=== PATIENT | male | born 1980 | race Caucasian/White ===

== ENCOUNTER 2017-09-05 19:35 | Inpatient (IN) | payer MEDICAID, OTHER ==
[2017-09-05] MEDS ORDERED: NS 1,000 ML IV ONE ×2 (20:14)
[2017-09-05] MEDS ORDERED: LORazepam 2 MG/ML INJ IVP ONE (20:19)
--- NOTE | 2017-09-05 20:28 | EDPHY ---
H & P Stated Complaint: W/D OPIOIDS "SLEEP DEPRIVED, DEHYDRATED" Time Seen by Provider: 09/05/17 19:46 HPI/ROS: CHIEF COMPLAINT: Weakness, confusion, opioid withdrawal, methamphetamine abuse HISTORY OF PRESENT ILLNESS: The patient presents to the ED with weakness, confusion, reported dehydration in the setting of insomnia, excess work, opioid withdrawal x1 week and methamphetamine use over the past 3 days. The patient denies history of fall or trauma. The patient reports feeling globally weak. He reports dark urine. He reports generalized myalgias. The patient denies taking regular prescription medications. He has been on Suboxone as well. The patient reports he used IV methamphetamine 3 days ago. The patient does endorse some symptoms of dysuria. He complains of some mild redness over his 1st MTP joints bilaterally. REVIEW OF SYSTEMS: A comprehensive 10 point review of systems is otherwise negative aside from elements mentioned in the history of present illness. Source: Patient Exam Limitations: No limitations - Personal History Current Tetanus Diphtheria and Acellular Pertussis (TDAP): Yes - Medical/Surgical History Hx Asthma: No Hx Chronic Respiratory Disease: No Hx Diabetes: No Hx Cardiac Disease: No Hx Renal Disease: No Hx Cirrhosis: No Hx Alcoholism: No Hx HIV/AIDS: No Hx Splenectomy or Spleen Trauma: No Other PMH: DENIES - Social History Smoking Status: Heavy smoker - Physical Exam Exam: General Appearance: Alert, slightly tremulous, diaphoretic Eyes: Pupils equal and round no pallor or injection ENT, Mouth: Mucous membranes moist Respiratory: There are no retractions, lungs are clear to auscultation Cardiovascular: Tachycardic Gastrointestinal: Abdomen is soft and nontender, no masses, bowel sounds normal Neurological: A&O, normal motor function, normal sensory exam, normal cranial nerves Skin: Warm and dry, no rashes Musculoskeletal: Neck is supple nontender Extremities: symmetrical, full range of motion Constitutional: Initial Vital Signs Temperature (C) 36.4 C 09/05/17 19:40 Heart Rate 122 H 09/05/17 19:40 Respiratory Rate 20 09/05/17 19:40 Blood Pressure 97/57 L 09/05/17 19:40 O2 Sat (%) 94 09/05/17 19:40 O2 Delivery Mode Room Air Allergies/Adverse Reactions: No Known Allergies Allergy (Unverified 09/05/17 19:40) Home Medications: Medication Instructions Recorded NK [No Known Home Meds] 09/05/17 Medical Decision Making - Diagnostics Imaging Results: Chest x-ray AP: Negative for focal infiltrate by my interpretation. Procedures: Procedure: Limited transthoracic echocardiogram. A limited transthoracic echocardiogram was performed and interpreted by myself for hypotension, tachycardia. Limited transthoracic echocardiogram: The pericardium was visualized and found to be negative for pericardial fluid. Cardiac activity was present. The study was negative for pericardial effusion. ED Course/Re-evaluation: The patient presents to the ED with weakness, subjective dehydration, fatigue and myalgias in the setting of opioid withdrawal and methamphetamine abuse. While in the emergency department, the patient did developed hypotension. He was noted to have a sodium 122. He received 1 L of normal saline. The patient developed a blood pressure 80/60. Blood cultures x2 are obtained. An ABG an arterial lactic acid or ordered at 10:00 p.m.. The patient was noted to have an abnormal urinalysis with pyuria and hematuria. I have declared severe sepsis in the patient at 10:00 p.m.. The patient will be given a 30 milligram/kilogram bolus. 1 g of IV ceftriaxone was ordered. The patient's venous pH is normal. The patient's lactate is reassuring at 1.5. I did perform a bedside echocardiogram which demonstrated no evidence of a pericardial effusion. Is unclear whether the patient's urine is abnormal from kidney injury versus infection. The patient is afebrile in the emergency department. I feel the patient's hypotension is secondary to volume depletion. I feel further fluid resuscitation is indicated before beginning any pressor support. The patient will be transferred to the step-down unit at this point time. Differential Diagnosis: Differential diagnosis considered includes severe sepsis, dehydration, rhabdomyolysis, metabolic abnormality - Data Points Laboratory Results: Laboratory Results 09/05/17 19:41 09/05/17 19:41 09/05/17 09/05/17 09/05/17 20:00 19:41 19:41 WBC RBC Hgb Hct MCV MCH MCHC RDW Plt Count MPV Neut % (Auto) Lymph % (Auto) [place] % (Auto) Eos % (Auto) Baso % (Auto) Nucleat RBC Rel Count Absolute Neuts (auto) Absolute Lymphs (auto) Absolute Monos (auto) Absolute Eos (auto) Absolute Basos (auto) Absolute Nucleated RBC Immature Gran % Seg Neutrophils % Band Neutrophils % Lymphocytes % Monocytes % Eosinophils % Basophils % Metamyelocytes % Myelocytes % Promyelocytes % Blast Cells % Immature Gran # Absolute Band Neuts RBC/WBC/PLT Morphology Plasma Cells % Platelet Estimate Smear Review By PT Pending INR Pending APTT Pending Sodium Potassium Chloride Carbon Dioxide Anion Gap BUN Creatinine Estimated GFR Glucose Calcium Phosphorus Pending Magnesium Pending Total Bilirubin 1.5 mg/dL H mg/dL (0.1-1.4) Conjugated Bilirubin 1.4 mg/dL H mg/dL (0.0-0.5) Unconjugated Bilirubin 0.1 mg/dL mg/dL (0.0-1.1) AST 43 IU/L IU/L (17-59) ALT 31 IU/L IU/L (21-72) Alkaline Phosphatase 141 IU/L H IU/L (38-126) Creatine Kinase Total Protein 5.6 g/dL L g/dL (6.3-8.2) Albumin 2.5 g/dL L g/dL (3.5-5.0) Procalcitonin Pending Urine Color ONEYDA Urine Appearance TURBID Urine pH 5.0 (5.0-7.5) Ur Specific [place] 1.019 (1.002-1.030) Urine Protein 2+ H (NEGATIVE) Urine Ketones NEGATIVE (NEGATIVE) Urine Blood 3+ H (NEGATIVE) Urine Nitrate NEGATIVE (NEGATIVE) Urine Bilirubin NEGATIVE (NEGATIVE) Urine Urobilinogen 4.0 EU H EU (0.2-1.0) Ur Leukocyte Esterase 2+ H (NEGATIVE) Urine RBC 50-182 /hpf H /hpf (0-3) Urine WBC 50-182 /hpf H /hpf (0-3) Ur Epithelial Cells NONE SEEN /lpf /lpf (NONE-1+) Urine Bacteria 2+ /hpf H /hpf (NONE SEEN) Hyaline Casts >182 /lpf H /lpf (0-1) Urine Mucus 2+ /lpf H /lpf (NONE-1+) Urine Sperm PRESENT /hpf /hpf (NONE SEEN) Urine Glucose NEGATIVE (NEGATIVE) Urine Opiates Screen NEGATIVE (NEGATIVE) Urine Barbiturates NEGATIVE (NEGATIVE) Ur Phencyclidine Scrn NEGATIVE (NEGATIVE) Ur Amphetamine Screen NON-NEGATIVE H (NEGATIVE) U Benzodiazepines Scrn NEGATIVE (NEGATIVE) Urine Cocaine Screen NEGATIVE (NEGATIVE) U Marijuana (THC) Screen NEGATIVE (NEGATIVE) Ethyl Alcohol 09/05/17 09/05/17 09/05/17 19:41 19:41 19:41 WBC 24.55 10^3/uL H 10^3/uL (3.80-9.50) RBC 4.06 10^6/uL L 10^6/uL (4.40-6.38) Hgb 13.0 g/dL L g/dL (13.7-17.5) Hct 35.8 % L % (40.0-51.0) MCV 88.2 fL fL (81.5-99.8) MCH 32.0 pg pg (27.9-34.1) MCHC 36.3 g/dL g/dL (32.4-36.7) RDW 11.8 % % (11.5-15.2) Plt Count 38 10^3/uL L 10^3/uL (150-400) MPV TNP Neut % (Auto) Not Reported Lymph % (Auto) Not Reported Crawford % (Auto) Not Reported Eos % (Auto) Not Reported Baso % (Auto) Not Reported Nucleat RBC Rel Count Not Reported Absolute Neuts (auto) Not Reported Absolute Lymphs (auto) Not Reported Absolute Monos (auto) Not Reported Absolute Eos (auto) Not Reported Absolute Basos (auto) Not Reported Absolute Nucleated RBC Not Reported Immature Gran % Not Reported Seg Neutrophils % 75.8 % % Band Neutrophils % 19.2 % % Lymphocytes % 2.0 % % Monocytes % 1.0 % % Eosinophils % 0 % % Basophils % 0 % % Metamyelocytes % 1.0 % % Myelocytes % 0 % % Promyelocytes % 0 % % Blast Cells % 0 % % Immature Gran # Not Reported Absolute Band Neuts 4.71 10^3/uL H 10^3/uL (0.00-0.70) RBC/WBC/PLT Morphology NORMAL (NORMAL) Plasma Cells % 1.0 % % Platelet Estimate DECREASED L (ADEQ) Smear Review By Pending PT INR APTT Sodium 122 mEq/L L mEq/L (135-145) Potassium 3.4 mEq/L L mEq/L (3.5-5.2) Chloride 84 mEq/L L mEq/L (97-110) Carbon Dioxide 24 mEq/l mEq/l (22-31) Anion Gap 14 mEq/L mEq/L (8-16) BUN 51 mg/dL H mg/dL (7-23) Creatinine 1.7 mg/dL H mg/dL (0.7-1.3) Estimated GFR 46 Glucose 156 mg/dL H mg/dL (70-100) Calcium 7.4 mg/dL L mg/dL (8.5-10.4) Phosphorus Magnesium Total Bilirubin Conjugated Bilirubin Unconjugated Bilirubin AST ALT Alkaline Phosphatase Creatine Kinase 59 IU/L IU/L (0-224) Total Protein Albumin Procalcitonin Urine Color Urine Appearance Urine pH Ur Specific [place] Urine Protein Urine Ketones Urine Blood Urine Nitrate Urine Bilirubin Urine Urobilinogen Ur Leukocyte Esterase Urine RBC Urine WBC Ur Epithelial Cells Urine Bacteria Hyaline Casts Urine Mucus Urine Sperm Urine Glucose Urine Opiates Screen Urine Barbiturates Ur Phencyclidine Scrn Ur Amphetamine Screen U Benzodiazepines Scrn Urine Cocaine Screen U Marijuana (THC) Screen Ethyl Alcohol < 10 mg/dL mg/dL (0-10) Medications Given: Sodium Chloride (Ns) 2,400 mls @ 400 mls/hr 30 ml/kg infuse over 6 hr (2400 ml ) IV EDNOW ONE PRN Reason: Protocol Stop: 09/06/17 03:55 Last Admin: 09/05/17 22:02 Dose: 2,400 mls Discontinued Medications Sodium Chloride (Ns) 1,000 mls @ 0 mls/hr IV EDNOW ONE; Wide Open PRN Reason: Protocol Stop: 09/05/17 20:15 Last Admin: 09/05/17 20:20 Dose: 1,000 mls Sodium Chloride (Ns) 1,000 mls @ 0 mls/hr IV EDNOW ONE; Wide Open PRN Reason: Protocol Stop: 09/05/17 20:15 Last Admin: 09/05/17 20:20 Dose: 1,000 mls Ceftriaxone Sodium/Dextrose (Rocephin 1 Gm (Premix)) 50 mls @ 100 mls/hr IV EDNOW ONE PRN Reason: Protocol Stop: 09/05/17 22:25 Last Admin: 09/05/17 22:04 Dose: 50 mls Lorazepam (Ativan Injection) 1 mg IVP EDNOW ONE Stop: 09/05/17 20:20 Last Admin: 09/05/17 20:36 Dose: Not Given Departure - Departure Disposition: [facility] Inpatient Acute Clinical Impression: Renal failure, Hyponatremia, Dehydration Condition: Good
[2017-09-05 20:45] LABS: PLATELET COUNT 38 10^3/uL (150-400)
[2017-09-05 20:47] LABS: CREATINE KINASE 59 IU/L (0-224)
[2017-09-05] MEDS ORDERED: NS 2,400 ML IV ONE (21:56)
[2017-09-05] MEDS ORDERED: ONDANSETRON 4 MG/2 ML VIAL IVP PRN (22:25)
[2017-09-05] MEDS ORDERED: ACETAMINOPHEN 325 MG TAB PO PRN (22:25)
[2017-09-05] MEDS ORDERED: LORazepam 0.5 MG TAB PO PRN (22:25)
[2017-09-05] MEDS ORDERED: 1/2 NS 1,000 ML IV SCH (22:30)
[2017-09-05 22:46] LABS: INR 1.18 (0.83-1.16); PROTIME(PATIENT) 15.2 SEC (12.0-15.0)
--- NOTE | 2017-09-05 23:44 | PDGENHP ---
History and Physical - Chief Complaint weakness, dehydration - History of Present Illness Source-patient provides history appears reliable. EMR was reviewed and case discussed with accepting hospitalist. HPI - this is a 37-year-old gentleman with past medical history significant for chronic opiate tapering on Suboxone and history of IVDU with meth, possible HCV who presents emergency department today complaining of 5 day history of feeling weak, lightheadedness and being severely dehydrated. The patient has had noted decreased appetite over the last 3 days in particular. No nausea vomiting abdominal pain. Patient denies any fevers or chills. He has been complaining of some significant myalgias and restlessness. Patient reports that time he has been withdrawing to last dose of Suboxone and met methamphetamines 5 days ago. Patient is also noted some lightheadedness without any syncope. Positive cough, nonproductive and occasional shortness of breath.. Patient also reports that today he is urine was quite dark and he has been feeling a little bit of dysuria but no hematuria noted. He denies any flank pain. No diarrhea reported. Patient has also been reporting in the last several days he has noticed some increased swelling and redness around multiple joints including his left 5th MCP and bilateral great toes MTP. He is also complaining some soreness in his knees bilaterally but no swelling or erythema. Patient has been complaining of some blurry vision with lightheadedness. Occasional palpitations but no chest pain. History Information - Allergies/Home Medication List Allergies/Adverse Reactions: No Known Allergies Allergy (Unverified 09/05/17 19:40) Home Medications: NK [No Known Home Meds] 09/05/17 [Last Taken Unknown] I have personally reviewed and updated: family history, medical history, social history, surgical history - Past Medical History Additional medical history: Possible HCV, history MRSA abscesses, positive tobacco use, IVDU-methamphetamine - Surgical History Additional surgical history: Right inguinal hernia repair, I&D of the left arm - Family History Additional family history: Negative for hypertension, diabetes, CAD. Positive for cousins with substance abuse disorder - Social History Smoking Status: Heavy smoker Tobacco Use: Cigarettes (One pack per day for many years) Alcohol Use: Occasionally (Patient with previous history of daily alcohol use last 1 month ago.) Drug Use: Other (Methamphetamine-IVDU) Additional social history: Patient lives in [place] he is here on temporarily for work. Cor-full Review of Systems Review of Systems: ROS: 10pt was reviewed & negative except for what was stated in HPI & below Constitutional: Reports: malaise, weakness (Generalized). Denies: chills, fever EENMT: Reports: blurred vision, sore throat (Hoarseness, dry mouth). Denies: nose congestion Cardiac: Reports: lightheadedness, palpitations. Denies: chest pain, edema, syncope Respiratory: Reports: cough (Nonproductive), shortness of breath (Occasional). Denies: wheezing Gastrointestinal: Reports: other (Decreased appetite). Denies: vomitting, abdominal pain, diarrhea, nausea Genitourinary: Reports: dysuria. Denies: discharge, flank pain, frequency, hematuria, urgency Muscolosketal: Reports: joint pain (See HPI), joint swelling, muscle pain Skin: Reports: no symptoms. Denies: rash Neurological: Reports: numbness (Wrist), weakness (Generalized). Denies: anxiety, depressed, headache Hematologic/Lymphatic: Denies: anemia, easy bleeding Physical Exam Physical Exam: Selected Entries 09/05/17 09/05/17 19:40 22:46 Blood Pressure Automatic Method Heart Rate 122 H 103 H Respiratory 20 23 H Rate O2 Sat (%) 94 94 Temperature (C) 36.4 C Blood Pressure 97/57 L 84/48 L Mean Arterial 70 60 Pressure (MAP) O2 Delivery Room Air Room Air Mode Temperature Oral Source Cardiac Rhythm Sinus Tachycardia Constitutional: chronically ill appearing, other (No acute distress. Appears acutely ill but nontoxic. Patient is awake and cooperative otherwise pleasant. He is a restless and tremulous. Appears quite dehydrated.) Eyes: PERRL (Slightly decreased reactivity to light bilaterally but symmetric.) , anicteric sclera, EOMI, No scleral injection Ears, Nose, Mouth, Throat: no oral mucosal ulcers, poor dentition (Fair condition), dry mucous membranes (Dry cracked lips) Cardiovascular: no murmur, rub, or gallop, pulses symmetric bilaterally, tachycardia (90s), edema (Some symmetrical swelling bilateral hands and feet. Patient with joint erythema and swelling left 5th PIP and bilateral 1st toe MTP. ) Peripheral Pulses: 2+: dorsalis-pedis (R), dorsalis-pedis (L) Respiratory: no respiratory distress, no rales or rhonchi, clear to auscultation , reduced air movement (Slightly diminished at the bases.), other (Patient with intermittent coughing during the interview.) Gastrointestinal: soft, non-tender abdomen, no palpable masses, No hepatosplenomegally, No distension Genitourinary: no bladder tenderness, other (No flank pain), No arellano in urethra Skin: warm, no rashes or abrasions, erythema (First left M CP) Musculoskeletal: full muscle strength, joint tenderness, muscular tenderness ( Patient complains of diffuse myalgias.), No generalized weakness Neurologic: AAOx3, sensation intact bilaterally, CN II-XII Intact, other ( Resting tremor), No facial droop Psychiatric: not encephalopathic, thought process linear, anxious, No suicidal ideation, No agitated, No poor insight, No poor judgement, No poor memory Lab Data & Imaging Review 09/05/17 19:41 09/05/17 19:41 WBC 24.55 10^3/uL (3.80-9.50) H 09/05/17 19:41 RBC 4.06 10^6/uL (4.40-6.38) L 09/05/17 19:41 Hgb 13.0 g/dL (13.7-17.5) L 09/05/17 19:41 Hct 35.8 % (40.0-51.0) L 09/05/17 19:41 MCV 88.2 fL (81.5-99.8) 09/05/17 19:41 MCH 32.0 pg (27.9-34.1) 09/05/17 19:41 MCHC 36.3 g/dL (32.4-36.7) 09/05/17 19:41 RDW 11.8 % (11.5-15.2) 09/05/17 19:41 Plt Count 38 10^3/uL (150-400) L 09/05/17 19:41 MPV TNP 09/05/17 19:41 Neut % (Auto) Not Reported 09/05/17 19:41 Lymph % (Auto) Not Reported 09/05/17 19:41 [place] % (Auto) Not Reported 09/05/17 19:41 Eos % (Auto) Not Reported 09/05/17 19:41 Baso % (Auto) Not Reported 09/05/17 19:41 Nucleat RBC Rel Count Not Reported 09/05/17 19:41 Absolute Neuts (auto) Not Reported 09/05/17 19:41 Absolute Lymphs (auto) Not Reported 09/05/17 19:41 Absolute Monos (auto) Not Reported 09/05/17 19:41 Absolute Eos (auto) Not Reported 09/05/17 19:41 Absolute Basos (auto) Not Reported 09/05/17 19:41 Absolute Nucleated RBC Not Reported 09/05/17 19:41 Immature Gran % Not Reported 09/05/17 19:41 Seg Neutrophils % 75.8 % 09/05/17 19:41 Band Neutrophils % 19.2 % 09/05/17 19:41 Lymphocytes % 2.0 % 09/05/17 19:41 Monocytes % 1.0 % 09/05/17 19:41 Eosinophils % 0 % 09/05/17 19:41 Basophils % 0 % 09/05/17 19:41 Metamyelocytes % 1.0 % 09/05/17 19:41 Myelocytes % 0 % 09/05/17 19:41 Promyelocytes % 0 % 09/05/17 19:41 Blast Cells % 0 % 09/05/17 19:41 Immature Gran # Not Reported 09/05/17 19:41 Absolute Band Neuts 4.71 10^3/uL (0.00-0.70) H 09/05/17 19:41 RBC/WBC/PLT Morphology NORMAL (NORMAL) 09/05/17 19:41 Plasma Cells % 1.0 % 09/05/17 19:41 Platelet Estimate DECREASED (ADEQ) L 09/05/17 19:41 PT 15.2 SEC (12.0-15.0) H 09/05/17 19:41 INR 1.18 (0.83-1.16) H 09/05/17 19:41 APTT 34.3 SEC (23.0-38.0) 09/05/17 19:41 Puncture Site RIGHT RADIAL 09/05/17 22:05 Patient Temperature 37.0 DEGREES 09/05/17 22:05 pCO2 30 mmHg (34-38) L 09/05/17 22:05 pO2 59 mmHg (65-75) L 09/05/17 22:05 Total CO2 22 mEq/L (23-27) L 09/05/17 22:05 ABG pH 7.45 (7.35-7.45) 09/05/17 22:05 ABG PO2/FiO2 Ratio Cancelled 09/05/17 22:17 ABG HCO3 21 mEq/L (22-26) L 09/05/17 22:05 ABG O2 Sat (Calculated) Cancelled 09/05/17 22:17 ABG O2 Saturation 90 % (92-95) L 09/05/17 22:05 ABG Base Excess -2.2 mEq/L (-2.5-2.5) 09/05/17 22:05 ABG Lactic Acid 1.4 mmol/L (0.5-1.6) 09/05/17 22:05 VBG Lactic Acid 1.5 mmol/L (0.7-2.1) 09/05/17 22:06 Total O2 Concentration Cancelled 09/05/17 22:17 O2 Concentration % Cancelled 09/05/17 22:17 Respiration Rate Cancelled 09/05/17 22:17 Actual Respiration Rate Cancelled 09/05/17 22:17 Set Respiration Rate Cancelled 09/05/17 22:17 SIMV Cancelled 09/05/17 22:17 Assist Control Cancelled 09/05/17 22:17 Vent Rate Cancelled 09/05/17 22:17 Inspiratory Time Cancelled 09/05/17 22:17 Expiratory Pressure Cancelled 09/05/17 22:17 Tidal Volume Cancelled 09/05/17 22:17 End Tidal CO2 Cancelled 09/05/17 22:17 PEEP Cancelled 09/05/17 22:17 Inspiratory Pressure Cancelled 09/05/17 22:17 Peak Inspir Pressure Cancelled 09/05/17 22:17 Pressure Support Cancelled 09/05/17 22:17 Pressure Control Cancelled 09/05/17 22:17 CPAP Cancelled 09/05/17 22:17 BiPAP Cancelled 09/05/17 22:17 Mode BiPAP Cancelled 09/05/17 22:17 Inspir/Expir Ratio Cancelled 09/05/17 22:17 Sodium 122 mEq/L (135-145) L 09/05/17 19:41 Potassium 3.4 mEq/L (3.5-5.2) L 09/05/17 19:41 Chloride 84 mEq/L (97-110) L 09/05/17 19:41 Carbon Dioxide 24 mEq/l (22-31) 09/05/17 19:41 Anion Gap 14 mEq/L (8-16) 09/05/17 19:41 BUN 51 mg/dL (7-23) H 09/05/17 19:41 Creatinine 1.7 mg/dL (0.7-1.3) H 09/05/17 19:41 Estimated GFR 46 09/05/17 19:41 Glucose 156 mg/dL (70-100) H 09/05/17 19:41 Calcium 7.4 mg/dL (8.5-10.4) L 09/05/17 19:41 Phosphorus 2.9 mg/dL (2.5-4.5) 09/05/17 19:41 Magnesium 1.8 mg/dL (1.6-2.3) 09/05/17 19:41 Total Bilirubin 1.5 mg/dL (0.1-1.4) H 09/05/17 19:41 Conjugated Bilirubin 1.4 mg/dL (0.0-0.5) H 09/05/17 19:41 Unconjugated Bilirubin 0.1 mg/dL (0.0-1.1) 09/05/17 19:41 AST 43 IU/L (17-59) 09/05/17 19:41 ALT 31 IU/L (21-72) 09/05/17 19:41 Alkaline Phosphatase 141 IU/L (38-126) H 09/05/17 19:41 Creatine Kinase 59 IU/L (0-224) 09/05/17 19:41 Total Protein 5.6 g/dL (6.3-8.2) L 09/05/17 19:41 Albumin 2.5 g/dL (3.5-5.0) L 09/05/17 19:41 Procalcitonin 4.35 ng/mL (0.02-0.10) H 09/05/17 19:41 Urine Color ONEYDA 09/05/17 20:00 Urine Appearance TURBID 09/05/17 20:00 Urine pH 5.0 (5.0-7.5) 09/05/17 20:00 Ur Specific Closplint 1.019 (1.002-1.030) 09/05/17 20:00 Urine Protein 2+ (NEGATIVE) H 09/05/17 20:00 Urine Ketones NEGATIVE (NEGATIVE) 09/05/17 20:00 Urine Blood 3+ (NEGATIVE) H 09/05/17 20:00 Urine Nitrate NEGATIVE (NEGATIVE) 09/05/17 20:00 Urine Bilirubin NEGATIVE (NEGATIVE) 09/05/17 20:00 Urine Urobilinogen 4.0 EU (0.2-1.0) H 09/05/17 20:00 Ur Leukocyte Esterase 2+ (NEGATIVE) H 09/05/17 20:00 Urine RBC 50-182 /hpf (0-3) H 09/05/17 20:00 Urine WBC 50-182 /hpf (0-3) H 09/05/17 20:00 Ur Epithelial Cells NONE SEEN /lpf (NONE-1+) 09/05/17 20:00 Urine Bacteria 2+ /hpf (NONE SEEN) H 09/05/17 20:00 Hyaline Casts >182 /lpf (0-1) H 09/05/17 20:00 Urine Mucus 2+ /lpf (NONE-1+) H 09/05/17 20:00 Urine Sperm PRESENT /hpf (NONE SEEN) 09/05/17 20:00 Urine Glucose NEGATIVE (NEGATIVE) 09/05/17 20:00 Urine Opiates Screen NEGATIVE (NEGATIVE) 09/05/17 20:00 Urine Barbiturates NEGATIVE (NEGATIVE) 09/05/17 20:00 Ur Phencyclidine Scrn NEGATIVE (NEGATIVE) 09/05/17 20:00 Ur Amphetamine Screen NON-NEGATIVE (NEGATIVE) H 09/05/17 20:00 U Benzodiazepines Scrn NEGATIVE (NEGATIVE) 09/05/17 20:00 Urine Cocaine Screen NEGATIVE (NEGATIVE) 09/05/17 20:00 U Marijuana (THC) Screen NEGATIVE (NEGATIVE) 09/05/17 20:00 Ethyl Alcohol < 10 mg/dL (0-10) 09/05/17 19:41 Imaging Review: Portable Chest, 22:41 History: Hypotension, drug withdrawal Comparison: None Findings: Patchy density in the lower lateral left lung is consistent with possible pneumonia. There is no pleural fluid. Heart size and pulmonary vascularity are normal for portable technique. EKG leads overlie the chest. Impression: Possible left lower lung zone pneumonia. Visualized and Interpreted Chest x-ray results: Yes Chest X-Ray results: infiltrate (Left lower lobe. Some patchiness on the right. ) Visualized and Interpreted imaging results: Yes Assessment & Plan Assessment: 37-year-old male recently traveled from [place] who presents emergency department with complaints of dehydration, malaise, myalgias, concerns for withdrawal. #Sepsis - patient meeting criteria with tachycardia, leukocytosis also has some mild hypotension responsive to fluids. Patient without any mentation changes although he is restless and tremulous he is answering questions appropriately. Lactate is within normal limits and procalcitonin is elevated. Chest x-ray shows possible early left lower lobe infiltrate. He also has a history of IVDU with some complaints of joint swelling but I suspect this is likely gout as patient reports he has had previous episodes. He does not have any audible cardiac murmurs at this time. Patient does report history of MRSA abscesses in the past but no hospitalizations for sepsis. Patient without no additional abnormal labs including thrombocytopenia and elevated bilirubin but he does note he thinks he has a history of hepatitis-C chronicity unknown. Patient received 30 mL/kg bolus IV fluids in the emergency department, blood cultures x2 were ordered as well as urine culture. Patient was started on Rocephin for concerns of UTI. Given chest x-ray abnormalities in his history of MRSA will add on vancomycin for additional coverage. Patient also with a cough and some respiratory symptoms will check respiratory panel in addition. #Left lower lobe pneumonia - early infiltrates in the left lower base. Patient was started on Rocephin. Vancomycin added with patient's history of MRSA. #UTI - patient started on Rocephin. He is complaining of symptoms. Leukocyte esterase is elevated at patient 2+ bacteria on a concentrated sample. Urine culture is pending. #Hypotension - continue with IV fluid supplementation. #Hyponatremia - likely hypovolemic in nature patient does appear significantly dehydrated. Status post 2 L normal saline in the ED. Serial BMP in adjustment in fluids as appropriate. Continue with supplementation given patient's hypotension. #Acute kidney injury - likely pre renal in setting of severe dehydration as well as hypoperfusion with low blood pressures. Check urine studies in osmoles. Continue with IV fluids. Patient received 2 L normal saline in the emergency department will plan to monitor sodium levels q.4. #Dehydration - patient reports very poor oral intake and hydration last several days and has been traveling. Continue with IV fluids all monitoring sodium. #Thrombocytopenia - likely related to underlying liver disease versus patient's acute illness versus less likely DIC. #Anemia - baseline H&H are unknown. No reported history of active bleeding. Likely related to possible cirrhosis versus acute illness. Will monitor H&H and obtain up type and screen given patient's thrombocytopenia. #Poly arthralgias - suspect this could be gout. Will check a uric acid. Lower suspicion for septic arthritis S patient does report a previous history. He is on antibiotic therapy as noted above and will monitor closely. #Hypoalbuminemia - secondary to acute illness and underlying liver disease. Monitor LFTs. #Coagulopathy - is likely secondary to underlying liver disease versus less likely DIC. #Hypokalemia - replacement will be ordered. #Hypocalcemia - appears to correct for albumin. #Hyperbilirubinemia - possibly related to history of HCV versus sepsis. Continue with IV fluids and repeat LFTs in the morning. Patient denies any abdominal pain no significant elevation in LFTs. Consider imaging if no improvement. #Amphetamine abuse - patient does appear to be withdrawing and is restless but not agitated. He is pleasant cooperative. Ativan available p.r.n.. Cessation recommended. #Tobacco abuse - nicotine patch p.r.n.. #Hyperglycemia - nonfasting laboratory study. No history of diabetes. Will plan to monitor a.m. BMP. No additional treatment at this time. FEN - IV fluids as noted above. Electrolyte replacement as noted above. Diet as tolerated. PPX-SCDs holding anticoagulation secondary to thrombocytopenia. Cor status-full Disposition-patient admitted to inpatient status on the SCU. Anticipate greater than 2 midnight stay given severity of patient's illness.
[2017-09-06] MEDS ORDERED: VANCOMYCIN HCL/NORMAL SALINE 250 ML IV SCH
[2017-09-06] MEDS: NS 1,000 ML IV SCH ×3 (01:30→21:04)
[2017-09-06] MEDS ORDERED: NS 1,000 ML IV ONE ×2 (01:36→03:23)
[2017-09-06 03:02] LABS: HEPATITIS B SURFACE ANTIGEN NEGATIVE (NEGATIVE)
[2017-09-06 03:08] LABS: HEPATITIS A ANTIBODY IGM (BCH) NEGATIVE (NEGATIVE); HEPATITIS B CORE AB IGM NEGATIVE (NEGATIVE)
[2017-09-06 03:19] LABS: HEPATITIS C ANTIBODY TOTAL REACTIVE (NEGATIVE); HIV TYPE 1 AND 2 NEGATIVE (NEGATIVE)
[2017-09-06] MEDS ORDERED: PROTOCOL CALCIUM 1 DOSE IV PRN (03:24)
[2017-09-06] MEDS ORDERED: PROTOCOL K PHOSPHATE 1 DOSE IV PRN (03:24)
[2017-09-06] MEDS ORDERED: PROTOCOL MAGNESIUM 1 DOSE IV PRN (03:24)
[2017-09-06] MEDS ORDERED: PROTOCOL POTASSIUM 1 DOSE MISC PRN (03:24)
[2017-09-06] MEDS ORDERED: ALBUMIN 5% 500 ML IV ONE (04:07)
--- NOTE | 2017-09-06 05:14 | HOSPPROG ---
Hospitalist Progress Note Assessment/Plan: Hospitalist night float note Arrive to bedside after overhead stroke alert called. Patient had sudden change in neurologic status with left facial drooping, slurred speech and pupillary changes per primary RN. Patient admitted earlier yesterday for suspected sepsis with hypotension responsive to fluid initially. At time of my interview patient was tremulous, diaphoretic and anxious. He had a slight lower left lower facial droop. Cerebellar testing abnormal on the left. Patient is still oriented x3. He was taken down for stat CT head with the stroke team and [facility] Jodie had been placed with patient on route to CT scan. Patient's blood pressures had declined down to a systolic in the 80s despite bolus dosing and albumin. He does not have central venous access due to some concern for possible bacteremia and history of IV drug use. low- dose Levophed will be ordered. Blood sugar at bedside 98. Differential diagnosis including acute CVA versus septic emboli versus intracranial bleed with a history of platelet counts of 38K upon admission. Objective: Vital Signs Temp Pulse Resp BP Pulse Ox 36.7 C 119 H 35 H 84/53 L 94 09/06/17 03:00 09/06/17 03:00 09/06/17 03:00 09/06/17 03:00 09/06/17 03:00 09/04/17 09/05/17 09/06/17 05:59 05:59 05:59 Intake Total 3500 Output Total 350 Balance 3150 PT 15.2 SEC (12.0-15.0) H 09/05/17 19:41 INR 1.18 (0.83-1.16) H 09/05/17 19:41 ICD10 Worksheet Patient Problems: Problems Problem Status Onset Dehydration Acute Hyponatremia Acute Renal failure Acute
[2017-09-06] MEDS: NOREPINEPHRINE BITARTRATE 4 MG in NS 500 ML IV SCH ×2 (05:21→15:21)
--- NOTE | 2017-09-06 05:22 | CPEKG ---
Heart Rate: 117 RR Interval: 513 P-R Interval: 152 QRSD Interval: 82 QT Interval: 344 QTC Interval: 480 P [place]: 67 QRS [place]: 73 T Wave [place]: 33 EKG Severity - BORDERLINE ECG - EKG Impression: SINUS TACHYCARDIA EKG Impression: LOW VOLTAGE IN FRONTAL LEADS EKG Impression: BORDERLINE PROLONGED QT INTERVAL Electronically Signed By: Skyler Gutierrez 06-Sep-2017 08:52:36
[2017-09-06] MEDS ORDERED: NOREPINEPHRINE/NS 500 ML IV SCH (05:30)
[2017-09-06] MEDS ORDERED: LORazepam 2 MG/ML INJ IVP PRN (06:02)
[2017-09-06 06:03] LABS: PLATELET COUNT 25 10^3/uL (150-400)
[2017-09-06] MEDS ORDERED: NS ID ONE (06:07)
[2017-09-06] MEDS ORDERED: PHENTOLAMINE MESYLATE ID ONE (06:07)
[2017-09-06] MEDS ORDERED: FLUMAZENIL 0.5 MG/5 ML MDV IVP PRN (07:38)
[2017-09-06] MEDS ORDERED: LIDOCAINE 1% 300 MG/30 ML SDV ONE (07:59)
--- NOTE | 2017-09-06 08:14 | POSTOPPROG ---
Post Op Note Date of Operation: 09/06/17 Surgeon: Danny Boucher (, FACS) Anesthesia: GET(General Endotracheal) Pre-op Diagnosis: sepsis/need for venous access Post-op Diagnosis: same Procedure: placement left subclavian triple lumen cath Inf/Abcess present in the surg proc area at time of surgery?: Yes Depth: Organ Space (+ BC) EBL: Minimal
--- NOTE | 2017-09-06 08:28 | PDMN ---
Medical Necessity Medical necessity: MCG: M160 sepsis and other febrile illness A-2 days- tachycardia, leukocytosis, hypotension, M282 cPNA LLL Pna, UTI, hypotension, Hyponatremia, acute kidney injury, dehydration, thrombocytopenia, anemia, poly arthralgias, hypoalbuminemia, hypokalemia, hypokalemia, amphetamine abuse, hyperglycemia. , ... further monitoring and tx needed for above
[2017-09-06] MEDS ORDERED: CALCIUM CHLORIDE 1 GM/10 ML INJ IV ONE ×2 (08:30→08:45)
--- NOTE | 2017-09-06 08:58 | HOSPPROG ---
Hospitalist Progress Note Assessment/Plan: 37 yo M w likely staph aureua bacteremia here w septic shock septic shock: BRITNEY, hypotension requiring pressors, gpc bacteremia gpc bacteremia: on vanc presumably 2/2 IVDU follow exam of LUE no evidence of metastatic infection echo today AHRF: likely pulm edema from resuscitation will inevitably need intubation BIPAP now hypocalcemia: cacl2 now given hypotension BRITNEY: 2/2 septic shock volume resuscitation proph: scd's now LMWH given thrombocytopenia liver: h/o hep c this is likely cause of thrombocytopenia abd u/s hyponatremia: follow use NS not primary problem thrombocytopenia w coagulopathy: path review of smear looking for schistocytes TTP unnlikely but dont want to miss NO PETECHIAE dispo: critically ill, ICU 45 min crit care Subjective: hypotensive on pressors. cxr w b/l airspace disease (Interp by me) . case d/w dr preston Objective: Vital Signs Temp Pulse Resp BP Pulse Ox 36.9 C 113 H 27 H 81/63 L 100 09/06/17 08:17 09/06/17 08:17 09/06/17 08:17 09/06/17 08:17 09/06/17 08:17 Microbiology 09/06/17 06:20 Respiratory Panel (PCR) - Final Nasal, Sinus - Swab No Organism Detected Laboratory Results 09/06/17 04:40 09/06/17 04:40 09/05/17 09/06/17 09/07/17 05:59 05:59 05:59 Intake Total 3500 Output Total 350 Balance 3150 PT 15.2 SEC (12.0-15.0) H 09/05/17 19:41 INR 1.18 (0.83-1.16) H 09/05/17 19:41 - Physical Exam Constitutional: no apparent distress, other (confused but arousable) Eyes: PERRL, anicteric sclera Ears, Nose, Mouth, Throat: moist mucous membranes, hearing normal Cardiovascular: tachycardia, No systolic murmur Respiratory: other (crackles and coarse breath sounds anterolat) Gastrointestinal: normoactive bowel sounds, soft, non-tender abdomen, No guarding, No rebound Genitourinary: no bladder fullness, arellano in urethra Skin: warm, normal color Musculoskeletal: other (no joint effusion/erythema. L forearm w needle nolan that are supposedly from flumazenil admin) Neurologic: No AAOx3 Psychiatric: interacting appropriately Lymph, Heme, Immunologic: no cervical LAD ICD10 Worksheet Patient Problems: Problems Problem Status Onset Dehydration Acute Hyponatremia Acute Renal failure Acute
[2017-09-06] MEDS ORDERED: ALBUMIN 25% 200 ML IV ONE (08:59)
[2017-09-06] MEDS: THIAMINE HCL 500 MG in NS 100 ML IV SCH (09:31)
[2017-09-06] MEDS: VANCOMYCIN HCL/NORMAL SALINE 250 ML IV SCH ×3 (09:31→22:21)
[2017-09-06] MEDS: NICOTINE 21 MG/24 HR PATCH TD SCH (09:54)
[2017-09-06] MEDS ORDERED: MAGNESIUM SULF 1 GM/DEXTROSE 100 ML IV ONE (10:10)
[2017-09-06] MEDS: POTASSIUM Cl (KCl) 50 ML IV SCH (11:37)
[2017-09-06] MEDS: LORazepam 2 MG/ML INJ IVP PRN ×5 (11:40→22:21)
[2017-09-06] MEDS ORDERED: ALBUTEROL 3 ML DEYVIAL IH PRN (12:21)
--- NOTE | 2017-09-06 12:25 | ECHO ---
[email or web address] [address] [address] Main: [phone] Fax: Transthoracic Echocardiogram Name: MAYELA HILTON MR#: [id number] Study Date: 09/06/2017 Study Time: 10:38 AM Date of : 1980 Age: 37 year(s) Height: 177.8 cm (70 in.) Weight: 88.45 kg (195 lb.) BSA: 2.06 m2 Gender: Male Examination: Indication: IVDU, Sepsis, Cardiogenic shock, Bacteremia Image Quality: Contrast: Requested by: Heather Auguste BP: / Heart Rate: Rhythm: Indication: IVDU, Sepsis, Cardiogenic shock, Bacteremia Procedure Staff It Integration Architect: Thuan Ward RDCS Reading Physician: Pedro Luis Santacruz MD Requesting Provider: It Integration Architect: Reading Physician: Requesting Provider: Conclusions: Normal global systolic LV function. EF is 78 %. There is no mitral valve regurgitation. No pericardial effusion. Measurements: Chambers Valvular Assessment AV/MV Valvular Assessment TV/PV Normal Normal Normal Name Value Range Name Value Range Name Value Range Ao Sylvia (MM): 2.7 cm (2.2 cm-3.7 AV Vmax: 1.66 m/s (1 m/s-1.7 PV Vmax: 0.57 m/s (0.6 m/s-0.9 cm) m/s) m/s) IVSd (2D): 0.7 cm (0.6 cm-1.1 AV maxP mmHg ( - ) PV PGmax: 1 mmHg ( - ) cm) LVOT Vmax: 1.32 m/s (0.7 m/s-1.1 LVDd (2D): 4.8 cm (4.2 cm-5.9 m/s) cm) MV E Vmax: 1.15 m/s ( - ) LVDs (2D): 2.6 cm (2.1 cm-4 MV A Vmax: 0.49 m/s ( - ) cm) MV E/A: 2.35 ( - ) LVPWd (2D): 0.8 cm (0.6 cm-1 cm) LVEF (2D): 78 (>=54 %) Continued Measurements: Chambers Name Value LADs Lon.5 cm Patient: MAYELA HILTON Study Date: 09/06/2017 Page 1 of 2 10:38 AM LA Area: 15.7 cm2 Findings: Left Ventricle: Normal size left ventricle. No LV hypertrophy. Normal global systolic LV function. EF is 78 %. No regional wall motion abnormality. Right Ventricle: Normal size right ventricle. Left Atrium: The left atrium is normal in size. Right Atrium: The right atrium is normal in size. Mitral Valve: The mitral valve is normal in appearance and function. There is no mitral valve regurgitation. Aortic Valve: The aortic valve is tri-leaflet and functions normally. Pulmonic Valve: The pulmonic valve is normal in appearance and function. Aorta: The aorta is normal. Pericardium: No pericardial effusion. Exam Comments: (No Signature Object) Patient: MAYELA HILTON Study Date: 09/06/2017 Page 2 of 2 10:38 AM [id number]
--- NOTE | 2017-09-06 13:23 | ASMTCASEMG ---
Living Arrangements What is your living Answers: With One Parent arrangement? Who do you live with? Type Of Residence What kind of residence do Answers: House you live in? Type of Residence Facility Name Notes: Patient lists an [place] address and his mother as next of kin. Discharge Plan Comments Coordination Status Comments Notes: Patient is a 37yo male who is from [place], [place] and came to [place] to work a job. Patient has been admitted for hyponatremia, renal failure, and withdrawal. No therapies have been ordered at this time. Patient has a significant hx for chronic opiate tapering on Suboxone and hx of IVDU with meth. Patient is critically ill. D/C plan TBD. CM will follow Date Signed: 09/06/2017 01:22 PM Electronically Signed By:Rachel Castaneda LCSW
[2017-09-06] MEDS ORDERED: FUROSEMIDE 20 MG/2 ML VIAL IVP ONE ×2 (14:45→20:00)
[2017-09-06] MEDS: LEVALBUTEROL 1.25 MG/3 ML DEYVIAL IH SCH ×2 (15:03→21:30)
--- NOTE | 2017-09-06 16:48 | GCON ---
[f rep st] CONSULTATION PULMONARY CRITICAL CARE CONSULTATION DATE OF CONSULTATION: 09/06/2017 REASON FOR CONSULTATION: Sepsis, abnormal mental status, opioid withdrawal, methamphetamine abuse. HISTORY OF PRESENT ILLNESS: The patient is a 37-year-old who is from [place]. He is out here apparently working with his family. He drove for 24 hours to get here. He has a history of heroin abuse, but recently has been trying to wean off this using Suboxone that he gets from the streets. He used methamphetamine several days ago last. He apparently has not slept for days. He presented to the emergency department with weakness and confusion late yesterday. He was dehydrated. Oral intake of fluids as well as foods was diminished over the last several days. He had complaints of weakness, cough without sputum, some shortness of breath, and pain and swelling of various joints. He was found to be tachycardic and tachypneic. Oxygen saturations on admission were 94%. He was not febrile. White blood cell count was elevated. He was thrombocytopenic and mildly anemic, with evidence of acute renal failure, hyponatremia, and hypokalemia. Chest x-ray showed some increased markings at the left base greater than the right with some perihilar fluffiness. Lactate was normal. Procalcitonin was elevated. He was given intravenous fluids and placed on the sepsis protocol. Antibiotics were given after blood cultures obtained. Rocephin and vancomycin were ordered. He was admitted to the intensive care unit. He was placed on Levophed for hypotension and volume resuscitated per the sepsis protocol. Hepatitis C antigen was positive. He has remained tachypneic and tachycardic. He required BiPAP briefly, is currently off this on 4 L. He remains confused and toxic appearing. PAST MEDICAL HISTORY: Remarkable for narcotic and methamphetamine abuse, hepatitis C, history of MRSA by report, and ongoing tobacco abuse. He was on no prescribed medications on admission. SOCIAL HISTORY: The patient is from [place]. He apparently traveled here to work on [employer], a family business. He smokes at least a pack of cigarettes per day. He is an IV drug abuser, heroin, methamphetamine, etc. Daily alcohol consumption is denied. FAMILY HISTORY: Noncontributory. REVIEW OF SYSTEMS: Unobtainable except as mentioned above. PHYSICAL EXAMINATION: GENERAL: Reveals a gentleman who is restless, confused. He is tachycardic and tachypneic. VITAL SIGNS: Blood pressure is 105/44 on decreasing Levophed. Heart rate is 118 with sinus tachycardia on the monitor. Respiratory rate is 28. On 4 L, saturations are 100%. HEENT: Unremarkable for lymphadenopathy or thyromegaly. Pupils appear equal. Mucous membranes are dry. Nasal cannula oxygen is in place. A left IJ triple lumen is present. CVP is currently approximately 13. CHEST: Clear anteriorly with decreased breath sounds and excursions. Breath sounds are coarse. There are some expiratory wheezes. HEART: Tachycardic. There are no obvious murmurs, no gallops. P2 is difficult to assess. ABDOMEN: Soft and nontender. I do not appreciate ascites or hepatomegaly. There is no obvious splenomegaly. Bowel sounds are diminished but present. A Gonsalez catheter has been placed. He has good urine output. EXTREMITIES: Remarkable for erythema and swelling over both 1st metatarsal joints, right greater than left. There is tenderness. He is restless, somewhat confused, but will orient. He moves all extremities equally. DATABASE: Chest x-ray shows some increased markings at the bases without margarita consolidation. There is some perihilar fluffiness as well, possibly secondary to fluid resuscitation. CT head on admission was unremarkable for any acute changes. Some chronic sinus thickening was noted. Laboratory: White blood cell count is 16,000, down from 24,000 on admission last night. Hematocrit is 30, down from 35.8. Platelets are 25,000. There is a shift to the left. PT was 15, PTT 34 on admission. The latest blood gas shows a pH of 7.35, pCO2 of 35, and pO2 of 84 on supplemental oxygen at 4 L. Arterial lactate is 1.4. Mixed venous oxygen saturation is 78. Sodium is 129, potassium 3.1, BUN 40, with a creatinine 1.8. Liver function studies are normal. Albumin is 1.4. Urinalysis was positive for bacteria, white blood cells and red blood cells consistent with a UTI. Sodium was less than 5. Tox screen on admission was positive only for amphetamines. Hepatitis C antibody is reactive. A cardiac echo was obtained. This was normal. There was no evidence of cardiac vegetations. Left ventricular function was normal. Lower extremity venous Doppler ultrasound: Negative for DVT. ASSESSMENT: 1. Septic shock. Initial blood cultures are growing gram-positive cocci. He has been started on vancomycin. This may represent an endovascular infection secondary to intravenous drug abuse. This is associated with hypotension requiring Levophed. He is also volume depleted with acute renal failure. He does have evidence of erythema and tenderness over multiple joints. Septic arthritis is possible. Infectious Disease has been consulted as well. 2. Hypoxemia. The patient is currently on 4 L. He has required bilevel positive airway pressure briefly but is stable without this. Chest x-ray shows some increased markings, possibly secondary to fluid resuscitation and/or secondary to pulmonary capillary leak. He is at risk for developing ARDS, but there is no evidence at this time. Respiratory status will be followed closely. If he progresses to respiratory failure, he would be intubated and placed on the ventilator. He is full COR. 3. Metabolic: Multiple issues including hyponatremia, hypokalemia, hypocalcemia, etc. 4. Acute renal failure: Secondary to volume depletion preoperatively associated with poor oral intake and methamphetamine use. Sepsis is playing a role as well. 5. Thrombocytopenia secondary to sepsis. CBC will be followed. 6. History of intravenous drug abuse including opiates and methamphetamines. He is at risk for opiate withdrawal. 7. History of hepatitis C. PLAN/RECOMMENDATIONS: The patient will be aggressively supported in the intensive care unit. Intravenous fluids will be continued, but cut down significantly secondary to high CVPs approximately 15 at this point. If blood pressure tolerates, some Lasix can be given. Levophed will be weaned to keep mean arterial pressures 65 or above. Broad-spectrum antibiotics will be continued. ID and sensitivity of his gram-positive cocci in his blood will be awaited. Respiratory status will be followed closely. If needed, he can go back on BiPAP, or if worsened significantly, will be intubated. Laboratory and chest x-ray will be followed. Further plans and recommendations will be made based on his progress over the next 12 to 24 hours. Over 1 hour of CC time spent with patient. /[id number]/MODL MTDD
[2017-09-06 17:50] LABS: PLATELET COUNT 54 10^3/uL (150-400)
--- NOTE | 2017-09-06 17:54 | GCON ---
[f rep st] CONSULTATION INFECTIOUS DISEASE CONSULTATION DATE OF CONSULTATION: 09/06/2017 REASON FOR CONSULTATION: Septic shock and MRSA bacteremia. HISTORY OF PRESENT ILLNESS: This is a 37-year-old male with a past medical history significant for history of IV drug use with methamphetamine and opiate tapering on Suboxone, who is known to have hepatitis C, who presents to the emergency room on 09/05/2017, at 2200 with complaints of progressive weakness x5 days with myalgias and restlessness, a productive cough and swelling at multiple joint sites, as well as blurry vision. Of note, patient drove for 24 hours from [place] with his family to work in the [place] area. He reports he last used drugs about 5 days ago, injecting into his left antecubital. He denies injection in between his toes. In the emergency room, patient was found to be significantly hypotensive, tachycardic. The patient was identified as having septic shock, transferred to the ICU. IV fluids were given and patient was started on IV vancomycin as well as getting a dose of ceftriaxone 1 g. Very rapidly, both sets of blood cultures were positive for GPCs in clusters, which was identified as positive for MRSA. Further, urine culture also growing MRSA. Today, the patient remains critically ill with ongoing hypoxia and tachycardia, although blood pressures are better now on pressors. PAST MEDICAL HISTORY: Polysubstance abuse, hepatitis C, tobacco abuse, IV drug use. SURGICAL HISTORY: Right hernia repair, I and D of the left arm. Past cultures positive for MRSA. FAMILY HISTORY: Negative for high BP, diabetes, coronary artery disease. He has other family members who have polysubstance abuse. SOCIAL HISTORY: Smokes a pack a day for many years. Regularly uses alcohol, but none from 1 month ago. He uses IV methamphetamine. He lives in [place] normally, and is here for work, as per HPI. REVIEW OF SYSTEMS: A complete 10-point review of systems was performed and is negative except as mentioned in the HPI. PHYSICAL EXAM: VITAL SIGNS: BP 101/62, HR 116, respiratory rate 25-38, saturation 100% on 4 L, temperature 38.6. GENERAL: This is a young male lying in bed, in moderate respiratory distress. HEENT: No conjunctival hemorrhages. He did have pallor. Oropharynx: Very dry mucous membranes. Fair dentition. No oral ulcerations or exudates. NECK: Supple. CARDIOVASCULAR: Tachycardic. No murmurs are appreciated. The patient has diffuse coarse breath sounds. ABDOMEN: Slightly distended. Bowel sounds are present. It is soft, nontender. : Gonsalez in place. No scrotal edema or swelling. NEUROLOGIC: Patient is somewhat agitated, but is answering questions appropriately, but somewhat sleepily. He is moving all 4 extremities equally and following commands. SKIN: No rashes are noted. No Janeway lesions or Osler nodes are noted. EXTREMITIES: The patient had joint swelling of the left MCP greater than the right, with associated erythema and significant tenderness to palpation, the left 5th digit on his hand and his right elbow. Range of motion of all these joints is intact, but there is overlying erythema in those areas, and significant tenderness. LABORATORY: White count on admission 24,000, 75% neutrophils, 19% bands, hematocrit 35, platelets of 38. Echocardiogram was performed today, which showed no valvular abnormalities. Ejection fraction was 75%, within normal range. No pericardial effusion. CT of his head was performed on admission that showed chronic sinusitis, but no acute hemorrhage, hydrocephalus, or mass effect. Chest x-ray was personally reviewed by me, which showed diffuse alveolar infiltrates. No nodular densities were identified. Blood cultures, 2 sets, with MRSA, as well as a urine culture that is positive. Respiratory panel PCR was negative. Urinalysis on admission showed both pyuria and hematuria. AST 35, ALT 32, alk phos 102, total bilirubin 1.3. Creatinine 1.7 on admission , then 1.4, and now is 1.0. ASSESSMENT: This is a critically ill 37-year-old male with a history of intravenous drug use, now with septic shock due to Staphylococcus aureus bacteremia, likely due to intravenous drug use, high concern for right sided endocarditis. Associated findings with septic shock include significant leukocytosis/bandemia, thrombocytopenia, hypoxia, initial renal failure with resolution. Further, patient noted to have erythema over multiple joints. Concern for underlying septic emboli or septic arthritis of the left and right 1st metacarpophalangeal joint - but septic emboli would only make sense if right to left cardiac shunt, or left sided endocarditis which would be unexpected with IVDU. PLAN: 1. Continue IV vancomycin adjusted dose to 1 g IV q 8. 2. Daily Cr and check a trough tomorrow morning. 3. Repeat blood cultures. Would probably hold off on checking until Monday, as doubt there is clearance after current duration of antibiotics. 4. Due to hypoxia and suspected endocarditis, would consider JAE and chest CT when patient is more stabilized. 5. Central line was placed during bacteremia. Will likely need to be discontinued and a PICC line placed after clearance of blood cultures. Care was coordinated with critical care and hospitalist team. Will continue to follow patient on a daily basis. Time 85 min>50% time spent with education and counseling, care coordination and review of records. /[id number]/MODL MTDD
[2017-09-06] MEDS ORDERED: POTASSIUM Cl (KCl) 50 ML IV ONE (20:14)
[2017-09-06] MEDS: FAMOTIDINE 20 MG/NACL 50 ML IV SCH (20:22)
[2017-09-07] MEDS: LORazepam 2 MG/ML INJ IVP PRN ×3 (00:46→09:18)
[2017-09-07] MEDS: POTASSIUM Cl (KCl) 50 ML IV SCH ×3 (04:07→05:00)
[2017-09-07] MEDS: NOREPINEPHRINE BITARTRATE 4 MG in NS 500 ML IV SCH (05:01)
[2017-09-07] MEDS: LEVALBUTEROL 1.25 MG/3 ML DEYVIAL IH SCH ×4 (06:10→20:57)
[2017-09-07 06:36] LABS: INR 1.24 (0.83-1.16); PROTIME(PATIENT) 15.8 SEC (12.0-15.0)
[2017-09-07 06:58] LABS: PLATELET COUNT 47 10^3/uL (150-400)
[2017-09-07] MEDS ORDERED: POTASSIUM Cl (KCl) 50 ML IV ONE (09:04)
[2017-09-07] MEDS: VANCOMYCIN HCL/NORMAL SALINE 250 ML IV SCH ×3 (09:18→22:24)
[2017-09-07] MEDS: FAMOTIDINE 20 MG/NACL 50 ML IV SCH ×2 (09:54→22:23)
[2017-09-07] MEDS: ERTAPENEM 1 GM VIAL IV SCH (09:54)
[2017-09-07] MEDS: THIAMINE HCL 500 MG in NS 100 ML IV SCH (09:54)
[2017-09-07] MEDS: ACETAMINOPHEN 650 MG SUPP PR PRN (09:54)
[2017-09-07] MEDS: NICOTINE 21 MG/24 HR PATCH TD SCH (09:54)
--- NOTE | 2017-09-07 09:55 | PDINTPN ---
[employer] Member Progress Note Assessment/Plan: Assessment: MRSA bacteremia and sepsis. Secondary to IV drug abuse. Blood cultures and urine cultures positive. Probably has septic joints at least in his feet. Pneumonia present also. May be MR versus aspiration. On vancomycin alone. Hypotension. Secondary to septic shock. On Levophed. Acute respiratory failure. Relatively stable. Remains on 4 L with adequate oxygen saturations. ABG okay. Chest x-ray somewhat worse and possibly consistent with volume overload and/or pulmonary capillary leak and/or aspiration. Possible aspiration pneumonia. Please see the comments above Abnormal mental status/delirium: Consistent with severe infection but in addition this could repeat opiate withdrawal. P.r.n. Morphine ordered. Ativan available as well. Volume overload: CVP remains high. Excellent diuresis yesterday with Lasix 20 mg given x2. Still requiring pressors. Metabolic: On replacement protocols. Substance abuse: Opiates, methamphetamine. Prophylaxis: Famotidine, SCDs. History of hepatitis-C Thrombocytopenia, anemia. No evidence of active bleeding, follow. Secondary primarily to acute illness with bacteremia and sepsis. Liver disease possibly playing a role regarding thrombocytopenia. Plan: Remains critically ill. Continue aggressive supportive care in the intensive care unit. Continue vancomycin. Will add ertapenem for possible aspiration pneumonia. Continue Levophed as needed to maintain MAP greater than 65. Follow laboratory, x-ray, ABG is needed. Intermittent morphine ordered for opiate withdrawal, Ativan for agitation. For needle aspiration of left great toe. 1 hr of critical care time spent directly with the patient. Discussed with hospitalist, ID, RT, nursing, ICU multi disciplinary team. Subjective: Restless, confused, oriented x1 Objective: Vital Signs Temp Pulse Resp BP Pulse Ox 38.7 C H 123 H 26 H 118/76 91 L 09/07/17 09:00 09/07/17 09:00 09/07/17 09:00 09/07/17 09:00 09/07/17 09:00 Microbiology 09/05/17 22:00 Blood Panel (PCR) - Final Blood MRSA 09/06/17 06:20 Respiratory Panel (PCR) - Final Nasal, Sinus - Swab No Organism Detected Laboratory Results 09/07/17 06:00 09/07/17 06:00 09/06/17 09/07/17 09/08/17 05:59 05:59 05:59 Intake Total 3500 4955 Output Total 350 7050 Balance 3150 -2095 PT 15.8 SEC (12.0-15.0) H 09/07/17 06:00 INR 1.24 (0.83-1.16) H 09/07/17 06:00 Laboratory Tests 09/06/17 09/07/17 09/07/17 02:40 06:00 06:00 PT 15.8 H INR 1.24 H pCO2 pO2 Total CO2 ABG pH Total O2 Concentration Calcium 7.1 L Phosphorus 2.2 L Magnesium 2.5 H Total Bilirubin 1.3 AST 22 ALT 27 Albumin 2.1 L Urine Osmolality 406 Ur Random Creatinine 126.1 Ur Random Sodium < 5.0 L 09/07/17 06:10 PT INR pCO2 36 pO2 77 H Total CO2 24 ABG pH 7.41 Total O2 Concentration 4.0 Calcium Phosphorus Magnesium Total Bilirubin AST ALT Albumin Urine Osmolality Ur Random Creatinine Ur Random Sodium CXR: Increasing bilateral infiltrates, left slightly greater than right Physical Exam - Physical Exam General Appearance: mild distress, other (Restless, agitated, tachypneic) EENT: PERRL/EOMI, other (Nasal cannula in place at 4 L) Neck: normal inspection (No obvious jugular venous distention) Respiratory: decreased breath sounds (And excursions), rales (Bibasilar rales), rhonchi (Centrally with cough) Cardiac/Chest: tachycardia (Sinus) Abdomen: non-tender, soft, No normal bowel sounds (Decreased, present) Male Genitalia: other (Gonsalez catheter in place, excellent urine output with Lasix yesterday) Skin: normal color, warm/dry Extremities: other (Areas of erythema over his to great toes with associated swelling appear to be about the same. Improved on his hand. Elbow about the same.) Neuro/Psych: no motor/sensory deficits (Moves all extremities equally), cognition abnormalities (Confused, oriented to person only) ICD10 Worksheet Patient Problems: Problems Problem Status Onset Renal failure Acute Hyponatremia Acute Dehydration Acute
--- NOTE | 2017-09-07 10:17 | HOSPPROG ---
Hospitalist Progress Note Assessment/Plan: 37 yo M w likely staph aureua bacteremia here w septic shock septic shock: BRITNEY, hypotension requiring pressors, gpc bacteremia cvp 12-3, which is ideal wean pressors no lasix unless cvp > 15 skin lesions over joints: concerning for septic arthritis vs gout will aspirate L 1st MTP today gpc bacteremia: on vanc presumably 2/2 IVDU follow exam of LUE no evidence of metastatic infection echo today AHRF: likely pulm edema from resuscitation will likely need intubation BIPAP now hypocalcemia: cacl2 now given hypotension BRITNEY: 2/2 septic shock volume resuscitation proph: scd's now LMWH given thrombocytopenia liver: h/o hep c this is likely cause of thrombocytopenia abd u/s hyponatremia: follow use NS not primary problem thrombocytopenia w coagulopathy: path review of smear looking for schistocytes TTP unnlikely but dont want to miss NO PETECHIAE dispo: critically ill, ICU 45 min crit care Subjective: case d/w dr preston, dr lennon. remains on pressors. new rash over joints. cvp 12-13 Objective: Vital Signs Temp Pulse Resp BP Pulse Ox 37.7 C 121 H 40 H 128/69 H 91 L 09/07/17 10:00 09/07/17 10:00 09/07/17 10:00 09/07/17 10:00 09/07/17 10:00 Microbiology 09/05/17 22:00 Blood Panel (PCR) - Final Blood MRSA 09/06/17 06:20 Respiratory Panel (PCR) - Final Nasal, Sinus - Swab No Organism Detected Laboratory Results 09/07/17 06:00 09/07/17 06:00 09/06/17 09/07/17 09/08/17 05:59 05:59 05:59 Intake Total 3500 4955 Output Total 350 7050 Balance 3150 -2095 PT 15.8 SEC (12.0-15.0) H 09/07/17 06:00 INR 1.24 (0.83-1.16) H 09/07/17 06:00 - Physical Exam Constitutional: other Eyes: PERRL, anicteric sclera, No icteric sclera Ears, Nose, Mouth, Throat: moist mucous membranes, hearing normal Cardiovascular: tachycardia, other (tachypneic) Respiratory: no rales or rhonchi, respiratory distress Gastrointestinal: normoactive bowel sounds, soft, non-tender abdomen Genitourinary: No arellano in urethra Skin: other (multiple erythematous areas over joints) Musculoskeletal: other (areasof fluctuance over joints, most pronounced over L 1st MTP) Neurologic: No AAOx3 ICD10 Worksheet Patient Problems: Problems Problem Status Onset Dehydration Acute Hyponatremia Acute Renal failure Acute
[2017-09-07] MEDS ORDERED: LIDOCAINE 1% 300 MG/30 ML SDV ONE (10:33)
[2017-09-07] MEDS ORDERED: IOPAMIDOL (ISOVUE 370) 100 ML BTL IV ONE (10:33)
--- NOTE | 2017-09-07 11:15 | PCMIDPN ---
Assessment/Plan: Assessment: MRSA bacteremia and multifocal disease. Patient is stable on vancomycin currently. He still has significant clinical signs and symptoms of septic shock. Will recheck blood cultures today. Patient also has various areas of redness, swelling and fluctuance in his extremities. We will aspirate the worst of these in his left lower extremity today and evaluate if this is metastatic MRSA disease. Plan: 1. Continue IV vancomycin at present dose. 2. Recheck blood cultures. 3. Follow up on left lower extremity fluid aspiration. 09/07/17 14:18 09/07/17 14:19 Subjective: Patient is fairly agitated in his bed. He seems to attend to voice and does answer questions appropriately. He continues to have ongoing fevers. Objective: Vancomycin # 2 Vital Signs Temp Pulse Resp BP Pulse Ox 37.7 C 115 H 37 H 128/69 H 96 09/07/17 10:00 09/07/17 10:49 09/07/17 10:49 09/07/17 10:00 09/07/17 10:49 Microbiology 09/05/17 22:00 Blood Panel (PCR) - Final Blood MRSA 09/06/17 06:20 Respiratory Panel (PCR) - Final Nasal, Sinus - Swab No Organism Detected Laboratory Results 09/07/17 06:00 09/07/17 06:00 09/06/17 09/07/17 09/08/17 05:59 05:59 05:59 Intake Total 3500 4955 Output Total 350 7050 Balance 8110 -1114 - Physical Exam General Appearance: WD/WN, alert, apparent distress, toxic Respiratory: lungs clear, normal breath sounds, No respiratory distress Cardiac/Chest: regular rate, rhythm, tachycardia Extremities: inflammation, erythema, No non-tender, No normal inspection Skin: normal color, warm/dry, No rash Neuro/Psych: alert, No normal mood/affect, No oriented x 3 ICD10 Worksheet Patient Problems: Problems Problem Status Onset Dehydration Acute Hyponatremia Acute Renal failure Acute
[2017-09-07] MEDS: LORazepam 2 MG/ML INJ IV PRN ×2 (13:31→20:43)
[2017-09-07] MEDS ORDERED: LEVALBUTEROL 1.25 MG/3 ML DEYVIAL ONE (14:52)
[2017-09-07] MEDS: DEXMEDETOMIDINE HCL 400 MCG in NS 100 ML IV SCH ×2 (15:40→22:24)
[2017-09-08] MEDS: NOREPINEPHRINE BITARTRATE 4 MG in NS 500 ML IV SCH (00:26)
[2017-09-08] MEDS: LORazepam 2 MG/ML INJ IV PRN ×5 (01:36→22:49)
[2017-09-08] MEDS: DEXMEDETOMIDINE HCL 400 MCG in NS 100 ML IV SCH ×6 (02:06→21:44)
[2017-09-08] MEDS: LEVALBUTEROL 1.25 MG/3 ML DEYVIAL IH SCH ×4 (05:20→20:15)
[2017-09-08] MEDS: VANCOMYCIN HCL/NORMAL SALINE 250 ML IV SCH ×3 (05:46→21:44)
[2017-09-08] MEDS: FAMOTIDINE 20 MG/NACL 50 ML IV SCH ×2 (08:28→21:44)
[2017-09-08] MEDS: NICOTINE 21 MG/24 HR PATCH TD SCH (08:28)
[2017-09-08] MEDS: ERTAPENEM 1 GM VIAL IV SCH (08:28)
[2017-09-08] MEDS: THIAMINE HCL 500 MG in NS 100 ML IV SCH (09:20)
[2017-09-08] MEDS: D5W 1/4 NS 1,000 ML IV SCH ×2 (10:47→21:44)
[2017-09-08 10:50] LABS: PLATELET COUNT 41 10^3/uL (150-400)
--- NOTE | 2017-09-08 14:06 | PDINTPN ---
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 Secondary to IV drug abuse. Blood cultures and urine cultures positive. Left great toe aspirate positive as well infiltrates present consistent with pneumonia. May be MRSA versus aspiration. On vancomycin and ertapenem. Hypotension. Secondary to septic shock and 2 sedated medications. On Levophed again at low dose. Acute respiratory failure. Now on BiPAP. This appears to be more secondary to the sedation needed to control his agitation as opposed to progressive pulmonary infiltrates or hypoxemia. ABG showed increased CO2 retention. Chest x-ray unchanged over 24-48 hours - consistent with multifocal MRSA pneumonia from bacteremia, possibly volume overload and/or pulmonary capillary leak and/ or aspiration. Possible aspiration pneumonia. Please see the comments above Abnormal mental status/delirium: Consistent with severe infection but in addition this could repeat opiate and amphetamine withdrawal. Routine as well as as needed Morphine ordered. Ativan available as well. On Precedex Volume overload: Improved. CVP 5-7 today. Back on pressors at low dose. Metabolic: On replacement protocols. Substance abuse: Opiates, methamphetamine. Prophylaxis: Famotidine, SCDs. History of hepatitis-C Thrombocytopenia, anemia. No evidence of active bleeding, follow. Secondary primarily to acute illness with bacteremia and sepsis. Liver disease possibly playing a role regarding thrombocytopenia. Plan: Remains critically ill. Continue aggressive supportive care in the intensive care unit. Continue vancomycin and ertapenem. Continue Levophed as needed to maintain MAP greater than 65. Follow laboratory, x-ray, ABG is needed. Increase scheduled morphine for opiate withdrawal, Precedex and as needed Ativan for agitation. Repeat ABG later today. If needed, the patient could require intubation. 55 min of critical care time spent directly with the patient. Discussed with hospitalist, ID, RT, nursing, ICU multi disciplinary team. Subjective: Required increasing doses of Precedex and Ativan overnight for aspiration. Obtundedthis morning. Started on BiPAP this morning. Objective: Vital Signs Temp Pulse Resp BP Pulse Ox 38.9 C H 100 43 H 116/63 98 09/08/17 13:00 09/08/17 13:38 09/08/17 13:38 09/08/17 13:00 09/08/17 12:00 Microbiology 09/07/17 12:29 Gram Stain - Final Toe - Aspirate 09/05/17 22:00 Blood Culture - Final Blood MRSA Blood Panel (PCR) - Final MRSA 09/05/17 22:00 Blood Culture - Final Blood MRSA Laboratory Results 09/08/17 09:20 09/08/17 06:15 09/07/17 09/08/17 09/09/17 05:59 05:59 05:59 Intake Total 4955 2808.4 Output Total 7050 1600 Balance -2095 1208.4 PT 15.8 SEC (12.0-15.0) H 09/07/17 06:00 INR 1.24 (0.83-1.16) H 09/07/17 06:00 Laboratory Tests 09/08/17 09/08/17 05:15 06:15 pCO2 50 H pO2 84 H ABG pH 7.29 L O2 Concentration % 5 Calcium 7.6 L Phosphorus 3.5 D Magnesium 2.8 H Total Bilirubin 1.2 AST 17 ALT 27 Albumin 2.1 L CXR: Bilateral infiltrates about the same. Physical Exam - Physical Exam General Appearance: mild distress, obtunded (Sedated), other (Agitated confused when awakened.), No alert EENT: PERRL/EOMI, other (BiPAP in place) Neck: normal inspection Respiratory: lungs clear (Anteriorly), decreased breath sounds (At bases), rales (Scattered rales), rhonchi (Few rhonchi), wheezing (Few wheezes) Cardiac/Chest: regular rate, rhythm (High 90s), other (CVP 5-7) Abdomen: non-tender, soft, No normal bowel sounds (Decreased, present) Male Genitalia: other (Gonsalez catheter in place, good urine output) Skin: normal color, warm/dry Extremities: swelling (And erythema of both great toes and right elbow, about the same.), No pedal edema Neuro/Psych: no motor/sensory deficits (Moves all extremities equally), cognition abnormalities (Confused, agitated, sedated with Precedex and Ativan.) ICD10 Worksheet Patient Problems: Problems Problem Status Onset Dehydration Acute Hyponatremia Acute Renal failure Acute
[2017-09-08] MEDS ORDERED: MIDAZOLAM 2 MG/2 ML VIAL IVP ONE (15:11)
--- NOTE | 2017-09-08 15:45 | HOSPPROG ---
Hospitalist Progress Note Assessment/Plan: Assessment: 37 yo M p/w septic shock 2/2 MRSA PNA and MRSA bacteremia c/b acute encephalopathy Plan: # septic shock: POA, evidenced by hypotension, encephalopathy, tachypnea (qSOFA 3/3) w/ end-organ failure (BRITNEY, resp failure) meeting all ICDS-3 criteria -CVP 7 -s/p levophed, weaned off # MRSA bacteremia w/ septic embolization and septic arthritis: POA, present in BCx and joint aspirate 09/07, 09/08 BCx pending -likely 2/2 IVDU -no endocarditis on Echo -appreciate ongoing ID consultation -cont on IV Vanco # MRSA pneumonia: POA, 2/2 embolization of bacteremia, multifocal on CXR -cont Vanco -cont to monitor WBC # Acute hypoxic respiratory failure: Evidenced by PaO2 59 + visible tachypnea and respiratory distress (RR 40s), likely 2/2 pneumonia, sepsis, opiate withdraw -requiring BiPAP, remains very tachypneic, getting ABG now to determine whether needs intubation # Acute encephalopathy: Evidenced by global brain dysfunction characterized as non-directible behavior, non-conversant, somnolent, all of which is an acute change from his baseline, 2/2 toxic effects of infxn + metabolic effects of opiate withdraw -cont precedex for safety -cont tx conditions above # Acute opiate withdraw: Encephalopathic and agitated, requiring precedex + PRN ativan, adding scheduled morphine today given that his agitation is interfering w/ safety and other medical care # BRITNEY: 2/2 septic shock, resolved # Hyponatremia: Acute, 2/2 hypovolemia and septic shock, s/p NS and resulting in hypernatremia w/ free water deficit, adjusted to D5 1/4NS today # Acute metabolic and respiratory acidosis: 2/2 hypoperfusion and lactic acidosis 2/2 septic shock + CO2 retention 2/2 encephalopathy, resolved # HCV. 2/2 IVDU, cont to monitor LFTs # IVDU: Will require [facility] health resource RN once he is cognitively able to engage Diet. NPO PPx. High risk, lovenox 40 Code. Full Dispo. ADD uncertain, remains critically ill 45 minutes of critical care time spent at bedside w/ patient, coordinating care w/ Dr. Buchanan, specifically patient's resp failure rendering him critically ill w / high risk of worsening morbidity/mortality. Subjective: visible resp distress, not directible Objective: Vital Signs Temp Pulse Resp BP Pulse Ox 38.2 C 77 36 H 115/64 98 09/08/17 15:05 09/08/17 15:05 09/08/17 15:05 09/08/17 15:05 09/08/17 15:05 Microbiology 09/07/17 12:29 Gram Stain - Final Toe - Aspirate 09/05/17 22:00 Blood Culture - Final Blood MRSA Blood Panel (PCR) - Final MRSA 09/05/17 22:00 Blood Culture - Final Blood MRSA Laboratory Results 09/08/17 09:20 09/08/17 14:20 09/07/17 09/08/17 09/09/17 05:59 05:59 05:59 Intake Total 4955 2808.4 Output Total 7050 1600 Balance -2095 1208.4 PT 15.8 SEC (12.0-15.0) H 09/07/17 06:00 INR 1.24 (0.83-1.16) H 09/07/17 06:00 - Physical Exam Constitutional: uncomfortable, No no apparent distress (moderate) Eyes: other (constricted pupils, fixed centrally) Cardiovascular: tachycardia, No systolic murmur, No irregularly irregular, No edema Respiratory: respiratory distress (visible tachypnea and RR 40s), rhonchi (on insp bilat), No expiratory wheeze, No bronchial breath sounds Gastrointestinal: No normoactive bowel sounds (hypoactive bowel sounds), No guarding, No distension Skin: other (blanching erythema over bilat dorsum of feet) Psychiatric: encephalopathic, other (unresponsible to tactile stimuli) ICD10 Worksheet Patient Problems: Problems Problem Status Onset Renal failure Acute Hyponatremia Acute Dehydration Acute
--- NOTE | 2017-09-08 16:05 | ASMTCMCOM ---
CM Note CM Note Notes: Ramona from [facility] states patient has [place] Medicaid but we do not have a contract with [place] so we cannot bill his Medicaid. Ramona has dropped off a [employer] consultant application for patient's mother in his room. She is aware it is being left there for her. Patient has had increased agitation, CIWA 15 this morning during rounds. Patient being administered medications for withdrawal. Patient may not be eligible for rehab of any kind here in [place]. He can pursue further care in [place] where he has Medicaid. CM is available for consultation. Date Signed: 09/08/2017 04:04 PM Electronically Signed By:Rachel Castaneda LCSW
--- NOTE | 2017-09-08 16:22 | PCMIDPN ---
Assessment/Plan: Assessment: MRSA bacteremia and multifocal disease. Patient is stable on vancomycin currently. He still has significant clinical signs and symptoms of septic shock although these are improved from yesterday. Blood cultures were redrawn this morning. Patient also has various areas of redness, swelling and fluctuance in his extremities that have not changed. The aspirate is not growing anything currently although I can imagine why these lesions would be present in this situation for any other cause. Plan: 1. Continue IV vancomycin at present dose. 2. Recheck blood cultures. 3. Follow up on left lower extremity fluid aspiration. Subjective: Patient is resting comfortably. He is on BiPAP. Vital signs are more stable than yesterday. Still having fevers. Objective: Vancomycin # 3 Vital Signs Temp Pulse Resp BP Pulse Ox 37.7 C 70 33 H 114/66 97 09/08/17 16:04 09/08/17 16:04 09/08/17 16:04 09/08/17 16:00 09/08/17 16:04 Microbiology 09/07/17 12:29 Gram Stain - Final Toe - Aspirate 09/05/17 22:00 Blood Culture - Final Blood MRSA Blood Panel (PCR) - Final MRSA 09/05/17 22:00 Blood Culture - Final Blood MRSA Laboratory Results 09/08/17 09:20 09/08/17 14:20 09/07/17 09/08/17 09/09/17 05:59 05:59 05:59 Intake Total 4955 2808.4 Output Total 7050 1600 Balance -2095 1208.4 - Physical Exam General Appearance: WD/WN, no apparent distress, toxic Respiratory: lungs clear, normal breath sounds, No respiratory distress Cardiac/Chest: regular rate, rhythm, No tachycardia Extremities: non-tender, No normal inspection Skin: normal color, warm/dry, rash ICD10 Worksheet Patient Problems: Problems Problem Status Onset Dehydration Acute Hyponatremia Acute Renal failure Acute
[2017-09-08] MEDS: ACETAMINOPHEN 650 MG SUPP PR PRN (23:31)
[2017-09-09] MEDS: DEXMEDETOMIDINE HCL 400 MCG in NS 100 ML IV SCH ×6 (01:00→23:00)
[2017-09-09] MEDS: LEVALBUTEROL 1.25 MG/3 ML DEYVIAL IH SCH ×4 (04:55→21:45)
[2017-09-09 06:13] LABS: PLATELET COUNT 39 10^3/uL (150-400)
[2017-09-09] MEDS ORDERED: THIAMINE HCL 100 MG TAB PO SCH (07:38)
[2017-09-09] MEDS: VANCOMYCIN HCL/NORMAL SALINE 250 ML IV SCH ×3 (07:45→21:43)
[2017-09-09] MEDS: NICOTINE 21 MG/24 HR PATCH TD SCH (07:46)
[2017-09-09] MEDS: FAMOTIDINE 20 MG/NACL 50 ML IV SCH ×2 (07:46→21:43)
[2017-09-09] MEDS ORDERED: D5W 1,000 ML IV SCH (08:45)
[2017-09-09] MEDS: ERTAPENEM 1 GM VIAL IV SCH (09:17)
--- NOTE | 2017-09-09 09:50 | PDINTPN ---
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 Secondary to IV drug abuse. Blood cultures and urine cultures positive, and blood cultures remain positive from yesterday after 3 days of appropriate antibiotic coverage. Left great toe aspirate positive as well. Infiltrates present consistent with pneumonia and possibly septic emboli. Probable MRSA, versus aspiration. On vancomycin and ertapenem. Hypotension. Secondary to septic shock and 2 sedated medications. On Levophed again at low dose. Acute respiratory failure. On BiPAP since AM 09/08. Secondary to the sedation needed to control his agitation but progressive pulmonary infiltrates and possibly effusion may be playing a role. ABG okay on BiPAP. Chest x-ray worsening - consistent with multifocal MRSA pneumonia from bacteremia/septic emboli, possibly volume overload and/or pulmonary capillary leak and/or aspiration. Possible aspiration pneumonia. Please see the comments above Abnormal mental status/delirium: Consistent with severe infection but in addition this could repeat opiate and amphetamine withdrawal. Routine as well as as needed Morphine ordered. Ativan available as well. On Precedex Volume overload: CVP 12 today. Back on pressors at low dose. Metabolic: On replacement protocols. Substance abuse: Opiates, methamphetamine. Prophylaxis: Famotidine, SCDs. History of hepatitis-C Thrombocytopenia, anemia. Stable. No evidence of active bleeding, follow. Secondary primarily to acute illness with bacteremia and sepsis. Liver disease possibly playing a role regarding thrombocytopenia. Plan: Remains critically ill. Continue BiPAP support. Continue aggressive supportive care in the intensive care unit. Continue vancomycin and ertapenem. Continue Levophed as needed to maintain MAP greater than 65. Follow laboratory , x-ray, ABG is needed. Will give Lasix again and follow CVP. Would like to see it in the 6-8 range. Continue scheduled morphine for opiate withdrawal, Precedex and as needed Ativan for agitation. CT chest today, thoracentesis if needed. Follow pulmonary status, intubated if needed. 50 min of critical care time spent directly with the patient. Discussed with hospitalist, ID, RT, nursing, ICU multi disciplinary team. Subjective: Sedated, on BiPAP Objective: Vital Signs Temp Pulse Resp BP Pulse Ox 36.6 C 72 33 H 106/62 95 09/09/17 06:00 09/09/17 09:00 09/09/17 09:00 09/09/17 09:00 09/09/17 09:00 Microbiology 09/07/17 12:29 Gram Stain - Final Toe - Aspirate 09/05/17 22:00 Blood Culture - Final Blood MRSA Blood Panel (PCR) - Final MRSA 09/05/17 22:00 Blood Culture - Final Blood MRSA Laboratory Results 09/09/17 05:00 09/09/17 05:00 09/08/17 09/09/17 09/10/17 05:59 05:59 05:59 Intake Total 2808.4 2967 Output Total 1600 1075 Balance 1208.4 1892 PT 15.8 SEC (12.0-15.0) H 09/07/17 06:00 INR 1.24 (0.83-1.16) H 09/07/17 06:00 Blood cultures from yesterday positive for gram-positive cocci in clusters consistent with ongoing bacteremia Chest x-ray: Increasing opacification at the left base, pleural effusion possible Physical Exam - Physical Exam General Appearance: other (Sedated), No alert, No obtunded (Arouses weakly) EENT: PERRL/EOMI, other (BiPAP in place) Neck: normal inspection (No obvious jugular venous distension) Respiratory: decreased breath sounds (Bilaterally), rales (Present bases), No respiratory distress, No accessory muscle use, No rhonchi, No wheezing Cardiac/Chest: regular rate, rhythm, systolic murmur Abdomen: non-tender, soft, No normal bowel sounds (Present, decreased) Male Genitalia: other (Gonsalez catheter in place, good urine output but input greater than output by about 3 L over the last 48 hr.) Skin: normal color, warm/dry, other (Areas of erythema over toes, hands, elbows all better) Extremities: pedal edema (Trace), swelling (Improved) Neuro/Psych: no motor/sensory deficits (Moves all extremities), cognition abnormalities (Difficult to assess secondary to sedation) ICD10 Worksheet Patient Problems: Problems Problem Status Onset Renal failure Acute Hyponatremia Acute Dehydration Acute
[2017-09-09] MEDS ORDERED: oxyCODONE IR 5 MG TAB PO PRN (10:06)
--- NOTE | 2017-09-09 10:41 | PCMIDPN ---
Assessment/Plan: Assessment: MRSA bacteremia and multifocal disease. Patient is stable and improving slowly on vancomycin currently. His septic shock has resolved and he is off pressors. Blood cultures from yesterday are still positive for Staphylococcus aureus however. Patient also has various areas of redness, swelling and fluctuance in his extremities -the upper extremity areas of inflammation are nearly resolved and the lower extremity areas are partially improved. The aspirate from his foot is growing MRSA as well. I think at this point the patient can continue on the present dose of IV vancomycin as his trough level is at 14 expected to slowly climb. The issue at this point with a continued bacteremia as at the patient likely has a focus of disease somewhere. This could be a joint space. This could be a variety of abscess cavities in a number of places. His negative 2D echo would argue that he probably does not have endocarditis that is easily defined. However a JAE would not be out of the question I think it is less important thing getting CT scans from head to pelvis. We will do that today with contrast. We will continue to keep an eye on his creatinine as the contrast may induce some additional acute renal failure. However at present time his blood pressures are stable and this may be the optimum point for a contrast challenge. Plan: 1. Continue IV vancomycin at present dose. 2. CT scan from head pelvis. IV contrast. 3. Follow up repeat blood cultures tomorrow. 4. Consider JAE in the next couple of days. 5. Obtain EKG 12 lead looking for MT interval changes. 09/09/17 10:37 09/09/17 10:38 Subjective: Patient is resting in his hospital bed. He was awake earlier and talked with the nurse. Not arousable currently. He is on some dose of presidex. Blood pressure and oxygenation status are stable. Objective: Vancomycin # 4 Vital Signs Temp Pulse Resp BP Pulse Ox 36.6 C 72 33 H 106/62 95 09/09/17 06:00 09/09/17 09:00 09/09/17 09:00 09/09/17 09:00 09/09/17 09:00 Microbiology 09/07/17 12:29 Gram Stain - Final Toe - Aspirate 09/05/17 22:00 Blood Culture - Final Blood MRSA Blood Panel (PCR) - Final MRSA 09/05/17 22:00 Blood Culture - Final Blood MRSA Laboratory Results 09/09/17 05:00 09/09/17 05:00 09/08/17 09/09/17 09/10/17 05:59 05:59 05:59 Intake Total 2808.4 2967 Output Total 1600 1075 Balance 1208.4 1892 - Physical Exam General Appearance: WD/WN, no apparent distress, toxic Respiratory: crackles, No lungs clear, No stridor, No wheezing Cardiac/Chest: regular rate, rhythm, other (Machine sounds of BiPAP are obscuring.), No bradycardia, No tachycardia, No systolic murmur Extremities: non-tender, inflammation (Improved bilateral lower extremities.), erythema (Improved bilateral lower extremities.), No normal inspection Skin: normal color, warm/dry, No rash ICD10 Worksheet Patient Problems: Problems Problem Status Onset Dehydration Acute Hyponatremia Acute Renal failure Acute
[2017-09-09] MEDS ORDERED: IPRATROPIUM/ALBUTEROL 3 ML DEYVIAL IH PRN (11:38)
[2017-09-09] MEDS ORDERED: IOPAMIDOL (ISOVUE-300) 100 ML BTL ONE (11:47)
--- NOTE | 2017-09-09 11:53 | CPEKG ---
Heart Rate: 80 RR Interval: 750 P-R Interval: 168 QRSD Interval: 80 QT Interval: 404 QTC Interval: 466 P [place]: 55 QRS [place]: 51 T Wave [place]: 53 EKG Severity - OTHERWISE NORMAL ECG - EKG Impression: SINUS RHYTHM Electronically Signed By: Skyler Gutierrez 09-Sep-2017 21:03:24
[2017-09-09] MEDS: LORazepam 2 MG/ML INJ IV PRN ×3 (12:31→20:30)
--- NOTE | 2017-09-09 13:29 | HOSPPROG ---
Hospitalist Progress Note Assessment/Plan: Assessment: 37 yo M p/w septic shock 2/2 MRSA PNA and MRSA bacteremia c/b acute encephalopathy Plan: # septic shock: POA, evidenced by hypotension, encephalopathy, tachypnea (qSOFA 3/3) w/ end-organ failure (BRITNEY, resp failure) meeting all ICDS-3 criteria -CVP 7 -s/p levophed, weaned off -if becomes hypotensive today, give IV albumin # MRSA bacteremia w/ septic embolization and MRSA septic arthritis: POA, present in BCx and joint aspirate 09/07, 09/08 BCx demonstrate persistent infxn despite appropriate Vanco dosing and STEPHANIE -likely 2/2 IVDU -no endocarditis on Echo, d/w Dr. Buchanan on rounds, recommends Cards consult for consideration of JAE -d/w Dr. Bhatt, recommends cont on IV Vanco and get ortho consult to consider joint wash-outs (bilat MTPs, L 5th MCP) -get CT brain/chest/abd/pelv to r/o harbored site of infxn # MRSA pneumonia: POA, 2/2 embolization of bacteremia, multifocal on CXR and worsening -cont Vanco -cont to monitor WBC # Acute hypoxic respiratory failure: Evidenced by PaO2 59 + visible tachypnea and respiratory distress (RR 40s), likely 2/2 pneumonia, sepsis, opiate withdraw -weaned to face mask today, but patient became increasingly tachypneic prior to CT (RR 50s) and required placement back on BiPAP # Acute encephalopathy: Evidenced by global brain dysfunction characterized as non-directible behavior, non-conversant, somnolent, all of which is an acute change from his baseline, 2/2 toxic effects of infxn + metabolic effects of opiate withdraw -cont precedex for safety -cont tx conditions above -minimally interactive on exam, non-sensical speech but follows some commands # Acute opiate withdraw: Encephalopathic and agitated, requiring precedex + PRN ativan, added scheduled morphine today given that his agitation is interfering w / safety and other medical care # BRITNEY: 2/2 septic shock, resolved # Hyponatremia and Hypernatremia: Acute, 2/2 hypovolemia and septic shock, s/p NS and resulting in hypernatremia w/ free water deficit, adjusted to D5W # Acute metabolic and respiratory acidosis: 2/2 hypoperfusion and lactic acidosis 2/2 septic shock + CO2 retention 2/2 encephalopathy, resolved # HCV. 2/2 IVDU, cont to monitor LFTs # IVDU: Will require [facility] health resource RN once he is cognitively able to engage # Pressure injury: on bridge of nares, was unable to visualize the effected area on 09/07 exam 2/2 BiPAP so unable to verify whether POA -wound care consult appreciated Diet. NPO PPx. High risk, lovenox 40 Code. Full Dispo. ADD uncertain, remains critically ill 40 minutes of critical care time spent at bedside w/ patient, coordinating care w/ Dr. Buchanan/Miller, specifically patient's resp failure rendering him critically ill w/ high risk of worsening morbidity/mortality. Subjective: patient able to follow some commands this AM Objective: Vital Signs Temp Pulse Resp BP Pulse Ox 36.6 C 77 40 H 117/63 97 09/09/17 06:00 09/09/17 13:00 09/09/17 13:00 09/09/17 13:00 09/09/17 13:00 Microbiology 09/07/17 12:29 Gram Stain - Final Toe - Aspirate 09/05/17 22:00 Blood Culture - Final Blood MRSA Blood Panel (PCR) - Final MRSA 09/05/17 22:00 Blood Culture - Final Blood MRSA Laboratory Results 09/09/17 05:00 09/09/17 05:00 09/08/17 09/09/17 09/10/17 05:59 05:59 05:59 Intake Total 2808.4 2967 Output Total 1600 1075 Balance 1208.4 1892 PT 15.8 SEC (12.0-15.0) H 09/07/17 06:00 INR 1.24 (0.83-1.16) H 09/07/17 06:00 - Physical Exam Constitutional: no apparent distress, not in pain, uncomfortable, unkempt Eyes: other (L pupil asymmetrically greater in diameter than R) Cardiovascular: No systolic murmur, No irregularly irregular, No tachycardia, No edema Respiratory: expiratory wheeze, respiratory distress (visible tachypnea), rhonchi (on insp bilat) Gastrointestinal: No normoactive bowel sounds (hypoactive bowel sounds), No tenderness, No guarding, No distension Skin: other (blanchable erythema bilat MTPs, pressure injury bridge of nose) Psychiatric: encephalopathic, poor insight, poor judgement, poor memory, other ( unable to maintain attention or participation in exam) ICD10 Worksheet Patient Problems: Problems Problem Status Onset Renal failure Acute Hyponatremia Acute Dehydration Acute
[2017-09-09] MEDS ORDERED: FUROSEMIDE 40 MG/4 ML VIAL IVP ONE (14:58)
[2017-09-09] MEDS: ACETAMINOPHEN 650 MG SUPP PR PRN (16:46)
--- NOTE | 2017-09-09 19:07 | SOAPPROG ---
SOAP Progress Note Assessment/Plan: Assessment:Multiple Possible septic joints. Recommend: Need 3d imaging to eval for effusion to get a road map of what to I+ D. 09/09/17 19:06 Objective: Vital Signs Temp Pulse Resp BP Pulse Ox 37.9 C 90 35 H 116/54 L 93 09/09/17 18:00 09/09/17 18:00 09/09/17 18:00 09/09/17 16:00 09/09/17 18:00 Microbiology 09/07/17 12:29 Gram Stain - Final Toe - Aspirate Laboratory Results 09/09/17 05:00 09/09/17 05:00 09/08/17 09/09/17 09/10/17 05:59 05:59 05:59 Intake Total 2808.4 2967 2111 Output Total 1600 1075 250 Balance 1208.4 1892 1861 PT 15.8 SEC (12.0-15.0) H 09/07/17 06:00 INR 1.24 (0.83-1.16) H 09/07/17 06:00 Swelling plus warmth noted at Left Ankle, Left 4th MCP (hand) and Bilat forefoot (MTP Joints) ICD10 Worksheet Patient Problems: Problems Problem Status Onset Dehydration Acute Hyponatremia Acute Renal failure Acute
[2017-09-09] MEDS ORDERED: ALBUMIN 25% 100 ML IV ONE (19:12)
[2017-09-09] MEDS ORDERED: NOREPINEPHRINE/NS 500 ML IV SCH (20:00)
--- NOTE | 2017-09-09 20:36 | HOSPPROG ---
Hospitalist Progress Note Assessment/Plan: Called by RN for decreased UOP and MAP <60 A 37 yo male admitted with septic shock from MRSA PNA and bacteremia, now with volume overload. Was previously on pressors. Diuresed with Lasix today. Personally reviewed CT that showed emboli and BL pleural effusions. Plan: 1. Hypovolemia: now intravascularly dry with CVP 6, decreased UOP and pressure. Dose albumin, if not effective, restart pressors 2. Concern for septic arthritis -I spoke with Dr. Vee who is concerned for multiple septic joints. Will obtain CT of wrists/hands, ankles/feet (contrasted-images wld be preferred, but BRITNEY). -he will review imaging and likely take to OR in the morning for I&D Critical care time spent: 35 min reviewing imaging, labs, progress notes and d/ w Dr. Vee Objective: Vital Signs Temp Pulse Resp BP Pulse Ox 37.9 C 90 35 H 116/54 L 93 09/09/17 18:00 09/09/17 18:00 09/09/17 18:00 09/09/17 16:00 09/09/17 18:00 Microbiology 09/07/17 12:29 Gram Stain - Final Toe - Aspirate Laboratory Results 09/09/17 05:00 09/09/17 05:00 09/08/17 09/09/17 09/10/17 05:59 05:59 05:59 Intake Total 2808.4 2967 2111 Output Total 1600 1075 250 Balance 1208.4 1892 1861 PT 15.8 SEC (12.0-15.0) H 09/07/17 06:00 INR 1.24 (0.83-1.16) H 09/07/17 06:00 ICD10 Worksheet Patient Problems: Problems Problem Status Onset Dehydration Acute Hyponatremia Acute Renal failure Acute
[2017-09-09] MEDS: NOREPINEPHRINE BITARTRATE 4 MG in NS 500 ML IV SCH (21:43)
[2017-09-10 04:12] LABS: PLATELET COUNT 49 10^3/uL (150-400)
[2017-09-10 04:15] LABS: INR 1.29 (0.83-1.16); PROTIME(PATIENT) 16.3 SEC (12.0-15.0)
[2017-09-10] MEDS: LEVALBUTEROL 1.25 MG/3 ML DEYVIAL IH SCH ×4 (05:01→20:06)
--- NOTE | 2017-09-10 05:57 | GCON ---
[f rep st] CONSULTATION INPATIENT CONSULTATION NOTE. REASON FOR CONSULTATION: Presumptive multiple septic joints. HISTORY OF PRESENT ILLNESS: The patient is a 37-year-old gentleman admitted to the hospital for infe ction that subsequently progressed to septic shock. He was admitted on 09/05/2017. I have gone thro ugh the detail of his hospitalization, including his admission notes and hospital progress notes. At presentation, he was complaining of pain at the 1st metatarsophalangeal joints bilaterally. Since t hat time, he has been obtunded or sedated. An accurate examination based on patient feedback is impo ssible. I was asked to see him, and Radiology performed aspiration of his left MTP joint revealing M RSA in what they felt was an intra-articular fluid collection. PHYSICAL EXAMINATION: Examination today finds him to be sedated in his ICU bed. He has areas of dex thema around the bilateral 1st MTP joints, worse on the left than the right. It appears to be swolle n. However, the pain response is not present in this patient due to his sedated state. Overlying hi s skin is slightly warm. There is no crepitus and no identifiable fluctuant area. Left ankle is mar kedly swollen and edematous versus the right. Knees are without any obvious effusion. The remaining portion of the examination of his lower extremities finds no obvious lesions or masses or skin break s. His upper extremities have no demonstrable effusion at the elbows or wrists. Right hand is witho ut any identifiable pathology. On the left, there is erythema on the ulnar side of his hand with swe lling. I am able to palpate easily the 1st, 2nd, 3rd, and 5th metacarpophalangeal joints; however, t he 4th metacarpophalangeal joint is edematous, and I am unable to accurately palpate the 4th metacarp al head because of this. IMPRESSIONS: Based on the patient's symptoms, I suspect he may have septic joints of the bilateral M TP joints, left ankle, and left 4th metacarpophalangeal joint. It would be imprudent to attempt to w christiana these out without fully understanding the anatomical boundaries of what was affected. As such, I feel accurate 3-dimensional imaging to examine the joint specifically for effusion is necessary prio r to engaging in surgical treatment to wash these out. I will discuss with the hospitalist team the possibility of obtaining 3-dimensional imaging of bilateral feet, left ankle, and left hand. If othe r joints become apparent, which is certainly possible if he has hematogenously seeded these joints, s ome type of herndon scanning may be in order at this point as well. It us unlikely to do this with MRI, and IV contrast CT scanning may provide a more appropriate imaging modality to assess for joint effus ions. I will follow this patient with you. /[id number]/MODL
[2017-09-10] MEDS: VANCOMYCIN HCL/NORMAL SALINE 250 ML IV SCH ×3 (06:13→21:54)
[2017-09-10] MEDS: DEXMEDETOMIDINE HCL 400 MCG in NS 100 ML IV SCH ×4 (06:13→21:59)
--- NOTE | 2017-09-10 08:23 | SOAPPROG ---
MAILE Progress Note Assessment/Plan: Assessment: Does not appear to have septic joints based on CT scans Recommend: Will hold on any I+D procedure until evidence supports septic joints. CT without IV contrast is best imaging we can get right now based on present limitations. If concern for septic joints becomes more urgent, then MRI of affected joints is best imaging modality to identify this. 09/09/17 19:06 09/10/17 08:18 Objective: Vital Signs Temp Pulse Resp BP Pulse Ox 38.3 C H 80 24 H 124/71 H 100 09/10/17 04:00 09/10/17 07:00 09/10/17 07:00 09/10/17 07:00 09/10/17 07:00 Microbiology 09/07/17 12:29 Gram Stain - Final Toe - Aspirate Laboratory Results 09/10/17 04:00 09/10/17 04:00 09/09/17 09/10/17 09/11/17 05:59 05:59 05:59 Intake Total 2967 3511 Output Total 1075 550 Balance 1892 2961 PT 16.3 SEC (12.0-15.0) H 09/10/17 04:00 INR 1.29 (0.83-1.16) H 09/10/17 04:[address] scans of wristss and hands and ankles and feet. Within limitations of a non contrast enhanced study, there does not appear to be any obvious fluid collection in any of the suspected joints. There is soft tissue swelling c/w cellulitis but no joint distension which would be expected if joint was infected. ICD10 Worksheet Patient Problems: Problems Problem Status Onset Dehydration Acute Hyponatremia Acute Renal failure Acute
[2017-09-10] MEDS ORDERED: D5W 1/2 NS 1,000 ML IV SCH (09:00)
[2017-09-10] MEDS: NICOTINE 21 MG/24 HR PATCH TD SCH (09:23)
[2017-09-10] MEDS: FAMOTIDINE 20 MG/NACL 50 ML IV SCH ×2 (09:23→20:54)
[2017-09-10] MEDS ORDERED: ALBUMIN 5% 500 ML IV ONE (09:59)
[2017-09-10] MEDS: ERTAPENEM 1 GM VIAL IV SCH (10:56)
--- NOTE | 2017-09-10 11:16 | ASMTCMCOM ---
CM Note CM Note Notes: Left message for Ethics to come on Monday to assist. On admission patient did not want family involved but due to his inability to make decisions, Manager Rental to contact his mother for permission to implement medical procedures. At this time she will be his Medical Proxy. Date Signed: 09/10/2017 11:15 AM Electronically Signed By:Lauren Franklin LCSW
--- NOTE | 2017-09-10 13:38 | SOAPPROG ---
SOAP Progress Note Assessment/Plan: Assessment: Swelling and erythema is less at affected areas. Recommend: Continue IV abx. I will follow. 09/09/17 19:06 09/10/17 08:18 09/10/17 13:37 Subjective: Non Communicative Objective: Vital Signs Temp Pulse Resp BP Pulse Ox 37.7 C 79 32 H 117/63 99 09/10/17 12:00 09/10/17 12:00 09/10/17 12:00 09/10/17 12:00 09/10/17 12:00 Microbiology 09/07/17 12:29 Gram Stain - Final Toe - Aspirate Laboratory Results 09/10/17 04:00 09/10/17 04:00 09/09/17 09/10/17 09/11/17 05:59 05:59 05:59 Intake Total 2967 3511 Output Total 1075 550 Balance 1892 2961 PT 16.3 SEC (12.0-15.0) H 09/10/17 04:00 INR 1.29 (0.83-1.16) H 09/10/17 04:00 Swelling of Left ankle and bilateral first MTP joints is less today with decreased erythema. Left hand swelling and erythema is less also. No detectable effusion at any joint from Shoulder to finter tips and from knees to toes bilaterally. ICD10 Worksheet Patient Problems: Problems Problem Status Onset Dehydration Acute Hyponatremia Acute Renal failure Acute
--- NOTE | 2017-09-10 13:39 | PCMIDPN ---
Assessment/Plan: Assessment: MRSA bacteremia and multifocal disease. Patient is stable and improving slowly on vancomycin currently. His septic shock has resolved but he went back on a small amount of Levophed yesterday. Blood cultures from are still positive for MRSA however. Patient also has various areas of redness, swelling and fluctuance in his extremities -the upper extremity areas of inflammation are nearly resolved and the lower extremity areas are partially improved. The aspirate from his foot is growing MRSA as well. I think at this point the patient can continue on the present dose of IV vancomycin as his trough level is at 14 expected to slowly climb. The issue at this point with a continued bacteremia as at the patient likely has a focus of disease somewhere. This could be a joint space. This could be a variety of abscess cavities in a number of places. His negative 2D echo would argue that he probably does not have endocarditis that is easily defined. CT scans from yesterday did not reveal any source. Probably will need to set up for a JAE. Plan: 1. Continue IV vancomycin at present dose. Check trough 2. Follow up repeat blood cultures tomorrow. 3. Consider JAE tomorrow. 4. Obtain EKG 12 lead looking for PA interval changes. 09/09/17 10:37 09/09/17 10:38 09/10/17 13:35 Subjective: Patient remains on BiPAP. He is also on sedation and a small amount of Levophed. Temp curve is are not as high as they were before. Resting heart rate is decreased. Objective: Vancomycin # 5 Vital Signs Temp Pulse Resp BP Pulse Ox 37.7 C 79 32 H 117/63 99 09/10/17 12:00 09/10/17 12:00 09/10/17 12:00 09/10/17 12:00 09/10/17 12:00 Microbiology 09/07/17 12:29 Gram Stain - Final Toe - Aspirate Laboratory Results 09/10/17 04:00 09/10/17 04:00 09/09/17 09/10/17 09/11/17 05:59 05:59 05:59 Intake Total 2967 3511 Output Total 1075 550 Balance 1892 2961 - Physical Exam General Appearance: WD/WN, alert, no apparent distress, toxic Respiratory: No lungs clear, No normal breath sounds, No respiratory distress Cardiac/Chest: regular rate, rhythm, No bradycardia, No tachycardia Extremities: non-tender, erythema (Lower extremities near the feet.), No normal inspection Skin: normal color, warm/dry, No rash ICD10 Worksheet Patient Problems: Problems Problem Status Onset Dehydration Acute Hyponatremia Acute Renal failure Acute
--- NOTE | 2017-09-10 14:21 | ASMTCMCOM ---
CM Note CM Note Notes: Medical Proxy Patient on bipap, not following commands a Medical Proxy is needed to make medical decisions. Spkoke to patient's mother and step father in the room and they gave me patient's father's name and phone#. Made contact with these people and they agreed that patient's mother, Ethel Wing cp# [phone] should make medical decisions at this time. Date Signed: 09/10/2017 02:21 PM Electronically Signed By:Lauren Franklin LCSW
--- NOTE | 2017-09-10 14:38 | WOCRNPDOC ---
WOCRN Advanced Assessment Note - Skin Integrity Problem, Advanced Assess Nose Pressure Injury Dressing Type: Mepitel Dressing Description: Clean/Dry, Intact Exudate Amount: None Integumentary Issue Intervention: Dressing Changed Ketty Wound Tissue: Intact Wound Bed Color: Purple Wound Edges: Well Defined Site Measurement - Head-to-Toe Length X Width X Depth (cm): left: 0.3x0.3xDTI. medial: 1x1.4xDTI Pressure Injury Stage: Deep Tissue Injury (DTI) Pressure Injury Present on Admit: No Skin Integrity Problem Comment: Patient with hospital acquired, medical assembly related deep tissue injury to his nose, likely from continued use of bi-pap. Wound beds are each deep purple and, at this point, skin is intact. Small allevyn sacral dressing cut to fit over patients nose to protect area. Good seal was achieved with bi-pap per TONI Lewis. Wound care will continue to follow as these wounds evolve. Large Allevyn Life Sacral dressing tubed to 2N for use, should the dressing need to be replaced.
--- NOTE | 2017-09-10 15:16 | HOSPPROG ---
Hospitalist Progress Note Assessment/Plan: Assessment: 37 yo M p/w septic shock 2/2 MRSA PNA and MRSA bacteremia c/b acute encephalopathy Plan: # septic shock: POA, evidenced by hypotension, encephalopathy, tachypnea (qSOFA 3/3) w/ end-organ failure (BRITNEY, resp failure) meeting all ICDS-3 criteria -CVP 9 -acute worsening o/n w/ hypotension, s/p albumin and levophed, remains intravascularly hypovolemic but total body hypervolemic, so we stopped additional IVF, gave additional 500mg albumin today, and he responded, so weaning off levophed and giving albumin scheduled q6 # Acute hypoxic respiratory failure: Evidenced by PaO2 59 + visible tachypnea and respiratory distress (RR 40s), likely 2/2 pneumonia, sepsis, opiate withdraw -weaned to face mask today, but patient became increasingly tachypneic prior to CT (RR 50s) and required placement back on BiPAP -acutely worsening pleural effusions today on CXR -d/w Dr. Buchanan, agreed that he needs bilat thoracenteses now to hopefully avoid intubation and potentially get source control (if he has empyema), and Dr. Paniagua will be on stand-by for possible chest tubes if patient's pleural fluid demonstrates overt empyemas -high risk of requiring intubation, will definitely require it if he is get chest tubes # MRSA bacteremia w/ septic embolization and MRSA septic arthritis: POA, present in BCx and joint aspirate 09/07, 09/08 BCx demonstrate persistent infxn despite appropriate Vanco dosing and STEPHANIE -likely 2/2 IVDU -no endocarditis on Echo, d/w Dr. Gates and agreed on JAE -d/w Dr. Bhatt, recommends cont on IV Vanco -appreciate ortho consult by Dr. Vee, at present time does not recommend joint wash-outs as CTs w/o convincing e/o joint effusions, can get MRIs if fevers persis # MRSA pneumonia: POA, 2/2 embolization of bacteremia, multifocal on CXR and worsening pleural effusions -cont Vanco -cont to monitor WBC -getting diagnostic thoras today # Acute encephalopathy: Evidenced by global brain dysfunction characterized as non-directible behavior, non-conversant, somnolent, all of which is an acute change from his baseline, 2/2 toxic effects of infxn + metabolic effects of opiate withdraw -cont precedex for safety -cont tx conditions above -non-responsive on exam # Acute opiate withdraw: Encephalopathic and agitated, requiring precedex + PRN ativan, added scheduled morphine today given that his agitation is interfering w / safety and other medical care # BRITNEY: 2/2 septic shock, worsening today s/p contrast and shock, check UA/FeNa to gauge whether this is ATN # Hyponatremia and Hypernatremia: Acute, 2/2 hypovolemia and septic shock, s/p NS and resulting in hypernatremia w/ free water deficit, adjusted to D5W # Acute metabolic and respiratory acidosis: 2/2 hypoperfusion and lactic acidosis 2/2 septic shock + CO2 retention 2/2 encephalopathy, resolved # HCV. 2/2 IVDU, cont to monitor LFTs # IVDU: Will require beh health resource RN once he is cognitively able to engage # Pressure injury: on bridge of nares, was unable to visualize the effected area on 09/07 exam 2/2 BiPAP so unable to verify whether POA -wound care consult appreciated Diet. NPO PPx. High risk, hep SC Code. Full Dispo. ADD uncertain, remains critically ill 50 minutes of critical care time spent at bedside w/ patient, coordinating care w/ Dr. Buchanan/Miller, specifically patient's resp failure/septic shock rendering him critically ill w/ high risk of worsening morbidity/mortality. Subjective: worsening hypotension o/n, persistently febrile Objective: Vital Signs Temp Pulse Resp BP Pulse Ox 37.7 C 82 37 H 116/61 99 09/10/17 12:00 09/10/17 13:00 09/10/17 13:00 09/10/17 13:00 09/10/17 13:00 Microbiology 09/07/17 12:29 Gram Stain - Final Toe - Aspirate Laboratory Results 09/10/17 04:00 09/10/17 04:00 09/09/17 09/10/17 09/11/17 05:59 05:59 05:59 Intake Total 2967 3511 Output Total 1075 550 Balance 1892 2961 PT 16.3 SEC (12.0-15.0) H 09/10/17 04:00 INR 1.29 (0.83-1.16) H 09/10/17 04:00 - Physical Exam Constitutional: chronically ill appearing, unkempt Cardiovascular: edema (1+ bilat LE), No systolic murmur, No irregularly irregular, No tachycardia Respiratory: reduced air movement (bilat bases), respiratory distress (visible tachypnea and labored breathing), rhonchi (on inspiration) Gastrointestinal: No normoactive bowel sounds (hypoactive bowel sounds) Skin: other (blanchable erythema bilat dorsum of feet, lesions in bilat antecub fossae) Neurologic: other (unresponsive to tactile stimuli) Psychiatric: encephalopathic ICD10 Worksheet Patient Problems: Problems Problem Status Onset Renal failure Acute Hyponatremia Acute Dehydration Acute
--- NOTE | 2017-09-10 15:29 | PDINTPN ---
Group Counselor Progress Note Assessment/Plan: Assessment: 37-year-old methamphetamine and opiate addict traveling to [place] with his mother and stepfather for work. Presented to the emergency department on 09/05 with weakness, confusion and hypotension in the setting of opiate withdrawal and recent methamphetamine abuse. Found to have high-grade MRSA bacteremia. MRSA bacteremia and sepsis. Secondary to IV drug abuse. Blood cultures and urine cultures positive, and blood cultures remain positive from 09/08 after 3 days of appropriate antibiotic coverage. Left great toe aspirate positive as well. Infiltrates present consistent with pneumonia and septic emboli. Probable MRSA, versus aspiration. On vancomycin and ertapenem. Hypotension. Secondary to septic shock and 2 sedated medications. Off and on Levophed to maintain mean arterial pressure of 65. Acute respiratory failure. On BiPAP since AM 09/08. Secondary to the sedation needed to control his agitation but progressive pulmonary infiltrates and effusions playing a role. ABG okay on BiPAP. Chest x-ray worsening - consistent with multifocal MRSA pneumonia from bacteremia/septic emboli, possibly volume overload and/or pulmonary capillary leak and/or aspiration. Effusions increasing. Thoracentesis for diagnostic and therapeutic reasons will be done. If infected he will need a chest tube. Possible aspiration pneumonia. Please see the comments above Abnormal mental status/delirium: Consistent with severe infection but in addition this could repeat opiate and amphetamine withdrawal. Routine as well as as needed Morphine ordered. Ativan available as well. On Precedex. The patient is not decisional at this point in time. Volume overload: CVP 9 today. Metabolic: On replacement protocols. Substance abuse: Opiates, methamphetamine. Prophylaxis: Famotidine, SCDs. History of hepatitis-C Thrombocytopenia, anemia. Stable. No evidence of active bleeding. Secondary primarily to acute illness with bacteremia and sepsis. Liver disease possibly playing a role regarding thrombocytopenia. Acute renal failure. BUN and creatinine rising today. Urine output decreased Plan: Remains critically ill. Continue BiPAP support. For bilateral thoracentesis today. Continue aggressive supportive care in the intensive care unit. Continue vancomycin and ertapenem. Continue Levophed as needed to maintain MAP greater than 65. Follow laboratory, x-ray, ABG. Will give albumin and follow CVP. Would like to see it in the 6-8 range. Continue scheduled morphine for opiate withdrawal, Precedex and as needed Ativan for agitation. Follow pulmonary status post thoracentesis, intubated if needed. If pleural fluid is infected then chest tubes will be needed. Discussed with surgery. Based on the fact that he is incapacitated and not decisional at this time secondary to the severity of his medical illness, need for sedating medications , and confusion his mother who is here with him will be made power of civil rights attorney. This was discussed with her and she is amenable to this until he again becomes decisional. The patient's father is also coming here from out of town tomorrow by report. 55 min of critical care time spent directly with the patient, not including thoracenteses. Discussed with patient's mother and stepfather, hospitalist, ID , RT, nursing, ICU multi disciplinary team. 09/10/17 17:23 Subjective: Sedated, on BiPAP Objective: Vital Signs Temp Pulse Resp BP Pulse Ox 37.7 C 80 33 H 122/70 H 98 09/10/17 12:00 09/10/17 14:00 09/10/17 14:00 09/10/17 14:00 09/10/17 14:00 Microbiology 09/07/17 12:29 Gram Stain - Final Toe - Aspirate Laboratory Results 09/10/17 04:00 09/10/17 04:00 09/09/17 09/10/17 09/11/17 05:59 05:59 05:59 Intake Total 2967 3511 Output Total 1075 550 Balance 1892 2961 PT 16.3 SEC (12.0-15.0) H 09/10/17 04:00 INR 1.29 (0.83-1.16) H 09/10/17 04:00 Laboratory Tests 09/09/17 09/09/17 09/10/17 05:00 05:00 04:00 PT INR pCO2 37 pO2 80 H ABG pH 7.36 ABG O2 Saturation 95 Total O2 Concentration O2 Concentration % 40 Expiratory Pressure 7 Inspiratory Pressure 16 Mode BiPAP YES Calcium 7.3 L 7.4 L Albumin 1.8 L 2.0 L 09/10/17 09/10/17 04:00 04:50 PT 16.3 H INR 1.29 H pCO2 45 H pO2 70 ABG pH 7.24 L ABG O2 Saturation Total O2 Concentration 10.0 O2 Concentration % Expiratory Pressure Inspiratory Pressure Mode BiPAP Calcium Albumin CXR: Increasing bilateral pleural effusions and intraparenchymal infiltrates Physical Exam - Physical Exam General Appearance: mild distress, obtunded (Arouses weakly), other (On BiPAP) EENT: PERRL/EOMI, other (BiPAP mask in place) Neck: normal inspection (No obvious JVD) Respiratory: decreased breath sounds, rales (Present bilaterally), rhonchi (Few comma with cough), other (Tachypneic), No normal breath sounds (Dullness at bases), No wheezing Cardiac/Chest: regular rate, rhythm (Distant heart tones), systolic murmur ( Present, soft) Abdomen: non-tender, soft, No normal bowel sounds (Present, decreased) Male Genitalia: other (Gonsalez catheter in place, decreased urine output) Skin: warm/dry, pallor Extremities: swelling (Over great toes, erythema about the same) Neuro/Psych: no motor/sensory deficits (Moves all extremities), cognition abnormalities (Difficult to assess) ICD10 Worksheet Patient Problems: Problems Problem Status Onset Renal failure Acute Hyponatremia Acute Dehydration Acute
[2017-09-10] MEDS ORDERED: ALBUMIN 5% 500 ML BOTTLE IV ONE (16:57)
--- NOTE | 2017-09-10 17:30 | GPN ---
[f rep st] PROCEDURE NOTE DATE OF PROCEDURE: 09/10/2017 PROCEDURE: Left-sided thoracentesis. INDICATION: Increasing pleural effusions in a patient with MRSA bacteremia. PROCEDURE NOTE: The procedure was done in the patient's room in the intensive care unit. Informed c onsent was obtained from the patient's mother. Appropriate time-out was performed. Local anesthesia consisted of approximately 6 mL of 1% lidocaine between ribs 8 and 9 on the left posteriorly. The thoracentesis catheter was placed into the patient's left-sided pleural effusion. The effusion w as bloody. The catheter was hooked to negative pressure suction and approximately 1700 mL of bloody fluid was removed. Appropriate studies were sent. The patient tolerated the procedure well. Chest x-ray following the procedure showed markedly improv ed aeration at the left base and no evidence of a pneumothorax. IMPRESSION: 1. Successful large volume thoracentesis. 2. Studies will be awaited. These include chemistries, cell count and differential, Gram stain and culture, pH and hematocrit. /[id number]/MODL
--- NOTE | 2017-09-10 18:05 | GPN ---
[f rep st] PROCEDURE NOTE DATE OF PROCEDURE: 09/10/2017 PROCEDURE PERFORMED: Right-sided thoracentesis. INDICATION: Large right-sided pleural effusion in a patient with MRSA bacteremia and sepsis, associa alberta with volume overload. A large volume left-sided thoracentesis yielding bloody fluid was done lorenza or to this procedure. PROCEDURE IN DETAIL: The procedure was performed in the patient's room in the ICU. Informed consent was obtained from the patient's mother. Appropriate time-out was performed. The pleural effusion h ad previously been marked by ultrasound. Approximately 6 cc of 1% lidocaine was used for local anest hesia between ribs 8 and 9 posterolaterally on the right. The thoracentesis catheter was advanced into the patient's pleural effusion on the right side without difficulty. Approximately 1100 mL of bloody fluid was removed. This fluid was essentially identica l to the fluid removed previously from the left side. A Gram stain and culture were sent. Other mariana dies were not sent because the previous values on the left will be product support representative of this right-sided fluid. Chest x-ray is pending at the time of this dictation. ASSESSMENT: Successful large-volume right-sided thoracentesis. /[id number]/MODL
[2017-09-10] MEDS: ALBUMIN 25% 100 ML IV SCH (18:07)
[2017-09-10] MEDS: LORazepam 2 MG/ML INJ IV PRN (20:54)
[2017-09-11] MEDS: LORazepam 2 MG/ML INJ IV PRN ×4 (00:12→19:09)
[2017-09-11] MEDS: ALBUMIN 25% 100 ML IV SCH ×4 (00:12→17:51)
[2017-09-11] MEDS: DEXMEDETOMIDINE HCL 400 MCG in NS 100 ML IV SCH ×3 (02:15→09:05)
[2017-09-11] MEDS: LEVALBUTEROL 1.25 MG/3 ML DEYVIAL IH SCH ×4 (04:24→20:12)
[2017-09-11] MEDS: VANCOMYCIN HCL/NORMAL SALINE 250 ML IV SCH (05:08)
[2017-09-11] MEDS: NOREPINEPHRINE BITARTRATE 4 MG in NS 500 ML IV SCH (05:51)
[2017-09-11 06:01] LABS: PLATELET COUNT 43 10^3/uL (150-400)
--- NOTE | 2017-09-11 08:31 | PDINTPN ---
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 Presented to the emergency department on 09/05 with weakness, confusion and hypotension in the setting of opiate withdrawal and recent methamphetamine abuse. Found to have high-grade MRSA bacteremia. * MRSA bacteremia and sepsis. Secondary to IV drug abuse. Blood cultures and urine cultures positive, and blood cultures remain positive from 09/08 after 3 days of appropriate antibiotic coverage. Left great toe aspirate positive as well. Infiltrates present consistent with pneumonia and septic emboli. Probable MRSA, versus aspiration. On vancomycin and ertapenem. * Hypotension. Secondary to septic shock and 2 sedated medications. Off and on Levophed to maintain mean arterial pressure of 65. * Acute respiratory failure. On BiPAP since AM 09/08. Secondary to the sedation needed to control his agitation but progressive pulmonary infiltrates and effusions playing a role. ABG okay on BiPAP. -mild desaturation and coughing spell once taken off BiPAP. -may need intubation if JAE required * Possible aspiration pneumonia. Chest x-ray worsening - consistent with multifocal MRSA pneumonia from bacteremia/septic emboli, possibly volume overload and/or pulmonary capillary leak and/or aspiration. Effusions increasing. Thoracentesis for diagnostic and therapeutic reasons will be done. If infected he will need a chest tube. * Abnormal mental status/delirium: Consistent with severe infection but in addition this could repeat opiate and amphetamine withdrawal. Routine as well as as needed Morphine ordered. Ativan available as well. On Precedex. The patient is not decisional at this point in time. * Metabolic acidosis * Volume overload * Metabolic: On replacement protocols. * Substance abuse: Opiates, methamphetamine. * Prophylaxis: Famotidine, SCDs. * History of hepatitis-C * Thrombocytopenia, anemia. Stable. No evidence of active bleeding. Secondary primarily to acute illness with bacteremia and sepsis. Liver disease possibly playing a role regarding thrombocytopenia. * Acute renal failure. BUN and creatinine continue to elevate. -will consult Nephrology Subjective: Sedated and on BiPAP Objective: Vital Signs Temp Pulse Resp BP Pulse Ox 35.8 C L 88 48 H 116/62 90 L 09/11/17 07:00 09/11/17 08:18 09/11/17 08:18 09/11/17 08:18 09/11/17 08:18 Microbiology 09/10/17 17:06 Gram Stain - Final Pleural Fluid - Aspirate 09/10/17 15:00 Gram Stain - Final Pleural Fluid - Aspirate 09/07/17 12:29 Gram Stain - Final Toe - Aspirate Laboratory Results 09/11/17 04:50 09/11/17 04:50 09/10/17 09/11/17 09/12/17 05:59 05:59 05:59 Intake Total 3511 3954 Output Total 550 925 Balance 2961 3029 PT 16.3 SEC (12.0-15.0) H 09/10/17 04:00 INR 1.29 (0.83-1.16) H 09/10/17 04:00 Laboratory Results 09/11/17 04:50 09/11/17 04:50 09/11/17 09/11/17 04:50 04:20 Patient Temperature 37.8 DEGREES DEGREES pCO2 43 mmHg H mmHg (34 - 38) pO2 108 mmHg H mmHg (65 - 75) Total CO2 18 mEq/L L mEq/L (23 - 27) ABG pH 7.24 L (7.35 - 7.45) ABG PO2/FiO2 Ratio 270 RATIO RATIO ABG HCO3 17 mEq/L L mEq/L (22 - 26) ABG O2 Saturation 96 % H % (92 - 95) ABG Base Excess -9.1 mEq/L L mEq/L (-2.5 - 2.5) O2 Concentration % 40 % % Expiratory Pressure 7 Inspiratory Pressure 16 Mode BiPAP YES Calcium 7.6 mg/dL L mg/dL (8.5 - 10.4) Phosphorus 8.0 mg/dL H D mg/dL (2.5 - 4.5) Total Bilirubin 0.8 mg/dL mg/dL (0.1 - 1.4) AST 16 IU/L L IU/L (17 - 59) ALT 18 IU/L L IU/L (21 - 72) Alkaline Phosphatase 62 IU/L IU/L (38 - 126) Total Protein 5.2 g/dL L g/dL (6.3 - 8.2) Albumin 2.3 g/dL L g/dL (3.5 - 5.0) - Time Spent With Patient Time Spent With Patient: 35 min of time spent with patient, over 1/2 involved with coordination of care or counseling. Case discussed with Respiratory therapy and Nursing Physical Exam - Physical Exam General Appearance: WD/WN, No alert EENT: PERRL/EOMI Neck: non-tender, full range of motion Respiratory: respiratory distress, rhonchi (Diffuse), other (On BiPAP) Cardiac/Chest: normal peripheral pulses, regular rate, rhythm, systolic murmur Peripheral Pulses: 2+: carotid (R), carotid (L), femoral (R), femoral (L), dorsalis-pedis (R), dorsalis-pedis (L) Abdomen: normal bowel sounds, non-tender, soft Male Genitalia: deferred Rectal: deferred Skin: normal color, warm/dry Neuro/Psych: No alert ICD10 Worksheet Patient Problems: Problems Problem Status Onset Dehydration Acute Hyponatremia Acute Renal failure Acute
[2017-09-11] MEDS: FAMOTIDINE 20 MG/NACL 50 ML IV SCH (09:04)
[2017-09-11] MEDS: NICOTINE 21 MG/24 HR PATCH TD SCH (09:04)
--- NOTE | 2017-09-11 09:22 | SOAPPROG ---
SOAP Progress Note Assessment/Plan: Assessment: Swelling and erythema mostly unchanged Recommend: Continue IV abx. I will follow. 09/09/17 19:06 09/10/17 08:18 09/10/17 13:37 09/11/17 09:22 Subjective: Sedated Objective: Vital Signs Temp Pulse Resp BP Pulse Ox 35.8 C L 88 48 H 116/62 90 L 09/11/17 07:00 09/11/17 08:18 09/11/17 08:18 09/11/17 08:18 09/11/17 08:18 Microbiology 09/10/17 17:06 Gram Stain - Final Pleural Fluid - Aspirate 09/10/17 15:00 Gram Stain - Final Pleural Fluid - Aspirate 09/07/17 12:29 Gram Stain - Final Toe - Aspirate Laboratory Results 09/11/17 04:50 09/11/17 04:50 09/10/17 09/11/17 09/12/17 05:59 05:59 05:59 Intake Total 3511 3954 Output Total 550 925 Balance 2961 3029 PT 16.3 SEC (12.0-15.0) H 09/10/17 04:00 INR 1.29 (0.83-1.16) H 09/10/17 04:00 Erythema remians unchanged exceept left great toe MTP which has coalesced to a smaller area but still is not fluctuant Right forearm is swollen but without focal area of swelling and no erythema.. ICD10 Worksheet Patient Problems: Problems Problem Status Onset Dehydration Acute Hyponatremia Acute Renal failure Acute
[2017-09-11] MEDS: ERTAPENEM 1 GM VIAL IV SCH (09:32)
[2017-09-11] MEDS ORDERED: LIDOCAINE 1% 300 MG/30 ML SDV ONE (10:37)
[2017-09-11] MEDS ORDERED: LIDOCAINE 1% 2 ML INJ IH ONE (10:45)
[2017-09-11] MEDS: HYDROmorphone HCL/NS 0.5 MG/ML SYR IV SCH ×2 (11:46→17:51)
[2017-09-11] MEDS: DEXMEDETOMIDINE HCL 1,000 MCG in NS 250 ML IV SCH ×2 (12:47→21:08)
--- NOTE | 2017-09-11 13:22 | PCMIDPN ---
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 Reviewed transthoracic echocardiogram with cardiology without overt vegetation or significant regurgitation on tricuspid valve. Once becomes more stable, ultimately will likely need JAE to further define although currently do not think will change immediate management. Soft tissue changes are improving with mostly resolved findings over hands with some residual findings over feet. Continue vancomycin taking into account acute renal insufficiency as outlined below; daptomycin less viable option in this circumstance given probable septic pulmonary emboli. * Acute renal failure: Creatinine 2.7 with multifactorial etiologies of consideration including ATN after hypotension, contrast nephropathy, vancomycin induced nephrotoxicity, or staphylococcal associated glomerulonephritis. Vancomycin held currently. Will obtain vancomycin level although suspect this will be significantly elevated. Agree with plans for Nephrology consultation. 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 09/11/17 13:19 Subjective: Patient awake but confused. Objective: Vital Signs Temp Pulse Resp BP Pulse Ox 36.6 C 80 28 H 114/56 L 98 09/11/17 13:00 09/11/17 13:00 09/11/17 13:00 09/11/17 13:13 09/11/17 13:00 Microbiology 09/07/17 12:29 Gram Stain - Final Toe - Aspirate 09/10/17 17:06 Gram Stain - Final Pleural Fluid - Aspirate 09/10/17 15:00 Gram Stain - Final Pleural Fluid - Aspirate Laboratory Results 09/11/17 04:50 09/11/17 04:50 09/10/17 09/11/17 09/12/17 05:59 05:59 05:59 Intake Total 3511 3954 Output Total 550 925 385 Balance 2961 3029 -385 Vancomycin # 6 CT of chest and echocardiogram both reviewed - Physical Exam General Appearance: no apparent distress, non-toxic, other (Confused) EENT: No conjunctival petechiae Respiratory: respiratory distress (Increased respiratory effort present) Cardiac/Chest: regular rate, rhythm, No systolic murmur Extremities: inflammation (Bilateral feet with erythema below base of great toe without pain with great toe range of motion; hand erythema largely resolved) Skin: No embolic lesions ICD10 Worksheet Patient Problems: Problems Problem Status Onset Dehydration Acute Hyponatremia Acute Renal failure Acute
[2017-09-11] MEDS ORDERED: HEPARIN 5,000 UNIT/0.5 ML INJ SC SCH (14:00)
--- NOTE | 2017-09-11 14:36 | ASMTCMCOM ---
CM Note CM Note Notes: Met with patient's father, Dominic Colon and patient's girlfriend, Rosa Maria Sanchez, Ethics, Electrical Design Engineer and senior health consultant. We discussed the dilema of patient's not wanting his information going to family vs needing a Medical Decision Maker. Father and girlfriend are in favor of patient's mother, Ethel, being the Medical Proxy. They would like patient to be confidential and they will attend "ICU Rounds" and have Ethel fill them in on his medical status and needs. Date Signed: 09/11/2017 02:36 PM Electronically Signed By:Lauren Franklin LCSW
--- NOTE | 2017-09-11 16:34 | HOSPPROG ---
Hospitalist Progress Note Assessment/Plan: Assessment: 37 yo M p/w septic shock 2/2 MRSA PNA and MRSA bacteremia c/b acute encephalopathy, BRITNYE Plan: # septic shock: POA, evidenced by hypotension, encephalopathy, tachypnea (qSOFA 07/08) w/ end-organ failure (BRITNEY, resp failure) meeting all ICDS-3 criteria -BP stabilizing today w/ levophed wean, cont albumin scheduled to prevent worsening BRITNEY, hold IVF runner to prevent CHF # Acute hypoxic respiratory failure: Evidenced by PaO2 59 + visible tachypnea and respiratory distress (RR 40s), likely 2/2 pneumonia, sepsis, effusions -d/w Dr. Rivers, we agree that patient's resp status is tenuous and may require intubation if does not show improvement today, will require intubation prior to JAE -trial patient on high-flow and off BiPAP # MRSA bacteremia w/ septic embolization and possible MRSA septic arthritis: POA , present in BCx and joint aspirate 09/07, 09/08 BCx demonstrate persistent infxn despite appropriate Vanco dosing and STEPHANIE -likely 2/2 IVDU -no endocarditis on TTE, d/w Dr. Patino, he is looking into TV read of TTE -will get JAE when resp status amenable -Vanco dosing to be adjusted re: BRITNEY # MRSA pneumonia: POA, 2/2 embolization of bacteremia, multifocal on CXR and bloody, exudative parapneumonic effusions on thoras -cont Vanco -cont monitor pleural Cx # Acute encephalopathy: Evidenced by global brain dysfunction characterized as non-directible behavior, non-conversant, somnolent, all of which is an acute change from his baseline, 2/2 toxic effects of infxn + metabolic effects of opiate withdraw -cont precedex for safety -cont tx conditions above -non-responsive on exam # Acute opiate withdraw: Encephalopathic and agitated, requiring precedex + scheduled dilaudid # BRITNEY: 2/2 septic shock, worsening today s/p contrast and shock, FeNa 0.3% indicating hypovolemic component -cont albumin, monitor UOP -daily Cr, monitor K -no indication for PCI SECURITY CONSULTANT at this juncture, but will need to monitor his metabolic acidosis -getting renal consult # Hyponatremia and Hypernatremia: Acute, 2/2 hypovolemia and septic shock, s/p NS and resulting in hypernatremia w/ free water deficit, holding on additional D5W at this juncture given his total body hypervolemia and 3rd spacing # Acute metabolic and respiratory acidosis: 2/2 hypoperfusion and lactic acidosis 2/2 septic shock + CO2 retention 2/2 encephalopathy -monitor daily pH on ABG # HCV. 2/2 IVDU, cont to monitor LFTs # IVDU: Will require beh health resource RN once he is cognitively able to engage # Pressure injury: on bridge of nares, was unable to visualize the effected area on 09/07 exam 2/2 BiPAP so unable to verify whether POA -wound care consult appreciated # Thrombocytopenia and Anemia: likely 2/2 hepatic impairment from HCV and infxn , monitor Diet. NPO, TF if intubated PPx. High risk, SCDs, holding pharm re: thrombocytopenia Code. Full, Ethics has confirmed his mother is MDPOA today Dispo. ADD uncertain, remains critically ill 45 minutes of critical care time spent at bedside w/ patient, coordinating care w/ Dr. Rivers/, specifically patient's resp failure/BRITNEY/septic shock rendering him critically ill w/ high risk of worsening morbidity/mortality. Subjective: afebrile o/n, unresponsive Objective: Vital Signs Temp Pulse Resp BP Pulse Ox 37 C 87 30 H 115/59 L 100 09/11/17 16:05 09/11/17 16:10 09/11/17 16:10 09/11/17 16:05 09/11/17 16:10 Microbiology 09/07/17 12:29 Gram Stain - Final Toe - Aspirate 09/10/17 17:06 Gram Stain - Final Pleural Fluid - Aspirate 09/10/17 15:00 Gram Stain - Final Pleural Fluid - Aspirate Laboratory Results 09/11/17 04:50 09/11/17 04:50 09/10/17 09/11/17 09/12/17 05:59 05:59 05:59 Intake Total 3511 3954 Output Total 550 925 385 Balance 2961 3029 -385 PT 16.3 SEC (12.0-15.0) H 09/10/17 04:00 INR 1.29 (0.83-1.16) H 09/10/17 04:00 - Physical Exam Constitutional: chronically ill appearing, other (sedated) Eyes: other (fixed centrally, reactive, not tracking) Cardiovascular: edema (trace bilat LE), No systolic murmur (distant heart sounds ), No irregularly irregular, No tachycardia Respiratory: reduced air movement (bilat bases), expiratory wheeze, rhonchi (on insp bilat), No bronchial breath sounds Gastrointestinal: No normoactive bowel sounds (hypoactive bowel sounds), No distension Skin: other (blanchable erythema bilat 1st MTP) Neurologic: other (AAOx0) Psychiatric: encephalopathic, other (unresponsive to tactile stimuli) ICD10 Worksheet Patient Problems: Problems Problem Status Onset Renal failure Acute Hyponatremia Acute Dehydration Acute
[2017-09-12] MEDS: HYDROmorphone HCL/NS 0.5 MG/ML SYR IV SCH ×5 (01:24→23:54)
[2017-09-12] MEDS: LORazepam 2 MG/ML INJ IV PRN ×5 (01:25→22:19)
[2017-09-12] MEDS: ALBUMIN 25% 100 ML IV SCH ×5 (01:25→23:52)
[2017-09-12] MEDS: LEVALBUTEROL 1.25 MG/3 ML DEYVIAL IH SCH ×4 (04:02→22:35)
[2017-09-12] MEDS: DEXMEDETOMIDINE HCL 1,000 MCG in NS 250 ML IV SCH (04:41)
[2017-09-12 05:58] LABS: PLATELET COUNT 66 10^3/uL (150-400)
[2017-09-12] MEDS ORDERED: DEXMEDETOMIDINE HCL 1,000 MCG in D5W 250 ML IV SCH (08:30)
[2017-09-12] MEDS: D5W 1,000 ML IV SCH (09:36)
[2017-09-12] MEDS: NICOTINE 21 MG/24 HR PATCH TD SCH (09:36)
[2017-09-12] MEDS: FAMOTIDINE 20 MG/NACL 50 ML IV SCH (09:36)
--- NOTE | 2017-09-12 09:36 | PCMIDPN ---
Assessment/Plan: Assessment/Plan: 1. MRSA bacteremia/sepsis with septic pulmonary emboli: - hx of IVdU -positive blood cx from 09/05, 09/08. blood cx from 09/11/17 pending -TTE without obvious vegetations. -Vanco trough elevated to 59 yesterday. VAnco d/c'd yesterday. Creatinine continues to rise, currently at 3.3. -To get HD today. will follow up on levels -care coordinated with pharmacy and nephrology. 2. Skin and soft tissue erythema: - some improvement noted - Ct's reviewed. no joint effusions or gas in tissue -continue to follow 3. HCV: -will need work up at some point. Meds off vanco----due to high levels. Subjective: febrile this AM. remains in icu, intubated, sedated. Gonsalez in place. Objective: Vital Signs Temp Pulse Resp BP Pulse Ox 38.3 C 86 24 H 115/59 L 95 09/12/17 08:00 09/12/17 08:00 09/12/17 08:00 09/12/17 08:00 09/12/17 08:00 Microbiology 09/10/17 17:06 Gram Stain - Final Pleural Fluid - Aspirate 09/10/17 15:00 Gram Stain - Final Pleural Fluid - Aspirate 09/07/17 12:29 Gram Stain - Final Toe - Aspirate Laboratory Results 09/12/17 05:15 09/12/17 05:15 09/11/17 09/12/17 09/13/17 05:59 05:59 05:59 Intake Total 3954 1533 Output Total 925 1185 Balance 3029 348 - Physical Exam General Appearance: other (sedated, intubated) EENT: ET Tube Respiratory: coarse breath sounds (anteriorly) Cardiac/Chest: regular rate, rhythm Extremities: swelling Abdomen: normal bowel sounds, non-tender, soft, No distended Skin: erythema (b/l first MTP regions. warmth appreciated. some improvment noted within areas of demarcation. ) ICD10 Worksheet Patient Problems: Problems Problem Status Onset Dehydration Acute Hyponatremia Acute Renal failure Acute
--- NOTE | 2017-09-12 09:37 | PDINTPN ---
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 Presented to the emergency department on 09/05 with weakness, confusion and hypotension in the setting of opiate withdrawal and recent methamphetamine abuse. Found to have high-grade MRSA bacteremia. * MRSA bacteremia and sepsis. Secondary to IV drug abuse. Blood cultures and urine cultures positive, and blood cultures remain positive from 09/08 after 3 days of appropriate antibiotic coverage. Left great toe aspirate positive as well. Infiltrates present consistent with pneumonia and septic emboli. Probable MRSA, versus aspiration. -antibiotics per Infectious Disease * Hypotension. Secondary to septic shock and 2 sedated medications. Off and on Levophed to maintain mean arterial pressure of 65. * Acute respiratory failure. Back on BiPAP. Somewhat tachypneic this morning. -will adjust BiPAP pressures. If this is not work will likely intubate * Possible aspiration pneumonia. Chest x-ray worsening - consistent with multifocal MRSA pneumonia from bacteremia/septic emboli, possibly volume overload and/or pulmonary capillary leak and/or aspiration. * Pleural effusions-thoracentesis performed 2 days ago. Cultures are not growing * Abnormal mental status/delirium: Consistent with severe infection but in addition this could repeat opiate and amphetamine withdrawal. Routine as well as as needed no change overall. -continue sedation * Metabolic acidosis-mostly unchanged. Will likely be improved with dialysis * Volume overload * Metabolic: On replacement protocols. * Substance abuse: Opiates, methamphetamine. * Prophylaxis: Famotidine, SCDs. * History of hepatitis-C * Thrombocytopenia, anemia. Stable. No evidence of active bleeding. Secondary primarily to acute illness with bacteremia and sepsis. Liver disease possibly playing a role regarding thrombocytopenia. * Acute renal failure. BUN and creatinine continue to elevate. Nephrology has been consulted -dialysis catheter be placed today and patient begun on dialysis Subjective: Obtunded on BiPAP Objective: Vital Signs Temp Pulse Resp BP Pulse Ox 38.3 C 86 24 H 115/59 L 95 09/12/17 08:00 09/12/17 08:00 09/12/17 08:00 09/12/17 08:00 09/12/17 08:00 Microbiology 09/10/17 17:06 Gram Stain - Final Pleural Fluid - Aspirate 09/10/17 15:00 Gram Stain - Final Pleural Fluid - Aspirate 09/07/17 12:29 Gram Stain - Final Toe - Aspirate Laboratory Results 09/12/17 05:15 09/12/17 05:15 09/11/17 09/12/17 09/13/17 05:59 05:59 05:59 Intake Total 395 1533 Output Total 929 1185 Balance 3029 348 PT 16.3 SEC (12.0-15.0) H 09/10/17 04:00 INR 1.29 (0.83-1.16) H 09/10/17 04:00 Laboratory Results 09/12/17 05:15 09/12/17 05:15 09/12/17 09/12/17 09/11/17 05:40 05:15 13:15 Patient Temperature 38.3 DEGREES DEGREES pCO2 35 mmHg mmHg (34 - 38) pO2 97 mmHg H mmHg (65 - 75) Total CO2 15 mEq/L L mEq/L (23 - 27) ABG pH 7.23 L (7.35 - 7.45) ABG PO2/FiO2 Ratio 243 RATIO RATIO ABG HCO3 14 mEq/L L mEq/L (22 - 26) ABG O2 Saturation 95 % % (92 - 95) ABG Base Excess -11.8 mEq/L L mEq/L (-2.5 - 2.5) ABG Lactic Acid 0.5 mmol/L mmol/L (0.5 - 1.6) O2 Concentration % 40 % % Expiratory Pressure 7 Inspiratory Pressure 16 BiPAP YES Sodium 157 mEq/L H mEq/L (135 - 145) Potassium 5.1 mEq/L mEq/L (3.5 - 5.2) Chloride 122 mEq/L H mEq/L (97 - 110) Carbon Dioxide 18 mEq/l L mEq/l (22 - 31) Anion Gap 17 mEq/L H mEq/L (8 - 16) BUN 70 mg/dL H mg/dL (7 - 23) Creatinine 3.3 mg/dL H mg/dL (0.7 - 1.3) Calcium 7.7 mg/dL L mg/dL (8.5 - 10.4) Total Bilirubin 0.8 mg/dL mg/dL (0.1 - 1.4) AST 15 IU/L L IU/L (17 - 59) ALT 20 IU/L L IU/L (21 - 72) Alkaline Phosphatase 57 IU/L IU/L (38 - 126) Total Protein 5.6 g/dL L g/dL (6.3 - 8.2) Vancomycin Trough 59.6 mcg/mL H* mcg/mL (5.0 - 20.0) 09/10/17 17:06 Gram Stain - Final Pleural Fluid - Aspirate Body Fluid Culture - Preliminary 09/10/17 15:00 Gram Stain - Final Pleural Fluid - Aspirate Body Fluid Culture - Preliminary 09/07/17 12:29 Gram Stain - Final Toe - Aspirate Anaerobic Culture - Preliminary MRSA - Time Spent With Patient Time Spent With Patient: 35 min of Critical Care time spent with patient. Case discussed with Respiratory therapy and Nursing, as well as Nephrology and Infectious Disease Physical Exam - Physical Exam General Appearance: No alert EENT: PERRL/EOMI Neck: non-tender, full range of motion Respiratory: respiratory distress (Mild), crackles (Scattered), other ( Tachypneic), No wheezing Cardiac/Chest: normal peripheral pulses, regular rate, rhythm Peripheral Pulses: 2+: carotid (R), carotid (L), femoral (R), femoral (L), dorsalis-pedis (R), dorsalis-pedis (L) Abdomen: normal bowel sounds, non-tender, soft Male Genitalia: deferred Rectal: deferred Skin: normal color, warm/dry Neuro/Psych: No alert ICD10 Worksheet Patient Problems: Problems Problem Status Onset Dehydration Acute Hyponatremia Acute Renal failure Acute
[2017-09-12 10:02] LABS: PLATELET COUNT 61 10^3/uL (150-400)
[2017-09-12 10:14] LABS: INR 1.56 (0.83-1.16); PROTIME(PATIENT) 18.8 SEC (12.0-15.0)
--- NOTE | 2017-09-12 10:14 | GCON ---
[f rep st] CONSULTATION NEPHROLOGY CONSULTATION DATE OF CONSULTATION: 09/12/2017 REASON FOR CONSULTATION: Acute kidney injury, MRSA bacteremia, elevated vancomycin levels. HISTORY OF PRESENT ILLNESS: This is a critically ill, 37-year-old male with a past medical history s ignificant for polysubstance abuse, who now presents with severe MRSA bacteremia, septic physiology, and evidence of multiple infectious emboli. The patient has acute kidney injury, and has elevated va ncomycin levels. At this point, he is sedated on Precedex. History is obtained from the medical sta ff and the medical records. The patient was originally admitted on 09/05/2017. Per history, he had been on a controlled taper of his methamphetamine and opiate drugs, using Suboxone. It is possible h william also was still using alcohol. He began to develop progressive weakness with myalgias, restlessness , cough, and arthralgias. The patient had previously been working in [place], and drove to [employer] to [employer] in this area. His last drug use was approximately 5 days previously. At the time of admission, the patient did fulfill septic criteria. He was started on the sepsis prot ocol. 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 The patient is being followed by the Infectious Disease service. He was initiated on vancomycin. On admission, his creatinine was 1.7. This improv ed to 1.0 with hydration, but increased to 2.5 on the , 2.7 on the , and is presently 3.3. The patient is total body volume overloaded. He is hemodynamically stable at the present time. He is d eveloping a progressively worsening acidosis, and his pH is currently 7.28 with a pCO2 of 15. The domenic harrell's vancomycin level as of yesterday was 59.6. He is nonoliguric, but he is volume overloaded an d hypernatremic. His serum sodium levels were 148 on the , and increasing to 157 today. Over the past 24 hours, his I and O balance was 1533 and 1185 respectively. His weight has increased from 88 -96 kg during this admission. As related to the above issues, we are asked by the Infectious Disease service to assist the patient's renal diagnosis and management. PAST MEDICAL HISTORY: 1. Polysubstance abuse. 2. Hepatitis C positivity. 3. Tobacco use. SURGICAL HISTORY: Includes. 1. Right herniorrhaphy. 2. I and D of left arm. FAMILY HISTORY: Negative for hypertension, diabetes, or coronary artery disease. SOCIAL HISTORY: The patient was living in [place]. He drove here to look for work. As noted, his last drug use had been 5 days prior to admission. He smokes 1 pack of cigarettes per day. Alcohol use i s unclear. REVIEW OF SYSTEMS: Unable to obtain at the present time in the patient's sedated state. CURRENT MEDICATIONS: DuoNeb p.r.n., Precedex drip, famotidine 20 mg daily, subcutaneous heparin, Di laudid p.r.n., Zenapax four times daily scheduled, lorazepam p.r.n., nicotine patch topically daily, norepinephrine 1 mcg/kg per minute, Zofran as needed, oxycodone as needed. PHYSICAL EXAM: GENERAL: At time of exam, the patient is sedated. He is tachypneic. VITAL SIGNS: Temperature 38.3, pulse 86, blood pressure 115/59. EYES: Sclerae clear and somewhat edematous. Pup ils are equal bilaterally. ENT: The patient has a BiPAP mask in place. FiO2 is 40%. NECK: Unrema rkable. LUNGS: Coarse breath sounds with some basilar rales are noted. He is significantly tachypn eic. CARDIOVASCULAR: Regular rate and rhythm without gallops or rubs. ABDOMEN: Moderately distend ed. I did not hear bowel sounds. : Gonsalez catheter in place. Rectal deferred. SKIN: The patien t has 1+ anasarca. Integument is generally clear. NEURO: The patient is presently sedated. LABORATORY STUDIES: Sodium 157, potassium 5.1, chloride 122, bicarb 18, anion gap 17, creatinine 3.3 , calcium 7.7, albumin 2.7. White count 17.09, hemoglobin 7.2, platelet count 66. IMPRESSION AND PLAN: 1. Acute kidney injury. The patient has nonoliguric acute kidney injury. However, the patient's cr eatinine is rising relatively rapidly, and his last vancomycin level yesterday was approximately 60. It is unlikely he is clearing this to a significant degree. Given his current respiratory status, h is acidosis, which I believe will continue to worsen, and his overall trajectory, I believe it is kimo ropriate to initiate renal replacement therapy today. He appears hemodynamically stable, so we will work initially with conventional hemodialysis, and plan this on a daily basis. This can be converted to CRRT if his clinical picture so indicates. Surgery has kindly agreed to put in a line. We will plan our 1st dialysis today, and monitor his clinical status. 2. Methicillin-resistant Staphylococcus aureus septicemia. This is well covered at present with his vancomycin. Levels will need to be monitored as we perform dialysis, and we may wish to consider al ternative therapies again depending on his clinical course. He is being monitored for septic joints by the orthopedic service. His cardiac status is being monitored relating to potential tricuspid va lve endocarditis. 3. Hypernatremia. The patient's water deficit is somewhat difficult to assess given his total body status, but using his present total body weight and assuming 60% total body water, it is approximatel y 7 L. This is not as critical since we are going to be using renal replacement therapy. We will pl an on correcting him slowly. I will initiate empirically D5W of 75 mL/h. 4. Pulmonary status. The patient does require positive airway pressures to appropriately ventilate at the present time. With this, he is oxygenating well. However, he is tachypneic, and his pCO2 is 15. Hopefully with improvement of his metabolic acidosis, his tachypnea will improve. 5. Polysubstance withdrawal. The patient is likely having ongoing withdrawal. This makes interpret ation of other aspects of his clinical picture somewhat more difficult. Presently, he is doing well on his Precedex. 6. Hematologic. The patient did have a drop in his hemoglobin and platelets. We will repeat these in followup. Thank you for allowing us to participate in this gentleman's care. We will continue following closel y with you. /[id number]/MODL
[2017-09-12] MEDS ORDERED: PROPOFOL/EMULSION 1,000 MG/100 ML BOTTLE IV ONE (13:07)
--- NOTE | 2017-09-12 13:26 | GPN ---
[f rep st] PROCEDURE NOTE PROCEDURE: Intubation. INDICATION: Acute respiratory failure. ANESTHESIA: Was given. He received rocuronium and he is currently on a Precedex drip. The procedure was performed in the intensive care unit. Continuous pulse ox, EKG, and blood pressure monitoring. PROCEDURE: Via GlideScope, the patient was intubated with a #7.5 endotracheal tube and taped in at 2 4 cm at the lip. Tracheal position was confirmed via capnograph. Patient tolerated the procedure well. There were no apparent complications. Portable chest x-ray has been called for. /[id number]/MODL
[2017-09-12] MEDS: PROPOFOL/EMULSION 100 ML IV SCH ×2 (13:28→21:30)
[2017-09-12] MEDS ORDERED: fentaNYL/NACL 100 ML IV SCH (13:30)
[2017-09-12] MEDS ORDERED: ROCURONIUM 100 MG/10 ML VIAL ONE (13:42)
[2017-09-12] MEDS ORDERED: ROCURONIUM 100 MG/10 ML VIAL IVP ONE (17:00)
--- NOTE | 2017-09-12 18:10 | HOSPPROG ---
Hospitalist Progress Note Assessment/Plan: Assessment: 37 yo M p/w septic shock 2/2 MRSA PNA and MRSA bacteremia 2/2 cellulitis (feet shooter sites) c/b acute encephalopathy, BRITNEY, acute hypoxic resp failure Plan: # septic shock: POA, evidenced by hypotension, encephalopathy, tachypnea (qSOFA 3/3) w/ end-organ failure (BRITNEY, resp failure) meeting all ICDS-3 criteria -ongoing levophed requirements, IV albumin scheduled given low serum albumin and significant 3rd spacing # Acute hypoxic respiratory failure: Evidenced by PaO2 59 + visible tachypnea and respiratory distress (RR 40s), likely 2/2 pneumonia, sepsis, effusions -d/w Dr. Rivers, we agree that patient's resp status is tenuous and requires intubation in order to proceed w/ necessary JAE diagnostic w/u -intubated this afternoon, CXR to confirm OGT placement did not visualize ET tube, repeat CXR now to ensure ET is in correct position -cont vent support # MRSA bacteremia w/ septic embolization and possible MRSA cellulitis: POA, present in BCx and joint aspirate 5/ likely positive b/c aspiration needle went through visibly cellulitic area on MTP, 09/08 BCx demonstrate persistent infxn w/ ongoing fevers -likely 2/2 IVDU and cellulitis at bilat foot shooter sites -no endocarditis on TTE, plan for JAE in AM now that patient is intubated -supratherapeutic Vanco level in setting of BRITNEY, ID monitoring Vanco levels s/p HD # MRSA pneumonia: POA, 2/2 embolization of bacteremia, multifocal on CXR and bloody, exudative parapneumonic effusions on thoras -cont monitor pleural Cx # Acute encephalopathy: Evidenced by global brain dysfunction characterized as non-directible behavior, non-conversant, somnolent, all of which is an acute change from his baseline, 2/2 toxic effects of infxn + metabolic effects of acidosis -cont precedex for safety -cont tx conditions above -responsive to verbal stimuli on exam today, non-sensical speech and not following commands # Acute opiate withdraw: Encephalopathic and agitated, required precedex + scheduled dilaudid # BRITNEY: Non-oliguric, 2/2 septic shock, worsening today s/p contrast and shock, FeNa initially 0.3% indicating hypovolemic component, but with Vanco level 59 and significant contrast load, cause is likely multifactorial -cont albumin, monitor UOP -given worsening uremia and toxic vanco levels, plan for HD today s/p dialysis cath placement by Dr. Fong -appreciate ongoing renal consult # Hyponatremia and Hypernatremia: Acute, 2/2 hypovolemia and septic shock, s/p NS and resulting in hypernatremia w/ free water deficit -per Dr. Dominguez, D5W at 75cc/hr, monitor sNa level # Acute metabolic and respiratory acidosis: 2/2 hypoperfusion and lactic acidosis 2/2 septic shock + CO2 retention 2/2 encephalopathy + worsening uremia 09/11 w/ pH 7.23 -monitor daily pH on ABG -getting HD today # HCV. 2/2 IVDU, cont to monitor LFTs # IVDU: Will require beh health resource RN once he is cognitively able to engage # Pressure injury: on bridge of nares, was unable to visualize the effected area on 09/07 exam / BiPAP so unable to verify whether POA -wound care consult appreciated # Thrombocytopenia and Anemia: likely 2/2 hepatic impairment from HCV and infxn , monitor Diet. TF via OGT PPx. High risk, SCDs, holding pharm re: thrombocytopenia Code. Full, Ethics has confirmed his mother is MDPOA Dispo. ADD uncertain, remains critically ill 40 minutes of critical care time spent at bedside w/ patient, coordinating care w/ Dr. Rivers/Ajit, specifically patient's resp failure/BRITNEY/septic shock rendering him critically ill w/ high risk of worsening morbidity/mortality. Subjective: reacting to verbal stimuli today Objective: Vital Signs Temp Pulse Resp BP Pulse Ox 38.2 C 81 20 111/51 L 99 09/12/17 16:00 09/12/17 16:00 09/12/17 16:00 09/12/17 16:00 09/12/17 16:00 Microbiology 09/10/17 15:00 Gram Stain - Final Pleural Fluid - Aspirate 09/10/17 17:06 Gram Stain - Final Pleural Fluid - Aspirate 09/07/17 12:29 Gram Stain - Final Toe - Aspirate Laboratory Results 09/12/17 09:50 09/12/17 10:50 05/07/18 05/08/18 05/09/18 05:59 05:59 05:59 Intake Total 3954 1533 Output Total 925 1185 Balance 3029 348 PT 18.8 SEC (12.0-15.0) H 09/12/17 09:50 INR 1.56 (0.83-1.16) H 09/12/17 09:50 - Physical Exam Constitutional: chronically ill appearing, uncomfortable, unkempt, No no apparent distress (moderate resp distress) Cardiovascular: tachycardia, edema (diffuse UE/LE), No systolic murmur (distant heart sounds), No irregularly irregular Respiratory: reduced air movement (bilat bases), respiratory distress (visible tachypnea), rhonchi (on insp bilat), No expiratory wheeze, No bronchial breath sounds Gastrointestinal: No normoactive bowel sounds (hypoactive ), No tenderness, No distension Skin: other (blanchable erythema lesions bilat MTPs) Psychiatric: encephalopathic, other (responsive to verbal stim but non- directible) ICD10 Worksheet Patient Problems: Problems Problem Status Onset Dehydration Acute Hyponatremia Acute Renal failure Acute
[2017-09-12] MEDS: CHLORHEXIDINE GLUCONATE 15 ML UDL PO SCH (20:00)
[2017-09-12] MEDS ORDERED: FAMOTIDINE 20 MG/NACL 50 ML IV SCH (21:00)
--- NOTE | 2017-09-12 21:38 | SOAPPROG ---
SOAP Progress Note Assessment/Plan: Assessment: Swelling and erythema decreasing Recommend: Continue IV abx. I will follow. 09/09/17 19:06 09/10/17 08:18 09/10/17 13:37 09/11/17 09:22 09/12/17 21:37 Objective: Vital Signs Temp Pulse Resp BP Pulse Ox 37.4 C 77 20 110/54 L 100 09/12/17 18:00 09/12/17 18:00 09/12/17 18:00 09/12/17 18:00 09/12/17 18:00 Microbiology 09/10/17 15:00 Gram Stain - Final Pleural Fluid - Aspirate 09/10/17 17:06 Gram Stain - Final Pleural Fluid - Aspirate 09/07/17 12:29 Gram Stain - Final Toe - Aspirate Laboratory Results 09/12/17 09:50 09/12/17 10:50 09/11/17 09/12/17 09/13/17 05:59 05:59 05:59 Intake Total 3954 1533 1179 Output Total 925 1185 575 Balance 3029 348 604 PT 18.8 SEC (12.0-15.0) H 09/12/17 09:50 INR 1.56 (0.83-1.16) H 09/12/17 09:50 Swelling and erythema decrease at all identified locations B feet 1st MTPJ, laft hand and right proximal forearm. No areas of fluctuance. ICD10 Worksheet Patient Problems: Problems Problem Status Onset Dehydration Acute Hyponatremia Acute Renal failure Acute
[2017-09-12] MEDS ORDERED: HEPARIN 50,000 UNIT/10 ML VIAL ONE (21:53)
[2017-09-12] MEDS: LEVALBUTEROL INHALER 200 PUFFS/15 GM MDI IH SCH (23:33)
[2017-09-12] MEDS: ACETAMINOPHEN 650 MG SUPP PR PRN (23:37)
[2017-09-13 00:25] LABS: PLATELET COUNT 78 10^3/uL (150-400)
[2017-09-13] MEDS: PROPOFOL/EMULSION 100 ML IV SCH ×5 (02:41→23:05)
[2017-09-13] MEDS: NOREPINEPHRINE BITARTRATE 4 MG in NS 500 ML IV SCH ×2 (02:41→14:48)
[2017-09-13] MEDS: LEVALBUTEROL INHALER 200 PUFFS/15 GM MDI IH SCH ×2 (04:35→09:28)
[2017-09-13] MEDS: ALBUMIN 25% 100 ML IV SCH ×3 (07:19→18:09)
[2017-09-13] MEDS: HYDROmorphone HCL/NS 0.5 MG/ML SYR IV SCH ×2 (07:19→11:30)
[2017-09-13 07:46] LABS: PLATELET COUNT 81 10^3/uL (150-400)
[2017-09-13] MEDS: LORazepam 2 MG/ML INJ IV PRN ×3 (08:01→18:09)
[2017-09-13] MEDS: NICOTINE 21 MG/24 HR PATCH TD SCH (08:01)
[2017-09-13] MEDS: CHLORHEXIDINE GLUCONATE 15 ML UDL PO SCH ×2 (08:01→21:31)
[2017-09-13] MEDS: FAMOTIDINE 20 MG/NACL 50 ML IV SCH (08:01)
--- NOTE | 2017-09-13 08:48 | PDINTPN ---
[employer] Assessment Progress Note Assessment/Plan: Assessment/plan: * 37-year-old methamphetamine and opiate addict traveling to [place] with his mother and stepfather for work. Presented to the emergency department on 09/05 with weakness, confusion and hypotension in the setting of opiate withdrawal and recent methamphetamine abuse. Found to have high-grade MRSA bacteremia. * MRSA bacteremia and sepsis. Secondary to IV drug abuse. Blood cultures and urine cultures positive, and blood cultures remain positive from 09/08 after 3 days of appropriate antibiotic coverage. Left great toe aspirate positive as well. Infiltrates present consistent with pneumonia and septic emboli. Probable MRSA, versus aspiration. -antibiotics per Infectious Disease * Hypotension. Secondary to septic shock and 2 sedated medications. Off and on Levophed to maintain mean arterial pressure of 65. * Acute respiratory failure. Stable on mechanical ventilation -not ready for weaning -will decrease peep as well as respiratory rate * Possible aspiration pneumonia. * Pleural effusions-thoracentesis performed 2 days ago. Cultures negative -chest x-ray reveals likely reaccumulating * Shock-on norepinephrine -will wean as tolerated * Abnormal mental status/delirium: Consistent with severe infection but in addition this could repeat opiate and amphetamine withdrawal. Routine as well as as needed no change overall. -continue sedation * Metabolic acidosis-improved with dialysis * Volume overload -would likely improve with dialysis * Metabolic: On replacement protocols. * Substance abuse: Opiates, methamphetamine. * Prophylaxis: Famotidine, SCDs. * History of hepatitis-C * Thrombocytopenia, anemia. Stable. No evidence of active bleeding. Secondary primarily to acute illness with bacteremia and sepsis. Liver disease possibly playing a role regarding thrombocytopenia. * Acute renal failure. BUN and creatinine continue to elevate. Nephrology has been consulted -dialysis catheter be placed today and patient begun on dialysis 09/13/17 08:49 Subjective: Sedated on mechanical ventilation Objective: Vital Signs Temp Pulse Resp BP Pulse Ox 38.8 C H 112 H 18 130/62 H 100 09/13/17 08:00 09/13/17 08:00 09/13/17 08:00 09/13/17 08:00 09/13/17 08:00 Microbiology 09/10/17 15:00 Gram Stain - Final Pleural Fluid - Aspirate 09/10/17 17:06 Gram Stain - Final Pleural Fluid - Aspirate 09/07/17 12:29 Gram Stain - Final Toe - Aspirate Laboratory Results 09/13/17 06:40 09/13/17 06:40 09/12/17 09/13/17 09/14/17 05:59 05:59 05:59 Intake Total 1533 2831 Output Total 1185 675 Balance 348 2156 PT 18.8 SEC (12.0-15.0) H 09/12/17 09:50 INR 1.56 (0.83-1.16) H 09/12/17 09:50 Laboratory Results 09/13/17 06:40 09/13/17 06:40 09/13/17 09/13/17 06:40 06:06 Patient Temperature 39.1 DEGREES DEGREES pCO2 41 mmHg H mmHg (34 - 38) pO2 131 mmHg H mmHg (65 - 75) Total CO2 20 mEq/L L mEq/L (23 - 27) ABG pH 7.31 L (7.35 - 7.45) ABG HCO3 19 mEq/L L mEq/L (22 - 26) ABG O2 Saturation 98 % H % (92 - 95) ABG Base Excess -5.5 mEq/L L mEq/L (-2.5 - 2.5) Total O2 Concentration 60.0 LITERS LITERS Actual Respiration Rate 20 Set Respiration Rate 20 SIMV YES Tidal Volume 570 End Tidal CO2 36 PEEP 10 Pressure Support 7 Calcium 8.5 mg/dL mg/dL (8.5 - 10.4) Total Bilirubin 1.3 mg/dL mg/dL (0.1 - 1.4) AST 24 IU/L IU/L (17 - 59) ALT 21 IU/L IU/L (21 - 72) Alkaline Phosphatase 68 IU/L IU/L (38 - 126) Total Protein 5.7 g/dL L g/dL (6.3 - 8.2) Albumin 2.8 g/dL L g/dL (3.5 - 5.0) Chest [id number] by myself. Endotracheal tube is good position. Dialysis catheter in good position. Bilateral pleural effusions are likely as well as diffuse edema - Time Spent With Patient Time Spent With Patient: 35 min of critical care time spent with patient. Case discussed with Nephrology, Nursing and Respiratory therapy Physical Exam - Physical Exam General Appearance: WD/WN, no apparent distress, No alert EENT: PERRL/EOMI, ET tube Neck: non-tender Respiratory: rhonchi (Scattered), No accessory muscle use, No wheezing Cardiac/Chest: normal peripheral pulses, regular rate, rhythm Abdomen: normal bowel sounds, non-tender, soft Male Genitalia: deferred Rectal: deferred Skin: normal color, warm/dry Extremities: normal range of motion, non-tender, normal inspection, normal capillary refill Neuro/Psych: No alert ICD10 Worksheet Patient Problems: Problems Problem Status Onset Dehydration Acute Hyponatremia Acute Renal failure Acute
--- NOTE | 2017-09-13 08:58 | SOAPPROG ---
SOAP Progress Note Assessment/Plan: Assessment: 1. BRITNEY Due to sepsis, possibly Vanco. Day 2 of dialysis today. Becoming oliguric. Remains volume increased. Judicious volume removal today. Daily dialysis for now. 2. Vanco Recheck level after HD today. Pharmacy and ID will discuss ongoing therapy. 3. MRSA endocarditis and emboli Repeat cultures pending. 4. Anemia Stable for now. Review transfusion parameters with CC 5. Hemodynamics On low dose pressors. Current SBP 130's. Will back off on UF if pressor needs increase. Plan: 09/13/17 08:54 Subjective: Intubated sedated Objective: Vital Signs Temp Pulse Resp BP Pulse Ox 38.8 C H 112 H 18 130/62 H 100 09/13/17 08:00 09/13/17 08:00 09/13/17 08:00 09/13/17 08:00 09/13/17 08:00 Microbiology 09/10/17 15:00 Gram Stain - Final Pleural Fluid - Aspirate 09/10/17 17:06 Gram Stain - Final Pleural Fluid - Aspirate 09/07/17 12:29 Gram Stain - Final Toe - Aspirate Laboratory Results 09/13/17 06:40 09/13/17 06:40 09/12/17 09/13/17 09/14/17 05:59 05:59 05:59 Intake Total 1533 2831 Output Total 1185 675 Balance 348 2156 PT 18.8 SEC (12.0-15.0) H 09/12/17 09:50 INR 1.56 (0.83-1.16) H 09/12/17 09:50 Physical Exam - Physical Exam General Appearance: other (shivering) Neck: other (ij line site ok) Respiratory: lungs clear Cardiac/Chest: tachycardia Abdomen: soft, distended Male Genitalia: other (arellano) Skin: other (areas of erythema noted) Extremities: pedal edema ICD10 Worksheet Patient Problems: Problems Problem Status Onset Dehydration Acute Hyponatremia Acute Renal failure Acute
--- NOTE | 2017-09-13 09:15 | SOAPPROG ---
SOAP Progress Note Assessment/Plan: Assessment: * 37-year-old methamphetamine and opiate addict traveling to [place] with his mother and stepfather for work. Presented to the emergency department on 09/05 with weakness, confusion and hypotension in the setting of opiate withdrawal and recent methamphetamine abuse. Found to have high-grade MRSA bacteremia. * MRSA bacteremia and sepsis. Secondary to IVDU. Blood cultures and urine cultures positive, and blood cultures remain positive from 09/08 after 3 days of appropriate antibiotic coverage. Left great toe aspirate positive as well. Infiltrates present consistent with pneumonia and septic emboli. -antibiotics per Infectious Disease * Bilateral Feet, Left Hand, Right forearm cellulitis/septic joints: swelling and erythema down compared to previous outline markings. Appears to be resolving with use of IV abx. Plan: From our standpoint, continue IV abx, we will continue to monitor swelling/ erythema during his stay here. Continue plans per hospitalists, ID. Questions/concerns call our office at [phone]. Patient discussed with Dr. Vee. Subjective: Unable to respond to questions/commands. Intubated, not alert. Objective: Vital Signs Temp Pulse Resp BP Pulse Ox 38.4 C H 107 H 27 H 122/57 H 100 09/13/17 09:00 09/13/17 09:00 09/13/17 09:00 09/13/17 09:00 09/13/17 09:00 Microbiology 09/08/17 06:32 Blood Culture - Final Blood MRSA 09/08/17 06:15 Blood Culture - Final Blood MRSA 09/10/17 15:00 Gram Stain - Final Pleural Fluid - Aspirate 09/10/17 17:06 Gram Stain - Final Pleural Fluid - Aspirate 09/07/17 12:29 Gram Stain - Final Toe - Aspirate Laboratory Results 09/13/17 06:40 09/13/17 06:40 09/12/17 09/13/17 09/14/17 05:59 05:59 05:59 Intake Total 1533 2831 Output Total 1185 675 75 Balance 348 2156 -75 PT 18.8 SEC (12.0-15.0) H 09/12/17 09:50 INR 1.56 (0.83-1.16) H 09/12/17 09:50 Intubated. Not able to respond to questions or commands. Mild diaphoresis noted. Tachycardic with increased respirations. M/S: Bilateral feet, right forearm, left hand: eyrthema and edema decreased since previous visits. No calor noted. Unable to assess ROM or strength. Unable to asses neurovascular status due to unconsciousness in the patient. Brisk cap refill b/l in upper and lower extremities. - Pending Discharge Pending Discharge Within 48 Hours: No ICD10 Worksheet Patient Problems: Problems Problem Status Onset Dehydration Acute Hyponatremia Acute Renal failure Acute
--- NOTE | 2017-09-13 10:41 | PCMIDPN ---
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 JAE to be performed this afternoon but is a moot point as patient has clinical evidence of right-sided endocarditis with septic pulmonary emboli on CT scan. In addition patient with other areas likely seeded by bacteremia including B feet 1st MTP joints and L hand. Blood cx 09/11 neg to date. Leukocytosis slightly improved and stable thrombocytopenia also related to severe infection. --will check levels of vancomycin and re-dose for levels less than 15 # acute renal failure likely multifactorial, on acute hemodialysis. Dosing vancomycin by levels for now. # Fever: minimal vent settings making HAP unlikely, blood cultures collected today to evaluate for line infection, new onset diarrhea. Drug fever also a consideration but LFTs normal, no eosinophilia and no rash --rule out C diff --monitor blood cultures to evaluate for line infection, no antibiotic changes at this time microbiology 09/05 and 09/08 blood cx (2) MRSA 09/07 great toe: MRSA 09/11 blood cx (2) NGTD 09/13 blood cx (2) pending meds Vancomycin Dosed for levels, D#8 Subjective: patient intubated underwent dialysis today with 2L removed febrile to 39.7 loose stool multiple episodes Objective: Vital Signs Temp Pulse Resp BP Pulse Ox 37.9 C 107 H 24 H 138/65 H 100 09/13/17 10:00 09/13/17 10:00 09/13/17 10:00 09/13/17 10:00 09/13/17 10:00 Microbiology 09/08/17 06:32 Blood Culture - Final Blood MRSA 09/08/17 06:15 Blood Culture - Final Blood MRSA 09/10/17 15:00 Gram Stain - Final Pleural Fluid - Aspirate 09/10/17 17:06 Gram Stain - Final Pleural Fluid - Aspirate 09/07/17 12:29 Gram Stain - Final Toe - Aspirate Laboratory Results 09/13/17 06:40 09/13/17 06:40 09/12/17 09/13/17 09/14/17 05:59 05:59 05:59 Intake Total 1533 2831 Output Total 1185 675 75 Balance 348 2156 -75 - Physical Exam General Appearance: WD/WN, other (Sedated) EENT: pale conjunctiva, ET Tube, No scleral icterus, No thrush Respiratory: coarse breath sounds, No accessory muscle use Neck: supple Cardiac/Chest: tachycardia, No systolic murmur Extremities: erythema (B feet 1st MTP joints and L hand - subsided since my last exam 1 week ago) Abdomen: non-tender, soft, other (hyperactive bowel sounds) Male Genitalia: arellano, scrotal edema (mild) Skin: signs of IVDA, No rash, No embolic lesions Neuro/Psych: other (Sedated) - Line/s Bro Lines: other (Right IJ), No drainage, No erythema other Lines: other (Triple-lumen central catheter subclavian left), No drainage, No erythema - Time Spent With Patient Time Spent with Patient: greater than 35 minutes Time Spent with Patient: Greater than 35 minutes spent on this patients care, greater than 50% of time spent counseling, educating, and coordinating care regarding the above mentioned plan. ICD10 Worksheet Patient Problems: Problems Problem Status Onset Dehydration Acute Hyponatremia Acute Renal failure Acute
--- NOTE | 2017-09-13 10:49 | WOCRNPDOC ---
WOCRN Advanced Assessment Note - Skin Integrity Problem, Advanced Assess Nose Pressure Injury Dressing Type: Open to Air Exudate Amount: None Site Measurement - Head-to-Toe Length X Width X Depth (cm): 3.8x4x0 Pressure Injury Stage: Deep Tissue Injury (DTI) Pressure Injury Present on Admit: No Skin Integrity Problem Comment: Evolving Deep tissue injury previously two wounds now one large wound. Crust on top of the wound is fluctuant and the wound is obviously full thickness. Due to patient's current medical status wound care is opting to dry out wound bed and move toward having an unstagable wound rather than moisturizing wound bed to expose the base. Will initiate orders to paint with betadine BID. Nose must be offloaded at all times. If patient needs to have Bipap or any other device on the nose placed please coordinate with wound care so that area may be protected as much as possible. Sai MUÑOZ in room for care. Wound care will follow.
[2017-09-13] MEDS: ACETAMINOPHEN 650 MG SUPP PR PRN (11:56)
--- NOTE | 2017-09-13 12:25 | HOSPPROG ---
Hospitalist Progress Note Assessment/Plan: Assessment: 37 yo M p/w septic shock 2/2 MRSA PNA and MRSA bacteremia 2/2 cellulitis (feet shooter sites) c/b acute encephalopathy, BRITNEY, acute hypoxic resp failure requiring intubation 09/12. Plan: # septic shock: qSOFA 3/3 w/ end-organ failure (BRITNEY, resp failure) -wean pressors as able -albumin for volume expansion # Acute hypoxic respiratory failure: Intubated 09/12 -cont vent support # MRSA bacteremia possibly 2/2 MRSA cellulitis at foot shooter site (+IVDA): BCx 's finally clearing, suspect endocarditis with septic emboli, note ongoing fevers. -JAE today -supratherapeutic Vanco level in setting of BRITNEY, ID monitoring Vanco levels s/p HD # MRSA pneumonia: 2/2 embolization of bacteremia -cont monitor pleural Cx # Acute encephalopathy: 2/2 acute infection -cont precedex as needed for agitation # Acute opiate withdraw: Encephalopathic and agitated, required precedex + scheduled dilaudid # BRITNEY: Non-oliguric, multifactorial- s/p contrast and septic shock. FeNa initially 0.3%, Vanco level 59 and significant contrast load -daily dialysis per renal, appreciate assistance # Hypernatremia: -cont D5W at 75cc/hr per renal, monitor Na level # Acute metabolic and respiratory acidosis: 2/2 hypoperfusion and lactic acidosis 2/2 septic shock + CO2 retention 2/2 encephalopathy + worsening uremia 09/11 w/ pH 7.23 -monitor daily pH on ABG -getting HD today as above # HCV. 2/2 IVDU, cont to monitor LFTs # IVDU: Will require [facility] health resource RN / CM once he is cognitively able to engage # Pressure injury: on bridge of nares 2/2 bipap -wound care consult appreciated # Thrombocytopenia and Anemia: likely 2/2 hepatic impairment from HCV and infxn , monitor Diet. TF via OGT PPx. High risk, SCDs, holding pharm re: thrombocytopenia Code. Full, Ethics has confirmed his mother is MDPOA Dispo. ADD uncertain, remains critically ill 30 minutes crit care. Discussed with Dr. Lind and Dr. Rivers Subjective: Pt is intubated, sedated. Remains febrile for past 24 hrs. Objective: Vital Signs Temp Pulse Resp BP Pulse Ox 38.7 C H 114 H 23 H 131/61 H 100 09/13/17 12:00 09/13/17 12:00 09/13/17 12:00 09/13/17 12:00 09/13/17 12:00 Microbiology 09/07/17 12:29 Gram Stain - Final Toe - Aspirate 09/08/17 06:32 Blood Culture - Final Blood MRSA 09/08/17 06:15 Blood Culture - Final Blood MRSA 09/10/17 15:00 Gram Stain - Final Pleural Fluid - Aspirate 09/10/17 17:06 Gram Stain - Final Pleural Fluid - Aspirate Laboratory Results 09/13/17 06:40 09/13/17 06:40 09/12/17 09/13/17 09/14/17 05:59 05:59 05:59 Intake Total 1533 2831 Output Total 1185 675 75 Balance 348 2156 -75 PT 18.8 SEC (12.0-15.0) H 09/12/17 09:50 INR 1.56 (0.83-1.16) H 09/12/17 09:50 - Physical Exam Constitutional: no apparent distress Eyes: PERRL Ears, Nose, Mouth, Throat: dry mucous membranes Cardiovascular: tachycardia Respiratory: no respiratory distress, bronchial breath sounds Gastrointestinal: normoactive bowel sounds, soft, non-tender abdomen Skin: warm, other (erythema has receded on b/l feet) Musculoskeletal: other (anasarca) Psychiatric: encephalopathic ICD10 Worksheet Patient Problems: Problems Problem Status Onset Dehydration Acute Hyponatremia Acute Renal failure Acute
[2017-09-13] MEDS ORDERED: NS 1,000 ML IV ONE (13:01)
--- NOTE | 2017-09-13 13:03 | PDHPUP ---
History & Physical Update H&P update statement: This history and physical update is based on an assessment of the patient which was completed after admission or registration (within 24 hours), but prior to the surgery/procedure. H&P update: H&P reviewed & patient examined, no change in patient's condition since H&P completed (Reviewed Dr. Chavez's note dated 09/13/2017)
--- NOTE | 2017-09-13 14:49 | PDPROPOC ---
Sedation Plan of Care Sedation Plan of Care: vital signs stable, mental status noted ASA Classification: ASA 4 Planned drugs: other (propofol per [facility]) Mallampati Score: Unable to assesss (intubated) Mallampati Reference Image:
[2017-09-13] MEDS: D5W 1,000 ML IV SCH (18:09)
[2017-09-13] MEDS ORDERED: HEPARIN 50,000 UNIT/10 ML VIAL ONE (19:02)
[2017-09-13] MEDS: ACETAMINOPHEN 650 MG/20.3 ML UDCUP TUBE PRN (22:01)
[2017-09-14] MEDS: ALBUMIN 25% 100 ML IV SCH ×2 (01:16→05:32)
[2017-09-14 04:19] LABS: PLATELET COUNT 91 10^3/uL (150-400)
[2017-09-14] MEDS: ACETAMINOPHEN 650 MG/20.3 ML UDCUP TUBE PRN ×2 (07:22→13:40)
[2017-09-14] MEDS: NICOTINE 21 MG/24 HR PATCH TD SCH (07:22)
[2017-09-14] MEDS: FAMOTIDINE 20 MG/NACL 50 ML IV SCH (07:22)
[2017-09-14] MEDS: CHLORHEXIDINE GLUCONATE 15 ML UDL PO SCH ×2 (07:23→22:56)
--- NOTE | 2017-09-14 09:09 | PDINTPN ---
Call Circuit Worker Progress Note Assessment/Plan: Assessment/plan: * 37-year-old methamphetamine and opiate addict traveling to [place] with his mother and stepfather for work. Presented to the emergency department on 09/05 with weakness, confusion and hypotension in the setting of opiate withdrawal and recent methamphetamine abuse. Found to have high-grade MRSA bacteremia. * MRSA bacteremia and sepsis. Secondary to IV drug abuse. Blood cultures and urine cultures positive, and blood cultures remain positive from 09/08 after 3 days of appropriate antibiotic coverage. Left great toe aspirate positive as well. Infiltrates present consistent with pneumonia and septic emboli. Probable MRSA, versus aspiration. -antibiotics per Infectious Disease * Tricuspid valve endocarditis * Anemia-agree with transfusion * Acute respiratory failure. Stable on mechanical ventilation -not ready for weaning -reduce FiO2 as well as rate * Possible aspiration pneumonia. * Pleural effusions-thoracentesis performed 2 days ago. Cultures negative -chest x-ray reveals likely reaccumulating * Shock-resolved. Off norepinephrine -follow * Abnormal mental status/delirium: Consistent with severe infection but in addition this could repeat opiate and amphetamine withdrawal. Routine as well as as needed no change overall. -continue sedation * Metabolic acidosis-improved with dialysis * Volume overload -would likely improve with dialysis * Metabolic: On replacement protocols. * Substance abuse: Opiates, methamphetamine. * Prophylaxis: Famotidine, SCDs. * History of hepatitis-C * Thrombocytopenia, anemia. Stable. No evidence of active bleeding. Secondary primarily to acute illness with bacteremia and sepsis. Liver disease possibly playing a role regarding thrombocytopenia. * Acute renal failure-more dialysis today Subjective: Sedated on mechanical ventilation Objective: Vital Signs Temp Pulse Resp BP Pulse Ox 38.8 C H 113 H 24 H 135/62 H 97 09/14/17 08:00 09/14/17 08:00 09/14/17 08:00 09/14/17 08:00 09/14/17 08:00 Microbiology 09/10/17 17:06 Gram Stain - Final Pleural Fluid - Aspirate Body Fluid Culture - Final 09/10/17 15:00 Gram Stain - Final Pleural Fluid - Aspirate Body Fluid Culture - Final 09/07/17 12:29 Gram Stain - Final Toe - Aspirate 09/08/17 06:32 Blood Culture - Final Blood MRSA 09/08/17 06:15 Blood Culture - Final Blood MRSA Laboratory Results 09/14/17 04:05 09/14/17 04:05 09/13/17 09/14/17 09/15/17 05:59 05:59 05:59 Intake Total 2831 3820 Output Total 675 290 Balance 2156 3530 PT 18.8 SEC (12.0-15.0) H 09/12/17 09:50 INR 1.56 (0.83-1.16) H 09/12/17 09:50 Chest [id number] by myself. Endotracheal tube and lines in good position. Appears to have worsening infiltrates as well as pleural effusions - Time Spent With Patient Time Spent With Patient: 35 min of critical care time spent with patient. Case discussed with Nursing, Respiratory therapy and Nephrology Physical Exam - Physical Exam General Appearance: other (Sedated), No alert EENT: PERRL/EOMI, ET tube Neck: non-tender Respiratory: rhonchi (Scattered), No respiratory distress Cardiac/Chest: normal peripheral pulses, regular rate, rhythm, systolic murmur Abdomen: normal bowel sounds, non-tender, soft Male Genitalia: deferred Rectal: deferred Skin: normal color, warm/dry Lymphatic: no adenopathy Neuro/Psych: No alert ICD10 Worksheet Patient Problems: Problems Problem Status Onset Dehydration Acute Hyponatremia Acute Renal failure Acute
--- NOTE | 2017-09-14 09:09 | SOAPPROG ---
SOAP Progress Note Assessment/Plan: Assessment: 1. BRITNEY Due to sepsis, possibly Vanco. Day 3 of dialysis today. Borderline oliguric. Labs are better. Will go to qod HD. 2. Vanco Pharmacy dosing. 3. MRSA endocarditis and emboli Repeat cultures from the and are pending. 4. Anemia Hg down. Transfuse during HD. 5. Hemodynamics Now off of pressors. Subjective: sedated Objective: Vital Signs Temp Pulse Resp BP Pulse Ox 38.8 C H 113 H 24 H 135/62 H 97 09/14/17 08:00 09/14/17 08:00 09/14/17 08:00 09/14/17 08:00 09/14/17 08:00 Microbiology 09/10/17 17:06 Gram Stain - Final Pleural Fluid - Aspirate Body Fluid Culture - Final 09/10/17 15:00 Gram Stain - Final Pleural Fluid - Aspirate Body Fluid Culture - Final 09/07/17 12:29 Gram Stain - Final Toe - Aspirate 09/08/17 06:32 Blood Culture - Final Blood MRSA 09/08/17 06:15 Blood Culture - Final Blood MRSA Laboratory Results 09/14/17 04:05 09/14/17 04:05 09/13/17 09/14/17 09/15/17 05:59 05:59 05:59 Intake Total 2831 3820 Output Total 675 290 Balance 2156 3530 PT 18.8 SEC (12.0-15.0) H 09/12/17 09:50 INR 1.56 (0.83-1.16) H 09/12/17 09:50 Physical Exam - Physical Exam General Appearance: no apparent distress Respiratory: lungs clear Cardiac/Chest: tachycardia Abdomen: soft Male Genitalia: other (arellano) Extremities: pedal edema ICD10 Worksheet Patient Problems: Problems Problem Status Onset Dehydration Acute Hyponatremia Acute Renal failure Acute
--- NOTE | 2017-09-14 10:05 | ECHO ---
[email or web address] [address] [address] Main: [phone] Fax: Transesophageal Echocardiography Name: MAYELA HILTON MR#: [id number] Study Date: 09/13/2017 Study Time: 01:07 PM Date of : 1980 Age: 37 year(s) Height: ( ) Weight: ( ) BSA: Gender: Male Examination: JAE Indication: Eval for vegetation Image Quality: Contrast: Requested by: Christiano Molina Heart Rate: Rhythm: BP: 122 mmHg/58 mmHg Procedure Staff Mechanic Helper: Debi Sommers [facility] Reading Physician: Sabi Renteria MD Requesting Provider: Melina Lind JAE Exam Details Conclusions: Global hypercontractility of the left ventricle. The ejection fraction is visually estimated to be 70 %. No regional wall motion abnormality. No thrombus in left appendage. There is no mitral valve vegetation. There is no aortic valve vegetation. Mild tricuspid regurgitation is present. Large tricuspid vegetation measuring approximately 2.7 cm in length. The vegetation is highly mobile and multi-lobed.. Pulmonary valve not well visualized. Color flow doppler noted in the area of the membranous septal wall (could not R/O small VSD).. Discussed with Dr. Rivers and Dr. Lind Measurements: Chambers Valvular Assessment AV/MV Valvular Assessment TV/PV Normal Normal Normal Name Value Range Name Value Range Name Value Range Visual EF: 70 % Additional Measurements: Findings: Left Ventricle: Patient: MAYELA HILTON Study Date: 09/13/2017 Page 1 of 2 01:07 PM Global hypercontractility of the left ventricle. The ejection fraction is visually estimated to be 70 %. No regional wall motion abnormality. Right Ventricle: Normal size right ventricle. Normal RV function. Left Atrial Appendage: No thrombus in left appendage. Mitral Valve: Trivial mitral valve regurgitation. There is no mitral valve vegetation. Aortic Valve: The aortic valve is tri-leaflet. There is no aortic valve vegetation. Tricuspid Valve: Mild tricuspid regurgitation is present. Large tricuspid vegetation measuring approximately 2.7 cm in length. The vegetation is highly mobile and multi-lobed.. Pulmonic Valve: Pulmonary valve not well visualized. Pericardium: Left side pleural effusion. Exam Comments: Color flow doppler noted in the area of the membranous septal wall (could not R/O small VSD).. l1n (No Signature Object) Patient: MAYELA HILTON Study Date: 09/13/2017 Page 2 of 2 01:07 PM [id number]
--- NOTE | 2017-09-14 10:56 | PCMIDPN ---
Assessment/Plan: Assessment: MRSA bacteremia and multifocal disease. JAE revealed a very large tricuspid valve lesion. Most recent blood cultures from 09/13 are positive on 1 set for MRSA again this morning. Patient is now intubated. He has been dialyzed secondary to acute renal failure from dye load and/or vancomycin nephrotoxicity. Random level is 13 today. Will dose vancomycin 1 g x1. Given his repeated persistent Staph aureus bacteremia despite hyper therapeutic values due to acute renal failure, I suspect that medical therapy without cardiothoracic surgery will not be curative. Will discuss case with cardiothoracic surgery today. Plan: 1. Continue IV vancomycin 1 g IV 1. 2. Will discuss case with Dr. Kauffman in cardiothoracic surgery. 3. Vancomycin random level in a.m.. Subjective: Patient is intubated and sedated. He is still however somewhat alert and opens his eyes spontaneously and attends to people in the room. He continues to have fevers. On dialysis for the last few days secondary to hyper therapeutic levels of vancomycin and acute renal failure. Objective: Vancomycin # 9 Vital Signs Temp Pulse Resp BP Pulse Ox 38.4 C H 104 H 22 H 140/65 H 97 09/14/17 09:00 09/14/17 09:00 09/14/17 09:00 09/14/17 09:00 09/14/17 09:00 Microbiology 09/10/17 17:06 Gram Stain - Final Pleural Fluid - Aspirate Body Fluid Culture - Final 09/10/17 15:00 Gram Stain - Final Pleural Fluid - Aspirate Body Fluid Culture - Final 09/07/17 12:29 Gram Stain - Final Toe - Aspirate 09/08/17 06:32 Blood Culture - Final Blood MRSA 09/08/17 06:15 Blood Culture - Final Blood MRSA Laboratory Results 09/14/17 04:05 09/14/17 04:05 09/13/17 09/14/17 09/15/17 05:59 05:59 05:59 Intake Total 2831 3820 Output Total 675 290 Balance 2156 3530 - Physical Exam General Appearance: WD/WN, no apparent distress, other (Intubated and sedated) Respiratory: No lungs clear, No normal breath sounds Cardiac/Chest: regular rate, rhythm, No tachycardia Extremities: non-tender, No normal inspection Skin: normal color, warm/dry, No rash ICD10 Worksheet Patient Problems: Problems Problem Status Onset Dehydration Acute Hyponatremia Acute Renal failure Acute
[2017-09-14] MEDS ORDERED: VANCOMYCIN HCL/NORMAL SALINE 250 ML IV ONE ×2 (11:00→14:00)
[2017-09-14] MEDS ORDERED: HEPARIN 50,000 UNIT/10 ML VIAL ONE (12:00)
--- NOTE | 2017-09-14 13:20 | ASMTCMCOM ---
CM Note CM Note Notes: Hoping to extubate patient next week. Patient begun on dialysis.D/C plan remains TBD and is limited by the fact patient only has [place] Medicaid. Patient remains critically ill. CM will follow. Date Signed: 09/14/2017 01:19 PM Electronically Signed By:Rachel Castaneda LCSW
--- NOTE | 2017-09-14 14:08 | SOAPPROG ---
SOAP Progress Note Assessment/Plan: Assessment: * 37-year-old methamphetamine and opiate addict traveling to [place] with his mother and stepfather for work. Presented to the emergency department on 09/05 with weakness, confusion and hypotension in the setting of opiate withdrawal and recent methamphetamine abuse. Found to have high-grade MRSA bacteremia. * MRSA bacteremia and sepsis. Secondary to IVDU. Blood cultures and urine cultures positive, and blood cultures remain positive from 09/08 after 3 days of appropriate antibiotic coverage. Left great toe aspirate were also positive as well for MRSA. Infiltrates present consistent with pneumonia and septic emboli. -antibiotics per Infectious Disease * Bilateral Feet, Left Hand, Right forearm cellulitis/septic joints: swelling and erythema down compared to previous outline markings and my visit yesterday. Appears to be resolving with use of IV abx. Plan: From our standpoint, continue IV abx, we will continue to monitor swelling/ erythema during his stay here. Continue plans per hospitalists, ID. Spoke with Dr. Rivers who explained cardio would be seeing the pt today for eval of cardiac vegetation seen. Appreciate cardio reccs and continue per their plan. Questions/concerns call our office at [phone]. Patient discussed with Dr. Vee. Subjective: Unable to respond to questions/commands. Intubated, not alert. Objective: Vital Signs Temp Pulse Resp BP Pulse Ox 38.3 C 112 H 22 H 158/89 H 94 09/14/17 14:00 09/14/17 14:00 09/14/17 14:00 09/14/17 14:00 09/14/17 14:00 Microbiology 09/07/17 12:29 Gram Stain - Final Toe - Aspirate Anaerobic Culture - Final MRSA 09/13/17 02:30 Blood Panel (PCR) - Final Blood MRSA 09/10/17 17:06 Gram Stain - Final Pleural Fluid - Aspirate Body Fluid Culture - Final 09/10/17 15:00 Gram Stain - Final Pleural Fluid - Aspirate Body Fluid Culture - Final 09/08/17 06:32 Blood Culture - Final Blood MRSA 09/08/17 06:15 Blood Culture - Final Blood MRSA Laboratory Results 09/14/17 04:05 09/14/17 04:05 09/13/17 09/14/17 09/15/17 05:59 05:59 05:59 Intake Total 2831 3820 Output Total 675 290 Balance 2156 3530 PT 18.8 SEC (12.0-15.0) H 09/12/17 09:50 INR 1.56 (0.83-1.16) H 09/12/17 09:50 Intubated. Not able to respond to questions or commands. Mild diaphoresis noted. Tachycardic with increased respirations. M/S: Bilateral feet, right forearm, left hand: erythema and edema decreased since previous visit yesterday. No calor noted. Unable to assess ROM or strength. Unable to assess neurovascular status due to unconsciousness in the patient. Brisk cap refill b/l in upper and lower extremities. Calves soft/supple and NTTP b/l with SCDs on and pumping. - Pending Discharge Pending Discharge Within 48 Hours: No ICD10 Worksheet Patient Problems: Problems Problem Status Onset Dehydration Acute Hyponatremia Acute Renal failure Acute
--- NOTE | 2017-09-14 14:47 | HOSPPROG ---
Hospitalist Progress Note Assessment/Plan: Assessment: 37 yo M with h/o IVda p/w septic shock 2/2 MRSA bacteremia, TV endocarditis with septic emboli resulting in PNA and BRITNEY requiring dialysis Plan: # septic shock: qSOFA 3/3 w/ end-organ failure (BRITNEY, resp failure), ongoing rigors -continue pressor support, wean as able -albumin for volume expansion -persistently positive BCx's despite supratherapeutic vanc levels - need source control # MRSA bacteremia with TV endocarditis. Foot shooter sites / cellulitis may be source. JAE yesterday showed 2.7 cm TV veg. CV surgery consulted. -Discussed with ID, cont vanc, but likely needs valve surgery for source control -Dr. Kauffman to consult # MRSA pneumonia: 2/2 embolization of bacteremia -cont vanc -pleural Cx ngtd # Acute hypoxic respiratory failure due to above: Intubated 09/12 -cont vent support # Acute encephalopathy: 2/2 acute infection -cont precedex as needed for agitation # BRITNEY: Non-oliguric, multifactorial- s/p contrast and septic shock. FeNa initially 0.3%, Vanco level 59 and significant contrast load -daily dialysis per renal, appreciate assistance # Hypernatremia: -cont D5W at 75cc/hr per renal, monitor Na level # Acute metabolic and respiratory acidosis: 2/2 hypoperfusion and lactic acidosis 2/2 septic shock + CO2 retention 2/2 encephalopathy + worsening uremia 09/11 w/ pH 7.23 -monitor daily pH on ABG -getting HD today as above # HCV. 2/2 IVDU, cont to monitor LFTs -outpt f/u # IVDU: Will require [facility] health resource RN / CM once he is cognitively able to engage # Pressure injury: on bridge of nares 2/2 bipap -wound care consult appreciated # Thrombocytopenia and Anemia: likely 2/2 hepatic impairment from HCV and infxn , monitor Diet. TF via OGT PPx. High risk, SCDs, holding pharm re: thrombocytopenia Code. Full, Ethics has confirmed his mother is MDPOA Dispo. ADD uncertain, remains critically ill. Discussed guarded prognosis with family. 40 minutes crit care. Discussed with Dr. Bhatt and Dr. Rivers Subjective: Pt is ventilated, sedated, not following commands but does track a bit with his eyes. Seems more responsive to family. Febrile overnight, tachycardic. UOP declining. Objective: Vital Signs Temp Pulse Resp BP Pulse Ox 38.3 C 112 H 22 H 158/89 H 94 09/14/17 14:00 09/14/17 14:00 09/14/17 14:00 09/14/17 14:00 09/14/17 14:00 Microbiology 09/07/17 12:29 Gram Stain - Final Toe - Aspirate Anaerobic Culture - Final MRSA 09/13/17 02:30 Blood Panel (PCR) - Final Blood MRSA 09/10/17 17:06 Gram Stain - Final Pleural Fluid - Aspirate Body Fluid Culture - Final 09/10/17 15:00 Gram Stain - Final Pleural Fluid - Aspirate Body Fluid Culture - Final 09/08/17 06:32 Blood Culture - Final Blood MRSA 09/08/17 06:15 Blood Culture - Final Blood MRSA Laboratory Results 09/14/17 04:05 09/14/17 04:05 09/13/17 09/14/17 09/15/17 05:59 05:59 05:59 Intake Total 2831 3820 Output Total 675 290 3 Balance 2156 3530 -3 PT 18.8 SEC (12.0-15.0) H 09/12/17 09:50 INR 1.56 (0.83-1.16) H 09/12/17 09:50 - Physical Exam Constitutional: no apparent distress Eyes: PERRL Ears, Nose, Mouth, Throat: moist mucous membranes Cardiovascular: tachycardia Respiratory: no respiratory distress, inspiratory crackles Gastrointestinal: normoactive bowel sounds, soft, non-tender abdomen Skin: warm, other (decreased erythema of b/l feet) Psychiatric: other (sedated) ICD10 Worksheet Patient Problems: Problems Problem Status Onset Dehydration Acute Hyponatremia Acute Renal failure Acute
[2017-09-14] MEDS ORDERED: PHYTONADIONE 10 MG in NS (SYRINGE) 50 ML IV ONE (14:52)
--- NOTE | 2017-09-14 15:23 | WOCRNPDOC ---
WOCRN Advanced Assessment Note - Skin Integrity Problem, Advanced Assess Nose Pressure Injury Dressing Type: Open to Air Exudate Amount: Scant Exudate Characteristic(s): Sanguinous Aristides Wound Tissue: Blanching, Erythema (extending approx 1 cm aristides wound.) Wound Bed Constitution: Dried Exudate, Unstable Eschar Pressure Injury Stage: Deep Tissue Injury (DTI), Seasonal Clerk Related Pressure Injury (BiPAP) Pressure Injury Present on Admit: No Skin Integrity Problem Comment: Wound continuing to evolve and expand. Wound bed is fluctuant and unstable. Painted with betadine. There is no pressure on the area. Reiterated importance of keeping this nose wound from being pressurized. Goal of care is to establish a layer of protective eschar over the wound bed at this time due to patient's current medical instability. Nayeli MUÑOZ and Nick Melara RN's in room for care. Wound care will follow up next week.
--- NOTE | 2017-09-14 16:10 | GCON ---
[f rep st] CONSULTATION DATE OF CONSULTATION: 09/14/2017 REQUESTING PHYSICIAN: The patient was seen at the request of Dr. Bhatt with the patient's chon naik IMPRESSION: 1. 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 2. Respiratory failure, on ventilator. 3. Renal failure, currently on dialysis. RECOMMENDATIONS: This gentleman represents failure of medical therapy with persistent bacteremia, se psis and fevers despite several days of antibiotics. He has a large, greater than a centimeter of ve getation on his tricuspid valve with pulmonary infarcts and likely will not respond to continued anti biotic therapy alone. I have been asked to perform a tricuspid valve replacement or debridement, jessie ch was reviewed at length with the family. The patient currently is intubated, sedated and unrespons desi due to medications which are being held to check his neuro status prior to definitively proceedin g. I advised the family that his mortality is significant, although without surgery, his mortality a pproaches 100%. I also advised them that I would only perform 1 operation on this gentleman related to his endocarditis and if he in fact reinfected due to resumption of IV drug abuse, that I would not offer him a 2nd surgery under any circumstances. They understand this and appeared to accept that d iscussion. PHYSICAL EXAM: GENERAL: The patient is intubated, sedated in bed, with evidence of ongoing septic s hock. There was question of encephalopathy. Again, we will not proceed with surgery unless he is ab le to be arousable post discontinuation of his sedation and narcotics. He is markedly edematous. He has evidence of septic emboli to his feet. PAST MEDICAL HISTORY: Otherwise, socially, he has a history of multiple drug use. He also has a his tory of hepatitis C. /[id number]/MODL
[2017-09-14] MEDS ORDERED: PROPOFOL/EMULSION 1,000 MG/100 ML BOTTLE IV ONE (18:16)
[2017-09-14] MEDS: PROPOFOL/EMULSION 100 ML IV SCH (18:20)
[2017-09-15 04:37] LABS: PLATELET COUNT 102 10^3/uL (150-400)
[2017-09-15] MEDS ORDERED: PROTOCOL CALCIUM 1 DOSE IV PRN (06:25)
--- NOTE | 2017-09-15 08:39 | SOAPPROG ---
SOAP Progress Note Assessment/Plan: Assessment: #BRITNEY- oliguric -suspect ATN in setting of septic shock, contrast, endocarditis, vanco -Last HD yesterday-- we will discuss timing of next run with CT surgery as plans for valve replacement tomorrow -still oliguric but made a bit more this am-- not ready to come off HD yet #Sepsis +MRSA -hemodynamics improved #TV endocarditis- MRSA in cultures, +pulm infarcts -plans for valve replacement tomorrow -vancomycin levels being followed given BRITNEY, per pharmacy #Acute hypoxic resp failure -on vent with FIO2 65% -+pulm infarcts #anemia acute illness #hypernatremia -improved with HD, decreased free water in Tube feeds as well Dr. Olivas flight operations manager for weekend I discussed with ICU team and have call into CT surgery to discuss timing of dialysis given need for OR tomorrow Minna Coppola MD [facility] [phone] pager [phone] cell 09/15/17 09:22 Subjective: HD Yesterday. Remains oliguric- a bit more UOP this am but still not much. On 65 % FIO2. Tenative plans for OR tomorrow for valve. Objective: Vital Signs Temp Pulse Resp BP Pulse Ox 38.5 C H 106 H 21 H 142/69 H 99 09/15/17 07:00 09/15/17 08:18 09/15/17 08:18 09/15/17 07:00 09/15/17 08:18 Microbiology 09/13/17 02:30 Blood Panel (PCR) - Final Blood MRSA 09/07/17 12:29 Gram Stain - Final Toe - Aspirate Anaerobic Culture - Final MRSA Laboratory Results 09/15/17 04:20 09/15/17 04:20 09/14/17 09/15/17 09/16/17 05:59 05:59 05:59 Intake Total 3820 2198.8 Output Total 290 83 Balance 3530 2115.8 PT 18.8 SEC (12.0-15.0) H 09/12/17 09:50 INR 1.56 (0.83-1.16) H 09/12/17 09:50 Physical Exam - Physical Exam General Appearance: other (sedated, on vent) EENT: other (excoriation on nose, DHT in ) Respiratory: other (coarse rales bilat) Cardiac/Chest: regular rate, rhythm, other (+murmur) Abdomen: normal bowel sounds, soft Male Genitalia: other (arellano pink tinged urine in bag) Skin: other (areas of cellulitis on feet) Extremities: other (trace LE edema, warm) Neuro/Psych: other (sedated) ICD10 Worksheet Patient Problems: Problems Problem Status Onset Dehydration Acute Hyponatremia Acute Renal failure Acute
[2017-09-15] MEDS: FAMOTIDINE 20 MG/NACL 50 ML IV SCH (08:47)
[2017-09-15] MEDS: CHLORHEXIDINE GLUCONATE 15 ML UDL PO SCH ×2 (08:47→20:07)
--- NOTE | 2017-09-15 09:07 | PDINTPN ---
Cell Room Operator Progress Note Assessment/Plan: Assessment/plan: * 37-year-old methamphetamine and opiate addict traveling to [place] with his mother and stepfather for work. Presented to the emergency department on 09/05 with weakness, confusion and hypotension in the setting of opiate withdrawal and recent methamphetamine abuse. Found to have high-grade MRSA bacteremia. * MRSA bacteremia and sepsis. Secondary to IV drug abuse. Blood cultures and urine cultures positive, and blood cultures remain positive from 09/08 after 3 days of appropriate antibiotic coverage. Left great toe aspirate positive as well. Infiltrates present consistent with pneumonia and septic emboli. Probable MRSA, versus aspiration. -antibiotics per Infectious Disease * Tricuspid valve endocarditis * Anemia-agree with transfusion * Acute respiratory failure. Stable on mechanical ventilation -reduce FiO2 as well as rate -check chest x-ray * Possible aspiration pneumonia. * Pleural effusions-thoracentesis performed 2 days ago. Cultures negative -chest x-ray reveals likely reaccumulating * Shock-resolved. * Metabolic acidosis-improved with dialysis * Volume overload -would likely improve with dialysis * Metabolic: On replacement protocols. * Substance abuse: Opiates, methamphetamine. * Prophylaxis: Famotidine, SCDs. * History of hepatitis-C * Acute renal failure-more dialysis today Subjective: Sedated Objective: Vital Signs Temp Pulse Resp BP Pulse Ox 38.5 C H 106 H 21 H 142/69 H 99 09/15/17 07:00 09/15/17 08:18 09/15/17 08:18 09/15/17 07:00 09/15/17 08:18 Microbiology 09/13/17 02:30 Blood Panel (PCR) - Final Blood MRSA 09/07/17 12:29 Gram Stain - Final Toe - Aspirate Anaerobic Culture - Final MRSA Laboratory Results 09/15/17 04:20 09/15/17 04:20 09/14/17 09/15/17 09/16/17 05:59 05:59 05:59 Intake Total 3820 2198.8 Output Total 290 83 Balance 3530 2115.8 PT 18.8 SEC (12.0-15.0) H 09/12/17 09:50 INR 1.56 (0.83-1.16) H 09/12/17 09:50 Laboratory Results 09/15/17 04:20 09/15/17 04:20 09/15/17 09/15/17 09/14/17 04:20 04:20 06:15 Hgb Hct Patient Temperature 39.0 DEGREES DEGREES 37.0 DEGREES DEGREES pCO2 43 mmHg H mmHg 35 mmHg mmHg (34 - 38) (34 - 38) pO2 85 mmHg H mmHg 76 mmHg H mmHg (65 - 75) (65 - 75) Total CO2 25 mEq/L mEq/L 23 mEq/L mEq/L (23 - 27) (23 - 27) ABG pH 7.38 7.41 (7.35 - 7.45) (7.35 - 7.45) ABG PO2/FiO2 Ratio 213 RATIO RATIO 190 RATIO RATIO ABG HCO3 24 mEq/L mEq/L 22 mEq/L mEq/L (22 - 26) (22 - 26) ABG O2 Saturation 95 % % 95 % % (92 - 95) (92 - 95) ABG Base Excess 0.0 mEq/L mEq/L -1.7 mEq/L mEq/L (-2.5 - 2.5) (-2.5 - 2.5) O2 Concentration % 40 % % 40 % % Actual Respiration Rate 16 20 Set Respiration Rate 14 14 SIMV YES YES Inspiratory Time 1.2 SECS SECS Tidal Volume 570 570 End Tidal CO2 36 PEEP 5 5 Peak Inspir Pressure 20 Pressure Support 7 7 Calcium 6.9 mg/dL L mg/dL (8.5 - 10.4) Ionized Calcium 1.16 MMOL/L MMOL/L (1.12 - 1.30) 09/14/17 09/13/17 04:05 17:00 Hgb 7.1 g/dL L g/dL 6.6 g/dL L g/dL (13.7 - 17.5) (13.7 - 17.5) Hct 21.3 % L % 19.9 % L % (40.0 - 51.0) (40.0 - 51.0) Patient Temperature pCO2 pO2 Total CO2 ABG pH ABG PO2/FiO2 Ratio ABG HCO3 ABG O2 Saturation ABG Base Excess O2 Concentration % Actual Respiration Rate Set Respiration Rate SIMV Inspiratory Time Tidal Volume End Tidal CO2 PEEP Peak Inspir Pressure Pressure Support Calcium Ionized Calcium 09/13/17 02:30 Blood Culture - Preliminary Blood Blood Panel (PCR) - Final MRSA MRSA 09/13/17 02:15 Blood Culture - Preliminary Blood Gram Positive Cocci Clusters - Time Spent With Patient Time Spent With Patient: 35 min of critical care time spent with patient Physical Exam - Physical Exam General Appearance: alert, no apparent distress EENT: PERRL/EOMI, ET tube Neck: non-tender Respiratory: chest non-tender, rhonchi (Scattered), No lungs clear, No normal breath sounds Cardiac/Chest: normal peripheral pulses, regular rate, rhythm, systolic murmur Peripheral Pulses: 2+: carotid (R), carotid (L), femoral (R), femoral (L), dorsalis-pedis (R), dorsalis-pedis (L) Abdomen: normal bowel sounds, non-tender, soft Male Genitalia: deferred Rectal: deferred Skin: normal color, warm/dry Extremities: non-tender Neuro/Psych: other (Sedated), No alert ICD10 Worksheet Patient Problems: Problems Problem Status Onset Dehydration Acute Hyponatremia Acute Renal failure Acute
[2017-09-15] MEDS: PROPOFOL/EMULSION 100 ML IV SCH ×4 (09:14→23:18)
--- NOTE | 2017-09-15 09:16 | PCMIDPN ---
Assessment/Plan: # Sepsis and recent respiratory failure due to MRSA R sided endocarditis # MRSA TV endocarditis with septic pulmonary emboli. JAE showed large veg. and possible VSD which would explain peripheral emboli Persistent bacteremia c/w large TV veg. Going to the OR tomorrow --no reason to re-check blood cultures until after OR --continue vancomycin dosed by levels, re-dose vancomycin 1 g after dialysis tonight # acute renal failure likely multifactorial, on acute hemodialysis. Dosing vancomycin by levels for now. --re dose vancomycin 1mg after dialysis today, pre-dialysis level 17 --check random level in AM # Fever: due to ongoing disease for MRSA R sided endocarditis. microbiology 09/05 and 09/08 blood cx (2) MRSA 09/07 great toe: MRSA 09/11 blood cx (2) NGTD 09/13 blood cx (2) MRSA meds Vancomycin Dosed for levels, D#10 Subjective: No specific events overnight, patient is following commands. Planned for OR to manage large tricuspid valve vegetation tomorrow Objective: Vital Signs Temp Pulse Resp BP Pulse Ox 38.5 C H 106 H 21 H 142/69 H 99 09/15/17 07:00 09/15/17 08:18 09/15/17 08:18 09/15/17 07:00 09/15/17 08:18 Microbiology 09/13/17 02:30 Blood Panel (PCR) - Final Blood MRSA 09/07/17 12:29 Gram Stain - Final Toe - Aspirate Anaerobic Culture - Final MRSA Laboratory Results 09/15/17 04:20 09/15/17 04:20 09/14/17 09/15/17 09/16/17 05:59 05:59 05:59 Intake Total 3820 2198.8 Output Total 290 83 Balance 3530 2115.8 - Physical Exam General Appearance: other (Sedated but alert following commands) EENT: ET Tube, other (OG tube) Respiratory: coarse breath sounds, No accessory muscle use Cardiac/Chest: tachycardia, No diastolic murmur, No systolic murmur Extremities: pedal edema, other (B feet 1st MTP joints and L hand -) Abdomen: non-tender, soft, distended (mild) Male Genitalia: arellano, scrotal edema (mild) Skin: pallor, embolic lesions, signs of IVDA Neuro/Psych: alert, normal mood/affect, oriented x 3 - Time Spent With Patient Time Spent with Patient: greater than 35 minutes Time Spent with Patient: Greater than 35 minutes spent on this patients care, greater than 50% of time spent counseling, educating, and coordinating care regarding the above mentioned plan. ICD10 Worksheet Patient Problems: Problems Problem Status Onset Dehydration Acute Hyponatremia Acute Renal failure Acute
--- NOTE | 2017-09-15 11:34 | HOSPPROG ---
Hospitalist Progress Note Assessment/Plan: Assessment: 37 yo M with h/o IVDA p/w septic shock 2/2 MRSA bacteremia, TV endocarditis with septic emboli resulting in PNA and BRITNEY requiring dialysis Plan: # septic shock: qSOFA 3/3 w/ end-organ failure (BRITNEY, resp failure), ongoing rigors -continue pressor support, wean as able -albumin for volume expansion -persistently positive BCx's despite supratherapeutic vanc levels - need source control, OR tomorrow # MRSA bacteremia with TV endocarditis. Foot shooter sites / cellulitis may be source. JAE showed 2.7 cm TV veg. CV surgery consulted. -Cont Vanc -Dr. Kauffman to take to OR in am for valve surgery, NPO / hold tube feeds at midnight # MRSA pneumonia: 2/2 embolization of bacteremia -cont vanc -pleural Cx ngtd # Acute hypoxic respiratory failure due to above: Intubated 09/12 -cont vent support -propofol / fentanyl for sedation (awake and alert off sedation) # Acute encephalopathy: mentation improved off sedation # BRITNEY: Non-oliguric, multifactorial- s/p contrast and septic shock. FeNa initially 0.3%, Vanco level 59 and significant contrast load -dialysis per renal, appreciate assistance -plan for intra-operative dialysis per CV surg # Hypernatremia: Na normalized with D5W # HCV. 2/2 IVDU, cont to monitor LFTs -outpt f/u # IVDU: Will require [facility] health resource RN / CM once he is cognitively able to engage -per CV surgery (myself and Dr. Rivers agree), pt will undergo valve surgery this one time, but no recurrent surgery should he return with ongoing IVDA and recurrent endocarditis. Pt and family understand. # Pressure injury: on bridge of nares 2/2 bipap -wound care consult appreciated # Thrombocytopenia and Anemia: likely 2/2 hepatic impairment from HCV and infxn , monitor. Plts improving. Diet. TF via OGT, hold at midnight for surgery in am PPx. High risk, SCDs, holding pharm 2/2 thrombocytopenia, but now plts >100, will likely resume post-op Code. Full, Ethics has confirmed his mother is MDPOA Dispo. ADD uncertain, remains critically ill. Discussed guarded prognosis with family. High risk. 30 minutes crit care. Discussed with Dr. Kauffman and Dr. Rivers Subjective: Pt intubated, sedated, but more awake and interactive today. Fevers persist, but fever curve trending down. Denies pain. Tolerating tube feeds. Objective: Vital Signs Temp Pulse Resp BP Pulse Ox 38.5 C H 106 H 21 H 157/81 H 94 09/15/17 07:00 09/15/17 10:00 09/15/17 10:00 09/15/17 10:00 09/15/17 10:00 Microbiology 09/13/17 02:30 Blood Panel (PCR) - Final Blood MRSA 09/07/17 12:29 Gram Stain - Final Toe - Aspirate Anaerobic Culture - Final MRSA Laboratory Results 09/15/17 04:20 09/15/17 04:20 09/14/17 09/15/17 09/16/17 05:59 05:59 05:59 Intake Total 3820 2198.8 Output Total 290 83 Balance 3530 2115.8 PT 18.8 SEC (12.0-15.0) H 09/12/17 09:50 INR 1.56 (0.83-1.16) H 09/12/17 09:50 - Physical Exam Constitutional: no apparent distress Eyes: PERRL Ears, Nose, Mouth, Throat: moist mucous membranes Cardiovascular: tachycardia Respiratory: no respiratory distress Gastrointestinal: normoactive bowel sounds, soft, non-tender abdomen Skin: warm, other (still mild erythema b/l MTP joints) Musculoskeletal: full muscle strength Psychiatric: interacting appropriately ICD10 Worksheet Patient Problems: Problems Problem Status Onset Dehydration Acute Hyponatremia Acute Renal failure Acute
--- NOTE | 2017-09-15 15:08 | ASMTCMCOM ---
CM Note CM Note Notes: Patient remains intubated and sedated but is following commands. He is supposed to go to the OR tomorrow for a mitral valve replacement. His family asked me about applying for [place] Medicaid, but since patient is not a [place] resident, he is not eligible. I encouraged them to fill out the Financial Assistance paperwork that was given to them by the financial counselor. I also mentioned that they may want to consider transferring patient back to [place] when he is stable because he has insurance coverage there. They expressed understanding. Date Signed: 09/15/2017 03:07 PM Electronically Signed By:Nicole Stoner RN
[2017-09-15] MEDS: ACETAMINOPHEN 650 MG/20.3 ML UDCUP TUBE PRN (16:16)
--- NOTE | 2017-09-15 18:05 | SOAPPROG ---
SOAP Progress Note Assessment/Plan: Assessment: - Sepsis and recent respiratory failure due to MRSA R sided endocarditis. -MRSA TV endocarditis with septic pulmonary emboli. To OR tomorrow to manage large tricuspid valve vegetation. -Fever due to ongoing disease for MRSA R sided endocarditis. -Bilateral feet, left hand, right forearm cellulitis/septic joints. Seems to be resolving/stable at this point. Plan: -Continue IV abx per ID and hospitalists. -Continue to monitor swelling/erythema daily. -Pt. to the OR tomorrow for treatment of his tricuspid valve vegetation. -Notified Dr. Vee Subjective: Pt. intubated, not alert at the time of my visit. Objective: Pt. intubated. Shaking/rigors throughout exam, generalized. Right foot: Area of redness and warmth still within marked lines from yesterday. Family thinks may looks darker, but has not grown. Can not assess pain or ROM. Left foot: Edematous, however little to no redness noted over the MTP joints upon my exam. Right forearm and left hand: both generally edematous and skin is very warm to the touch generally but no area of increased redness or warmth to either upper extremity. Redness is very faint to resolved. Calves are soft and supple bilaterally. Knees are mildly swollen but without redness. He has brisk cap. refill to both UE and LE. 09/15/17 17:55 Objective: Vital Signs Temp Pulse Resp BP Pulse Ox 39 C H 111 H 23 H 117/54 L 95 09/15/17 16:00 09/15/17 17:00 09/15/17 17:00 09/15/17 17:00 09/15/17 17:00 Microbiology 09/13/17 02:30 Blood Panel (PCR) - Final Blood MRSA 09/07/17 12:29 Gram Stain - Final Toe - Aspirate Anaerobic Culture - Final MRSA Laboratory Results 09/15/17 04:20 09/15/17 04:20 09/14/17 09/15/17 09/16/17 05:59 05:59 05:59 Intake Total 3820 2198.8 50 Output Total 290 83 115 Balance 3530 2115.8 -65 PT 18.8 SEC (12.0-15.0) H 09/12/17 09:50 INR 1.56 (0.83-1.16) H 09/12/17 09:50 ICD10 Worksheet Patient Problems: Problems Problem Status Onset Dehydration Acute Hyponatremia Acute Renal failure Acute
[2017-09-15] MEDS ORDERED: VANCOMYCIN HCL/NORMAL SALINE 250 ML IV ONE (19:00)
--- NOTE | 2017-09-15 20:01 | PDANEPAE ---
ANE History of Present Illness 37 yo for tvr sbe/ sepsis on vent hd for arf ANE Past Medical History - Cardiovascular History Hx Hypertension: No Hx Arrhythmias: No Hx Chest Pain: No Hx Coronary Artery / Peripheral Vascular Disease: No Hx CHF / Valvular Disease: Yes Hx Palpitations: No - Pulmonary History Hx COPD: No Hx Asthma/Reactive Airway Disease: No Hx Oxygen in Use at Home: No Hx Sleep Apnea: No - Endocrine History Hx Diabetes: No - Chronic Pain History Chronic Pain: No ANE Review of Systems Review of Systems: - Exercise capacity Exercise capacity: unable to assess ANE Patient History - Allergies Allergies/Adverse Reactions: No Known Allergies Allergy (Unverified 09/05/17 19:40) - Home Medications Home Medications: NK [No Known Home Meds] 09/05/17 [Last Taken Unknown] - NPO status NPO Status: no food or drink >8 hours - Anes Hx Anes Hx: no prior problems - Smoking Hx Smoking Status: Heavy smoker - Alcohol Use Alcohol Use: Occasionally (Patient with previous history of daily alcohol use last 1 month ago.) ANE Labs/Vital Signs - Labs Result Diagrams: 09/15/17 04:20 09/15/17 04:20 - Vital Signs Blood Pressure: 126/70 Heart Rate: 106 Respiratory Rate: 21 O2 Sat (%): 96 Height: 5 ft 10 in Weight: 85.9 kg ANE Physical Exam - Airway Mouth exam: ETT in situ ANE Anesthesia Plan Anesthesia Plan: general endotracheal anesthesia Lines/Monitors: arterial line, central line, JAE
[2017-09-15] MEDS: MUPIROCIN 2% 22 GM OINT NS SCH (20:58)
[2017-09-16] MEDS ORDERED: CHLORHEXIDINE GLUC HIBICLENS 118 ML BTL TP ONE (04:00)
[2017-09-16] MEDS ORDERED: PROTAMINE SULFATE 50 MG/5 ML VIAL IVP ONE ×2 (06:01→11:13)
[2017-09-16] MEDS ORDERED: MILRINONE/DEXTROSE/100 ML BAG IV ONE (06:01)
[2017-09-16] MEDS ORDERED: CALCIUM CHLORIDE 1 GM/10 ML INJ ONE ×2 (06:01→06:04)
[2017-09-16] MEDS ORDERED: HEPARIN 10,000 UNIT/10 ML MDV (1,000 UNIT/ML) ONE ×2 (06:02→06:05)
[2017-09-16] MEDS ORDERED: DOPamine/DEXTROSE/250 ML BAG IV ONE (06:02)
[2017-09-16] MEDS ORDERED: niCARdipine/NACL/200 ML BAG IV ONE (06:02)
[2017-09-16] MEDS ORDERED: NA BICARBONATE 50 MEQ/50 ML VIAL ONE ×2 (06:02→13:27)
[2017-09-16] MEDS ORDERED: ceFAZolin 1 GM VIAL ONE (06:03)
[2017-09-16] MEDS ORDERED: ADENOSINE 6 MG/2 ML VIAL ONE (06:03)
[2017-09-16] MEDS ORDERED: AMIODARONE HCL 150 MG/3 ML VIAL ONE ×2 (06:03→06:05)
[2017-09-16] MEDS ORDERED: LIDOCAINE 2% 100 MG/5 ML SYR ONE (06:04)
[2017-09-16] MEDS ORDERED: ALBUMIN 5% 250 ML BOTTLE IV ONE (06:04)
[2017-09-16] MEDS ORDERED: CITRATE DEXTROSE SOLN 500 ML BAG ONE (06:05)
[2017-09-16] MEDS ORDERED: MAGNESIUM SULFATE 1 GM/2 ML VIAL ONE (06:05)
[2017-09-16] MEDS ORDERED: methylPREDNISolone SOD SUCC 1 GM/8 ML VIAL ONE (06:06)
[2017-09-16 06:44] LABS: PLATELET COUNT 122 10^3/uL (150-400)
[2017-09-16] MEDS ORDERED: AMINOCAPROIC ACID 5 GM/20 ML VIAL IV ONE (07:00)
[2017-09-16] MEDS ORDERED: MANNITOL 25% 12.5 GM/50 ML VIAL IVP ONE (07:00)
[2017-09-16] MEDS ORDERED: CITRATE DEXTROSE SOLN 500 ML BAG MISC ONE (07:00)
[2017-09-16] MEDS ORDERED: INSULIN REGULAR HUMAN 100 UNIT in NS 100 ML IV ONE (07:00)
[2017-09-16] MEDS ORDERED: PHENYLEPHRINE HCL 50 MG in NS 250 ML IV ONE (07:00)
[2017-09-16] MEDS ORDERED: SODIUM BICARBONATE 20 MEQ, LIDOCAINE 1% 10 ML in NORMOSOL-R 1,000 ML MISC ONE (07:00)
[2017-09-16] MEDS ORDERED: MINERAL OIL 10 ML VIAL ONE (07:32)
[2017-09-16] MEDS: FAMOTIDINE 20 MG/NACL 50 ML IV SCH (07:32)
[2017-09-16] MEDS: CHLORHEXIDINE GLUCONATE 15 ML UDL PO SCH ×2 (07:32→21:01)
[2017-09-16] MEDS ORDERED: fentaNYL 250 MCG/5 ML INJ ONE ×3 (07:55→08:42)
[2017-09-16] MEDS ORDERED: PROPOFOL/EMULSION 500 MG/50 ML BOTTLE IV ONE ×2 (07:55→09:54)
[2017-09-16] MEDS ORDERED: HYDROmorphONE/DILAUDID 2 MG/ML INJ ONE (08:42)
[2017-09-16] MEDS: MUPIROCIN 2% 22 GM OINT NS SCH ×2 (09:00→21:01)
[2017-09-16] MEDS ORDERED: NOREPINEPHRINE BITARTRATE 16 MG in NS 250 ML IV ONE (09:00)
[2017-09-16] MEDS ORDERED: FUROSEMIDE 20 MG/2 ML VIAL ONE (09:06)
[2017-09-16] MEDS ORDERED: HEPARIN 50,000 UNIT/10 ML VIAL ONE (11:06)
[2017-09-16] MEDS ORDERED: MEPERIDINE 25 MG/0.5 ML AMP IVP PRN (12:14)
[2017-09-16] MEDS ORDERED: PANTOPRAZOLE SODIUM 40 MG VIAL IVP ONE (12:14)
[2017-09-16] MEDS ORDERED: POTASSIUM Cl (KCl) 50 ML IV PRN (12:14)
[2017-09-16] MEDS ORDERED: METOCLOPRAMIDE 10 MG/2 ML VIAL IVP PRN (12:14)
[2017-09-16] MEDS ORDERED: BISACODYL 10 MG SUPP PR PRN (12:14)
[2017-09-16] MEDS ORDERED: D50W 25 GM/50 ML SYR IVP PRN (12:14)
[2017-09-16] MEDS ORDERED: SODIUM CL NASAL 45 ML BTL EACHNARE PRN (12:14)
[2017-09-16] MEDS ORDERED: CEPACOL LOZENGE PO PRN (12:14)
[2017-09-16] MEDS ORDERED: MAGNESIUM HYDROXIDE 30 ML UDCUP PO PRN (12:14)
[2017-09-16] MEDS ORDERED: LACTULOSE 20 GM/30 ML UDCUP PO PRN (12:14)
[2017-09-16] MEDS ORDERED: MAGNESIUM SULF 2 GM/WATER 50 ML IV ONE (12:14)
[2017-09-16] MEDS ORDERED: NS 1,000 ML IV SCH (12:15)
[2017-09-16] MEDS ORDERED: INSULIN REGULAR HUMAN 100 UNIT in NS 100 ML IV SCH (12:30)
--- NOTE | 2017-09-16 12:51 | PDINTPN ---
Otolaryngology Rep Progress Note Assessment/Plan: Assessment/plan: * 37-year-old methamphetamine and opiate addict traveling to [place] with his mother and stepfather for work. Presented to the emergency department on 09/05 with weakness, confusion and hypotension in the setting of opiate withdrawal and recent methamphetamine abuse. Found to have high-grade MRSA bacteremia. * MRSA bacteremia and sepsis. Secondary to IV drug abuse. Blood cultures and urine cultures positive, and blood cultures remain positive from 09/08 after 3 days of appropriate antibiotic coverage. Left great toe aspirate positive as well. Infiltrates present consistent with pneumonia and septic emboli. Probable MRSA, versus aspiration. 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 Peak pressures are high postoperatively -will reduce tidal volume increased rate -follow peak pressures closely as well as end-tidal CO2 * Possible aspiration pneumonia. * Sedation-adequate * Pleural effusions-chest tubes x5 placed in the OR secondary to bleeding -follow-up lip closely * Shock-resolved. * Metabolic acidosis-improved with dialysis * Volume overload -would likely improve with dialysis * Metabolic: On replacement protocols. * Substance abuse: Opiates, methamphetamine. * Prophylaxis: Famotidine, SCDs. * History of hepatitis-C * Acute renal failure-dialysis again tomorrow Subjective: Sedated on mechanical ventilation Objective: Vital Signs Temp Pulse Resp BP Pulse Ox 38.4 C H 106 H 21 H 126/70 H 96 09/16/17 07:39 09/16/17 08:01 09/16/17 08:01 09/16/17 08:01 09/16/17 08:01 Microbiology 09/13/17 02:15 Blood Culture - Final Blood MRSA 09/13/17 02:30 Blood Panel (PCR) - Final Blood MRSA Laboratory Results 09/16/17 05:30 09/16/17 05:30 09/15/17 09/16/17 09/17/17 05:59 05:59 05:59 Intake Total 2198.8 944 1228 Output Total 83 210 250 Balance 2115.8 734 978 PT 18.8 SEC (12.0-15.0) H 09/12/17 09:50 INR 1.56 (0.83-1.16) H 09/12/17 09:50 Laboratory Results 09/16/17 05:30 09/16/17 05:30 09/16/17 10:24 POC Hgb 6.5 gm/dL L gm/dL (13.7 - 17.5) POC Hct 19 % L % (40 - 51) 09/13/17 02:30 Blood Culture - Preliminary Blood Blood Panel (PCR) - Final MRSA MRSA 09/13/17 02:15 Blood Culture - Final Blood MRSA - Time Spent With Patient Time Spent With Patient: 35 min of critical care time spent with patient. Case discussed with Respiratory therapy, nursing, and anesthesia and cardiothoracic surgery Physical Exam - Physical Exam General Appearance: other (Sedated), No alert EENT: PERRL/EOMI, ET tube Neck: non-tender Respiratory: crackles (Left), No respiratory distress, No wheezing Cardiac/Chest: normal peripheral pulses, regular rate, rhythm, systolic murmur Peripheral Pulses: 2+: carotid (R), carotid (L), femoral (R), femoral (L), dorsalis-pedis (R), dorsalis-pedis (L) Abdomen: normal bowel sounds, non-tender, soft Male Genitalia: deferred Rectal: deferred Skin: normal color, warm/dry Extremities: non-tender Neuro/Psych: No alert ICD10 Worksheet Patient Problems: Problems Problem Status Onset Acute blood loss anemia Acute Dehydration Acute Endocarditis of tricuspid valve Acute Hyponatremia Acute Renal failure Acute S/P tricuspid valve replacement Acute
[2017-09-16] MEDS ORDERED: NOREPINEPHRINE BITARTRATE 16 MG in NS 250 ML IV SCH (13:00)
[2017-09-16] MEDS ORDERED: SODIUM BICARBONATE 50 MEQ/50 ML SYR IVP ONE (14:15)
[2017-09-16] MEDS ORDERED: PANTOPRAZOLE SODIUM 40 MG VIAL ONE (14:33)
[2017-09-16] MEDS ORDERED: INSULIN REGULAR HUMAN 100 UNIT/ML UNIT IV ONE (15:15)
[2017-09-16] MEDS ORDERED: FUROSEMIDE 40 MG/4 ML VIAL IVP ONE (15:15)
[2017-09-16] MEDS ORDERED: SODIUM POLY SULF 15 GM/60 ML BOTTLE TUBE ONE (15:15)
--- NOTE | 2017-09-16 15:29 | HOSPPROG ---
Hospitalist Progress Note Assessment/Plan: Assessment: 37 yo M with h/o IVDA p/w septic shock 2/2 MRSA bacteremia, TV endocarditis with septic emboli resulting in PNA and BRITNEY requiring dialysis Plan: # Septic shock 2/2 MRSA bacteremia with TV endocarditis and septic pulmonary emboli: Foot shooter sites suspected source of bacteremia. qSOFA 3/3 w/ end- organ failure (BRITNEY on dialysis, resp failure requiring intubation / mechanical ventilation) -continue pressor support, wean Levophed as able -albumin for volume expansion -persistently positive BCx's # TV endocarditis. JAE showed 2.7 cm TV veg. POD #0 from TV replacement per Dr. Kauffman. Required 5 chest tubes in surgery. -Cont Vanc -chest tube and post-op management per CV surgery team # ABLA. S/P 4 units prbc's, 2 u platelets intra-operatively, hgb now stable ~12 -follow, transfuse as indicated # MRSA pneumonia: 2/2 embolization of TV endocarditis -cont vanc -pleural Cx ngtd # Acute hypoxic respiratory failure due to above: Intubated 09/12 -cont vent support per pulm -propofol / fentanyl for sedation # BRITNEY: Non-oliguric, multifactorial- s/p contrast, supratherapeutic vanco level and septic shock. -daily dialysis per renal, appreciate assistance # Hypernatremia: Na normalized with D5W -renal following # HCV. 2/2 IVDU, cont to monitor LFTs -outpt f/u # IVDU: Will require [facility] health resource RN / CM once he is cognitively able to engage -per CV surgery (myself and Dr. Rivers agree), pt will undergo valve surgery this one time, but no recurrent surgery should he return with ongoing IVDA and recurrent endocarditis. Pt and family understand. # Pressure injury: on bridge of nares 2/2 bipap -wound care consult appreciated # Thrombocytopenia: likely 2/2 hepatic impairment from HCV and infxn, monitor. Plts improving. Diet. TF via OGT PPx. High risk, DAVIDE per CV surg Code. Full, Ethics has confirmed his mother is MDPOA Dispo. ADD uncertain, remains critically ill. Discussed guarded prognosis with family. High risk. 30 minutes crit care. Discussed with Dr. Kauffman and Dr. Rivers Subjective: Pt intubated, sedated post-operatively. [address] Hemodynamically stable on Levophed. Objective: Vital Signs Temp Pulse Resp BP Pulse Ox 37.1 C 96 24 H 116/51 L 98 09/16/17 12:38 09/16/17 15:00 09/16/17 15:00 09/16/17 15:00 09/16/17 15:00 Microbiology 09/16/17 09:25 Gram Stain - Final Heart - Tissue 09/13/17 02:15 Blood Culture - Final Blood MRSA 09/13/17 02:30 Blood Panel (PCR) - Final Blood MRSA Laboratory Results 09/16/17 05:30 09/16/17 05:30 09/15/17 09/16/17 09/17/17 05:59 05:59 05:59 Intake Total 2198.8 944 1228 Output Total 83 210 1365 Balance 2115.8 734 -137 PT 18.8 SEC (12.0-15.0) H 09/12/17 09:50 INR 1.56 (0.83-1.16) H 09/12/17 09:50 - Physical Exam Constitutional: no apparent distress Eyes: PERRL Cardiovascular: tachycardia Respiratory: no respiratory distress, inspiratory crackles, other (multiple chest tubes) Gastrointestinal: normoactive bowel sounds, soft, non-tender abdomen Skin: warm Neurologic: other (intubated, sedated) ICD10 Worksheet Patient Problems: Problems Problem Status Onset Acute blood loss anemia Acute Dehydration Acute Endocarditis of tricuspid valve Acute Hyponatremia Acute Renal failure Acute S/P tricuspid valve replacement Acute
[2017-09-16] MEDS ORDERED: D50W 25 GM/50 ML SYR IVP ONE (15:30)
[2017-09-16] MEDS: HEPARIN 5,000 UNIT/0.5 ML INJ SC SCH ×3 (15:38→21:00)
--- NOTE | 2017-09-16 15:51 | SOAPPROG ---
SOAP Progress Note Assessment/Plan: Assessment: * 37-year-old methamphetamine and opiate addict traveling to [place] with his mother and stepfather for work. Presented to the emergency department on 09/05 with weakness, confusion and hypotension in the setting of opiate withdrawal and recent methamphetamine abuse. Found to have high-grade MRSA bacteremia. * MRSA bacteremia and sepsis. Secondary to IVDU. Blood cultures and urine cultures positive, and blood cultures remain positive from 09/08 after 3 days of appropriate antibiotic coverage. Left great toe aspirate were also positive as well for MRSA. Infiltrates present consistent with pneumonia and septic emboli. -antibiotics per Infectious Disease * Bilateral Feet, Left Hand, Right forearm cellulitis/septic joints: swelling and erythema down compared to previous outline markings and my previous visits. Appears to be resolving with use of IV abx, however still has erythema to b/l great toe MTPs. 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 POD #0 from TV replacement per Dr. Kauffman this morning. He did require 5 chest tubes during surgery. Plan: From our standpoint, continue IV abx, we will continue to monitor his swelling/ erythema during his stay here. Continue plans per hospitalists, ID. Appreciate cardio reccs and continue per their plan. Questions/concerns call our office at [phone]. Patient discussed with Dr. Vee. Subjective: Intubated. Not able to respond to command or questions. Family in room. Objective: Vital Signs Temp Pulse Resp BP Pulse Ox 37.1 C 96 24 H 116/51 L 98 09/16/17 12:38 09/16/17 15:00 09/16/17 15:00 09/16/17 15:00 09/16/17 15:00 Microbiology 09/16/17 09:25 Gram Stain - Final Heart - Tissue 09/13/17 02:15 Blood Culture - Final Blood MRSA 09/13/17 02:30 Blood Panel (PCR) - Final Blood MRSA Laboratory Results 09/16/17 05:30 09/16/17 05:30 09/15/17 09/16/17 09/17/17 05:59 05:59 05:59 Intake Total 2198.8 944 1228 Output Total 83 210 1365 Balance 2115.8 734 -137 PT 18.8 SEC (12.0-15.0) H 09/12/17 09:50 INR 1.56 (0.83-1.16) H 09/12/17 09:50 Intubated. Not able to respond to questions or commands. Mild diaphoresis noted with shaking rigors. Normal rhythm with increased respirations. M/S: Bilateral feet, right forearm, left hand: erythema and edema decreased since previous visits; still has erythema to b/l first digit foot MTP with no associated calor. No calor otherwise noted. Unable to assess ROM or strength. Unable to assess neurovascular status due to unconsciousness in the patient. Brisk cap refill b/l in upper and lower extremities. Calves soft/supple and NTTP b/l with SCDs on and pumping. - Pending Discharge Pending Discharge Within 48 Hours: No ICD10 Worksheet Patient Problems: Problems Problem Status Onset Acute blood loss anemia Acute Dehydration Acute Endocarditis of tricuspid valve Acute Hyponatremia Acute Renal failure Acute S/P tricuspid valve replacement Acute
--- NOTE | 2017-09-16 15:58 | PCMIDPN ---
Assessment/Plan: Assessment/Plan: * MRSA tricuspid valve endocarditis with multifocal soft tissue inflammatory change and septic pulmonary emboli status post tricuspid valve replacement: Gram stain of valve positive for GPC. Persistent high-grade bacteremia prior to surgery which will be reassessed with repeat blood cultures tomorrow as expect increased ability to sterilize blood stream post operatively. Continue vancomycin dosed by levels dependent on dialysis schedule. Therapeutic level today with dialysis planned for tomorrow. If dialyzed tomorrow, will obtain level post dialysis. * Acute renal failure: Continues on hemodialysis. Nephrology notes reviewed. Clinical findings and plan reviewed with family this afternoon. 09/16/17 15:55 Subjective: Patient status post tricuspid valve replacement earlier today. Objective: Vital Signs Temp Pulse Resp BP Pulse Ox 37.1 C 96 24 H 116/51 L 98 09/16/17 12:38 09/16/17 15:00 09/16/17 15:00 09/16/17 15:00 09/16/17 15:00 Microbiology 09/16/17 09:25 Gram Stain - Final Heart - Tissue 09/13/17 02:15 Blood Culture - Final Blood MRSA 09/13/17 02:30 Blood Panel (PCR) - Final Blood MRSA Laboratory Results 09/16/17 05:30 09/16/17 05:30 09/15/17 09/16/17 09/17/17 05:59 05:59 05:59 Intake Total 2198.8 944 1228 Output Total 83 210 1365 Balance 2115.8 734 -137 Blood cultures 09/13/2017 2/2 MRSA Valve gram stain 1+ WBC, 1+ GPC Vancomycin dosed by levels # 11 T-max 39.0 degrees - Physical Exam General Appearance: other (Intubated, sedated) EENT: ET Tube, No conjunctival petechiae Respiratory: coarse breath sounds Cardiac/Chest: other (Sternotomy site intact, multiple chest tubes in place) Extremities: inflammation (Decreased inflammation in right foot and left foot with persistent erythema in both location; no erythema and hands bilaterally) Abdomen: non-tender, No distended ICD10 Worksheet Patient Problems: Problems Problem Status Onset Acute blood loss anemia Acute Dehydration Acute Endocarditis of tricuspid valve Acute Hyponatremia Acute Renal failure Acute S/P tricuspid valve replacement Acute
[2017-09-16] MEDS ORDERED: PROPOFOL/EMULSION 1,000 MG/100 ML BOTTLE IV ONE (16:06)
[2017-09-16] MEDS: PROPOFOL/EMULSION 100 ML IV SCH (16:30)
[2017-09-16] MEDS ORDERED: SODIUM BICARBONATE 50 MEQ/50 ML SYR IV ONE (16:45)
[2017-09-16] MEDS: ALBUMIN 5% 250 ML IV PRN ×3 (17:14→20:05)
--- NOTE | 2017-09-16 18:55 | SOAPPROG ---
SOAP Progress Note Assessment/Plan: Assessment: 1. arf: will plan hd for tomorrow am. Uo perhaps increasing slightly. Presumed ischemic atn but in light of hematuria/proteinuria could have element of complement mediated gn as well. Management would not be altered at this point. 2. sepsis/endocarditis: on vanc, now s/p TVR earlier today. Remains pressor dependent but would expect him to be able to tolerate hd. 3. K: essentially upper limit of normal currently, now on insulin gtt. Expect this to be controlled overnight, will hd in am as above. 4. Bleeding: reportedly required multiple units prbc's intra-op, appears stable now but if has recurrent bleeding could give ddavp. Plan: 09/16/17 18:51 Subjective: S/p TVR earlier today, required multiple units prbcs intraop. Remains vented, on levo but dose decreasing. Objective: Vital Signs Temp Pulse Resp BP Pulse Ox 38.2 C 101 H 24 H 134/47 H 98 09/16/17 17:00 09/16/17 18:00 09/16/17 18:00 09/16/17 18:00 09/16/17 18:00 Microbiology 09/16/17 09:25 Gram Stain - Final Heart - Tissue 09/13/17 02:15 Blood Culture - Final Blood MRSA 09/13/17 02:30 Blood Panel (PCR) - Final Blood MRSA Laboratory Results 09/16/17 05:30 09/16/17 05:30 09/15/17 09/16/17 09/17/17 05:59 05:59 05:59 Intake Total 2198.8 944 1731 Output Total 83 210 1690 Balance 2115.8 734 41 PT 18.8 SEC (12.0-15.0) H 09/12/17 09:50 INR 1.56 (0.83-1.16) H 09/12/17 09:50 Physical Exam - Physical Exam General Appearance: other (vented) Respiratory: lungs clear (anteriorly) Cardiac/Chest: regular rate, rhythm Abdomen: soft Male Genitalia: other (+Gonsalez cath with clear urine) Extremities: swelling (+LE/dependent edema) ICD10 Worksheet Patient Problems: Problems Problem Status Onset Acute blood loss anemia Acute Dehydration Acute Endocarditis of tricuspid valve Acute Hyponatremia Acute Renal failure Acute S/P tricuspid valve replacement Acute
[2017-09-16] MEDS: fentaNYL 100 MCG/2 ML INJ IVP PRN (19:13)
--- NOTE | 2017-09-16 19:16 | GOP ---
[f rep st] OPERATIVE REPORT DATE OF OPERATION: 09/16/2017 SURGEON: Ubaldo Kauffman DO RUBBLE PLACER: Christofer Vargas PA-C ANESTHESIOLOGIST: Lainey Pacheco MD PREOPERATIVE DIAGNOSIS: 1. Cardiogenic shock with sepsis secondary to tricuspid valve endocarditis and multiple embolic even ts, including the lung and peripheral joints. 2. Acute renal failure, on dialysis. 3. Acute respiratory failure, on a ventilator. POSTOPERATIVE DIAGNOSIS: 1. Cardiogenic shock with sepsis secondary to tricuspid valve endocarditis and multiple embolic even ts, including the lung and peripheral joints. 2. Acute renal failure, on dialysis. 3. Acute respiratory failure, on a ventilator. PROCEDURE PERFORMED: 1. Tricuspid valve debridement with replacement utilizing a 29 Magna bioprosthetic valve. 2. Decortication of both pleura secondary to loculated effusions with coagulopathy. FINDINGS: The patient presented with septic pulmonary emboli. Rather late in his course, a surgical consultation was requested. He had been intubated on a ventilator with maximum Levophed support. O ngoing sepsis and bacteremia as well as ongoing fevers for greater than a week prior to our involveme nt. The family was consented and advised that he was critically ill and a very high-risk surgical ca ndidate, but without surgery he had 100% mortality. They agreed to proceed. I did also advise them that I would only offer him one surgery in his lifetime and that if he re-infected, I would not offer him a second surgery if it was due to IV drug abuse. DESCRIPTION OF PROCEDURE: He was brought to the operating room. He was prepped and draped in the st erile classical manner. A sternotomy was performed. Upon entering the pleura, 4 L of serosanguineou s fluid were drained. The lungs were edematous and indurated, with evidence of multiple infarcts and densely adherent to multiple pleural areas. These were bluntly taken down, which proceeded to bleed profusely. He had been heparinized at that point. We then opened the pericardium. We cannulated w ith bicaval cannulae and the ascending aorta. We then initiated cardiopulmonary bypass prior to dony pulating the heart in order to avoid embolization. We then secured caval tapes and removed bulky veg etations on the septal and free-wall leaflet, which were completely dehisced from the anulus and not salvageable. I therefore decided to replace the valve since he had very little residual tissue in or mayi to maintain any competency of his tricuspid valve. The subvalvular apparatus was debrided as muc h as possible. It was left in place. We then placed a 29 mm Magna valve with interrupted 2-0 Tycron pledgeted mattress sutures, avoiding the conduction system. The right atrium was closed. We then w eaned him from bypass without difficulty and reversed the heparin with protamine. At that point, we spent several hours controlling profuse bleeding from punctate sites in the pleural cavity where the adhesions had been and were unresponsive to medical therapy. We were satisfied we had control of his pleural bleeding. Two pleural drains were placed on either side, and one mediastinal drain was plac ed. The thymic fat and pericardium were closed. The sternum was closed in the standard fashion. e patient returned to the ICU in critical condition. /[id number]/MODL
[2017-09-16] MEDS: SENNOSIDES/DOCUSATE SODIUM TAB PO SCH (21:00)
[2017-09-17] MEDS: PROPOFOL/EMULSION 100 ML IV SCH ×5 (00:42→22:20)
[2017-09-17 05:22] LABS: PLATELET COUNT 85 10^3/uL (150-400)
[2017-09-17] MEDS: HEPARIN 5,000 UNIT/0.5 ML INJ SC SCH ×4 (05:24→21:23)
[2017-09-17 06:53] LABS: INR 1.19 (0.83-1.16); PROTIME(PATIENT) 15.3 SEC (12.0-15.0)
--- NOTE | 2017-09-17 07:36 | POSTANESTH ---
Post Anesthetic Evaluation Cardiovascular Status: Tx Hyper/Hypo-tension Respiratory Status: Other, See Comment Level of Consciousness/Mental Status: Unconscious Pain Control: Adequate, Prn Tx Ordered Nausea/Vomiting Control: Adequate, Prn Tx Ordered Complications Possibly Related to Anesthesia: None Noted (on vent in icu, no comp geta noted)
--- NOTE | 2017-09-17 07:37 | PDANEPAE ---
ANE History of Present Illness 37 yo s/p tvr for medistainal exploration due to continued bleeding ANE Past Medical History - Cardiovascular History Hx Hypertension: No Hx Arrhythmias: No Hx Chest Pain: No Hx Coronary Artery / Peripheral Vascular Disease: No Hx CHF / Valvular Disease: Yes Hx Palpitations: No - Pulmonary History Hx COPD: No Hx Asthma/Reactive Airway Disease: No Hx Oxygen in Use at Home: No Hx Sleep Apnea: No Sleep Apnea Screening Result - Last Documented: Negative - Endocrine History Hx Diabetes: No - Chronic Pain History Chronic Pain: No ANE Review of Systems Review of Systems: ANE Patient History - Allergies Allergies/Adverse Reactions: No Known Allergies Allergy (Unverified 09/05/17 19:40) - Home Medications Home Medications: NK [No Known Home Meds] 09/05/17 [Last Taken Unknown] - NPO status NPO Since - Liquids (Date): 09/16/17 NPO Since - Liquids (Time): 00:01 NPO Since - Solids (Date): 09/16/17 NPO Since - Solids (Time): 00:01 - Smoking Hx Smoking Status: Heavy smoker - Alcohol Use Alcohol Use: Occasionally (Patient with previous history of daily alcohol use last 1 month ago.) ANE Labs/Vital Signs - Labs Result Diagrams: 09/17/17 05:05 09/17/17 05:05 - Vital Signs Blood Pressure: 134/55 Heart Rate: 91 Respiratory Rate: 23 O2 Sat (%): 100 Height: 5 ft 10 in Weight: 88.4 kg ANE Physical Exam - Airway Mouth exam: ETT in situ - ASA Status ASA Status: IV, E ANE Anesthesia Plan Anesthesia Plan: general endotracheal anesthesia
[2017-09-17] MEDS ORDERED: fentaNYL 250 MCG/5 ML INJ ONE ×2 (07:48→08:24)
[2017-09-17] MEDS ORDERED: PROPOFOL/EMULSION 500 MG/50 ML BOTTLE IV ONE (07:48)
[2017-09-17] MEDS ORDERED: MINERAL OIL 10 ML VIAL ONE (08:34)
[2017-09-17] MEDS ORDERED: CALCIUM GLUCONATE 50 ML IV ONE (09:01)
[2017-09-17] MEDS: CHLORHEXIDINE GLUCONATE 15 ML UDL PO SCH ×2 (09:14→21:21)
--- NOTE | 2017-09-17 09:23 | HOSPPROG ---
Hospitalist Progress Note Assessment/Plan: Assessment: 37 yo M with h/o IVDA p/w septic shock 2/2 MRSA bacteremia, complicated by TV endocarditis with septic emboli resulting in PNA and BRITNEY requiring dialysis. S/P TVR per CV surgery. Plan: # Septic shock 2/2 MRSA bacteremia with TV endocarditis and septic pulmonary emboli: Foot shooter sites suspected source of bacteremia. qSOFA 3/3 w/ end- organ failure (BRITNEY on dialysis, resp failure requiring intubation / mechanical ventilation) -continue pressor support, wean Levophed as able -albumin for volume expansion -persistently positive BCx's, repeat BCx's this am pending # TV endocarditis. JAE showed 2.7 cm TV veg. POD #1 from TV replacement per Dr. Kauffman. Required 5 chest tubes in surgery. Returned to OR today for washout of chest. -Cont Vanc -chest tube and post-op management per CV surgery team # ABLA. S/P 8 units prbc's, 2 u FFP, 2 u platelets intra-operatively, hgb now stable ~9 -follow, transfuse as indicated # MRSA pneumonia: 2/2 embolization of TV endocarditis -cont vanc -pleural Cx ngtd # Acute hypoxic respiratory failure due to above: Intubated 09/12 -cont vent support per pulm -propofol / fentanyl for sedation # BRITNEY: Non-oliguric, multifactorial- s/p contrast, supratherapeutic vanco level and septic shock. -daily dialysis per renal, appreciate assistance # Hyperkalemia - HD today per renal # Hypernatremia: Na normalized with D5W -renal following # HCV. 2/2 IVDU, cont to monitor LFTs -outpt f/u # IVDU: Will require [facility] health resource RN / CM once he is cognitively able to engage -per CV surgery (myself and Dr. Rivers agree), pt will undergo valve surgery this one time, but no recurrent surgery should he return with ongoing IVDA and recurrent endocarditis. Pt and family understand. # Pressure injury: on bridge of nares 2/2 bipap -wound care consult appreciated # Thrombocytopenia: likely 2/2 hepatic impairment from HCV and infxn, monitor. Plts improving. Diet. TF via OGT PPx. High risk, DAVIDE per CV surg Code. Full, Ethics has confirmed his mother is MDPOA Dispo. ADD uncertain, remains critically ill. Discussed guarded prognosis with family. High risk. Discussed with Dr. Kauffman and Dr. Rivers Subjective: Pt intubated, sedated. Objective: Vital Signs Temp Pulse Resp BP Pulse Ox 37.3 C 91 23 H 134/55 H 100 09/17/17 07:00 09/17/17 07:37 09/17/17 07:37 09/17/17 07:37 09/17/17 07:37 Microbiology 09/16/17 09:25 Gram Stain - Final Heart - Tissue 09/11/17 11:15 Blood Culture - Final Blood 09/11/17 11:15 Blood Culture - Final Blood 09/16/17 09:25 Mycobacterial Smear (STEPHANIE) - Final Heart - Tissue 09/13/17 02:15 Blood Culture - Final Blood MRSA 09/13/17 02:30 Blood Panel (PCR) - Final Blood MRSA Laboratory Results 09/17/17 05:05 09/17/17 08:00 09/16/17 09/17/17 09/18/17 05:59 05:59 05:59 Intake Total 2172 1767 Output Total 460 3103.0 60 Balance 1712 -1336.0 -60 PT 15.3 SEC (12.0-15.0) H 09/17/17 05:05 INR 1.19 (0.83-1.16) H 09/17/17 05:05 - Physical Exam Constitutional: no apparent distress Eyes: PERRL Ears, Nose, Mouth, Throat: moist mucous membranes Cardiovascular: tachycardia Respiratory: no respiratory distress, inspiratory crackles Gastrointestinal: normoactive bowel sounds, soft, non-tender abdomen Skin: warm Neurologic: other (sedated on ventilator) ICD10 Worksheet Patient Problems: Problems Problem Status Onset Acute blood loss anemia Acute Dehydration Acute Endocarditis of tricuspid valve Acute Hyponatremia Acute Renal failure Acute S/P tricuspid valve replacement Acute
--- NOTE | 2017-09-17 09:38 | GOP ---
[f rep st] OPERATIVE REPORT DATE OF OPERATION: 09/17/2017 SURGEON: Ubaldo Kauffman DO PAEDIATRIC THORACIC PHYSICIAN: Christofer Vargas PA-C ANESTHESIOLOGIST: Lainey Pacheco MD PREOPERATIVE DIAGNOSIS: Left thoracic hematoma. POSTOPERATIVE DIAGNOSIS: Left thoracic hematoma. PROCEDURE PERFORMED: Mediastinal reexploration with evacuation of hematoma and irrigation. FINDINGS: DESCRIPTION OF PROCEDURE: Patient was noted to have a hematoma in the apex of the left chest post st ernotomy, which was not draining adequately. He was consented, brought back to the operating room. Sternotomy was reopened. Approximately 800 cc of clot was evacuated. The chest was irrigated. The sternum was closed. He was then returned to ICU in stable condition. /[id number]/MODL
--- NOTE | 2017-09-17 09:40 | SOAPPROG ---
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 - Coumadin to be started once coagulopathy resolves Bilateral loculated effusions s/p decortication - For washout today - Large bore CTs to suction Pre-op anemia with post-op acute blood anemia and coagulopathy requiring multiple transfusions - Monitor and transfuse as needed - See blood bank section for details MRSA sepsis with emboli secondary to IV drug abuse - ABX as per ID - Wean Levophed as tolerated ARF - Decent response to Lasix - Continue HD as per renal as needed VDRF - FiO2 40% today - Further weaning as per pulmonology Subjective: Sedated Objective: Vital Signs Temp Pulse Resp BP Pulse Ox 37.3 C 91 23 H 134/55 H 100 09/17/17 07:00 09/17/17 07:37 09/17/17 07:37 09/17/17 07:37 09/17/17 07:37 Microbiology 09/16/17 09:25 Gram Stain - Final Heart - Tissue 09/11/17 11:15 Blood Culture - Final Blood 09/11/17 11:15 Blood Culture - Final Blood 09/16/17 09:25 Mycobacterial Smear (STEPHANIE) - Final Heart - Tissue 09/13/17 02:15 Blood Culture - Final Blood MRSA 09/13/17 02:30 Blood Panel (PCR) - Final Blood MRSA Laboratory Results 09/17/17 05:05 09/17/17 08:00 09/16/17 09/17/17 09/18/17 05:59 05:59 05:59 Intake Total 2172 1767 Output Total 460 3103.0 60 Balance 1712 -1336.0 -60 PT 15.3 SEC (12.0-15.0) H 09/17/17 05:05 INR 1.19 (0.83-1.16) H 09/17/17 05:05 Physical Exam - Physical Exam General Appearance: no apparent distress EENT: ET tube Neck: normal inspection Respiratory: No respiratory distress Cardiac/Chest: tachycardia Abdomen: non-tender, soft, No distended Skin: normal color, warm/dry, embolic lesions, signs of IVDA Extremities: pedal edema Neuro/Psych: other (sedated) ICD10 Worksheet Patient Problems: Problems Problem Status Onset Acute blood loss anemia Acute Dehydration Acute Endocarditis of tricuspid valve Acute Hyponatremia Acute Renal failure Acute S/P tricuspid valve replacement Acute
--- NOTE | 2017-09-17 09:47 | PDINTPN ---
Net Mvc Developer Progress Note Assessment/Plan: Assessment/plan: * 37-year-old methamphetamine and opiate addict traveling to [place] with his mother and stepfather for work. Presented to the emergency department on 09/05 with weakness, confusion and hypotension in the setting of opiate withdrawal and recent methamphetamine abuse. Found to have high-grade MRSA bacteremia. * MRSA bacteremia and sepsis. Secondary to IV drug abuse. Blood cultures and urine cultures positive. Left great toe aspirate positive as well. Infiltrates present consistent with pneumonia and septic emboli. -antibiotics per Infectious Disease * Tricuspid valve endocarditis * Status post tricuspid valve replacement * Left pleural empyema-operating room earlier today for a washout per surgery -follow chest tube output closely * Acute blood-loss anemia- -follow H&H closely * Acute respiratory failure. Peak pressures are improved -will continue low tidal volume -follow peak pressures closely as well as end-tidal CO2 * Possible aspiration pneumonia. * Sedation-adequate -continue propofol * Shock-resolved. * Metabolic acidosis-improved with dialysis * Volume overload -would likely improve with dialysis * Metabolic: On replacement protocols. * Substance abuse: Opiates, methamphetamine. * Prophylaxis: Famotidine, SCDs. * History of hepatitis-C * Acute renal failure-dialysis again today Subjective: Sedated on mechanical ventilation Objective: Vital Signs Temp Pulse Resp BP Pulse Ox 37.3 C 91 23 H 134/55 H 100 09/17/17 07:00 09/17/17 07:37 09/17/17 07:37 09/17/17 07:37 09/17/17 07:37 Microbiology 09/16/17 09:25 Gram Stain - Final Heart - Tissue 09/11/17 11:15 Blood Culture - Final Blood 09/11/17 11:15 Blood Culture - Final Blood 09/16/17 09:25 Mycobacterial Smear (STEPHANIE) - Final Heart - Tissue 09/13/17 02:15 Blood Culture - Final Blood MRSA 09/13/17 02:30 Blood Panel (PCR) - Final Blood MRSA Laboratory Results 09/17/17 05:05 09/17/17 08:00 09/16/17 09/17/17 09/18/17 05:59 05:59 05:59 Intake Total 2172 1767 Output Total 460 3103.0 60 Balance 1712 -1336.0 -60 PT 15.3 SEC (12.0-15.0) H 09/17/17 05:05 INR 1.19 (0.83-1.16) H 09/17/17 05:05 Laboratory Results 09/17/17 05:05 09/17/17 08:00 09/17/17 09/17/17 09/17/17 05:05 05:05 05:05 PT 15.3 SEC H SEC (12.0 - 15.0) INR 1.19 H (0.83 - 1.16) Patient Temperature 37.4 DEGREES DEGREES pCO2 42 mmHg H mmHg (34 - 38) pO2 96 mmHg H mmHg (65 - 75) Total CO2 20 mEq/L L mEq/L (23 - 27) ABG pH 7.28 L (7.35 - 7.45) ABG PO2/FiO2 Ratio 240 RATIO RATIO ABG HCO3 19 mEq/L L mEq/L (22 - 26) ABG O2 Saturation 96 % H % (92 - 95) ABG Base Excess -6.7 mEq/L L mEq/L (-2.5 - 2.5) O2 Concentration % 40 % % Actual Respiration Rate 20 Set Respiration Rate 18 SIMV YES Tidal Volume 450 End Tidal CO2 39 PEEP 5 Peak Inspir Pressure 7 Pressure Support 5 Calcium 7.2 mg/dL L mg/dL (8.5 - 10.4) Ionized Calcium 1.09 MMOL/L L MMOL/L (1.12 - 1.30) ICD10 Worksheet Patient Problems: Problems Problem Status Onset Acute blood loss anemia Acute Dehydration Acute Endocarditis of tricuspid valve Acute Hyponatremia Acute Renal failure Acute S/P tricuspid valve replacement Acute
[2017-09-17] MEDS: fentaNYL 100 MCG/2 ML INJ IVP PRN ×2 (09:52→16:18)
[2017-09-17] MEDS: FAMOTIDINE 20 MG/NACL 50 ML IV SCH (09:52)
[2017-09-17] MEDS: MUPIROCIN 2% 22 GM OINT NS SCH ×2 (10:47→21:24)
[2017-09-17] MEDS: SENNOSIDES/DOCUSATE SODIUM TAB PO SCH ×2 (10:47→21:24)
--- NOTE | 2017-09-17 11:37 | PCMIDPN ---
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 Repeat blood cultures obtained to assess for clearing of bacteremia postoperatively. Operative findings reviewed. Will obtain random vancomycin level post dialysis with plan to re-dose if less than 15. * Acute renal failure: Continues on hemodialysis. Plans for dialysis today. 09/17/17 11:33 Subjective: Patient return to OR this a.m. For evacuation of hemothorax. Objective: Vital Signs Temp Pulse Resp BP Pulse Ox 36.8 C 94 18 138/55 H 100 09/17/17 11:00 09/17/17 11:00 09/17/17 11:00 09/17/17 11:00 09/17/17 11:00 Microbiology 09/16/17 09:25 Gram Stain - Final Heart - Tissue 09/11/17 11:15 Blood Culture - Final Blood 09/11/17 11:15 Blood Culture - Final Blood 09/16/17 09:25 Mycobacterial Smear (STEPHANIE) - Final Heart - Tissue 09/13/17 02:15 Blood Culture - Final Blood MRSA 09/13/17 02:30 Blood Panel (PCR) - Final Blood MRSA Laboratory Results 09/17/17 05:05 09/17/17 08:00 09/16/17 09/17/17 09/18/17 05:59 05:59 05:59 Intake Total 2172 1767 2 Output Total 460 3103.0 515 Balance 1712 -1336.0 -513 Vancomycin # 12 (dosed by levels) T-max 38.3 degrees Valve Gram stain 1+ GPC, culture no growth to date Blood cultures x2 09/17/2017 pending - Physical Exam General Appearance: other (Intubated, sedated) EENT: ET Tube, No scleral icterus, No conjunctival petechiae Respiratory: coarse breath sounds Cardiac/Chest: other (Distant heart tones, sternotomy dressed, multiple chest tubes in place) Extremities: inflammation (Bilateral feet with persistent erythema, left greater than right without interval change) Abdomen: non-tender, No distended ICD10 Worksheet Patient Problems: Problems Problem Status Onset Acute blood loss anemia Acute Dehydration Acute Endocarditis of tricuspid valve Acute Hyponatremia Acute Renal failure Acute S/P tricuspid valve replacement Acute
[2017-09-17] MEDS ORDERED: HEPARIN 50,000 UNIT/10 ML VIAL ONE (16:52)
--- NOTE | 2017-09-17 17:36 | SOAPPROG ---
SOAP Progress Note Assessment/Plan: Assessment: * 37-year-old methamphetamine and opiate addict traveling to [place] with his mother and stepfather for work. Presented to the emergency department on 09/05 with weakness, confusion and hypotension in the setting of opiate withdrawal and recent methamphetamine abuse. Found to have high-grade MRSA bacteremia. * MRSA bacteremia and sepsis. Secondary to IVDU. Blood cultures and urine cultures positive, and blood cultures remain positive from 09/08 after 3 days of appropriate antibiotic coverage. Left great toe aspirate were also positive as well for MRSA. Infiltrates present consistent with pneumonia and septic emboli. -antibiotics per Infectious Disease * Bilateral Feet, Left Hand, Right forearm cellulitis/septic joints: swelling and erythema down compared to previous outline markings and my previous visits. Appears to be resolving with use of IV abx, however still has erythema to b/l great toe MTPs. Continues to improve daily. 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 POD #1 from TV replacement per Dr[address] Kauffman, valve showed gram positive cocci. He did require 5 chest tubes during surgery. Plan: From our standpoint, continue IV abx, we will continue to monitor his swelling/ erythema during his stay here. Continue plans per hospitalists, ID. Appreciate cardio reccs and continue per their plan. Questions/concerns call our office at [phone]. Patient discussed with Dr. Vee. Subjective: Intubated. Able to open eyes when I stated his name. Was unable to respond appropriately to command. Objective: Vital Signs Temp Pulse Resp BP Pulse Ox 37.7 C 101 H 24 H 133/52 H 99 09/17/17 16:48 09/17/17 16:48 09/17/17 16:48 09/17/17 16:48 09/17/17 16:48 Microbiology 09/16/17 09:25 Gram Stain - Final Heart - Tissue 09/11/17 11:15 Blood Culture - Final Blood 09/11/17 11:15 Blood Culture - Final Blood 09/16/17 09:25 Mycobacterial Smear (STEPHANIE) - Final Heart - Tissue Laboratory Results 09/17/17 05:05 09/17/17 08:00 09/16/17 09/17/17 09/18/17 05:59 05:59 05:59 Intake Total 2172 1767 2 Output Total 460 3103.0 998 Balance 1712 -1336.0 -996 PT 15.3 SEC (12.0-15.0) H 09/17/17 05:05 INR 1.19 (0.83-1.16) H 09/17/17 05:05 Intubated. Not able to respond to questions or commands. Able to open eyes to verbalization of his name. Mild diaphoresis noted with no rigors today. Normal rhythm with increased respirations. M/S: Bilateral feet, right forearm, left hand: erythema and edema decreased since previous visits; still has erythema to b/l first digit foot MTP with no associated calor, continues to improve daily. No calor otherwise noted. Unable to assess ROM or strength. Unable to assess neurovascular status due to unconsciousness in the patient. Brisk cap refill b/l in upper and lower extremities. Calves soft/supple and NTTP b/l with SCDs on and pumping. - Pending Discharge Pending Discharge Within 48 Hours: No ICD10 Worksheet Patient Problems: Problems Problem Status Onset Acute blood loss anemia Acute Dehydration Acute Endocarditis of tricuspid valve Acute Hyponatremia Acute Renal failure Acute S/P tricuspid valve replacement Acute
--- NOTE | 2017-09-17 17:52 | POSTANESTH ---
Post Anesthetic Evaluation Cardiovascular Status: Similar to Pre-Op Cond Respiratory Status: Other, See Comment Level of Consciousness/Mental Status: Unconscious Pain Control: Adequate, Prn Tx Ordered Nausea/Vomiting Control: Adequate, Prn Tx Ordered (on vent, sedated. No apparent comp geta) Complications Possibly Related to Anesthesia: None Noted
--- NOTE | 2017-09-17 18:16 | SOAPPROG ---
SOAP Progress Note Assessment/Plan: Assessment: 1. arf: Presumed ischemic atn but in light of hematuria/proteinuria could have element of complement mediated gn as well. Management would not be altered at this point. Next hd Monday. 2. sepsis/endocarditis: on vanc, now s/p TVR. 3. Overload: would likely benefit from fluid removal. Plan: 09/16/17 18:51 09/17/17 18:13 Subjective: Went back to OR this am for evacuation of clot. S/p hd earlier this afternoon, no uf performed per surgery request. Objective: Vital Signs Temp Pulse Resp BP Pulse Ox 37.7 C 101 H 24 H 133/52 H 99 09/17/17 16:48 09/17/17 16:48 09/17/17 16:48 09/17/17 16:48 09/17/17 16:48 Microbiology 09/16/17 09:25 Gram Stain - Final Heart - Tissue 09/11/17 11:15 Blood Culture - Final Blood 09/11/17 11:15 Blood Culture - Final Blood 09/16/17 09:25 Mycobacterial Smear (STEPHANIE) - Final Heart - Tissue Laboratory Results 09/17/17 05:05 09/17/17 08:00 09/16/17 09/17/17 09/18/17 05:59 05:59 05:59 Intake Total 2172 1767 2 Output Total 460 3103.0 998 Balance 1712 -1336.0 -996 PT 15.3 SEC (12.0-15.0) H 09/17/17 05:05 INR 1.19 (0.83-1.16) H 09/17/17 05:05 Physical Exam - Physical Exam General Appearance: other (intubated) Respiratory: lungs clear (anteriorly) Cardiac/Chest: regular rate, rhythm Abdomen: soft Extremities: swelling (+LE/dependent edema) ICD10 Worksheet Patient Problems: Problems Problem Status Onset Acute blood loss anemia Acute Dehydration Acute Endocarditis of tricuspid valve Acute Hyponatremia Acute Renal failure Acute S/P tricuspid valve replacement Acute
[2017-09-17] MEDS ORDERED: VANCOMYCIN HCL/NORMAL SALINE 250 ML IV ONE (22:00)
[2017-09-18] MEDS: PROPOFOL/EMULSION 100 ML IV SCH ×7 (02:07→21:09)
[2017-09-18 04:51] LABS: PLATELET COUNT 86 10^3/uL (150-400)
[2017-09-18] MEDS: HEPARIN 5,000 UNIT/0.5 ML INJ SC SCH ×3 (05:57→21:10)
--- NOTE | 2017-09-18 06:45 | SOAPPROG ---
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 - Coumadin to be started once coagulopathy resolves Bilateral loculated effusions s/p decortication with need for reexploration and evacuation of left chest hematoma - Large bore CTs removed today Pre-op anemia with post-op acute blood anemia and coagulopathy requiring multiple transfusions - Monitor and transfuse as needed - See blood bank section for details MRSA sepsis with emboli secondary to IV drug abuse - ABX as per ID - Wean Levophed as tolerated ARF - Decent response to Lasix - Continue HD as per renal as needed VDRF - FiO2 40% today - Further weaning/treatment as per pulmonology Ileus - High volume from gastric tube - Strict NPO Subjective: Sedated, responds to pain. Objective: Vital Signs Temp Pulse Resp BP Pulse Ox 37.4 C 92 22 H 136/63 H 95 09/18/17 06:00 09/18/17 06:00 09/18/17 06:00 09/18/17 06:00 09/18/17 06:00 Microbiology 09/16/17 09:25 Gram Stain - Final Heart - Tissue 09/11/17 11:15 Blood Culture - Final Blood 09/11/17 11:15 Blood Culture - Final Blood Laboratory Results 09/18/17 04:35 09/18/17 04:35 09/17/17 09/18/17 09/19/17 05:59 05:59 05:59 Intake Total 1767 859 Output Total 3103.0 3018 Balance -1336.0 -2159 PT 15.3 SEC (12.0-15.0) H 09/17/17 05:05 INR 1.19 (0.83-1.16) H 09/17/17 05:05 Physical Exam - Physical Exam General Appearance: No no apparent distress EENT: ET tube Neck: normal inspection Respiratory: No respiratory distress Cardiac/Chest: regular rate, rhythm Abdomen: non-tender, soft, No distended Skin: normal color, warm/dry, signs of IVDA Extremities: pedal edema Neuro/Psych: other (sedated on vent ) ICD10 Worksheet Patient Problems: Problems Problem Status Onset Acute blood loss anemia Acute Dehydration Acute Endocarditis of tricuspid valve Acute Hyponatremia Acute Renal failure Acute S/P tricuspid valve replacement Acute
--- NOTE | 2017-09-18 08:09 | SOAPPROG ---
SOAP Progress Note Assessment/Plan: Assessment: No focal abscess based on clinical exam. Situation as of today, is stable from orthopedic standpoint. I do not foresee need for I+D of extremities. Recommend: I will stop seeing patient as of today. If situation changes please reconsult me 09/09/17 19:06 09/10/17 08:18 09/10/17 13:37 09/11/17 09:22 09/12/17 21:37 09/18/17 08:06 Objective: Vital Signs Temp Pulse Resp BP Pulse Ox 37.3 C 88 20 128/63 H 96 09/18/17 07:00 09/18/17 07:00 09/18/17 07:00 09/18/17 07:00 09/18/17 07:00 Microbiology 09/13/17 02:30 Blood Culture - Final Blood MRSA Blood Panel (PCR) - Final MRSA 09/16/17 09:25 Gram Stain - Final Heart - Tissue 09/11/17 11:15 Blood Culture - Final Blood 09/11/17 11:15 Blood Culture - Final Blood Laboratory Results 09/18/17 04:35 09/18/17 04:35 09/17/17 09/18/17 09/19/17 05:59 05:59 05:59 Intake Total 1767 859 Output Total 3103.0 3018 Balance -1336.0 -2159 PT 15.3 SEC (12.0-15.0) H 09/17/17 05:05 INR 1.19 (0.83-1.16) H 09/17/17 05:05 Swelling around left hand is now gone with no erythema. Bilateral feet still have erythema at apex of first MTP joints but minimal swelling. Right forearm and elbow area remain with generalized, non-focal swelling ICD10 Worksheet Patient Problems: Problems Problem Status Onset Acute blood loss anemia Acute Dehydration Acute Endocarditis of tricuspid valve Acute Hyponatremia Acute Renal failure Acute S/P tricuspid valve replacement Acute
--- NOTE | 2017-09-18 08:19 | SOAPPROG ---
SOAP Progress Note Assessment/Plan: Assessment: #BRITNEY- -suspect ATN in setting of septic shock, contrast, endocarditis, vanco. Could also have infection mediated GN but management same. 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 chest tube in #acidosis, mixed resp and metabolic- last gas improved, follow #anemia acute illness #nutrition- Tube feeds on hold given large OG output #thrombocytopenia- likely infection related, using citrate to pack HD cath #positive Hep C Ab I discussed with [employer] CLERK and MD Minna Coppola MD [facility] [phone] pager 09/18/17 08:31 Subjective: Remains off pressors. UOP ~ 500 cc past 24 hours. On 40% FIO2. Large output from OG, tube feeds on hold. Stable overnight per RN. Objective: Vital Signs Temp Pulse Resp BP Pulse Ox 37.3 C 88 20 128/63 H 96 09/18/17 07:00 09/18/17 07:00 09/18/17 07:00 09/18/17 07:00 09/18/17 07:00 Microbiology 09/13/17 02:30 Blood Culture - Final Blood MRSA Blood Panel (PCR) - Final MRSA 09/16/17 09:25 Gram Stain - Final Heart - Tissue 09/11/17 11:15 Blood Culture - Final Blood 09/11/17 11:15 Blood Culture - Final Blood Laboratory Results 09/18/17 04:35 09/18/17 04:35 09/17/17 09/18/17 09/19/17 05:59 05:59 05:59 Intake Total 1767 859 Output Total 3103.0 3018 Balance -1336.0 -2159 PT 15.3 SEC (12.0-15.0) H 09/17/17 05:05 INR 1.19 (0.83-1.16) H 09/17/17 05:05 Physical Exam - Physical Exam General Appearance: other (sedated, intubated, on 40% FIO2) EENT: ET tube Neck: other (RIJ Temp HD cath, L IJ central line) Respiratory: other (coarse bs bilat on vent) Cardiac/Chest: regular rate, rhythm, other (sternal incision dressing c/d/i, drain with bloody output) Abdomen: soft Male Genitalia: other (arellano with orange urine) Skin: other (excoriation on nose, areas of cellulitis on feet improved) Extremities: other (+edema bilat LE) Neuro/Psych: other (sedated) ICD10 Worksheet Patient Problems: Problems Problem Status Onset Acute blood loss anemia Acute Dehydration Acute Endocarditis of tricuspid valve Acute Hyponatremia Acute Renal failure Acute S/P tricuspid valve replacement Acute
[2017-09-18] MEDS: ASPIRIN 81 MG CHEWABLE TAB PO SCH (08:43)
[2017-09-18] MEDS: SENNOSIDES/DOCUSATE SODIUM TAB PO SCH ×3 (08:43→21:07)
[2017-09-18] MEDS: CHLORHEXIDINE GLUCONATE 15 ML UDL PO SCH ×2 (09:13→21:07)
[2017-09-18] MEDS: FAMOTIDINE 20 MG/NACL 50 ML IV SCH (09:13)
[2017-09-18] MEDS: MUPIROCIN 2% 22 GM OINT NS SCH ×2 (09:14→21:07)
--- NOTE | 2017-09-18 10:01 | PCMIDPN ---
Assessment/Plan: Assessment: MRSA bacteremia and multifocal disease. JAE revealed a very large tricuspid valve lesion. Now status post tricuspid valve debridement and bioprosthetic valve placement. Most recent blood cultures are no growth to date. His fever curve is finally resolved after surgery. There is no evidence of abscess in his extremities at this point so Orthopedics is not an active service with him at present. Will continue his vancomycin dosed per levels. Plan: 1. Continue vancomycin dosed as needed. 2. Continue hemodialysis. 3. Follow clinical course and improvement. Continue ICU support. 09/18/17 09:58 Subjective: Patient remains intubated and sedated. His hemodynamic numbers are much improved. He has had no fevers over the weekend since surgery. Objective: Vancomycin p.r.n. # 13 Vital Signs Temp Pulse Resp BP Pulse Ox 37.3 C 89 21 H 150/69 H 100 09/18/17 09:00 09/18/17 09:00 09/18/17 09:00 09/18/17 09:00 09/18/17 09:00 Microbiology 09/16/17 09:25 Gram Stain - Final Heart - Tissue 09/16/17 09:25 Mycobacterial Smear (STEPHANIE) - Final Heart - Tissue 09/13/17 02:30 Blood Culture - Final Blood MRSA Blood Panel (PCR) - Final MRSA 09/11/17 11:15 Blood Culture - Final Blood 09/11/17 11:15 Blood Culture - Final Blood Laboratory Results 09/18/17 04:35 09/18/17 04:35 09/17/17 09/18/17 09/19/17 05:59 05:59 05:59 Intake Total 1767 859 Output Total 3103.0 3018 250 Balance -1336.0 -2159 -250 - Physical Exam General Appearance: WD/WN, no apparent distress, other (Intubated and sedated.) Respiratory: lungs clear, normal breath sounds, No respiratory distress Cardiac/Chest: regular rate, rhythm, No tachycardia Extremities: non-tender, normal inspection, inflammation (Mild) Skin: normal color, warm/dry, No rash ICD10 Worksheet Patient Problems: Problems Problem Status Onset Acute blood loss anemia Acute Dehydration Acute Endocarditis of tricuspid valve Acute Hyponatremia Acute Renal failure Acute S/P tricuspid valve replacement Acute
--- NOTE | 2017-09-18 14:01 | PDINTPN ---
Coding Clerk Progress Note Assessment/Plan: Assessment: 37-year-old methamphetamine and opiate addict traveling to [place] with his mother and stepfather for work. Presented to the emergency department on 09/05 with weakness, confusion and hypotension in the setting of opiate withdrawal and recent methamphetamine abuse. Found to have high-grade MRSA bacteremia * MRSA bacteremia and sepsis. Secondary to IV drug abuse. Blood cultures and urine cultures positive. Left great toe aspirate positive as well. Infiltrates present consistent with pneumonia and septic emboli. -On Vancomycin, level in target range * Tricuspid valve endocarditis: s/p replacement * Left pleural empyema-S/P return to OR for a washout * Acute blood-loss anemia- -H/H stable * Acute respiratory failure. Doing well on ventilator, with decreased O2 needs (40%), low airway pressures, fairly low VE * Sedation-adequate * Shock-resolved. * Metabolic acidosis-resolved with dialysis * Volume overload -improved with dialysis * Metabolic: On replacement protocols. * Substance abuse: Opiates, methamphetamine. * Prophylaxis: Famotidine, SCDs. * History of hepatitis-C * Acute renal failure-urine output starting to improve. Scheduled for HD tomorrow. Plan: Recheck ABG. Continue Vancomycin Daily sedation vacation. Weaning trial tomorrow, getting closer to extubation. 09/18/17 14:14 Subjective: Intubated, sedated. Objective: Vital Signs Temp Pulse Resp BP Pulse Ox 37.2 C 86 18 135/60 H 100 09/18/17 13:00 09/18/17 13:00 09/18/17 13:00 09/18/17 13:00 09/18/17 13:00 Microbiology 09/16/17 09:25 Gram Stain - Final Heart - Tissue 09/16/17 09:25 Mycobacterial Smear (STEPHANIE) - Final Heart - Tissue 09/13/17 02:30 Blood Culture - Final Blood MRSA Blood Panel (PCR) - Final MRSA Laboratory Results 09/18/17 04:35 09/18/17 12:20 09/17/17 09/18/17 09/19/17 05:59 05:59 05:59 Intake Total 1767 859 Output Total 3103.0 3018 395 Balance -1336.0 -2159 -395 PT 15.3 SEC (12.0-15.0) H 09/17/17 05:05 INR 1.19 (0.83-1.16) H 09/17/17 05:05 Blood Cx 09/17: No growth at 24 hours. CXR 09/18: Stable patchy consolidation. Images reviewed by me. Laboratory Tests 09/17/17 09/17/17 05:05 21:00 pCO2 42 H pO2 96 H Total CO2 20 L ABG pH 7.28 L O2 Concentration % 40 Vancomycin Trough 14.7 Physical Exam - Physical Exam General Appearance: unresponsive (sedated) EENT: normal ENT inspection Neck: normal inspection Respiratory: lungs clear, normal breath sounds Cardiac/Chest: regular rate, rhythm, edema Abdomen: normal bowel sounds, non-tender Skin: normal color, warm/dry Extremities: normal inspection Neuro/Psych: No alert (sedated) ICD10 Worksheet Patient Problems: Problems Problem Status Onset Acute blood loss anemia Acute Dehydration Acute Endocarditis of tricuspid valve Acute Hyponatremia Acute Renal failure Acute S/P tricuspid valve replacement Acute
--- NOTE | 2017-09-18 14:24 | HOSPPROG ---
Hospitalist Progress Note Assessment/Plan: #MRSA bacteremia/endocarditis -s/p TV replacement and washout. No joint aspiration warranted per Dr. Vee -cont IV abx #Septic shock: due to above #left-sided Empyema/hematoma: evacuated,irrigated 09/17 #Acute hypoxic resp failure: weaning trial tomorrow #BRITNEY: HD tomorrow #Polysubstance abuse: will need counseling #Acute blood loss anemia: H/H stable. Last transfused 3 units 09/17 #Hyperkalemia: resolved with HD #Hypernatremia: resolved with D5W #Nose pressure injury: wound care #HCV #Thrombocytopenia: due to HCV, acute critical illness. No transfusion needed #DVT ppx: SQH #Disp: remains critically ill. Cont ICU admission for ventilation, IV abx, HD Critical care time spent: 35min reviewing notes, labs. D/w Dr. Heredia, ICU team.Family's questions addressed Subjective: tolerating vent. No fevers overnight. Objective: Vital Signs Temp Pulse Resp BP Pulse Ox 37.2 C 86 18 135/60 H 100 09/18/17 13:00 09/18/17 13:00 09/18/17 13:00 09/18/17 13:00 09/18/17 13:00 Microbiology 09/16/17 09:25 Gram Stain - Final Heart - Tissue 09/16/17 09:25 Mycobacterial Smear (STEPHANIE) - Final Heart - Tissue 09/13/17 02:30 Blood Culture - Final Blood MRSA Blood Panel (PCR) - Final MRSA Laboratory Results 09/18/17 04:35 09/18/17 12:20 09/17/17 09/18/17 09/19/17 05:59 05:59 05:59 Intake Total 1767 859 Output Total 3103.0 3018 395 Balance -1336.0 -2159 -395 PT 15.3 SEC (12.0-15.0) H 09/17/17 05:05 INR 1.19 (0.83-1.16) H 09/17/17 05:05 - Time Spent With Patient Time Spent with Patient: greater than 35 minutes Time Spent with Patient: Greater than 35 minutes spent on this patients care, greater than 50% of time spent counseling, educating, and coordinating care regarding the above mentioned plan. - Physical Exam Constitutional: other (sedated) Eyes: PERRL Ears, Nose, Mouth, Throat: other (pressure injury over bridge of nose) Cardiovascular: regular rate and rhythym, edema Respiratory: no respiratory distress Gastrointestinal: normoactive bowel sounds, soft, non-tender abdomen Genitourinary: arellano in urethra Musculoskeletal: other (mild erythema to left great toe, right elbow swollen) Neurologic: other (sedated) ICD10 Worksheet Patient Problems: Problems Problem Status Onset Acute blood loss anemia Acute Dehydration Acute Endocarditis of tricuspid valve Acute Hyponatremia Acute Renal failure Acute S/P tricuspid valve replacement Acute
--- NOTE | 2017-09-18 14:51 | ASMTCMCOM ---
CM Note CM Note Notes: Patient had a valve replacement and washout, on ABX, continues on the vent and getting dialysis. Family would like a "Family Mtg" Monday. Date Signed: 09/18/2017 02:50 PM Electronically Signed By:Lauren Franklin LCSW
[2017-09-18] MEDS ORDERED: CALCIUM GLUCONATE 50 ML IV ONE (15:50)
[2017-09-18] MEDS ORDERED: FUROSEMIDE 40 MG/4 ML VIAL IVP ONE ×2 (16:50→22:22)
[2017-09-18] MEDS: POLYETHYLENE GLYCOL 3350 17 GM PKT PO PRN (21:07)
[2017-09-19] MEDS: PROPOFOL/EMULSION 100 ML IV SCH (04:15)
[2017-09-19 05:48] LABS: PLATELET COUNT 93 10^3/uL (150-400)
[2017-09-19] MEDS: HEPARIN 5,000 UNIT/0.5 ML INJ SC SCH ×3 (06:06→20:30)
--- NOTE | 2017-09-19 06:35 | SOAPPROG ---
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 Anticipate extubation soon. Ileus - Resolved. - TFs started and rate advanced. Plan: Remove Vwires. Keep macario chest tubes to suction. Keep lateral pleural tube dressing for 1 more day. Inga H/H. Lasix 80 mg IV x 1. Inc TFs to 50 ml/h. PICC today or tomorrow. 09/19/17 06:34 Subjective: Lightly sedated on vent. Responds to name. Nods head and follows simple commands. BALL. Objective: Vital Signs Temp Pulse Resp BP Pulse Ox 37.2 C 93 19 124/55 H 99 09/19/17 04:00 09/19/17 06:00 09/19/17 06:00 09/19/17 06:00 09/19/17 06:00 Microbiology 09/16/17 09:25 Gram Stain - Final Heart - Tissue 09/16/17 09:25 Mycobacterial Smear (STEPHANIE) - Final Heart - Tissue 09/13/17 02:30 Blood Culture - Final Blood MRSA Blood Panel (PCR) - Final MRSA Laboratory Results 09/19/17 05:25 09/19/17 05:25 09/18/17 09/19/17 09/20/17 05:59 05:59 05:59 Intake Total 859 915 Output Total 3017 2230 Balance -2159 -1315 PT 15.3 SEC (12.0-15.0) H 09/17/17 05:05 INR 1.19 (0.83-1.16) H 09/17/17 05:05 Stable HR and BP off levo. More alert. Good ABG. Tolerating TFs at 25 ml/h. Excellent UOP on bolus lasix. CXR -> No PTX, unchanged bilat patchy infiltrates. H/H unexpectedly low, ? accuracy. Physical Exam - Physical Exam General Appearance: no apparent distress, other (opens eyes and tracks when engaged) Respiratory: lungs clear (vent), other (blakes x 3 y-d to pleurovac, serosang drainage, + air leak) Cardiac/Chest: regular rate, rhythm, tachycardia, other (Sternotomy CDI. Vwires intact.) Abdomen: non-tender, soft Skin: warm/dry Extremities: swelling (1-2+ gen) ICD10 Worksheet Patient Problems: Problems Problem Status Onset Acute blood loss anemia Acute Dehydration Acute Endocarditis of tricuspid valve Acute Hyponatremia Acute Renal failure Acute S/P tricuspid valve replacement Acute
[2017-09-19] MEDS ORDERED: ALTEPLASE 2 MG VIAL IVP PRN (08:10)
[2017-09-19] MEDS ORDERED: FUROSEMIDE 100 MG/10 ML VIAL IVP ONE (08:10)
[2017-09-19] MEDS: CHLORHEXIDINE GLUCONATE 15 ML UDL PO SCH ×2 (08:50→20:29)
[2017-09-19] MEDS: ASPIRIN 81 MG CHEWABLE TAB PO SCH (09:08)
[2017-09-19] MEDS: MUPIROCIN 2% 22 GM OINT NS SCH ×2 (09:10→20:29)
[2017-09-19] MEDS: FAMOTIDINE 20 MG/NACL 50 ML IV SCH (09:10)
[2017-09-19] MEDS: SENNOSIDES/DOCUSATE SODIUM TAB PO SCH ×2 (09:10→19:52)
--- NOTE | 2017-09-19 09:56 | HOSPPROG ---
Hospitalist Progress Note Assessment/Plan: #MRSA bacteremia/endocarditis -s/p TV replacement and washout. No joint aspiration warranted per Dr. Vee -cont IV abx, renally-dosed #Septic shock: resolved. Due to above #Left-sided Empyema/hematoma: evacuated/irrigated 09/17 #Acute hypoxic resp failure: weaning trial today #BRITNEY: dosed Lasix with min output. D/w renal if plan for HD today #Polysubstance abuse: will need counseling #Acute blood loss anemia: H/H stable. Last transfused 3 units 09/17 #Hyperkalemia: resolved with HD #Hypernatremia: resolved with D5W #Nose pressure injury: wound care #HCV #Thrombocytopenia: due to HCV, acute critical illness. Trending up #DVT ppx: SQH #Disp: remains critically ill. Cont ICU admission for ventilation, IV abx, HD Critical care time spent: 35 min bedside, reviewing labs, notes. D/w Dr. Heredia and ICU team Subjective: alert this morning. Trying to pull out ET tube Objective: Vital Signs Temp Pulse Resp BP Pulse Ox 37.7 C 96 21 H 136/65 H 99 09/19/17 08:00 09/19/17 08:00 09/19/17 08:00 09/19/17 08:00 09/19/17 08:00 Microbiology 09/16/17 09:25 Gram Stain - Final Heart - Tissue 09/16/17 09:25 Mycobacterial Smear (STEPHANIE) - Final Heart - Tissue 09/13/17 02:30 Blood Culture - Final Blood MRSA Blood Panel (PCR) - Final MRSA Laboratory Results 09/19/17 08:40 09/19/17 05:25 09/18/17 09/19/17 09/20/17 05:59 05:59 05:59 Intake Total 859 915 50 Output Total 3018 2230 190 Balance -2159 -1315 -140 PT 15.3 SEC (12.0-15.0) H 09/17/17 05:05 INR 1.19 (0.83-1.16) H 09/17/17 05:05 - Time Spent With Patient Time Spent with Patient: greater than 35 minutes Time Spent with Patient: Greater than 35 minutes spent on this patients care, greater than 50% of time spent counseling, educating, and coordinating care regarding the above mentioned plan. - Physical Exam Constitutional: other (alert this morning) Eyes: PERRL Ears, Nose, Mouth, Throat: other (ETT in place) Cardiovascular: regular rate and rhythym, edema (+2 LE) Respiratory: reduced air movement Gastrointestinal: normoactive bowel sounds, soft, non-tender abdomen Genitourinary: arellano in urethra Skin: other (mild erythema left great toe. Swelling right elbow. No pain with palpation) Musculoskeletal: other (L IJ in place, R HD catheter) Neurologic: other (following commands: grasping hands, moving feet) ICD10 Worksheet Patient Problems: Problems Problem Status Onset Acute blood loss anemia Acute Dehydration Acute Endocarditis of tricuspid valve Acute Hyponatremia Acute Renal failure Acute S/P tricuspid valve replacement Acute
--- NOTE | 2017-09-19 10:06 | PDINTPN ---
Box Spinner Progress Note Assessment/Plan: Assessment: 37-year-old methamphetamine and opiate addict traveling to [place] with his mother and stepfather for work. Presented to the emergency department on 09/05 with weakness, confusion and hypotension in the setting of opiate withdrawal and recent methamphetamine abuse. Found to have high-grade MRSA bacteremia * MRSA bacteremia and sepsis. Secondary to IV drug abuse. Blood cultures and urine cultures positive. Left great toe aspirate positive as well. Infiltrates present consistent with pneumonia and septic emboli. -On Vancomycin, level in target range * Tricuspid valve endocarditis: s/p replacement * Left pleural empyema-S/P return to OR for a washout * Acute blood-loss anemia- -H/H stable * Acute respiratory failure. Doing well on ventilator, with decreased O2 needs (40%), low airway pressures, fairly low VE * Sedation-adequate * Peripheral Septic Emboli: Improving, no signs of abscesses * Metabolic acidosis-resolved with dialysis * Volume overload -improved with dialysis * Metabolic: On replacement protocols. * Substance abuse: Opiates, methamphetamine. * Prophylaxis: Famotidine, SCDs. * History of hepatitis-C * Acute renal failure-urine output starting to improve. Scheduled for HD today. Receiving Lasix * Nutrition: On TF @ goal. Plan: Continue Vancomycin Sedation vacation. CPAP trial today, hopefully can extubate Sputum Cx 09/19/17 10:55 Subjective: Intubated, alert, wants ETT out. Increased secretions. Denies pain. Objective: Vital Signs Temp Pulse Resp BP Pulse Ox 37.7 C 98 23 H 136/65 H 96 09/19/17 08:00 09/19/17 09:55 09/19/17 09:55 09/19/17 08:00 09/19/17 09:55 Microbiology 09/16/17 09:25 Gram Stain - Final Heart - Tissue 09/16/17 09:25 Mycobacterial Smear (STEPHANIE) - Final Heart - Tissue 09/13/17 02:30 Blood Culture - Final Blood MRSA Blood Panel (PCR) - Final MRSA Laboratory Results 09/19/17 08:40 09/19/17 05:25 09/18/17 09/19/17 09/20/17 05:59 05:59 05:59 Intake Total 859 915 50 Output Total 3018 2230 190 Balance -2159 -1315 -140 PT 15.3 SEC (12.0-15.0) H 09/17/17 05:05 INR 1.19 (0.83-1.16) H 09/17/17 05:05 Laboratory Tests 09/19/17 05:25 pCO2 46 H pO2 103 H Total CO2 27 ABG pH 7.36 ABG O2 Saturation 97 H O2 Concentration % 40 Actual Respiration Rate 20 Set Respiration Rate 18 SIMV YES Tidal Volume 450 PEEP 5 Pressure Support 7 Physical Exam - Physical Exam General Appearance: alert, no apparent distress EENT: normal ENT inspection Neck: normal inspection Respiratory: lungs clear Cardiac/Chest: regular rate, rhythm, edema Abdomen: normal bowel sounds, non-tender Skin: normal color, warm/dry Extremities: other (patches of erythema without fluctuance bilateral forefeet) Neuro/Psych: alert, No motor weakness ICD10 Worksheet Patient Problems: Problems Problem Status Onset Acute blood loss anemia Acute Dehydration Acute Endocarditis of tricuspid valve Acute Hyponatremia Acute Renal failure Acute S/P tricuspid valve replacement Acute
[2017-09-19] MEDS ORDERED: CALCIUM GLUCONATE 50 ML IV ONE (13:47)
[2017-09-19] MEDS ORDERED: ALBUMIN 25% 50 ML IV PRN (14:00)
--- NOTE | 2017-09-19 14:15 | PCMIDPN ---
Assessment/Plan: Assessment/Plan: 1. MRSA bacteremia/sepsis with TV endocarditis with septic pulmonary emboli: - hx of IVdU -f/u blood cx from 09/17/17 so far ngtd -s/p valve replacement. heart valve edna gandara. -on intermittent dosing of vanco givne renal insufficiency on HD. to possibly get dialysis today - coordinated with RN. if gets HD today will need a level after and likely a dose of vanco. - discussed with mom, thi - care coordinated with Rn. 2. HCV: -will need work up at some point. Meds intermittent dosing of vanco Subjective: remains in icu, intubated. eyes open, tracks to verbal stimuli. low grade temp. Objective: Vital Signs Temp Pulse Resp BP Pulse Ox 37.7 C 98 23 H 136/65 H 96 09/19/17 08:00 09/19/17 09:55 09/19/17 09:55 09/19/17 08:00 09/19/17 09:55 Microbiology 09/16/17 09:25 Mycobacterial Smear (STEPHANIE) - Final Heart - Tissue 09/19/17 11:10 - Final Sputum, Induced/Suctioned 09/16/17 09:25 Gram Stain - Final Heart - Tissue Laboratory Results 09/19/17 08:40 09/19/17 12:34 09/18/17 09/19/17 09/20/17 05:59 05:59 05:59 Intake Total 859 915 50 Output Total 3018 2230 190 Balance -2159 -1315 -140 - Physical Exam General Appearance: alert, no apparent distress Respiratory: coarse breath sounds Cardiac/Chest: regular rate, rhythm Extremities: swelling Abdomen: normal bowel sounds, non-tender, soft Male Genitalia: arellano ICD10 Worksheet Patient Problems: Problems Problem Status Onset Acute blood loss anemia Acute Dehydration Acute Endocarditis of tricuspid valve Acute Hyponatremia Acute Renal failure Acute S/P tricuspid valve replacement Acute
--- NOTE | 2017-09-19 16:33 | SOAPPROG ---
SOAP Progress Note Assessment/Plan: Assessment: 1. arf: Presumed ischemic atn but in light of hematuria/proteinuria could have element of complement mediated gn as well. Management would not be altered at this point. Uo markedly increased, albeit with lasix. Will follow off hd for a couple days and observe for evidence of recovery. If infectious concerns re: line could d/c and replace if further hd needed. 2. sepsis/endocarditis: on abx, now s/p TVR. 3. Overload: gentle uf today, agree with lasix ad carlo. Plan: 09/16/17 18:51 09/17/17 18:13 09/19/17 16:30 Subjective: Currently on hd without issue. Extubated, awake, alert. Objective: Vital Signs Temp Pulse Resp BP Pulse Ox 37.8 C 93 18 174/81 H 94 09/19/17 15:00 09/19/17 15:00 09/19/17 15:00 09/19/17 15:00 09/19/17 15:00 Microbiology 09/16/17 09:25 Gram Stain - Final Heart - Tissue 09/16/17 09:25 Mycobacterial Smear (STEPHANIE) - Final Heart - Tissue 09/19/17 11:10 - Final Sputum, Induced/Suctioned Laboratory Results 09/19/17 08:40 09/19/17 12:34 09/18/17 09/19/17 09/20/17 05:59 05:59 05:59 Intake Total 859 915 50 Output Total 3018 2230 1380 Balance -2159 -1315 -1330 PT 15.3 SEC (12.0-15.0) H 09/17/17 05:05 INR 1.19 (0.83-1.16) H 09/17/17 05:05 Physical Exam - Physical Exam General Appearance: no apparent distress Extremities: swelling (bilateral LE to hips) ICD10 Worksheet Patient Problems: Problems Problem Status Onset Acute blood loss anemia Acute Dehydration Acute Endocarditis of tricuspid valve Acute Hyponatremia Acute Renal failure Acute S/P tricuspid valve replacement Acute
--- NOTE | 2017-09-19 17:15 | ASMTCMCOM ---
CM Note CM Note Notes: Met with patient's parents today in "Family Meeting". He had just gotten extubated and was talking to family members. They were relieved and grateful of his progress and the care he has received at [facility]. When asked where patient will go after discharge, they thought he would stay in [place] with family until they left at the end of October. Family from [place] which has one of the highest opioid OD rates in the country. They said many of his friends have due to OD. Mother hopes that his uncle might invite him to live in [place]. They feel that he will need [facility] for support. Referral made to Jazmyn, who works w/the [facility]. [facility] meeting list will be given to patient as a resource. Date Signed: 09/19/2017 03:00 PM Electronically Signed By:Lauren Franklin LCSW
[2017-09-19] MEDS ORDERED: SODIUM CITRATE 4% 5 ML in SYRINGE 0 ML DIAL ONE (17:30)
[2017-09-20] MEDS ORDERED: VANCOMYCIN HCL/NORMAL SALINE 250 ML IV ONE (02:30)
[2017-09-20 05:30] LABS: PLATELET COUNT 135 10^3/uL (150-400)
[2017-09-20] MEDS: HEPARIN 5,000 UNIT/0.5 ML INJ SC SCH ×3 (06:08→21:19)
--- NOTE | 2017-09-20 07:36 | SOAPPROG ---
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 - Holding SR/ST. TCPWs out. AF prophylaxis with BB as tolerated. Bilateral loculated effusions s/p decortication with need for reexploration and evacuation of left chest hematoma - Large bore CTs out. - Small left PTX, stable by serial CXRs. Pre-op anemia with post-op acute blood loss anemia and coagulopathy requiring multiple transfusions - Monitor and transfuse as needed. - See blood bank section for details. MRSA sepsis with emboli secondary to IV drug abuse - Successfully weaned off pressors. - ABX as per ID. ARF - Resolving. - Active diuresis in progress. Unlikely to need further HD. VDRF - Extubated yest without incident. - Orals cleared by [employer] INTERN. Ileus - Resolved. Plan: Advance to regular diet. Keep macario chest tubes to suction. Inc IV Lasix to 80 BID. Remove all existing IVs. Remove arellano. PICC today. Inc activity as tolerated. 09/20/17 07:35 Subjective: Doing ok. Weak core, finding it hard to reposition himself. Thirsty and hungry. Objective: Vital Signs Temp Pulse Resp BP Pulse Ox 38.4 C H 109 H 25 H 133/90 H 95 09/20/17 06:00 09/20/17 06:00 09/20/17 06:00 09/20/17 06:00 09/20/17 06:00 Microbiology 09/16/17 09:25 Gram Stain - Final Heart - Tissue 09/16/17 09:25 Mycobacterial Smear (STEPHANIE) - Final Heart - Tissue 09/19/17 11:10 - Final Sputum, Induced/Suctioned Laboratory Results 09/20/17 04:58 09/20/17 04:58 09/19/17 09/20/17 09/21/17 05:59 05:59 05:59 Intake Total 915 587 Output Total 2230 4400 Balance -1315 -3813 PT 15.3 SEC (12.0-15.0) H 09/17/17 05:05 INR 1.19 (0.83-1.16) H 09/17/17 05:05 Holding SR/ST. Robust SBPs. Min suppl O2 req. Tmax overnoc 39.4. Blood cxs redrawn. Prior NGTD. Excellent UOP on IV lasix. Addtl 2 liters out on HD. CTOP modest. CXR -> bibasilar consolidation, tubes in good position, small left PTX Labs ok. Physical Exam - Physical Exam General Appearance: alert, no apparent distress Respiratory: crackles (bases), other (blakes x 3 y-d to pleurovac, serosang drainage, 1 chamber air leak with valsalva) Cardiac/Chest: regular rate, rhythm, tachycardia, other (Sternal dressing CDI) Abdomen: non-tender, soft Skin: warm/dry Extremities: swelling (1+ gen) ICD10 Worksheet Patient Problems: Problems Problem Status Onset Acute blood loss anemia Acute Dehydration Acute Endocarditis of tricuspid valve Acute Hyponatremia Acute Renal failure Acute S/P tricuspid valve replacement Acute
[2017-09-20] MEDS ORDERED: ASPIRIN RECTAL 300 MG SUPP PR SCH (09:00)
[2017-09-20] MEDS: CHLORHEXIDINE GLUCONATE 15 ML UDL PO SCH (09:41)
[2017-09-20] MEDS: ASPIRIN 81 MG CHEWABLE TAB PO SCH (09:41)
[2017-09-20] MEDS: FUROSEMIDE 100 MG/10 ML VIAL IVP SCH ×2 (09:41→15:48)
[2017-09-20] MEDS: SENNOSIDES/DOCUSATE SODIUM TAB PO SCH ×2 (10:55→21:19)
[2017-09-20] MEDS: MUPIROCIN 2% 22 GM OINT NS SCH ×2 (10:55→21:20)
--- NOTE | 2017-09-20 10:58 | PCMIDPN ---
Assessment/Plan: Assessment/Plan: * MRSA tricuspid valve endocarditis with multifocal soft tissue inflammatory change and septic pulmonary emboli status post tricuspid valve replacement: Valve culture with growth of MRSA. Blood cultures from 09/17/2017 are no growth to date. Continue vancomycin dosed by levels in the setting of hemodialysis in renal insufficiency. Will obtain random level tomorrow as was dosed last p.m. post dialysis. Sputum also continues to show Staphylococcus aureus likely related to existing septic pulmonary emboli. * Fever: Patient febrile yesterday without clearly defined etiology. Blood cultures were obtained to assess for line-related infection. Drug fever associated vancomycin also of consideration. 1 loose bowel movement this a.m. but no consistent diarrhea; hold off on C diff testing currently unless has persistent and progressive diarrhea. If fever persists without identified etiology, consider repeat CT scan of chest to further assess areas of septic emboli to ensure no evolution to pulmonary abscess. Will check LFTs as these can be increased with vancomycin associated drug reactions. 09/20/17 10:55 09/20/17 10:59 Subjective: Patient extubated and up to chair today. Complains of hurting all over. Loose stool this a.m. X1. No abdominal discomfort. Objective: Vital Signs Temp Pulse Resp BP Pulse Ox 38.1 C 105 H 22 H 135/73 H 92 09/20/17 08:00 09/20/17 08:00 09/20/17 08:00 09/20/17 08:00 09/20/17 08:00 Microbiology 09/16/17 09:25 Gram Stain - Final Heart - Tissue 09/19/17 11:10 - Final Sputum, Induced/Suctioned 09/16/17 09:25 Mycobacterial Smear (STEPHANIE) - Final Heart - Tissue Laboratory Results 09/20/17 04:58 09/20/17 04:58 09/19/17 09/20/17 09/21/17 05:59 05:59 05:59 Intake Total 915 587 Output Total 7330 4400 Balance -1315 -3813 T-max 39.4 degrees Valve culture with growth of MRSA Blood cultures 09/17/2017 x2 no growth Blood cultures 09/20/2017 x2 pending - Physical Exam General Appearance: alert, no apparent distress, non-toxic EENT: other (Scabbing present over nasal bridge), No thrush, No conjunctival petechiae Respiratory: other (Decreased breath sounds both bases) Cardiac/Chest: regular rate, rhythm, other (Distant heart tones; sternotomy dressed; no tenderness adjacent to dressing or instability) Extremities: inflammation (Bilateral feet with erythema, right greater than right; nontender; erythema over hands resolve; right elbow with bursal thickening but nontender without inflammatory change) Abdomen: non-tender, No distended Skin: No rash Neuro/Psych: alert - Time Spent With Patient Time Spent with Patient: greater than 35 minutes Time Spent with Patient: Greater than 35 minutes spent on this patients care, greater than 50% of time spent counseling, educating, and coordinating care regarding the above mentioned plan. ICD10 Worksheet Patient Problems: Problems Problem Status Onset Acute blood loss anemia Acute Dehydration Acute Endocarditis of tricuspid valve Acute Hyponatremia Acute Renal failure Acute S/P tricuspid valve replacement Acute
[2017-09-20] MEDS: HYDROCODONE/APAP 5/325 TAB PO PRN ×3 (11:07→20:29)
--- NOTE | 2017-09-20 11:10 | PDINTPN ---
Manufacturing Intern Progress Note Assessment/Plan: Assessment: 37-year-old methamphetamine and opiate addict traveling to [place] with his mother and stepfather for work. Presented to the emergency department on 09/05 with weakness, confusion and hypotension in the setting of opiate withdrawal and recent methamphetamine abuse. Found to have high-grade MRSA bacteremia * MRSA bacteremia and sepsis. Secondary to IV drug abuse. Blood cultures and urine cultures positive initially, and on repeat 09/08 and 09/13. Negative on 09/17. Left great toe aspirate positive as well. Infiltrates present consistent with pneumonia and septic emboli. Fever last night. -On Vancomycin, level in target range * Tricuspid valve endocarditis: s/p replacement. Will need to start Coumadin soon * Left pleural empyema-S/P return to OR for a washout 09/17 * Acute blood-loss anemia- -H/H stable * Acute respiratory failure. Extubated, doing well. S. Aureus on sputum Cx * Sedation-adequate * Peripheral Septic Emboli: Improving, no signs of abscesses * Metabolic acidosis-improved with dialysis. Still has anion gap. * Volume overload -improved with dialysis * Metabolic: On replacement protocols. * Substance abuse: Opiates, methamphetamine. * History of hepatitis-C * Acute renal failure-urine output starting to improve. Got HD yesterday. Receiving Lasix * Nutrition: Was on TF @ goal. Now starting PO. Plan: Continue Vancomycin Advance diet. Mobilize, work with PT/OT. Remove all lines. Place PICC. Coumadin per Dr. Kauffman 09/20/17 11:20 09/20/17 11:22 Subjective: Feels quite weak. Just starting to take PO. Has CP in area of mediastinal tubes. Objective: Vital Signs Temp Pulse Resp BP Pulse Ox 38.1 C 105 H 22 H 135/73 H 92 09/20/17 08:00 09/20/17 08:00 09/20/17 08:00 09/20/17 08:00 09/20/17 08:00 Microbiology 09/16/17 09:25 Gram Stain - Final Heart - Tissue 09/19/17 11:10 - Final Sputum, Induced/Suctioned 09/16/17 09:25 Mycobacterial Smear (STEPHANIE) - Final Heart - Tissue Laboratory Results 09/20/17 04:58 09/20/17 04:58 09/19/17 09/20/17 09/21/17 05:59 05:59 05:59 Intake Total 915 587 Output Total 2230 4400 Balance -1315 -3813 PT 15.3 SEC (12.0-15.0) H 09/17/17 05:05 INR 1.19 (0.83-1.16) H 09/17/17 05:05 CXR" Persistent basilar infiltrates/effusions. Images reviewed by me. Microbiology 09/19/17 11:10 Sputum, Induced/Suctioned - Final 09/19/17 11:10 Sputum, Induced/Suctioned Sputum Culture - Preliminary Staphylococcus Aureus Physical Exam - Physical Exam General Appearance: alert, no apparent distress EENT: normal ENT inspection Neck: normal inspection Respiratory: normal breath sounds, respiratory distress Cardiac/Chest: regular rate, rhythm, No edema Abdomen: normal bowel sounds, non-tender, soft Skin: normal color, warm/dry Extremities: normal inspection Neuro/Psych: alert, normal mood/affect, oriented x 3 ICD10 Worksheet Patient Problems: Problems Problem Status Onset Acute blood loss anemia Acute Dehydration Acute Endocarditis of tricuspid valve Acute Hyponatremia Acute Renal failure Acute S/P tricuspid valve replacement Acute
--- NOTE | 2017-09-20 12:23 | WOCRNPDOC ---
WOCRN Advanced Assessment Note - Skin Integrity Problem, Advanced Assess Nose Pressure Injury Dressing Type: Open to Air Ketty Wound Tissue: Erythema (minor periwound) Wound Bed Color: Black Wound Bed Constitution: Stable Eschar Wound Edges: Irregular Site Measurement - Head-to-Toe Length X Width X Depth (cm): 3.1x2.1xeschar Pressure Injury Stage: Unstageable, Data Warehouse Manager Related Pressure Injury Pressure Injury Present on Admit: No Skin Integrity Problem Comment: Wound fully evolved to unstageable pressure injury. Will continue current plan of care and keep dry. Wound care will round again next week.
--- NOTE | 2017-09-20 16:36 | HOSPPROG ---
Hospitalist Progress Note Assessment/Plan: #MRSA bacteremia/endocarditis -s/p TV replacement and washout. No joint aspiration warranted per Dr. Vee -cont IV abx, renally-dosed #Septic shock: resolved. Due to above #Fever: last night. Blood cxs drawn, lines removed. #Left-sided Empyema/hematoma: evacuated/irrigated 09/17 #Acute hypoxic resp failure: extubated 09/19 #BRITNEY: HD yesterday #Polysubstance abuse: will need counseling #Acute blood loss anemia: H/H stable. Last transfused 3 units 09/17 #Hyperkalemia: resolved with HD #Hypernatremia: resolved with D5W #Nose pressure injury: wound care #Deconditioning: PT/OT #HCV #Thrombocytopenia: due to HCV, acute critical illness. Trending up #DVT ppx: SQH #Disp: remains critically ill. Cont ICU admission for ventilation, IV abx, HD Critical care time spent: 35 min bedside, reviewing labs, notes. D/w Dr. Heredia and ICU team Subjective: weak. but good appetite Objective: Vital Signs Temp Pulse Resp BP Pulse Ox 37.1 C 107 H 20 141/71 H 99 09/20/17 16:02 09/20/17 16:00 09/20/17 16:00 09/20/17 15:00 09/20/17 16:00 Microbiology 09/16/17 09:25 Gram Stain - Final Heart - Tissue 09/19/17 11:10 - Final Sputum, Induced/Suctioned 09/16/17 09:25 Mycobacterial Smear (STEPHANIE) - Final Heart - Tissue Laboratory Results 09/20/17 04:58 09/20/17 12:15 09/19/17 09/20/17 09/21/17 05:59 05:59 05:59 Intake Total 915 587 120 Output Total 2230 4400 190 Balance -1315 -3813 -70 PT 15.3 SEC (12.0-15.0) H 09/17/17 05:05 INR 1.19 (0.83-1.16) H 09/17/17 05:05 - Time Spent With Patient Time Spent with Patient: greater than 35 minutes Time Spent with Patient: Greater than 35 minutes spent on this patients care, greater than 50% of time spent counseling, educating, and coordinating care regarding the above mentioned plan. - Physical Exam Constitutional: no apparent distress Eyes: PERRL Ears, Nose, Mouth, Throat: other (scabbed over wound over brigde of nose) Cardiovascular: regular rate and rhythym, edema Respiratory: no respiratory distress Gastrointestinal: normoactive bowel sounds Genitourinary: no bladder fullness Neurologic: AAOx3, CN II-XII Intact Psychiatric: interacting appropriately ICD10 Worksheet Patient Problems: Problems Problem Status Onset Acute blood loss anemia Acute Dehydration Acute Endocarditis of tricuspid valve Acute Hyponatremia Acute Renal failure Acute S/P tricuspid valve replacement Acute
--- NOTE | 2017-09-20 17:43 | SOAPPROG ---
MAILE Progress Note Assessment/Plan: Assessment: 1. arf: Presumed ischemic atn but in light of hematuria/proteinuria could have element of complement mediated gn as well. Management would not be altered at this point. Uo increased with lasix. Will follow for next 24-48hr and observe for evidence of recovery. Will obviously need new line placed if further hd needed. 2. sepsis/endocarditis: on abx, now s/p TVR. 3. Overload: much improved, continue to monitor uo closely without Gonsalez. Plan: 09/16/17 18:51 09/17/17 18:13 09/19/17 16:30 09/20/17 17:40 Subjective: Remains stable. Hd cath and tlc out. Gonsalez removed. Objective: Vital Signs Temp Pulse Resp BP Pulse Ox 37.1 C 107 H 20 141/71 H 99 09/20/17 16:02 09/20/17 16:00 09/20/17 16:00 09/20/17 15:00 09/20/17 16:00 Microbiology 09/16/17 09:25 Gram Stain - Final Heart - Tissue 09/19/17 11:10 - Final Sputum, Induced/Suctioned 09/16/17 09:25 Mycobacterial Smear (STEPHANIE) - Final Heart - Tissue Laboratory Results 09/20/17 04:58 09/20/17 12:15 09/19/17 09/20/17 09/21/17 05:59 05:59 05:59 Intake Total 915 587 120 Output Total 2230 4400 190 Balance -1315 -3813 -70 PT 15.3 SEC (12.0-15.0) H 09/17/17 05:05 INR 1.19 (0.83-1.16) H 09/17/17 05:05 Physical Exam - Physical Exam General Appearance: no apparent distress Respiratory: other (few faint exp wheezes anteriorly) Cardiac/Chest: regular rate, rhythm, other (distant heart sounds) Extremities: pedal edema (much less than previous) ICD10 Worksheet Patient Problems: Problems Problem Status Onset Acute blood loss anemia Acute Dehydration Acute Endocarditis of tricuspid valve Acute Hyponatremia Acute Renal failure Acute S/P tricuspid valve replacement Acute
[2017-09-20] MEDS ORDERED: LIDOCAINE 1% 300 MG/30 ML SDV ONE (18:05)
[2017-09-20] MEDS: METOPROLOL TARTRATE 25 MG TAB PO SCH (21:19)
[2017-09-21] MEDS: HYDROCODONE/APAP 5/325 TAB PO PRN ×3 (04:22→09:16)
[2017-09-21] MEDS: HEPARIN 5,000 UNIT/0.5 ML INJ SC SCH ×3 (05:52→21:14)
--- NOTE | 2017-09-21 07:49 | SOAPPROG ---
SOAP Progress Note Assessment/Plan: Assessment: POD#5 Tricuspid valve debridement and replacement with #29 Magna bioprosthesis, decortication bilateral pleura POD#4 Mediastinal reexploration and evacuation of left chest hematoma IV access RUE PICC Tricuspid valve MRSA endocarditis s/p debridement/replacement with bioprosthesis - Antithrombotic prophylaxis with Coumadin, target INR 2-3, duration 3 mo. - Holding SR/ST. TCPWs out. AF prophylaxis with BB as tolerated. Bilateral loculated effusions s/p decortication with need for reexploration and evacuation of left chest hematoma - Large bore CTs out. - Small left PTX, stable by serial CXRs. Pre-op anemia with post-op acute blood loss anemia and coagulopathy requiring multiple transfusions - Stable. No recent transfusions. - See blood bank section for details. MRSA sepsis with emboli secondary to IV drug abuse - Successfully weaned off pressors. - ABX as per ID. ARF - Resolving. - Active diuresis in progress. - Dialysis cath out. VDRF - Extubated POD#2 without incident. - Orals cleared by DOG CONTROL OFFICER. Ileus - Resolved. Plan: Convert rt pleural tube to bulb suction. Keep ant mediastinal and left pleural blakes to cont suction. Cont IV Lasix 80 mg BID. Begin Coumadin. 5 mg today. Elevate low legs as much as possible. Avoid prolonged dangling. Consider KIESHA hose in am. Inc activity as tolerated. Tx to SDU. 18 07:46 Subjective: Doing ok. Improving appetite. Reports most of yest spent sitting in chair with feet down. Yet to walk. Objective: Vital Signs Temp Pulse Resp BP Pulse Ox 37.2 C 100 19 116/65 91 L 09/21/17 04:00 09/21/17 06:00 09/21/17 06:00 09/21/17 06:00 09/21/17 06:00 Microbiology 09/16/17 09:25 Gram Stain - Final Heart - Tissue 09/19/17 11:10 - Final Sputum, Induced/Suctioned Laboratory Results 09/21/17 04:50 09/21/17 04:11 09/20/17 09/21/17 09/22/17 05:59 05:59 05:59 Intake Total 587 1120 Output Total 4400 1315 140 Balance -3813 -195 -140 PT 15.3 SEC (12.0-15.0) H 09/17/17 05:05 INR 1.19 (0.83-1.16) H 09/17/17 05:05 Persistent SR/ST. SBPs > 100. Afeb. WBC decr. Cont to diurese well. K stable. BUN/Cr inc. No air leak in isolated rt pleural tube. Physical Exam - Physical Exam General Appearance: alert, no apparent distress Respiratory: decreased breath sounds (bilat bases), other (blakes x 3 y-d to pleurovac, serosang drainage) Cardiac/Chest: regular rate, rhythm, tachycardia, other (Sternal dressing CDI) Abdomen: non-tender, soft Skin: warm/dry, rash (bilat feet suggestive of stasis dermatitis) Extremities: swelling (2+ pedal edema) ICD10 Worksheet Patient Problems: Problems Problem Status Onset Acute blood loss anemia Acute Dehydration Acute Endocarditis of tricuspid valve Acute Hyponatremia Acute Renal failure Acute S/P tricuspid valve replacement Acute
[2017-09-21] MEDS: METOPROLOL TARTRATE 25 MG TAB PO SCH ×2 (09:17→21:14)
[2017-09-21] MEDS: ASPIRIN 81 MG CHEWABLE TAB PO SCH (09:17)
[2017-09-21] MEDS: FUROSEMIDE 100 MG/10 ML VIAL IVP SCH ×2 (09:18→15:03)
[2017-09-21] MEDS: MUPIROCIN 2% 22 GM OINT NS SCH ×2 (09:21→21:14)
--- NOTE | 2017-09-21 09:47 | SOAPPROG ---
SOAP Progress Note Assessment/Plan: Assessment/Plan: BRITNEY: likely ATN although could also have a complement mediated GN. Pt initially required dialysis, last dialyzed on 09/19. He now is nonoliguric with good UOP on Lasix, lytes ok, volume status improved. - No need for HD at this time. - If Cr continues to uptrend, may need to consider replacing line tomorrow for the weekend, but looks like there is a good chance he is recovering and will not require further HD. - Will continue to monitor. - Avoid hypotension and nephrotoxins. Hypervolemia: improving, pt nonoliguric, will continue Lasix. Hyperphosphatemia: will recheck phos with am labs. Subjective: No acute events overnight. Pt has been sitting up in chair a lot, swelling in feet a little worse than yesterday. He continues to have good UOP, breathing feels ok. He is getting a chest tube pulled out this am. Objective: Vital Signs Temp Pulse Resp BP Pulse Ox 37.2 C 108 H 19 132/81 H 91 L 09/21/17 04:00 09/21/17 09:17 09/21/17 06:00 09/21/17 09:17 09/21/17 06:00 Microbiology 09/19/17 11:10 - Final Sputum, Induced/Suctioned 09/16/17 09:25 Gram Stain - Final Heart - Tissue Laboratory Results 09/21/17 04:50 09/21/17 04:11 09/20/17 09/21/17 09/22/17 05:59 05:59 05:59 Intake Total 587 1120 Output Total 4400 1315 140 Balance -3813 -195 -140 PT 15.3 SEC (12.0-15.0) H 09/17/17 05:05 INR 1.19 (0.83-1.16) H 09/17/17 05:05 General: alert and oriented, no acute distress Eyes: EOMI, PERRL OP: Clear CV: RRR Resp: nonlabored respirations on NC, [address] Abd: Soft, NT Ext: +1 edema BLE Neuro: CN II-XII grossly intact, no asterixis Psych: cooperative, appropriate mood and affect Access: none ICD10 Worksheet Patient Problems: Problems Problem Status Onset Acute blood loss anemia Acute Dehydration Acute Endocarditis of tricuspid valve Acute Hyponatremia Acute Renal failure Acute S/P tricuspid valve replacement Acute
--- NOTE | 2017-09-21 11:21 | PCMIDPN ---
Assessment/Plan: Assessment: MRSA bacteremia and multifocal disease. JAE revealed a very large tricuspid valve lesion. Now status post tricuspid valve debridement and bioprosthetic valve placement. Most recent blood cultures are no growth to date. His fever curve was resolved but briefly had a fever over 24 hr ago. No fever currently. We are continued doses vancomycin as needed. Currently he is therapeutic and does not needed dose today. Dialysis is not planned and we are nearly following his creatinine. Clinically he appears much improved over last week. Plan: 1. Continue vancomycin dosed as needed. 2. Continue hemodialysis as per renal service 3. Follow clinical course and improvement. Continue Step-Down support. Subjective: Patient is awake alert and conversant. He is eating cereal for breakfast. He is working with physical therapy. He denies any overt fevers or chills. Acknowledges being weak from his long hospitalization so far. Objective: Vancomycin p.r.n. # 16 Vital Signs Temp Pulse Resp BP Pulse Ox 37.2 C 108 H 19 132/81 H 91 L 09/21/17 04:00 09/21/17 09:17 09/21/17 06:00 09/21/17 09:17 09/21/17 06:00 Microbiology 09/19/17 11:10 - Final Sputum, Induced/Suctioned Sputum Culture - Final MRSA 09/16/17 09:25 Gram Stain - Final Heart - Tissue Laboratory Results 09/21/17 04:50 09/21/17 04:11 09/20/17 09/21/17 09/22/17 05:59 05:59 05:59 Intake Total 587 1120 Output Total 4400 1315 140 Balance -3813 -195 -140 - Physical Exam General Appearance: WD/WN, alert, no apparent distress, non-toxic Respiratory: lungs clear, normal breath sounds, No respiratory distress Cardiac/Chest: regular rate, rhythm, tachycardia (Mildly) Extremities: non-tender, pedal edema, swelling, other (Mild petechial rash on bilateral ft.), No normal inspection, No necrosis Skin: normal color, warm/dry, No rash (Apart from feet bilaterally) Neuro/Psych: alert, normal mood/affect, oriented x 3 ICD10 Worksheet Patient Problems: Problems Problem Status Onset Acute blood loss anemia Acute Dehydration Acute Endocarditis of tricuspid valve Acute Hyponatremia Acute Renal failure Acute S/P tricuspid valve replacement Acute
--- NOTE | 2017-09-21 11:21 | PDINTPN ---
Director It Project Progress Note Assessment/Plan: Assessment: 37-year-old methamphetamine and opiate addict traveling to [place] with his mother and stepfather for work. Presented to the emergency department on 09/05 with weakness, confusion and hypotension in the setting of opiate withdrawal and recent methamphetamine abuse. Found to have high-grade MRSA bacteremia * MRSA bacteremia and sepsis. Secondary to IV drug abuse. Blood cultures and urine cultures positive initially, and on repeat 09/08 and 09/13. Negative on 09/17. Left great toe aspirate positive as well. Infiltrates present consistent with pneumonia and septic emboli. Fever 09/19 -On Vancomycin, level in target range * Tricuspid valve endocarditis: s/p replacement. Will need to start Coumadin soon * Left pleural empyema-S/P return to OR for a washout 09/17 * Acute blood-loss anemia- -H/H stable * Acute respiratory failure. Extubated, doing well. S. Aureus on sputum Cx * Sedation-adequate * Peripheral Septic Emboli: Improving, no signs of abscesses * Metabolic acidosis-improved with dialysis. Still has anion gap. * Volume overload -Persists * Metabolic: On replacement protocols. * Substance abuse: Opiates, methamphetamine. * History of hepatitis-C * Acute renal failure-urine output starting to improve. Receiving Lasix. No indication for HD today. If Cr continues to rise may need further HD. * Nutrition: Was on TF @ goal, intil 09/19. Now starting PO. Plan: Continue Vancomycin Advance diet. Mobilize, work with PT/OT. Coumadin per Dr. Kauffman 09/21/17 11:22 09/21/17 11:23 Subjective: Feels OK. Pain controlled. Still quite weak. Appetite poor but improving. Objective: Vital Signs Temp Pulse Resp BP Pulse Ox 37.2 C 108 H 19 132/81 H 91 L 09/21/17 04:00 09/21/17 09:17 09/21/17 06:00 09/21/17 09:17 09/21/17 06:00 Microbiology 09/19/17 11:10 - Final Sputum, Induced/Suctioned Sputum Culture - Final MRSA 09/16/17 09:25 Gram Stain - Final Heart - Tissue Laboratory Results 09/21/17 04:50 09/21/17 04:11 09/20/17 09/21/17 09/22/17 05:59 05:59 05:59 Intake Total 587 1120 Output Total 4400 1315 140 Balance -3813 -195 -140 PT 15.3 SEC (12.0-15.0) H 09/17/17 05:05 INR 1.19 (0.83-1.16) H 09/17/17 05:05 Physical Exam - Physical Exam General Appearance: alert, no apparent distress EENT: normal ENT inspection Neck: normal inspection Respiratory: chest non-tender, lungs clear, normal breath sounds Cardiac/Chest: regular rate, rhythm (a), edema (2+ pedal) Abdomen: normal bowel sounds, non-tender Skin: other (new bilateral foot petichei) Extremities: normal inspection Neuro/Psych: alert, normal mood/affect, oriented x 3, motor weakness (diffuse, worse LUE) ICD10 Worksheet Patient Problems: Problems Problem Status Onset Acute blood loss anemia Acute Dehydration Acute Endocarditis of tricuspid valve Acute Hyponatremia Acute Renal failure Acute S/P tricuspid valve replacement Acute
[2017-09-21] MEDS: OXYCODONE/APAP 5/325 TAB PO PRN ×3 (13:14→21:15)
--- NOTE | 2017-09-21 15:27 | HOSPPROG ---
Hospitalist Progress Note Assessment/Plan: #MRSA bacteremia/endocarditis -s/p TV replacement and washout. No joint aspiration warranted per Dr. Vee -cont IV abx, renally-dosed #BRITNEY with volume overload: diuresing. Last HD 09/19. If Cr trends up, may need HD line place prior to weekend. No emergent HD indication now #Septic shock: resolved. Due to above #Fever: 09/19. Blood cxs drawn, lines removed. #Left-sided Empyema/hematoma: evacuated/irrigated 09/17 #Acute hypoxic resp failure: extubated 09/19 #Polysubstance abuse: will need counseling #Acute blood loss anemia: H/H stable. Last transfused 3 units 09/17 #Hyperkalemia: resolved with HD #Hypernatremia: resolved with D5W #Nose pressure injury: wound care #Deconditioning: PT/OT #HCV #Thrombocytopenia: due to HCV, acute critical illness. Trending up #DVT ppx: SQH #Disp: cont inpatient admission for IV abx, therapy Critical care time spent: 35 min bedside, reviewing labs, notes. D/w Dr. Heredia and ICU team Subjective: coughing up brown/red sputum Objective: Vital Signs Temp Pulse Resp BP Pulse Ox 36.9 C 96 16 123/71 H 98 09/21/17 11:48 09/21/17 14:00 09/21/17 14:00 09/21/17 14:00 09/21/17 14:00 Microbiology 09/16/17 09:25 Gram Stain - Final Heart - Tissue 09/19/17 11:10 - Final Sputum, Induced/Suctioned Sputum Culture - Final MRSA Laboratory Results 09/21/17 04:50 09/21/17 04:11 09/20/17 09/21/17 09/22/17 05:59 05:59 05:59 Intake Total 587 1120 550 Output Total 4400 1315 680 Balance -3813 -195 -130 PT 15.3 SEC (12.0-15.0) H 09/17/17 05:05 INR 1.19 (0.83-1.16) H 09/17/17 05:05 - Physical Exam Eyes: PERRL Ears, Nose, Mouth, Throat: other (scabbed pressure wound over bridge of nose) Cardiovascular: regular rate and rhythym, edema (+ 3 pitting edema ankles, feet) Respiratory: reduced air movement Gastrointestinal: normoactive bowel sounds Genitourinary: no bladder fullness Skin: warm, other (petichae over BL feet. Redness over dorsum right foot, but no warmth or TTP) Musculoskeletal: generalized weakness Neurologic: AAOx3, CN II-XII Intact Psychiatric: interacting appropriately ICD10 Worksheet Patient Problems: Problems Problem Status Onset Acute blood loss anemia Acute Dehydration Acute Endocarditis of tricuspid valve Acute Hyponatremia Acute Renal failure Acute S/P tricuspid valve replacement Acute
[2017-09-21] MEDS ORDERED: WARFARIN SODIUM 5 MG TAB PO ONE (16:00)
[2017-09-22] MEDS: OXYCODONE/APAP 5/325 TAB PO PRN (02:39)
[2017-09-22 04:46] LABS: INR 1.37 (0.83-1.16)
[2017-09-22] MEDS: HEPARIN 5,000 UNIT/0.5 ML INJ SC SCH ×3 (05:44→21:17)
[2017-09-22] MEDS: ONDANSETRON DISINTEGRATING 4 MG TAB PO PRN (06:45)
--- NOTE | 2017-09-22 08:18 | SOAPPROG ---
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 - Holding SR/ST. TCPWs out. AF prophylaxis with BB as tolerated. Bilateral loculated effusions s/p decortication with need for reexploration and evacuation of left chest hematoma - Large bore CTs out. - Small left PTX, stable by serial CXRs. Pre-op anemia with post-op acute blood loss anemia and coagulopathy requiring multiple transfusions - Stable. No recent transfusions. - See blood bank section for details. MRSA sepsis with emboli secondary to IV drug abuse - Successfully weaned off pressors. - ABX as per ID. ARF - Resolving. - Active diuresis in progress. - Dialysis cath out. VDRF - Extubated POD#2 without incident. - Orals cleared by CONTENT MANAGEMENT CONSULTANT. Ileus - Resolved. Plan: Remove rt pleural tube. Convert ant mediastinal and left pleural blakes to bulb suction. Cont IV Lasix 80 mg BID. Cont Coumadin 5 mg daily. Inc activity as tolerated. Consider tx to PCU. 09/22/17 08:15 Subjective: Hanging in there. Hurts all over after PT. Able to stand w belt assistance. Yet to walk. Fruit juice about all that appeals. Objective: Vital Signs Temp Pulse Resp BP Pulse Ox 37.1 C 100 20 123/70 H 93 09/22/17 04:00 09/22/17 06:00 09/22/17 06:00 09/22/17 04:00 09/22/17 06:00 Microbiology 09/17/17 05:35 Blood Culture - Final Blood 09/17/17 05:05 Blood Culture - Final Blood 09/16/17 09:25 Gram Stain - Final Heart - Tissue 09/19/17 11:10 - Final Sputum, Induced/Suctioned Sputum Culture - Final MRSA Laboratory Results 09/21/17 04:50 09/22/17 04:30 09/21/17 09/22/17 09/23/17 05:59 05:59 05:59 Intake Total 1120 1450 Output Total 1315 1915 Balance -195 -465 PT 17.0 SEC (12.0-15.0) H 09/22/17 04:30 INR 1.37 (0.83-1.16) H 09/22/17 04:30 SR/ST. Sufficient BP to inc BB. Min suppl O2. CXR -> tiny left PTX, mild pulm vasc congestion, bibasilar consolidation. Rt pleural tube output below removal criteria. Left sided air leak appears to have resolved. Physical Exam - Physical Exam General Appearance: alert, no apparent distress Respiratory: lungs clear (anteriorly), other (rt pl macario to bulb suction, serous drainage; ant med and left pl macario y-d to pleurovac, serosang drainage, no tidal, no air leak) Cardiac/Chest: regular rate, rhythm, tachycardia, other (Sternal dressing CDI) Abdomen: non-tender, soft Skin: warm/dry Extremities: swelling (2+ dependent) ICD10 Worksheet Patient Problems: Problems Problem Status Onset Acute blood loss anemia Acute Dehydration Acute Endocarditis of tricuspid valve Acute Hyponatremia Acute Renal failure Acute S/P tricuspid valve replacement Acute
[2017-09-22] MEDS: METOPROLOL TARTRATE 25 MG TAB PO SCH ×2 (09:05→21:17)
[2017-09-22] MEDS: ASPIRIN 81 MG CHEWABLE TAB PO SCH (09:05)
--- NOTE | 2017-09-22 09:45 | PCMIDPN ---
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 Random trough yesterday 19, last dose vancomycin 09/20 --stat vanco Random =14 --give vancomycin 500mg IV x 1 in light of increasing Cr # ESRD: 09/19 last HD, Cr 5.8, Dosing vancomycin by levels for now. # Fever resolved since end of day on 09/20 microbiology 09/05 and 09/08 blood cx (2) MRSA 09/07 great toe: MRSA 09/11 blood cx (2) NGTD 09/13 blood cx (2) MRSA 09/20 blood cx (2) NGTD 09/19 sputum : MRSA 09/16 valve: MRSA meds Vancomycin Dosed for levels, D#17 Subjective: patient with low appetite expected post op pain CT still in place HD cath and L subclavian out Objective: Vital Signs Temp Pulse Resp BP Pulse Ox 37.1 C 100 20 123/70 H 93 09/22/17 04:00 09/22/17 06:00 09/22/17 06:00 09/22/17 04:00 09/22/17 06:00 Microbiology 09/17/17 05:35 Blood Culture - Final Blood 09/17/17 05:05 Blood Culture - Final Blood 09/16/17 09:25 Gram Stain - Final Heart - Tissue 09/19/17 11:10 - Final Sputum, Induced/Suctioned Sputum Culture - Final MRSA Laboratory Results 09/21/17 04:50 09/22/17 04:30 09/21/17 09/22/17 09/23/17 05:59 05:59 05:59 Intake Total 1120 1450 Output Total 1315 1915 Balance -195 -465 - Physical Exam General Appearance: alert, no apparent distress EENT: other (skin breakdown over bridge of nose) Respiratory: other (decreased bs in bases), No accessory muscle use Cardiac/Chest: tachycardia, other (midline CT in place, serosang fluid ) Extremities: pedal edema (2-3+ bilateral) Abdomen: non-tender, soft Skin: pallor, embolic lesions, signs of IVDA, No rash Neuro/Psych: alert, normal mood/affect, oriented x 3 - Line/s RUE PICC Lines: No drainage, No erythema - Time Spent With Patient Time Spent with Patient: greater than 35 minutes (care coordinated with RN and Dr. Heredia) Time Spent with Patient: Greater than 35 minutes spent on this patients care, greater than 50% of time spent counseling, educating, and coordinating care regarding the above mentioned plan. ICD10 Worksheet Patient Problems: Problems Problem Status Onset Acute blood loss anemia Acute Dehydration Acute Endocarditis of tricuspid valve Acute Hyponatremia Acute Renal failure Acute S/P tricuspid valve replacement Acute
[2017-09-22] MEDS: oxyCODONE IR 5 MG TAB PO PRN ×2 (09:54→21:16)
--- NOTE | 2017-09-22 10:23 | HOSPPROG ---
Hospitalist Progress Note Assessment/Plan: DIAGNOSES: # Septic shock: * Currently resolved # MRSA bacteremia/endocarditis -s/p tricuspid valve debridement and replacement 09/16, with subsequent re- exploration and evacuation of hematoma from mediastinum following day -cont IV abx, renally-dosed -still with mediastinal tubes in place #Left-sided Empyema/hematoma: * Decortication and evacuation 09/16 # BRITNEY due to sepsis and shock requiring hemodialysis * Last HD 09/19; creatinine and BUN continue to increase significantly though currently not hyperkalemic or acidotic and is tolerating volume overload okay * Will need to continue to watch closely, may need further dialysis # volume overload due to resuscitation for shock and surgery, renal failure # Recurrent Fever: 09/19 * lines removed at that time * Blood cxs drawn 09/20 no growth to date #Acute hypoxic resp failure requiring mechanical ventilation: * extubated 09/19 and doing well on nasal cannula at this time #Acute blood loss anemia, expected after surgery: * H/H stable. Last transfused 3 units 09/17 #Hyperkalemia: resolved with HD #Hypernatremia: resolved with D5W #Polysubstance abuse: will need counseling #Deconditioning: PT/OT #HCV #DVT ppx: SQH PLANS: -continue current antibiotics of vancomycin, this is being dosed daily based on levels due to his renal function and levels have been in good range -follow renal function closely, may need further dialysis but no acute indications today -continue efforts at increasing strength and mobility -chest tube still in place will need to follow those very closely -once stabilized will benefit from diuresis -DVT prophylaxis Seen today on hospitals rounds as well as multidisciplinary rounds and icu Reviewed in detail with Dr. Benjamin Heredia SUBJECTIVE: He still has some expected pain after surgery but overall this is slowly improving and he feels slightly better today than yesterday Not short of breath, little appetite OBJECTIVE Vitals reviewed: Stable without fever Dry Kiln Feeder, my review: Exam: alert oriented weak and tired skin warm dry color ok resps not labored lungs diminished breath sounds with some rales heart regular abd soft nondistended nontender, bowel sounds present limbs warm, remarkable edema at feet and ankles iv site ok Laboratory data: Creatinine increased to 5.8 today with BUN up to 74, potassium and CO2 were normal Chest x-ray done today, my review of images: Poor inspiration with crowding of lung structures and atelectasis noted, both hemidiaphragm still slightly indistinct, tiny left-sided pneumothorax still present Objective: Vital Signs Temp Pulse Resp BP Pulse Ox 36.7 C 107 H 21 H 144/86 H 94 09/22/17 08:00 09/22/17 08:00 09/22/17 08:00 09/22/17 08:00 09/22/17 08:00 Microbiology 09/17/17 05:35 Blood Culture - Final Blood 09/17/17 05:05 Blood Culture - Final Blood 09/16/17 09:25 Gram Stain - Final Heart - Tissue 09/19/17 11:10 - Final Sputum, Induced/Suctioned Sputum Culture - Final MRSA Laboratory Results 09/21/17 04:50 09/22/17 04:30 09/21/17 09/22/17 09/23/17 06:59 06:59 06:59 Intake Total 1120 1450 Output Total 1455 1775 Balance -335 -325 PT 17.0 SEC (12.0-15.0) H 09/22/17 04:30 INR 1.37 (0.83-1.16) H 09/22/17 04:30 - Time Spent With Patient Time Spent with Patient: greater than 35 minutes Time Spent with Patient: Greater than 35 minutes spent on this patients care, greater than 50% of time spent counseling, educating, and coordinating care regarding the above mentioned plan. ICD10 Worksheet Patient Problems: Problems Problem Status Onset Acute blood loss anemia Acute Dehydration Acute Endocarditis of tricuspid valve Acute Hyponatremia Acute Renal failure Acute S/P tricuspid valve replacement Acute
--- NOTE | 2017-09-22 11:24 | PDINTPN ---
Automatic Data Processing Planner Progress Note Assessment/Plan: Assessment: 37-year-old methamphetamine and opiate addict traveling to [place] with his mother and stepfather for work. Presented to the emergency department on 09/05 with weakness, confusion and hypotension in the setting of opiate withdrawal and recent methamphetamine abuse. Found to have high-grade MRSA bacteremia * MRSA bacteremia and sepsis. Secondary to IV drug abuse. Blood cultures and urine cultures positive initially, and on repeat 09/08 and 09/13. Negative on 09/17. Left great toe aspirate positive as well. Infiltrates present consistent with pneumonia and septic emboli. Fever 09/19 -On Vancomycin, level in target range * Tricuspid valve endocarditis: s/p replacement. Will need to start Coumadin soon * Left pleural empyema-S/P return to OR for a washout 09/17. Chest tubes in place , increased drainage yesterday. * Acute blood-loss anemia- -H/H stable as of yesterday * Acute respiratory failure. Extubated, doing well, minimal O2 needs. S. Aureus on sputum Cx * Sedation-adequate * Peripheral Septic Emboli: Improving, no signs of abscesses * Metabolic acidosis-improved with dialysis. Borderline anion gap. * Volume overload -Persists. Edema seems worse, but slightly negative fluid balance. * Metabolic: On replacement protocols. * Substance abuse: Opiates, methamphetamine. * History of hepatitis-C * Acute renal failure-urine output fairly good on Lasix. BUN/Cr rising. If BUN continues to rise may need further HD. * Nutrition: Was on TF @ goal, intil 09/19. Now taking PO. Plan: Continue Vancomycin Encourage diet. Mobilize, work with PT/OT. Continue Lasix Follow Lytes, fluid balance to help decide on the need for HD. Will try some 25 % albumin with Lasix Coumadin per Dr. Kauffman 09/22/17 11:30 Subjective: Strength improving. Appetite improving. Pain fairly well controlled with [place]. Objective: Vital Signs Temp Pulse Resp BP Pulse Ox 36.7 C 107 H 21 H 144/86 H 94 09/22/17 08:00 09/22/17 08:00 09/22/17 08:00 09/22/17 08:00 09/22/17 08:00 Microbiology 09/17/17 05:35 Blood Culture - Final Blood 09/17/17 05:05 Blood Culture - Final Blood 09/16/17 09:25 Gram Stain - Final Heart - Tissue 09/19/17 11:10 - Final Sputum, Induced/Suctioned Sputum Culture - Final MRSA Laboratory Results 09/21/17 04:50 09/22/17 04:30 09/21/17 09/22/17 09/23/17 05:59 05:59 05:59 Intake Total 1120 1450 450 Output Total 1315 1915 200 Balance -195 -465 250 PT 17.0 SEC (12.0-15.0) H 09/22/17 04:30 INR 1.37 (0.83-1.16) H 09/22/17 04:30 Physical Exam - Physical Exam General Appearance: alert, no apparent distress EENT: normal ENT inspection Neck: normal inspection Respiratory: crackles (bases) Cardiac/Chest: regular rate, rhythm, edema (3+) Abdomen: normal bowel sounds, non-tender Skin: normal color, warm/dry Extremities: normal inspection Neuro/Psych: alert, normal mood/affect, oriented x 3, motor weakness (diffuse mild, LUE>RUE) ICD10 Worksheet Patient Problems: Problems Problem Status Onset Acute blood loss anemia Acute Dehydration Acute Endocarditis of tricuspid valve Acute Hyponatremia Acute Renal failure Acute S/P tricuspid valve replacement Acute
[2017-09-22] MEDS ORDERED: ALBUMIN 25% 100 ML IV ONE (11:31)
[2017-09-22] MEDS ORDERED: VANCOMYCIN 500 MG in D5W 100 ML IV ONE (12:30)
[2017-09-22] MEDS: FUROSEMIDE 100 MG/10 ML VIAL IVP SCH (12:38)
[2017-09-22] MEDS: MUPIROCIN 2% 22 GM OINT NS SCH ×2 (12:39→21:21)
[2017-09-22] MEDS: HYDROCODONE/APAP 10/325 TAB PO PRN ×2 (13:44→21:16)
--- NOTE | 2017-09-22 14:50 | SOAPPROG ---
SOAP Progress Note Assessment/Plan: Assessment/Plan: 37 y/o M with h/o IVDA with endocarditis and BRITNEY requiring HD, now showing signs of recovery. BRITNEY: likely ATN although could also have a complement mediated GN and complements would be low in endocarditis as well. Pt initially required dialysis, last dialyzed on 09/19. He made 4.4L yesterday and Cr is slowly trending upward. - No need for HD at this time. - Held IV lasix tonight given significant UO, may be post-ATN diuresis - Sent urine Na+, if <20 would bolus 500ml, still on IV albumin - No line given infection, may need to consider replacing if becomes uremic - Keep MAP>65 - Avoid hypotension and nephrotoxins. Hypervolemia: Improving, O2 sats and BP's ok. Hyperphosphatemia: Phos >7. Renal diet and will start binder. 09/22/17 14:47 Subjective: Patient feeling "better" he states, with family at bedside. Getting up to urinate. No fevers. Objective: Vital Signs Temp Pulse Resp BP Pulse Ox 37.0 C 95 18 135/81 H 98 09/22/17 12:00 09/22/17 12:00 09/22/17 12:00 09/22/17 12:00 09/22/17 12:00 Microbiology 09/16/17 09:25 Gram Stain - Final Heart - Tissue 09/17/17 05:35 Blood Culture - Final Blood 09/17/17 05:05 Blood Culture - Final Blood 09/19/17 11:10 - Final Sputum, Induced/Suctioned Sputum Culture - Final MRSA Laboratory Results 09/21/17 04:50 09/22/17 04:30 09/21/17 09/22/17 09/23/17 05:59 05:59 05:59 Intake Total 1120 1450 450 Output Total 1315 1915 200 Balance -195 -465 250 PT 17.0 SEC (12.0-15.0) H 09/22/17 04:30 INR 1.37 (0.83-1.16) H 09/22/17 04:30 Physical Exam - Physical Exam General Appearance: WD/WN, alert, no apparent distress EENT: PERRL/EOMI, normal ENT inspection Neck: non-tender, full range of motion, supple Respiratory: chest non-tender, lungs clear Cardiac/Chest: normal peripheral pulses, regular rate, rhythm, edema Abdomen: normal bowel sounds, non-tender, soft Skin: normal color, warm/dry Extremities: normal range of motion, non-tender, pedal edema Neuro/Psych: no motor/sensory deficits, alert, oriented x 3 ICD10 Worksheet Patient Problems: Problems Problem Status Onset Acute blood loss anemia Acute Dehydration Acute Endocarditis of tricuspid valve Acute Hyponatremia Acute Renal failure Acute S/P tricuspid valve replacement Acute
--- NOTE | 2017-09-22 14:53 | ASMTCMCOM ---
CM Note CM Note Notes: Patient was given NA resources. Spoke with Jazmyn Ying, PhD who came to do mental health consult with patient. Patient was too sedated to participate. She will try again. Encouraging family to look for resources in the community they think patient will live. CM available for consult. Date Signed: 09/22/2017 02:52 PM Electronically Signed By:Rachel Castaneda LCSW
[2017-09-22] MEDS ORDERED: WARFARIN SODIUM 5 MG TAB PO ONE (16:00)
[2017-09-22] MEDS: CALCIUM ACETATE 667 MG CAP PO SCH (18:11)
[2017-09-23] MEDS: oxyCODONE IR 5 MG TAB PO PRN ×3 (04:17→20:10)
[2017-09-23 04:31] LABS: INR 2.17 (0.83-1.16); PROTIME(PATIENT) 24.2 SEC (12.0-15.0)
[2017-09-23] MEDS: HEPARIN 5,000 UNIT/0.5 ML INJ SC SCH (06:54)
--- NOTE | 2017-09-23 07:24 | SOAPPROG ---
SOAP Progress Note Assessment/Plan: Assessment: POD#7 Tricuspid valve debridement and replacement with #29 Magna bioprosthesis, decortication bilateral pleura POD#6 Mediastinal reexploration and evacuation of left chest hematoma IV access RUE PICC Tricuspid valve MRSA endocarditis s/p debridement/replacement with bioprosthesis - Antithrombotic prophylaxis with Coumadin, target INR 2-3, duration 3 mo. - Holding SR/ST. TCPWs out. AF prophylaxis with BB. Bilateral loculated effusions s/p decortication with need for reexploration and evacuation of left chest hematoma - Large bore CTs out. - Small left PTX, stable by serial CXRs. Bulb drains holding their suction with minimal drainage. Pre-op anemia with post-op acute blood loss anemia and coagulopathy requiring multiple transfusions - Stable. No recent transfusions. - See blood bank section for details. MRSA sepsis with emboli secondary to IV drug abuse - Successfully weaned off pressors. - ABX as per ID. ARF - Persists with BUN 78/Cr 6.1. Renal following. - Active diuresis in progress. - Dialysis cath out. VDRF - Extubated POD#2 without incident. - Orals cleared by HE[employer] EQUIPMENT SERVICE TECHNICIAN. Ileus - Resolved. Plan: Remove left pleural tube and mediastinal drain. Resume IV Lasix at decreased dose of 40 mg BID. Coumadin 2.5 mg. Inc activity as tolerated. Subjective: Patient reports suboptimal pain control on current regimen. Objective: Vital Signs Temp Pulse Resp BP Pulse Ox 36.8 C 109 H 20 138/86 H 94 09/23/17 04:00 09/23/17 04:00 09/23/17 04:00 09/23/17 04:00 09/23/17 04:00 Microbiology 09/16/17 09:25 Gram Stain - Final Heart - Tissue 09/17/17 05:35 Blood Culture - Final Blood 09/17/17 05:05 Blood Culture - Final Blood Laboratory Results 09/23/17 04:00 09/23/17 04:00 09/22/17 09/23/17 09/24/17 05:59 05:59 05:59 Intake Total 1450 1200 Output Total 1915 2000 75 Balance -465 -800 -75 PT 24.2 SEC (12.0-15.0) H 09/23/17 04:00 INR 2.17 (0.83-1.16) H 09/23/17 04:00 Physical Exam - Physical Exam General Appearance: WD/WN, alert, no apparent distress Neck: supple Respiratory: decreased breath sounds (bases), crackles Cardiac/Chest: JVD, tachycardia, other (no mumur or rubs. ) Abdomen: normal bowel sounds, non-tender, soft Skin: normal color, warm/dry Extremities: pedal edema (1+ lower extremity pitting edema) Neuro/Psych: alert, normal mood/affect, oriented x 3 ICD10 Worksheet Patient Problems: Problems Problem Status Onset Acute blood loss anemia Acute Dehydration Acute Endocarditis of tricuspid valve Acute Hyponatremia Acute Renal failure Acute S/P tricuspid valve replacement Acute
[2017-09-23] MEDS ORDERED: ALBUMIN 25% 100 ML IV ONE (08:30)
[2017-09-23] MEDS: HYDROCODONE/APAP 10/325 TAB PO PRN ×2 (08:31→15:34)
[2017-09-23] MEDS: ALBUMIN 25% 100 ML IV SCH ×2 (08:32→15:09)
--- NOTE | 2017-09-23 08:51 | SOAPPROG ---
SOAP Progress Note Assessment/Plan: Assessment: 1. BRITNEY. Likely ischemic atn related to sepsis/hypotension. B/l creat unknown. Last dialysis was 09/19. Creat has been trending up steadily. Does not have catheter. Good UOP, no indications for dialysis but may need again within the next few days if no recovery. 2. TV endocarditis. S/p TVR. Appears to still have excess volume. OK to give lasix 40mg IV BID. Continue prn vanco dosing per ID. Level 14.7 yesterday. 3. Hyperphosphatemia. Started phoslo. 4. Empyema. Improving. May have chest tubes removed today. I spent > 30 min with this patient in critical care time this am, including assessing BRITNEY, electrolytes, volume status and discussing plan with cardiac surgery service. Plan: 09/23/17 08:38 09/23/17 08:52 09/23/17 08:54 09/23/17 08:54 09/23/17 08:55 Subjective: No fevers, nausea, diarrhea or other complaints this am. Last dialysis was 09/19, line removed that day. Objective: Vital Signs Temp Pulse Resp BP Pulse Ox 36.8 C 109 H 20 138/86 H 94 09/23/17 04:00 09/23/17 04:00 09/23/17 04:00 09/23/17 04:00 09/23/17 04:00 Microbiology 09/16/17 09:25 Gram Stain - Final Heart - Tissue 09/17/17 05:35 Blood Culture - Final Blood 09/17/17 05:05 Blood Culture - Final Blood Laboratory Results 09/23/17 04:00 09/23/17 04:00 09/22/17 09/23/17 09/24/17 05:59 05:59 05:59 Intake Total 1450 1200 Output Total 1915 1999 75 Balance -465 -800 -75 PT 24.2 SEC (12.0-15.0) H 09/23/17 04:00 INR 2.17 (0.83-1.16) H 09/23/17 04:00 Tired, debilitated, alert, NAD RRR, no m/g/r. Midline sternal wound is bandaged. JVD 12-14 cm Coarse bibasilar crackles. Abdom soft, nt 2+ ankle pitting edema Minimal chest tube drainage ICD10 Worksheet Patient Problems: Problems Problem Status Onset Acute blood loss anemia Acute S/P tricuspid valve replacement Acute Endocarditis of tricuspid valve Acute Renal failure Acute Hyponatremia Acute Dehydration Acute
--- NOTE | 2017-09-23 09:21 | PCMIDPN ---
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 Blood cx cleared as of 09/17. Heart tissue cx were positive from OR. Post op course complicated by Mediastinal reexploration and evacuation of left chest hematoma --check random vancomycin daily due to evolving renal function --query of eventually needs areas adjacent to great toes debrided # ESRD: 09/19 last HD, Cr 6.1, Dosing vancomycin by levels for now. Reviewed nephrology note, no urgent need for HD, UOP good. # Fever resolved since end of day on 09/20 microbiology 09/05 and 09/08 blood cx (2) MRSA 09/07 great toe: MRSA 09/11 blood cx (2) NGTD 09/13 blood cx (2) MRSA 09/16 valve: MRSA 09/17 blood cx (2) Neg 09/19 sputum : MRSA 09/20 blood cx (2) NGTD meds Vancomycin Dosed for levels, D#18 (gave Vancomycin 500mg x 1 09/22) 09/24/17 09:05 Subjective: Expressing sincere gratitude minimal c/o pain Objective: Vital Signs Temp Pulse Resp BP Pulse Ox 36.8 C 110 H 20 145/92 H 94 09/23/17 04:00 09/23/17 08:00 09/23/17 08:00 09/23/17 08:00 09/23/17 08:00 Microbiology 09/16/17 09:25 Gram Stain - Final Heart - Tissue 09/17/17 05:35 Blood Culture - Final Blood 09/17/17 05:05 Blood Culture - Final Blood Laboratory Results 09/23/17 04:00 09/23/17 04:00 09/22/17 09/23/17 09/24/17 05:59 05:59 05:59 Intake Total 1450 1200 Output Total 1911999 75 Balance -465 -800 -75 General Appearance: alert, no apparent distress EENT: skin breakdown over bridge of nose Respiratory: decreased bs in bases, No accessory muscle use Cardiac/Chest: tachycardia, no murmur; midline VIBHA drain in place, serosang fluid Extremities: pedal edema 2+ bilateral (improved), inflammation adjacent to B great toes but ROM of motion of 1st toe PIP joints intact Abdomen: non-tender, soft Skin: pallor, embolic lesions B great toes, No rash otherwise Neuro/Psych: alert, normal mood/affect, oriented x 3 RUE PICC: No drainage, No erythema ICD10 Worksheet Patient Problems: Problems Problem Status Onset Acute blood loss anemia Acute Dehydration Acute Endocarditis of tricuspid valve Acute Hyponatremia Acute Renal failure Acute S/P tricuspid valve replacement Acute
[2017-09-23] MEDS: FUROSEMIDE 40 MG/4 ML VIAL IVP SCH ×2 (11:01→15:07)
[2017-09-23] MEDS: ASPIRIN 81 MG CHEWABLE TAB PO SCH (11:01)
[2017-09-23] MEDS: METOPROLOL TARTRATE 25 MG TAB PO SCH ×2 (11:01→20:12)
[2017-09-23] MEDS: CALCIUM ACETATE 667 MG CAP PO SCH ×4 (11:01→18:14)
[2017-09-23] MEDS: MUPIROCIN 2% 22 GM OINT NS SCH ×2 (11:03→21:00)
--- NOTE | 2017-09-23 14:01 | PDINTPN ---
Conveyor Feeder Offbearer Progress Note Assessment/Plan: Assessment: 37-year-old methamphetamine and opiate addict traveling to [place] with his mother and stepfather for work. Presented to the emergency department on 09/05 with weakness, confusion and hypotension in the setting of opiate withdrawal and recent methamphetamine abuse. Found to have high-grade MRSA bacteremia * MRSA bacteremia and sepsis. Secondary to IV drug abuse. Blood cultures and urine cultures positive initially, and on repeat 09/08 and 09/13. Negative on 09/17. Left great toe aspirate positive as well. Infiltrates present consistent with pneumonia and septic emboli. Fever 09/19 -On Vancomycin, level in target range * Tricuspid valve endocarditis: s/p replacement. Will need to start Coumadin soon * Left pleural empyema-S/P return to OR for a washout 09/17. Chest tubes in place , increased drainage yesterday. * Acute blood-loss anemia- -H/H stable * Acute respiratory failure. Extubated, doing well, minimal O2 needs. S. Aureus on sputum Cx * Sedation-adequate * Peripheral Septic Emboli: Improving, no signs of abscesses * Metabolic acidosis-improved with dialysis. Borderline anion gap. * Volume overload -Persists. Edema seems worse, but slightly negative fluid balance. * Metabolic: On replacement protocols. * Substance abuse: Opiates, methamphetamine. * History of hepatitis-C * Acute renal failure-urine output fairly good on Lasix. BUN/Cr rising. If BUN continues to rise may need further HD. * Nutrition: Was on TF @ goal, intil 09/19. Now taking PO. Plan: Continue Vancomycin Encourage diet. Mobilize, work with PT/OT. Continue Lasix/albumin Follow Lytes, fluid balance to help decide on the need for HD. Coumadin per Dr. Kauffman 09/23/17 13:58 Subjective: Feels OK, a bit stronger. Pain improved a bit with CTs out. Objective: Vital Signs Temp Pulse Resp BP Pulse Ox 36.9 C 94 20 140/94 H 94 09/23/17 12:00 09/23/17 12:00 09/23/17 12:00 09/23/17 12:00 09/23/17 12:00 Microbiology 09/16/17 09:25 Gram Stain - Final Heart - Tissue Laboratory Results 09/23/17 04:00 09/23/17 04:00 09/22/17 09/23/17 09/24/17 05:59 05:59 05:59 Intake Total 1450 1200 950 Output Total 1915 1999 775 Balance -465 -800 175 PT 24.2 SEC (12.0-15.0) H 09/23/17 04:00 INR 2.17 (0.83-1.16) H 09/23/17 04:00 Physical Exam - Physical Exam General Appearance: alert, no apparent distress EENT: normal ENT inspection Neck: normal inspection Respiratory: lungs clear, normal breath sounds Cardiac/Chest: normal peripheral pulses, regular rate, rhythm, edema (2+) Abdomen: normal bowel sounds, non-tender, soft Skin: normal color, warm/dry Extremities: normal inspection Neuro/Psych: alert, normal mood/affect, oriented x 3 ICD10 Worksheet Patient Problems: Problems Problem Status Onset Acute blood loss anemia Acute Dehydration Acute Endocarditis of tricuspid valve Acute Hyponatremia Acute Renal failure Acute S/P tricuspid valve replacement Acute
--- NOTE | 2017-09-23 14:04 | HOSPPROG ---
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 -s/p tricuspid valve debridement and replacement 09/16, with subsequent re- exploration and evacuation of hematoma from mediastinum following day -cont IV abx, renally-dosed -chest mediastinal tubes removed today, some increase in pain and nausea related to that # Left-sided Empyema/hematoma related to his septic pulm emboli: * Decortication and evacuation 09/16 # BRITNEY due to sepsis and shock requiring hemodialysis * Last HD 09/19; creatinine and BUN continue to increase significantly though currently not hyperkalemic or acidotic and is tolerating volume overload okay * Will need to continue to watch closely, may need further dialysis but labs appear to be leveling # volume overload due to resuscitation for shock and surgery, renal failure * so far tolerating this ok, and in fact is diuresing somewhat and did have some fluid removed by dialysis # Recurrent Fever: 09/19 but none since * lines removed at that time * Blood cxs drawn 09/20 no growth to date # Acute hypoxic resp failure requiring mechanical ventilation: * extubated 09/19 and doing well on nasal cannula at this time # Acute blood loss anemia, expected after surgery: * H/H remain stable atb present. * Last transfused 3 units 09/17 # Deconditioning, * severe and remains with very limited mobility * PT/OT # Hyperkalemia: resolved with HD # Hypernatremia: resolved with D5W # Polysubstance abuse: will need counseling # HCV # DVT ppx: [facility] PLANS: -continue current antibiotics of vancomycin, this is being dosed daily based on levels due to his renal function and levels have been in good range -follow renal function closely, may need further dialysis but no acute indications today -continue efforts at increasing strength and mobility, encouraged him to get up again and walk this evening -once stabilized will benefit from diuresis -DVT prophylaxis -will start some laxative today -will add tramadol so that we can use this to improve pain relief without worsening nausea constipation or perpetuating narcotic issues as much Seen today on hospitals rounds as well as multidisciplinary rounds and icu Reviewed in detail with Dr. Benjamin Heredia SUBJECTIVE: Bit of increased pain and nausea after his chest and mediastinal tubes removed today Did walk as far as the door to his room with walker No chills or sweats Also some constipation OBJECTIVE Vitals reviewed: Stable without fever Dispensary Clerk, my review: Sinus Exam: alert oriented weak and tired skin warm dry color ok resps not labored lungs diminished breath sounds still with some rales heart regular abd soft nondistended nontender, bowel sounds present limbs warm, still some edema at feet and ankles iv site ok Laboratory data: Creatinine increased to 6.1 today, potassium and CO2 were normal Objective: Vital Signs Temp Pulse Resp BP Pulse Ox 36.9 C 94 20 140/94 H 94 09/23/17 12:00 09/23/17 12:00 09/23/17 12:00 09/23/17 12:00 09/23/17 12:00 Microbiology 09/16/17 09:25 Gram Stain - Final Heart - Tissue Laboratory Results 09/23/17 04:00 09/23/17 04:00 09/22/17 09/23/17 09/24/17 06:59 06:59 06:59 Intake Total 1450 1200 950 Output Total 1775 2075 700 Balance -325 -875 250 PT 24.2 SEC (12.0-15.0) H 09/23/17 04:00 INR 2.17 (0.83-1.16) H 09/23/17 04:00 - Time Spent With Patient Time Spent with Patient: greater than 35 minutes Time Spent with Patient: Greater than 35 minutes spent on this patients care, greater than 50% of time spent counseling, educating, and coordinating care regarding the above mentioned plan. ICD10 Worksheet Patient Problems: Problems Problem Status Onset Acute blood loss anemia Acute Dehydration Acute Endocarditis of tricuspid valve Acute Hyponatremia Acute Renal failure Acute S/P tricuspid valve replacement Acute
[2017-09-23] MEDS ORDERED: WARFARIN SODIUM 2.5 MG TAB PO ONE (16:00)
[2017-09-23] MEDS ORDERED: traMADol 50 MG TAB PO PRN (16:01)
[2017-09-24] MEDS: oxyCODONE IR 5 MG TAB PO PRN ×2 (04:01→13:25)
--- NOTE | 2017-09-24 08:21 | SOAPPROG ---
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 INR 2.95 (2.17). - Holding SR/ST. TCPWs out. AF prophylaxis with BB. Bilateral loculated effusions s/p decortication with need for reexploration and evacuation of left chest hematoma - Large bore CTs and bulb drains out. - No PTX on CXR today. Pre-op anemia with post-op acute blood loss anemia and coagulopathy requiring multiple transfusions - Stable. No recent transfusions. - See blood bank section for details. MRSA sepsis with emboli secondary to IV drug abuse - Successfully weaned off pressors. - Renally dosed ABX as per ID. - Left elbow swelling and pain, however without evidence of infection. ARF - Persists with BUN 86/Cr 6.1. Renal following. - Active diuresis in progress. - Dialysis cath out. VDRF - Extubated POD#2 without incident. - Orals cleared by MOP MACHINE OPERATOR. Ileus - Resolved. Plan: Continue Lasix 40 mg IV BID. Coumadin 2 mg. Inc activity as tolerated. Subjective: Patient complains of left elbow pain and swelling. Objective: Vital Signs Temp Pulse Resp BP Pulse Ox 36.8 C 104 H 18 140/93 H 82 L 09/24/17 04:00 09/24/17 04:00 09/24/17 04:00 09/24/17 04:00 09/24/17 07:35 Laboratory Results 09/23/17 04:00 09/23/17 04:00 09/23/1718 09/25/17 05:59 05:59 05:59 Intake Total 1200 1800 Output Total 2000 1725 Balance -800 75 PT 24.2 SEC (12.0-15.0) H 09/23/17 04:00 INR 2.17 (0.83-1.16) H 09/23/17 04:00 Physical Exam - Physical Exam General Appearance: WD/WN, alert, no apparent distress Neck: supple Respiratory: lungs clear, normal breath sounds, decreased breath sounds (bases) , other (No wheezing, rhonchi, rales. ) Cardiac/Chest: tachycardia, other (Regular rhythm. Sternum stable. Sternotomy c/d/i. ) Abdomen: normal bowel sounds, non-tender, soft Skin: normal color, warm/dry Extremities: other (2+ lower extremity pitting edema) Neuro/Psych: alert, normal mood/affect, oriented x 3 ICD10 Worksheet Patient Problems: Problems Problem Status Onset Acute blood loss anemia Acute Dehydration Acute Endocarditis of tricuspid valve Acute Hyponatremia Acute Renal failure Acute S/P tricuspid valve replacement Acute
[2017-09-24] MEDS: METOPROLOL TARTRATE 25 MG TAB PO SCH ×2 (08:29→20:26)
[2017-09-24] MEDS: ASPIRIN 81 MG CHEWABLE TAB PO SCH (08:32)
[2017-09-24] MEDS: FUROSEMIDE 40 MG/4 ML VIAL IVP SCH ×2 (08:35→15:19)
[2017-09-24] MEDS: HYDROCODONE/APAP 10/325 TAB PO PRN ×2 (08:46→20:26)
[2017-09-24] MEDS: ALBUMIN 25% 100 ML IV SCH ×2 (08:50→15:21)
[2017-09-24 09:21] LABS: INR 2.95 (0.83-1.16); PROTIME(PATIENT) 30.6 SEC (12.0-15.0)
--- NOTE | 2017-09-24 10:03 | SOAPPROG ---
SOAP Progress Note Assessment/Plan: Assessment: Plan: Subjective: Starting to diuresing well. Cr stable at 6.1. BUN up slightly Feels better. Eating Does c/o some pain in left elbow. Mild tenderness over olecranon Lungs clear Stable Objective: Vital Signs Temp Pulse Resp BP Pulse Ox 36.9 C 103 H 18 141/103 H 95 09/24/17 08:00 09/24/17 08:29 09/24/17 04:00 09/24/17 08:29 09/24/17 08:00 Laboratory Results 09/23/17 04:00 09/24/17 09:00 09/23/17 09/24/17 09/25/17 05:59 05:59 05:59 Intake Total 1200 1800 100 Output Total 2000 1725 500 Balance -800 75 -400 PT 30.6 SEC (12.0-15.0) H 09/24/17 09:00 INR 2.95 (0.83-1.16) H 09/24/17 09:00 ICD10 Worksheet Patient Problems: Problems Problem Status Onset Acute blood loss anemia Acute Dehydration Acute Endocarditis of tricuspid valve Acute Hyponatremia Acute Renal failure Acute S/P tricuspid valve replacement Acute
[2017-09-24] MEDS: CALCIUM ACETATE 667 MG CAP PO SCH ×3 (10:42→18:07)
[2017-09-24] MEDS ORDERED: VANCOMYCIN HCL/NORMAL SALINE 250 ML IV ONE (11:02)
--- NOTE | 2017-09-24 11:03 | PCMIDPN ---
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 Blood cx cleared as of 09/17. Heart tissue cx were positive from OR. Post op course complicated by Mediastinal reexploration and evacuation of left chest hematoma --Random vancomycin 13 today, give dose vancomycin 1gm --will need 6 weeks IV antibiotics, start date 09/16/17, stop 10/28/17 # ARF: 09/19 last HD, Seems to be stabilizing - Good UOP plus Cr @6.1 for 2 days , Dosing vancomycin by levels for now. microbiology 09/05 and 09/08 blood cx (2) MRSA 09/07 great toe: MRSA 09/11 blood cx (2) NGTD 09/13 blood cx (2) MRSA 09/16 valve: MRSA 09/17 blood cx (2) Neg 09/19 sputum : MRSA 09/20 blood cx (2) NGTD meds Vancomycin Dosed for levels, D#19 (gave Vancomycin 500mg x 1 09/22 and 1gm today) Subjective: CT out yesterday transferred out of ICU voiding on own pain controlled Objective: Vital Signs Temp Pulse Resp BP Pulse Ox 36.9 C 103 H 18 141/103 H 95 09/24/17 08:00 09/24/17 08:29 09/24/17 04:00 09/24/17 08:29 09/24/17 08:00 Laboratory Results 09/23/17 04:00 09/24/17 09:00 09/23/17 09/24/17 09/25/17 05:59 05:59 05:59 Intake Total 1200 1800 100 Output Total 1999 1725 500 Balance -800 75 -400 General Appearance: alert, no apparent distress EENT: skin breakdown over bridge of nose Respiratory: decreased bs in bases, No accessory muscle use Cardiac/Chest: tachycardia, no murmur; sternal wound with dressing from OR in place Extremities: pedal edema 1-2+ bilateral (much improved!!), inflammation adjacent to B great toes but ROM of motion of 1st toe PIP joints intact Abdomen: non-tender, soft Skin: pallor, embolic lesions B great toes -as above, No rash otherwise Neuro/Psych: alert, normal mood/affect, oriented x 3 RUE PICC: No drainage, No erythema ICD10 Worksheet Patient Problems: Problems Problem Status Onset Acute blood loss anemia Acute Dehydration Acute Endocarditis of tricuspid valve Acute Hyponatremia Acute Renal failure Acute S/P tricuspid valve replacement Acute
[2017-09-24] MEDS ORDERED: VANCOMYCIN 1 GM in NS 250 ML IV ONE (11:30)
--- NOTE | 2017-09-24 12:41 | SOAPPROG ---
SOAP Progress Note Assessment/Plan: Assessment: 1. BRITNEY. Likely ischemic atn related to sepsis/hypotension. B/l creat unknown. Last dialysis was 09/19. Creat has been trending up steadily but appears to have plateaued today. Does not have catheter. Good UOP, no indications for dialysis, hopefully will start to recover. Assess for dialysis needs daily. 2. TV endocarditis. S/p TVR. Appears to still have excess volume. Continue lasix 40mg IV BID. Continue prn vanco dosing per ID. Level 13.4 this am. 3. Hyperphosphatemia. Started phoslo. 4. Empyema. Improving. Chest tubes removed yesterday. Plan: 09/23/17 08:38 09/23/17 08:52 09/23/17 08:54 09/23/17 08:54 09/23/17 08:55 09/24/17 12:38 09/24/17 12:41 Subjective: Stopped back twice, patient not available, not seen. See A/P. Objective: Vital Signs Temp Pulse Resp BP Pulse Ox 36.9 C 93 16 106/68 94 09/24/17 11:15 09/24/17 11:15 09/24/17 11:15 09/24/17 11:15 09/24/17 11:15 Laboratory Results 09/23/17 04:00 09/24/17 09:00 09/23/17 09/24/17 09/25/17 05:59 05:59 05:59 Intake Total 1200 1800 100 Output Total 1999 1725 500 Balance -800 75 -400 PT 30.6 SEC (12.0-15.0) H 09/24/17 09:00 INR 2.95 (0.83-1.16) H 09/24/17 09:00 Not seen today. ICD10 Worksheet Patient Problems: Problems Problem Status Onset Acute blood loss anemia Acute S/P tricuspid valve replacement Acute Endocarditis of tricuspid valve Acute Renal failure Acute Hyponatremia Acute Dehydration Acute
[2017-09-24] MEDS: MUPIROCIN 2% 22 GM OINT NS SCH ×2 (13:28→20:26)
--- NOTE | 2017-09-24 14:37 | ASMTCMCOM ---
CM Note CM Note Notes: Chart reviewed/Patient POD8 TVR, Dialysis cath removes. Per ID will need 6 weeks of antibiotics. Not entirely sure of disposition at present time. He is currently self pay and not [place] resident. CM to follow. Needs: TBD Date Signed: 09/24/2017 02:36 PM Electronically Signed By:Mag Denton RN
--- NOTE | 2017-09-24 14:49 | WOCRNPDOC ---
WOCRN Advanced Assessment Note - Skin Integrity Problem, Advanced Assess Nose Pressure Injury Dressing Type: Open to Air Exudate Amount: None Ketty Wound Tissue: Intact Wound Bed Color: Black Wound Bed Constitution: Stable Eschar Wound Edges: Well Defined Site Measurement - Head-to-Toe Length X Width X Depth (cm): 2x1.6xeschar Pressure Injury Stage: Unstageable Pressure Injury Present on Admit: No (BiPap) Skin Integrity Problem Comment: Wound remains an unstageable medical technologist prn related pressure injury with stable, dried eschar. From measurements taken last week, wound is smaller in size. Will not modify current plan but wound care will continue to make weekly rounds. Please let us know if wound opens, changes , or worsens.
--- NOTE | 2017-09-24 15:24 | HOSPPROG ---
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 -s/p tricuspid valve debridement and replacement 09/16, with subsequent re- exploration and evacuation of hematoma from mediastinum following day -cont IV abx, renally-dosed -chest mediastinal tubes removed today, some increase in pain and nausea related to that # Left-sided Exudative Pleural Effusion/hematoma related to his septic pulm emboli: * Decortication and evacuation 09/16 # BRITNEY due to sepsis and shock requiring hemodialysis * Last HD 09/19; creatinine and BUN appear to be leveling out, currently not hyperkalemic or acidotic and is tolerating volume overload okay * Will need to continue to watch closely, may need further dialysis but labs appear to be leveling # volume overload due to resuscitation for shock and surgery, renal failure * so far tolerating this ok, and is making better urine # Recurrent Fever: 09/19 but none since * lines removed at that time * Blood cxs drawn 09/20 no growth to date # Acute hypoxic resp failure requiring mechanical ventilation: * extubated 09/19 and doing well on nasal cannula at this time # Acute blood loss anemia, expected after surgery: * H/H remain stable at present. * Last transfused 3 units 09/17 # Deconditioning, * severe and remains with very limited mobility, but slowly starting see a bit of improvement * PT/OT # Hyperkalemia: resolved with HD # Hypernatremia: resolved with D5W # Polysubstance abuse: will need counseling # HCV # DVT ppx: [facility] PLANS: -continue current antibiotics vancomycin, this is being dosed daily based on levels due to his renal function and levels have been in good range -follow renal function closely, may be able to get away with no further dialysis -continue efforts at increasing strength and mobility, encouraged him to get up again and walk this evening -once stabilized overall and renal function allows will benefit from diuresis -DVT prophylaxis -will make tramadol a scheduled medicine for him in hopes of being able to more easily and quickly reduce his narcotic use, particularly with relation to his history of substance abuse SUBJECTIVE: Overall somewhat better today today Walked twice and for further distances and a little bit more quickly Took a shower Eating somewhat better OBJECTIVE Vitals reviewed: S still intermittently tachycardic otherwise stable without fever Armature Rewinder, my review: Sinus Exam: alert oriented, weak and tired skin warm dry color ok resps not labored lungs diminished breath sounds heart regular abd soft nondistended nontender, bowel sounds present limbs warm, still some edema at feet and ankles iv site ok Laboratory data: Creatinine unchanged today at 6.1 with some increased BUN, CO2 and potassium normal Objective: Vital Signs Temp Pulse Resp BP Pulse Ox 36.9 C 93 16 106/68 94 09/24/17 11:15 09/24/17 11:15 09/24/17 11:15 09/24/17 11:15 09/24/17 11:15 Laboratory Results 09/23/17 04:00 09/24/17 09:00 09/23/17 09/24/17 09/25/17 06:59 06:59 06:59 Intake Total 1200 1800 350 Output Total 2075 1650 500 Balance -875 150 -150 PT 30.6 SEC (12.0-15.0) H 09/24/17 09:00 INR 2.95 (0.83-1.16) H 09/24/17 09:00 ICD10 Worksheet Patient Problems: Problems Problem Status Onset Acute blood loss anemia Acute Dehydration Acute Endocarditis of tricuspid valve Acute Hyponatremia Acute Renal failure Acute S/P tricuspid valve replacement Acute
[2017-09-24] MEDS ORDERED: WARFARIN SODIUM 2 MG TAB PO ONE (16:00)
[2017-09-24] MEDS ORDERED: WARFARIN SODIUM 2.5 MG TAB PO ONE (16:00)
[2017-09-24] MEDS: traMADol 50 MG TAB PO SCH ×2 (18:06→23:47)
[2017-09-24] MEDS: ONDANSETRON DISINTEGRATING 4 MG TAB PO PRN (19:11)
[2017-09-25] MEDS: traMADol 50 MG TAB PO SCH ×2 (05:51→12:52)
[2017-09-25 06:26] LABS: INR 3.43 (0.83-1.16); PROTIME(PATIENT) 34.3 SEC (12.0-15.0)
--- NOTE | 2017-09-25 08:19 | SOAPPROG ---
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 - Continue Coumadin for thromboprophylaxis, INR goal 2-3, duration 3 months Bilateral loculated effusions s/p decortication with need for reexploration and evacuation of left chest hematoma - Stable Pre-op anemia with post-op acute blood anemia and coagulopathy requiring multiple transfusions - Stable - See blood bank section for details MRSA sepsis with septic emboli secondary to IV drug abuse - ABX as per ID ARF - 1475 cc UOP over 24 hours - Continue BID Lasix - Renal following VDRF - Weaned from ventilator and on nasal cannula Ileus - Resolved Left elbow swelling without signs of vascular issues - Pt reports elbow with improvement in pain - US deferred as pt on Coumadin and therapeutic Subjective: Walked 4 times yesterday. Limited by pain in feet. Denies SOB. Objective: Vital Signs Temp Pulse Resp BP Pulse Ox 36.5 C 107 H 16 130/75 H 97 09/25/17 07:05 09/25/17 07:05 09/25/17 07:05 09/25/17 07:05 09/25/17 07:05 Microbiology 09/20/17 02:25 Blood Culture - Final Blood 09/20/17 02:20 Blood Culture - Final Blood Laboratory Results 09/23/17 04:00 09/25/17 06:00 09/24/17 09/25/17 09/26/17 05:59 05:59 05:59 Intake Total 1800 1330 Output Total 1725 1475 Balance 75 -145 PT 34.3 SEC (12.0-15.0) H 09/25/17 06:00 INR 3.43 (0.83-1.16) H 09/25/17 06:00 Physical Exam - Physical Exam General Appearance: alert, cachetic, No no apparent distress EENT: No scleral icterus (R), No scleral icterus (L) Neck: normal inspection Respiratory: No respiratory distress Cardiac/Chest: regular rate, rhythm, tachycardia Abdomen: non-tender, soft, No distended Skin: embolic lesions Extremities: pedal edema Neuro/Psych: alert, normal mood/affect ICD10 Worksheet Patient Problems: Problems Problem Status Onset Acute blood loss anemia Acute Dehydration Acute Endocarditis of tricuspid valve Acute Hyponatremia Acute Renal failure Acute S/P tricuspid valve replacement Acute
--- NOTE | 2017-09-25 08:54 | SOAPPROG ---
SOAP Progress Note Assessment/Plan: Assessment/Plan: BRITNEY: likely ATN although could also have a complement mediated GN. Pt initially required dialysis, last dialyzed on 09/19. He now is nonoliguric with good UOP on Lasix, lytes ok, volume status improved. Cr peaked at 6.1 yesterday and today is down to 5.7. - No need for HD at this time, unlikely to require further dialysis here. - Will continue to monitor renal recovery. - Avoid hypotension and nephrotoxins. Hypervolemia: improving, pt nonoliguric, will continue Lasix. Hyperphosphatemia: pt on phoslo, phos coming down, will continue to monitor. Subjective: No acute events overnight. Pt states he could not sleep too well because the room felt a bit warm. His breathing is doing better each day, pain is well controlled with tramadol. He still has some swelling in his legs. He is planning to get out of bed to chair soon. Objective: Vital Signs Temp Pulse Resp BP Pulse Ox 36.5 C 107 H 16 130/75 H 97 09/25/17 07:05 09/25/17 07:05 09/25/17 07:05 09/25/17 07:05 09/25/17 07:05 Microbiology 09/20/17 02:25 Blood Culture - Final Blood 09/20/17 02:20 Blood Culture - Final Blood Laboratory Results 09/23/17 04:00 09/25/17 06:00 09/24/17 09/25/17 09/26/17 05:59 05:59 05:59 Intake Total 1800 1330 Output Total 1725 1475 Balance 75 -145 PT 34.3 SEC (12.0-15.0) H 09/25/17 06:00 INR 3.43 (0.83-1.16) H 09/25/17 06:00 General: alert and oriented, no acute distress Eyes: EOMI, PERRL OP: Clear CV: RRR Resp: slightly labored respirations on NC Abd: Soft, ND Ext: +edema Neuro: CN II-XII Grossly intact, no asterixis Psych: cooperative ICD10 Worksheet Patient Problems: Problems Problem Status Onset Acute blood loss anemia Acute Dehydration Acute Endocarditis of tricuspid valve Acute Hyponatremia Acute Renal failure Acute S/P tricuspid valve replacement Acute
[2017-09-25] MEDS: CALCIUM ACETATE 667 MG CAP PO SCH ×4 (09:01→21:50)
[2017-09-25] MEDS: METOPROLOL TARTRATE 25 MG TAB PO SCH ×2 (09:01→21:50)
[2017-09-25] MEDS: ASPIRIN 81 MG CHEWABLE TAB PO SCH (09:01)
[2017-09-25] MEDS: ALBUMIN 25% 100 ML IV SCH ×2 (09:02→15:33)
[2017-09-25] MEDS: FUROSEMIDE 40 MG/4 ML VIAL IVP SCH ×2 (09:02→15:34)
[2017-09-25] MEDS: MUPIROCIN 2% 22 GM OINT NS SCH (09:24)
[2017-09-25] MEDS: ONDANSETRON 4 MG/2 ML VIAL IVP PRN (09:37)
[2017-09-25] MEDS: oxyCODONE IR 5 MG TAB PO PRN ×2 (15:43→21:49)
--- NOTE | 2017-09-25 16:44 | PCMIDPN ---
Assessment/Plan: Assessment/Plan: * MRSA tricuspid valve endocarditis with multifocal soft tissue inflammatory change and septic pulmonary emboli status post tricuspid valve replacement: Valve culture with growth of MRSA. Blood cultures from 09/17/2017 no growth to date. Marked clinical improvement post valve replacement. Creatinine improving and no longer being dialyzed. Received vancomycin 1 g x1 yesterday. Will obtain random level in a.m. to see if he requires repeat dosing with plans to re-dose if less than 15. Plan 6 weeks of therapy post valve replacement ( stop date equals 10/28/2017). * Fever: Low-grade temperature to 38.1 overnight. Continue to observe this over time. 09/25/17 16:41 09/25/17 16:42 09/25/17 16:43 Subjective: Patient feels clinically much better. Making urine without further dialysis. Objective: Vital Signs Temp Pulse Resp BP Pulse Ox 36.7 C 95 16 138/83 H 99 09/25/17 16:00 09/25/17 16:00 09/25/17 16:00 09/25/17 16:00 09/25/17 16:00 Microbiology 09/16/17 09:25 Gram Stain - Final Heart - Tissue Anaerobic Culture - Final MRSA 09/20/17 02:25 Blood Culture - Final Blood 09/20/17 02:20 Blood Culture - Final Blood Laboratory Results 09/23/17 04:00 09/25/17 06:00 09/24/17 09/25/17 09/26/17 05:59 05:59 05:59 Intake Total 1800 1330 150 Output Total 1725 1475 1325 Balance 75 -145 -1175 Vancomycin # 20 (status post 1 g 09/24/2017) - Physical Exam General Appearance: alert, no apparent distress EENT: other (Scab over nasal bridge), No scleral icterus, No thrush, No conjunctival petechiae Respiratory: lungs clear (Anterolaterally), No respiratory distress Cardiac/Chest: regular rate, rhythm, systolic murmur (2/6 left upper sternal border), other (Sternotomy intact without erythema or drainage) Extremities: inflammation (Bilateral foot inflammatory change markedly decreased with more petechial appearance currently; inflammatory changes of her hands resolved) Abdomen: non-tender, No distended - Line/s RUE PICC Lines: No drainage, No erythema ICD10 Worksheet Patient Problems: Problems Problem Status Onset Acute blood loss anemia Acute Dehydration Acute Endocarditis of tricuspid valve Acute Hyponatremia Acute Renal failure Acute S/P tricuspid valve replacement Acute
--- NOTE | 2017-09-25 17:26 | HOSPPROG ---
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 -hemodialysis per renal * Volume overload -IV lasix * Acute respiratory failure s/p extubation * ABL anemia * IVDA * Hep C * Tobacco dependence Subjective: c/o leg pain - asking for narcotics Objective: Vital Signs Temp Pulse Resp BP Pulse Ox 36.7 C 95 16 138/83 H 99 09/25/17 16:00 09/25/17 16:00 09/25/17 16:00 09/25/17 16:00 09/25/17 16:00 Microbiology 09/16/17 09:25 Gram Stain - Final Heart - Tissue Anaerobic Culture - Final MRSA 09/20/17 02:25 Blood Culture - Final Blood 09/20/17 02:20 Blood Culture - Final Blood Laboratory Results 09/23/17 04:00 09/25/17 06:00 09/24/17 09/25/17 09/26/17 05:59 05:59 05:59 Intake Total 1800 1330 150 Output Total 1725 1475 1325 Balance 75 -145 -1175 PT 34.3 SEC (12.0-15.0) H 09/25/17 06:00 INR 3.43 (0.83-1.16) H 09/25/17 06:00 CT Chest - septic pulmonary emboli CXR viewed, my personal interpretation is - CHF - Physical Exam Constitutional: no apparent distress, appears nourished, not in pain Cardiovascular: regular rate and rhythym, no murmur, rub, or gallop, edema Respiratory: no respiratory distress, no rales or rhonchi, clear to auscultation Gastrointestinal: normoactive bowel sounds, soft, non-tender abdomen, no palpable masses Skin: no rashes or abrasions, no fluctuance, no induration Neurologic: AAOx3, sensation intact bilaterally Psychiatric: interacting appropriately, not anxious, not encephalopathic, thought process linear ICD10 Worksheet Patient Problems: Problems Problem Status Onset Acute blood loss anemia Acute Dehydration Acute Endocarditis of tricuspid valve Acute Hyponatremia Acute Renal failure Acute S/P tricuspid valve replacement Acute
[2017-09-25] MEDS ORDERED: HYDROmorphone HCL/NS 0.5 MG/ML SYR IVP PRN (18:00)
[2017-09-25] MEDS: ACETAMINOPHEN 325 MG TAB PO PRN (21:49)
[2017-09-26] MEDS: traMADol 50 MG TAB PO PRN ×3 (06:11→23:03)
[2017-09-26 07:19] LABS: INR 3.03 (0.83-1.16); PROTIME(PATIENT) 31.2 SEC (12.0-15.0)
--- NOTE | 2017-09-26 07:46 | SOAPPROG ---
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 - Continue Coumadin for thromboprophylaxis, INR goal 2-3, duration 3 months Bilateral loculated effusions s/p decortication with need for reexploration and evacuation of left chest hematoma - Stable Pre-op anemia with post-op acute blood anemia and coagulopathy requiring multiple transfusions - Stable - See blood bank section for tranfusion details MRSA sepsis with septic emboli secondary to IV drug abuse - ABX as per ID - Cultures resent for increasing WBC as well as elevated temp ARF - UOP increasing - Continue BID Lasix - Renal following VDRF - Weaned from ventilator and on nasal cannula Ileus - Resolved Left elbow swelling without signs of vascular issues - Pt reports elbow with improvement in pain - US deferred as pt on Coumadin and therapeutic BLE pain - Doppler ordered to r/o DVT although low suspicion Subjective: c/o BLE pain Objective: Vital Signs Temp Pulse Resp BP Pulse Ox 36.8 C 94 16 139/89 H 100 09/26/17 04:00 09/26/17 04:00 09/26/17 04:00 09/26/17 04:00 09/26/17 04:00 Microbiology 09/16/17 09:25 Gram Stain - Final Heart - Tissue Anaerobic Culture - Final MRSA 09/20/17 02:25 Blood Culture - Final Blood 09/20/17 02:20 Blood Culture - Final Blood Laboratory Results 09/26/17 06:10 09/26/17 06:10 09/25/17 09/26/17 09/27/17 05:59 05:59 05:59 Intake Total 1330 1630 Output Total 1475 3650 Balance -145 -2019 PT 31.2 SEC (12.0-15.0) H 09/26/17 06:10 INR 3.03 (0.83-1.16) H 09/26/17 06:10 Physical Exam - Physical Exam General Appearance: alert, cachetic EENT: No scleral icterus (R), No scleral icterus (L) Neck: normal inspection Respiratory: No respiratory distress Cardiac/Chest: tachycardia Abdomen: non-tender, soft, No distended Skin: normal color, warm/dry Extremities: pedal edema Neuro/Psych: no motor/sensory deficits, alert, normal mood/affect ICD10 Worksheet Patient Problems: Problems Problem Status Onset Acute blood loss anemia Acute Dehydration Acute Endocarditis of tricuspid valve Acute Hyponatremia Acute Renal failure Acute S/P tricuspid valve replacement Acute
[2017-09-26] MEDS: ACETAMINOPHEN 325 MG TAB PO PRN ×3 (08:27→20:25)
[2017-09-26] MEDS: ASPIRIN 81 MG CHEWABLE TAB PO SCH (08:28)
[2017-09-26] MEDS: METOPROLOL TARTRATE 25 MG TAB PO SCH ×2 (08:28→20:29)
[2017-09-26] MEDS: oxyCODONE IR 5 MG TAB PO PRN ×3 (08:28→20:26)
[2017-09-26] MEDS: CALCIUM ACETATE 667 MG CAP PO SCH ×3 (09:58→20:26)
[2017-09-26] MEDS: FUROSEMIDE 40 MG/4 ML VIAL IVP SCH ×2 (09:59→15:23)
--- NOTE | 2017-09-26 10:22 | SOAPPROG ---
SOAP Progress Note Assessment/Plan: Assessment: 1. BRITNEY Now in the polyuric recovery phase. Volume status looks ok. He has crackles in bases; follow, suspect atelectasis. Follow Na level. He should be having a major osmotic diuresis. Even on lasix, doubt he will become more hyponatremic, but will follow lytes. Unclear role of loop diuretic in recovery phase of ATN. I will leave on for now , and d/w CT surgery. 2. Post op CTS Valve replacement Doing pretty well. 09/26/17 10:19 Subjective: Eating well, doing ok Objective: Vital Signs Temp Pulse Resp BP Pulse Ox 36.5 C 102 H 18 131/82 H 98 09/26/17 07:59 09/26/17 07:59 09/26/17 07:59 09/26/17 07:59 09/26/17 07:59 Microbiology 09/16/17 09:25 Gram Stain - Final Heart - Tissue Anaerobic Culture - Final MRSA 09/20/17 02:25 Blood Culture - Final Blood 09/20/17 02:20 Blood Culture - Final Blood Laboratory Results 09/26/17 06:10 09/26/17 06:10 09/25/17 09/26/17 09/27/17 05:59 05:59 05:59 Intake Total 1330 1630 Output Total 1475 3650 Balance -145 -2019 PT 31.2 SEC (12.0-15.0) H 09/26/17 06:10 INR 3.03 (0.83-1.16) H 09/26/17 06:10 Physical Exam - Physical Exam General Appearance: no apparent distress Respiratory: crackles (bilateral bases) Cardiac/Chest: regular rate, rhythm Extremities: normal inspection Neuro/Psych: oriented x 3 ICD10 Worksheet Patient Problems: Problems Problem Status Onset Acute blood loss anemia Acute Dehydration Acute Endocarditis of tricuspid valve Acute Hyponatremia Acute Renal failure Acute S/P tricuspid valve replacement Acute
[2017-09-26] MEDS ORDERED: PROTOCOL POTASSIUM 1 DOSE MISC PRN (12:13)
[2017-09-26] MEDS ORDERED: VANCOMYCIN HCL/NORMAL SALINE 250 ML IV ONE (14:45)
--- NOTE | 2017-09-26 15:16 | HOSPPROG ---
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 Today, that pain is gone, now only pain behind right knee and some shoulder pain. Objective: Vital Signs Temp Pulse Resp BP Pulse Ox 36.8 C 100 18 121/77 H 98 09/26/17 12:00 09/26/17 12:00 09/26/17 12:00 09/26/17 12:00 09/26/17 12:00 Microbiology 09/16/17 09:25 Mycobacterial Smear (STEPHANIE) - Final Heart - Tissue 09/16/17 09:25 Gram Stain - Final Heart - Tissue Anaerobic Culture - Final MRSA Laboratory Results 09/26/17 06:10 09/26/17 06:10 09/25/17 09/26/17 09/27/17 05:59 05:59 05:59 Intake Total 1330 1630 Output Total 1475 3650 650 Balance -145 -2020 -650 PT 31.2 SEC (12.0-15.0) H 09/26/17 06:10 INR 3.03 (0.83-1.16) H 09/26/17 06:10 CXR viewed, my personal interpretation is - patchy bilateral infiltrates US leg - no DVT - Physical Exam Constitutional: no apparent distress, appears nourished, not in pain Cardiovascular: regular rate and rhythym, no murmur, rub, or gallop Respiratory: no respiratory distress, no rales or rhonchi, clear to auscultation Gastrointestinal: normoactive bowel sounds, soft, non-tender abdomen, no palpable masses Skin: no rashes or abrasions, no fluctuance, no induration Neurologic: AAOx3, sensation intact bilaterally Psychiatric: interacting appropriately, not anxious, not encephalopathic, thought process linear ICD10 Worksheet Patient Problems: Problems Problem Status Onset Acute blood loss anemia Acute Dehydration Acute Endocarditis of tricuspid valve Acute Hyponatremia Acute Renal failure Acute S/P tricuspid valve replacement Acute
--- NOTE | 2017-09-26 15:40 | ASMTCMCOM ---
CM Note CM Note Notes: 09/26/2017 Case Management Note Met w/pt, eleni Crane [phone] and Mother Shu [phone] to discuss d/c needs. TONI Noriega was present in the room. Pt is current with Medicaid in [place]. Pt was working in [place] with his eleni and mother until November 04. They plan to move onto another job in a dfferent state afterwards. Pt reports sobriety of illicit drugs for approximately 1 year with a recent relapse prior to admission. Pt is not connected to services in [place] for support to maintain sobriety. Pt applied for Care. Requested case management check on status of application. Left for financial counseling requesting visit with pt. Pt Father Dominic Colon [phone] out to [place] at d/c to drive Rosa Maria and pt back to [place]. PT discussed travel options with TONI Noriega who requested pt discuss appropriateness of travel plans at d/ with MD. Pt recent IV drug use makes d/c with PICC challenging. Informed pt of outpatient infusion clinic services here at [facility]. Rosa Maria and Shu are staying in an air [place] & [facility] while working in [place]. Pt prefers to return to [place] for IV abx treatment d/t cost. Pt will not qualify for SNF rehab d/t [place] Medicaid. Pt and family are unable to pay for SNF rehab out of pocket. Case Management d/c poc: to be determined. Case Management to follow. Date Signed: 09/26/2017 03:39 PM Electronically Signed By:Kate Marcelino RN
[2017-09-26] MEDS: CYCLOBENZAPRINE 10 MG TAB PO PRN (15:46)
[2017-09-26] MEDS ORDERED: WARFARIN SODIUM 2 MG TAB PO ONE (16:00)
--- NOTE | 2017-09-26 16:34 | PCMIDPN ---
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 Blood cx cleared as of 09/17. Heart tissue cx were positive from OR. Post op course complicated by Mediastinal reexploration and evacuation of left chest hematoma --Random vancomycin 15 today, give dose vancomycin 1gm --will need 6 weeks IV antibiotics, start date 09/16/17, stop 10/28/17 # ARF: 09/19 last HD, Seems to be stabilizing - Good UOP , Cr down to 5.1 # Fever, leukocytosis, new R joint effusion, fullness and warmth, DVT study negative. No diarrhea. No rash --aspiration by IR --also could consider chest imaging but stable O2 sat and no new resp sx microbiology 09/05 and 09/08 blood cx (2) MRSA, vancomycin STEPHANIE = 1 09/07 great toe: MRSA 09/11 blood cx (2) NGTD 09/13 blood cx (2) MRSA, vancomycin STEPHANIE = 1 09/16 valve: MRSA, vancomycin STEPHANIE = 1 09/17 blood cx (2) Neg 09/19 sputum : MRSA 09/20 blood cx (2) NGTD 09/25 blood cx (2) pending meds Vancomycin Dosed for levels, D#21 Subjective: no diarrhea R posterior knee pain x 2 days. Mild back pain, mid thoracic level no dysuria appetite still relatively low but generally stable Objective: Vital Signs Temp Pulse Resp BP Pulse Ox 36.8 C 100 18 121/77 H 98 09/26/17 12:00 09/26/17 12:00 09/26/17 12:00 09/26/17 12:00 09/26/17 12:00 Microbiology 09/16/17 09:25 Mycobacterial Smear (STEPHANIE) - Final Heart - Tissue 09/16/17 09:25 Gram Stain - Final Heart - Tissue Anaerobic Culture - Final MRSA Laboratory Results 09/26/17 06:10 09/26/17 06:10 09/25/17 09/26/17 09/27/17 05:59 05:59 05:59 Intake Total 1330 1630 Output Total 1475 3650 650 Balance -145 -650 Gen: cooperative, no resp distress HEENT: no oral thrush CV: tachy RR no murmur Chest : decreased bs in bases, no crackles Abd: soft NT +BS Neuro: LE strength intact Skin: scab over nose; scattered LE petechiae Ext: R posterior knee with tenderness and fullness extending into hamstring, no erythema + warmth relative L knee. ROM B knees intact RUE PICC c/d/i, no swelling no arellano ICD10 Worksheet Patient Problems: Problems Problem Status Onset Acute blood loss anemia Acute Dehydration Acute Endocarditis of tricuspid valve Acute Hyponatremia Acute Renal failure Acute S/P tricuspid valve replacement Acute
[2017-09-26] MEDS ORDERED: POTASSIUM CL 10 MEQ TAB PO ONE (20:19)
[2017-09-26] MEDS ORDERED: POTASSIUM CL 20 MEQ TAB PO ONE (22:39)
[2017-09-27] MEDS: traMADol 50 MG TAB PO PRN ×3 (05:42→20:09)
[2017-09-27 06:10] LABS: INR 2.42 (0.83-1.16); PROTIME(PATIENT) 26.3 SEC (12.0-15.0)
--- NOTE | 2017-09-27 06:11 | SOAPPROG ---
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 - Continue Coumadin for thromboprophylaxis, INR goal 2-3, duration 3 months Bilateral loculated effusions s/p decortication with need for reexploration and evacuation of left chest hematoma - Stable Pre-op anemia with post-op acute blood anemia and coagulopathy requiring multiple transfusions - Stable - See blood bank section for transfusion details MRSA sepsis with septic emboli secondary to IV drug abuse - ABX as per ID - Cultures resent for increasing WBC as well as elevated temp ARF - UOP increasing - Continue BID Lasix - Renal following VDRF - Weaned from ventilator and on nasal cannula Ileus - Resolved Left elbow swelling/pain without signs of vascular issues - Resolved Bilateral LE pain - Negative for DVT Subjective: Pt c/o BL knee pain. Difficult to walk d/t pain. Objective: Vital Signs Temp Pulse Resp BP Pulse Ox 36.8 C 107 H 16 121/76 H 97 09/26/17 23:25 09/26/17 23:25 09/26/17 23:25 09/26/17 23:25 09/26/17 23:25 Microbiology 09/16/17 09:25 Mycobacterial Smear (STEPHANIE) - Final Heart - Tissue 09/26/17 09/27/17 09/28/17 05:59 05:59 05:59 Intake Total 1630 Output Total 3650 1475 Balance -2019 -1474 PT 26.3 SEC (12.0-15.0) H 09/27/17 05:50 INR 2.42 (0.83-1.16) H 09/27/17 05:50 Physical Exam - Physical Exam General Appearance: alert, no apparent distress, cachetic EENT: No scleral icterus (R), No scleral icterus (L) Neck: normal inspection Respiratory: No respiratory distress Cardiac/Chest: tachycardia Abdomen: non-tender, soft, No distended Skin: normal color, warm/dry Extremities: pedal edema Neuro/Psych: alert, normal mood/affect ICD10 Worksheet Patient Problems: Problems Problem Status Onset Acute blood loss anemia Acute Dehydration Acute Endocarditis of tricuspid valve Acute Hyponatremia Acute Renal failure Acute S/P tricuspid valve replacement Acute
[2017-09-27] MEDS: oxyCODONE IR 5 MG TAB PO PRN ×4 (07:26→21:40)
[2017-09-27] MEDS ORDERED: POTASSIUM CL 10 MEQ TAB PO ONE ×2 (07:58→19:36)
--- NOTE | 2017-09-27 08:00 | SOAPPROG ---
SOAP Progress Note Assessment/Plan: Assessment: #BRITNEY- -suspect ATN in setting of septic shock, contrast, endocarditis, vanco. Could also have infection mediated GN but management same. -Cr improving, in recovery phase. 2.2 L UOP with lasix-- monitor lytes closely. Na 136 and slowly rising- suspect it will continue to do so and would not overly restrict his free water intake. Ok to continue lasix as still volume up. #high phos- continue Ca Acetate binder for now, renal diet- should improve as Cr continues to improve #TV endocarditis- MRSA in cultures, +pulm infarcts -s/p valve replacment 09/16/17, decortication exudative effusion -ID following---vancomycin dosing per pharmacy- following levels given BRITNEY. Plans to continue 6 weeks through 10/28 #positive Hep C Ab #deconditioning- working with PT #anemia acute illness I discussed with [employer] and MD Minna Coppola MD [facility] [phone] pager 09/27/17 09:51 Subjective: Just worked with PT, ambulated some. Denies sob, cp. +LE Edema and generalized weakness. Appetite not great but no n/v. UOP 2.2 L on lasix. Objective: Vital Signs Temp Pulse Resp BP Pulse Ox 37.1 C 120 H 20 137/97 H 94 09/27/17 07:08 09/27/17 07:08 09/27/17 07:08 09/27/17 07:08 09/27/17 07:08 Microbiology 09/16/17 09:25 Mycobacterial Smear (STEPHANIE) - Final Heart - Tissue Laboratory Results 09/27/17 05:50 09/27/17 05:50 09/26/17 09/27/17 09/28/17 05:59 05:59 05:59 Intake Total 1630 500 Output Total 3650 2275 Balance -2019 PT 26.3 SEC (12.0-15.0) H 09/27/17 05:50 INR 2.42 (0.83-1.16) H 09/27/17 05:50 Physical Exam - Physical Exam General Appearance: alert, no apparent distress, other (sitting in recliner) EENT: other (mmm) Respiratory: lungs clear Cardiac/Chest: regular rate, rhythm Abdomen: non-tender, soft Skin: warm/dry Extremities: other (++edema bilat lE) Neuro/Psych: alert, oriented x 3 ICD10 Worksheet Patient Problems: Problems Problem Status Onset Acute blood loss anemia Acute Dehydration Acute Endocarditis of tricuspid valve Acute Hyponatremia Acute Renal failure Acute S/P tricuspid valve replacement Acute
[2017-09-27] MEDS: ASPIRIN 81 MG CHEWABLE TAB PO SCH (09:04)
[2017-09-27] MEDS: METOPROLOL TARTRATE 25 MG TAB PO SCH ×2 (09:04→20:09)
[2017-09-27] MEDS: FUROSEMIDE 40 MG/4 ML VIAL IVP SCH (09:05)
[2017-09-27] MEDS: CALCIUM ACETATE 667 MG CAP PO SCH ×3 (09:05→17:33)
[2017-09-27] MEDS: ONDANSETRON DISINTEGRATING 4 MG TAB PO PRN (13:19)
--- NOTE | 2017-09-27 13:53 | PCMIDPN ---
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 Blood cx cleared as of 09/17. Heart tissue cx were positive from OR. Post op course complicated by Mediastinal reexploration and evacuation of left chest hematoma --Random vancomycin 19 today, recheck random vancomycin level tomorrow --will need prolonged IV antibiotic therapy, possibly up to 8 weeks of find disease in his back # ARF: 09/19 last HD, Good UOP , Cr continues to improve. Closely monitor vancomycin levels in light of difficult to predict renal function # Fever, leukocytosis: fullness R popliteal fossa, pain at levels T spine, L spine pain. 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 Back pain localizes to both lumbar and thoracic levels no diarrhea patient already ambulated once today Objective: Vital Signs Temp Pulse Resp BP Pulse Ox 36.9 C 107 H 16 127/89 H 94 09/27/17 12:35 09/27/17 12:35 09/27/17 12:35 09/27/17 12:35 09/27/17 12:35 Microbiology 09/16/17 09:25 Mycobacterial Smear (STEPHANIE) - Final Heart - Tissue Laboratory Results 09/27/17 05:50 09/27/17 05:50 09/26/17 09/27/17 09/28/17 05:59 05:59 05:59 Intake Total 1630 500 300 Output Total 3650 2275 600 Balance -2020 -1775 -300 - Physical Exam General Appearance: alert, thin EENT: poor dentition, other (no oral thrush no ulcers) Respiratory: other (decrease bs bases), No accessory muscle use, No crackles Cardiac/Chest: regular rate, rhythm, No systolic murmur Extremities: pedal edema (R>L 1+), other ( erythema associated with bilateral great toes much improved) Abdomen: normal bowel sounds, non-tender, soft Male Genitalia: No arellano Back: spine tenderness (over T spine most prominently) Skin: rash (Petechiae scattered on trunk and upper thighs most prominent on feet bilaterally) Neuro/Psych: alert, normal mood/affect, oriented x 3 - Line/s RUE PICC Lines: No drainage, No erythema - Time Spent With Patient Time Spent with Patient: greater than 35 minutes (care coordinated with Dr. Mena Mcintosh) Time Spent with Patient: Greater than 35 minutes spent on this patients care, greater than 50% of time spent counseling, educating, and coordinating care regarding the above mentioned plan. ICD10 Worksheet Patient Problems: Problems Problem Status Onset Acute blood loss anemia Acute Dehydration Acute Endocarditis of tricuspid valve Acute Hyponatremia Acute Renal failure Acute S/P tricuspid valve replacement Acute
[2017-09-27] MEDS ORDERED: WARFARIN SODIUM 5 MG TAB PO ONE (16:00)
[2017-09-27] MEDS: POLYETHYLENE GLYCOL 3350 17 GM PKT PO PRN (16:11)
[2017-09-27] MEDS: SENNOSIDES/DOCUSATE SODIUM TAB PO PRN ×2 (16:11→21:39)
--- NOTE | 2017-09-27 17:59 | HOSPPROG ---
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 This would improve his availability of proper care post discharge ie IV antibiotics for which he currently dose not have coverage for. Subjective: Mid thoracic back pain Objective: Vital Signs Temp Pulse Resp BP Pulse Ox 37.3 C 121 H 20 144/103 H 98 09/27/17 16:00 09/27/17 16:00 09/27/17 16:00 09/27/17 16:00 09/27/17 16:00 Microbiology 09/16/17 09:25 Mycobacterial Smear (STEPHANIE) - Final Heart - Tissue Laboratory Results 09/27/17 05:50 09/27/17 05:50 09/26/17 09/27/17 09/28/17 05:59 05:59 05:59 Intake Total 8461 466 4241 Output Total 3650 2275 1525 Balance -2019 -1775 -500 PT 26.3 SEC (12.0-15.0) H 09/27/17 05:50 INR 2.42 (0.83-1.16) H 09/27/17 05:50 d/w Dr. birch regarding alternative possibilities of staph seeding MRI C/T/L spine - no epidural abscess - Physical Exam Constitutional: no apparent distress, appears nourished, not in pain Cardiovascular: regular rate and rhythym, systolic murmur Respiratory: no respiratory distress, no rales or rhonchi, clear to auscultation Gastrointestinal: normoactive bowel sounds, soft, non-tender abdomen, no palpable masses Skin: rash, No mottled, No erythema, No induration Neurologic: AAOx3, sensation intact bilaterally Psychiatric: interacting appropriately, not anxious, not encephalopathic, thought process linear ICD10 Worksheet Patient Problems: Problems Problem Status Onset Acute blood loss anemia Acute Dehydration Acute Endocarditis of tricuspid valve Acute Hyponatremia Acute Renal failure Acute S/P tricuspid valve replacement Acute
[2017-09-28] MEDS: oxyCODONE IR 5 MG TAB PO PRN ×4 (02:06→18:48)
[2017-09-28 06:03] LABS: INR 3.05 (0.83-1.16); PROTIME(PATIENT) 31.4 SEC (12.0-15.0)
--- NOTE | 2017-09-28 06:19 | SOAPPROG ---
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 - Continue Coumadin for thromboprophylaxis, INR goal 2-3, duration 3 months Bilateral loculated effusions s/p decortication with need for reexploration and evacuation of left chest hematoma - Stable Pre-op anemia with post-op acute blood anemia and coagulopathy requiring multiple transfusions - Stable - See blood bank section for transfusion details MRSA sepsis with septic emboli secondary to IV drug abuse - ABX as per ID - Repeat cultures negative to date ARF - UOP increasing, Cr trending lower - Continue BID Lasix - Renal following VDRF - Weaned from ventilator and on nasal cannula Ileus - Resolved Left elbow swelling/pain without signs of vascular issues - Resolved Bilateral LE pain - Negative for DVT - Resolved DVT prophylaxis - SCDs/Coumadin Subjective: Pain better. More mobile. Still needs assistance walking. Objective: Vital Signs Temp Pulse Resp BP Pulse Ox 36.9 C 120 H 17 140/92 H 96 09/28/17 04:00 09/28/17 04:00 09/28/17 04:00 09/28/17 04:00 09/28/17 04:00 Laboratory Results 09/28/17 05:41 09/27/17 09/28/17 09/29/17 05:59 05:59 05:59 Intake Total 500 1425 Output Total 2275 2525 Balance -1775 -1100 PT 31.4 SEC (12.0-15.0) H 09/28/17 05:41 INR 3.05 (0.83-1.16) H 09/28/17 05:41 Physical Exam - Physical Exam General Appearance: alert, no apparent distress, cachetic EENT: No scleral icterus (R), No scleral icterus (L) Neck: normal inspection Respiratory: No respiratory distress Cardiac/Chest: tachycardia Abdomen: non-tender, soft, No distended Skin: normal color, warm/dry Extremities: pedal edema Neuro/Psych: no motor/sensory deficits, alert, normal mood/affect ICD10 Worksheet Patient Problems: Problems Problem Status Onset Acute blood loss anemia Acute Dehydration Acute Endocarditis of tricuspid valve Acute Hyponatremia Acute Renal failure Acute S/P tricuspid valve replacement Acute
[2017-09-28 06:58] LABS: PLATELET COUNT 222 10^3/uL (150-400)
[2017-09-28] MEDS: FUROSEMIDE 40 MG/4 ML VIAL IVP SCH ×2 (09:38→15:57)
[2017-09-28] MEDS: CALCIUM ACETATE 667 MG CAP PO SCH ×3 (09:38→18:48)
[2017-09-28] MEDS: METOPROLOL TARTRATE 25 MG TAB PO SCH ×2 (09:39→21:47)
[2017-09-28] MEDS: ASPIRIN 81 MG CHEWABLE TAB PO SCH (09:39)
[2017-09-28] MEDS ORDERED: VANCOMYCIN HCL/NORMAL SALINE 250 ML IV ONE (10:19)
--- NOTE | 2017-09-28 10:31 | PCMIDPN ---
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 Patient is status post tricuspid valve excision and replacement with a bioprosthetic. His blood cultures have remained negative since surgery. He is slowly improving. Plan to continue IV vancomycin p.r.n. For now although with his creatinine continuing to improve he may need to move to a schedule dosing system soon. Will dose 1 g x1 today. Will recheck random vanc level tomorrow a.m.. Plan: 1. Continue vancomycin dosed as needed. 2. Follow creatinine improvement. 3. Follow clinical course and improvement. Subjective: Patient is lying in his hospital bed. States that he is improving. No new complaint. Still quite tired and weak. Objective: Vancomycin # 23 Vital Signs Temp Pulse Resp BP Pulse Ox 36.7 C 119 H 12 133/92 H 97 09/28/17 07:31 09/28/17 07:31 09/28/17 07:31 09/28/17 07:31 09/28/17 07:31 Laboratory Results 09/28/17 05:41 09/28/17 05:41 09/27/17 09/28/17 09/29/17 05:59 05:59 05:59 Intake Total 500 1425 Output Total 2275 2525 Balance -1775 -1100 - Physical Exam General Appearance: WD/WN, alert, no apparent distress, non-toxic Respiratory: lungs clear, crackles, No normal breath sounds (Decreased breath sounds bases.), No respiratory distress, No stridor, No wheezing, No coarse breath sounds Cardiac/Chest: regular rate, rhythm, tachycardia, No systolic murmur Extremities: non-tender, No normal inspection (Vasculitic skin lesions on bilateral knees.) Skin: normal color, warm/dry, rash (As above.) Neuro/Psych: alert, normal mood/affect, oriented x 3 ICD10 Worksheet Patient Problems: Problems Problem Status Onset Acute blood loss anemia Acute Dehydration Acute Endocarditis of tricuspid valve Acute Hyponatremia Acute Renal failure Acute S/P tricuspid valve replacement Acute
[2017-09-28] MEDS: POLYETHYLENE GLYCOL 3350 17 GM PKT PO PRN (10:57)
[2017-09-28] MEDS ORDERED: MAGNESIUM SULF 2 GM/WATER 50 ML IV ONE (11:17)
--- NOTE | 2017-09-28 11:21 | SOAPPROG ---
SOAP Progress Note Assessment/Plan: Assessment: 1. BRITNEY Cr falling. Excellent UO, but remains quite overloaded. On lasix. Discussed with patient that I expect residual CKD following this. 2. Endocarditis Cultures negative. Remains on Vanco. Pharm and ID following levels. 3. Anemia Will begin weekly procrit 4. Lytes Supplement Mg. Subjective: No Complaints Objective: Vital Signs Temp Pulse Resp BP Pulse Ox 36.7 C 119 H 12 133/92 H 97 09/28/17 07:31 09/28/17 07:31 09/28/17 07:31 09/28/17 07:31 09/28/17 07:31 Laboratory Results 09/28/17 05:41 09/28/17 05:41 09/27/17 09/28/17 09/29/17 05:59 05:59 05:59 Intake Total 500 1425 Output Total 2275 2525 Balance -1775 -1100 PT 31.4 SEC (12.0-15.0) H 09/28/17 05:41 INR 3.05 (0.83-1.16) H 09/28/17 05:41 Physical Exam - Physical Exam General Appearance: no apparent distress Respiratory: decreased breath sounds Cardiac/Chest: tachycardia Extremities: pedal edema (3), swelling (3+ B) Neuro/Psych: oriented x 3 ICD10 Worksheet Patient Problems: Problems Problem Status Onset Acute blood loss anemia Acute Dehydration Acute Endocarditis of tricuspid valve Acute Hyponatremia Acute Renal failure Acute S/P tricuspid valve replacement Acute
--- NOTE | 2017-09-28 13:58 | HOSPPROG ---
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 * Septic shock - MRSA -IV Vanco -recurrence of fever and leukocytosis continues to trend up - watch for alternative site of seeding -C/T/L spine MRI w/o contrast performed without e/o discitis, C spine with some question and consider repeat w/con if able * TV endocarditis -s/p TV debridement and replacement 09/16 -per CT surgery - warfarin for 3 months - goal INR 2-3 * Septic pulmonary emboli * Mediastinal hematoma s/p evacuation * Exudative/hemorrhagic pleural effusion due to septic pulmonary emboli -s/p decortication * 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 Old records reviewed and summarized as above. Subjective: no significant overnight events, patient somnolent but denies pain or difficulty breathing Objective: Vital Signs Temp Pulse Resp BP Pulse Ox 36.9 C 112 H 20 139/93 H 94 09/28/17 12:00 09/28/17 12:00 09/28/17 12:00 09/28/17 12:00 09/28/17 12:00 Laboratory Results 09/28/17 05:41 09/28/17 05:41 09/27/17 09/28/17 09/29/17 05:59 05:59 05:59 Intake Total 500 1425 Output Total 2275 2525 Balance -1775 -1100 PT 31.4 SEC (12.0-15.0) H 09/28/17 05:41 INR 3.05 (0.83-1.16) H 09/28/17 05:41 awake alert ill appearing anicteric op clear tachy regular distant cta to ant exam soft nt nd 2-3+ pitting edema warm dry well perfused oriented but tangential ICD10 Worksheet Patient Problems: Problems Problem Status Onset Acute blood loss anemia Acute S/P tricuspid valve replacement Acute Endocarditis of tricuspid valve Acute Renal failure Acute Hyponatremia Acute Dehydration Acute
[2017-09-28] MEDS ORDERED: POTASSIUM CL 10 MEQ TAB PO ONE (15:18)
[2017-09-28] MEDS ORDERED: WARFARIN SODIUM 2.5 MG TAB PO ONE (16:00)
[2017-09-28] MEDS: ONDANSETRON 4 MG/2 ML VIAL IVP PRN (19:28)
[2017-09-28] MEDS: traMADol 50 MG TAB PO PRN (21:47)
[2017-09-28] MEDS ORDERED: FUROSEMIDE 40 MG/4 ML VIAL IVP ONE (23:06)
[2017-09-28] MEDS ORDERED: POTASSIUM CL 20 MEQ TAB PO ONE (23:36)
[2017-09-29] MEDS: ACETAMINOPHEN 325 MG TAB PO PRN (00:34)
[2017-09-29] MEDS: oxyCODONE IR 5 MG TAB PO PRN ×5 (00:35→21:27)
[2017-09-29] MEDS: CYCLOBENZAPRINE 10 MG TAB PO PRN (00:35)
[2017-09-29] MEDS: ORAL BALANCE GEL TUBE PO PRN ×2 (06:24→08:19)
[2017-09-29 07:22] LABS: PLATELET COUNT 227 10^3/uL (150-400)
[2017-09-29] MEDS ORDERED: FUROSEMIDE 100 MG in D5W 100 ML IV SCH (07:45)
[2017-09-29 08:05] LABS: INR 2.63 (0.83-1.16)
[2017-09-29] MEDS: ASPIRIN 81 MG CHEWABLE TAB PO SCH (08:07)
[2017-09-29] MEDS: traMADol 50 MG TAB PO PRN (08:07)
[2017-09-29] MEDS: METOPROLOL TARTRATE 25 MG TAB PO SCH ×2 (08:08→21:19)
[2017-09-29] MEDS: SENNOSIDES/DOCUSATE SODIUM TAB PO SCH ×2 (08:08→21:19)
[2017-09-29] MEDS: CALCIUM ACETATE 667 MG CAP PO SCH ×3 (08:08→17:32)
[2017-09-29] MEDS: ONDANSETRON DISINTEGRATING 4 MG TAB PO PRN (11:30)
[2017-09-29] MEDS ORDERED: FUROSEMIDE 100 MG in NS 100 ML IV SCH (13:00)
--- NOTE | 2017-09-29 13:21 | SOAPPROG ---
SOAP Progress Note Assessment/Plan: Assessment/Plan: 37 y/o M with h/o IVDA with endocarditis and BRITNEY requiring HD, now showing signs of recovery. BRITNEY 2/2 to ATN - UO 1.7L yest - Cr trending down to 3.9mg/dL from 4.5 yesterday - No need for HD at this time - Keep MAP>65 - Avoid hypotension and nephrotoxins Hypervolemia: Improving, O2 sats and BP's ok. Continue lasix for now, may dose down if needed as bicarb is starting to increase. Hyperphosphatemia: Phos improved to 4.5 on binder, continue for now. Lytes: Replete Mg+ Endocarditis: Cx's NTD 09/29/17 14:18 Subjective: Patient resting comfortably. Family at bedside. Making good UO. Objective: Vital Signs Temp Pulse Resp BP Pulse Ox 36.8 C 95 18 136/94 H 99 09/29/17 12:00 09/29/17 12:00 09/29/17 12:00 09/29/17 12:00 09/29/17 12:00 Laboratory Results 09/29/17 06:30 09/29/17 06:30 09/28/17 09/29/17 09/30/17 05:59 05:59 05:59 Intake Total 1425 850 250 Output Total 2525 1750 200 Balance -1100 -900 50 PT 28.0 SEC (12.0-15.0) H 09/29/17 07:25 INR 2.63 (0.83-1.16) H 09/29/17 07:25 Physical Exam - Physical Exam General Appearance: WD/WN, alert, no apparent distress EENT: PERRL/EOMI, pharynx normal Neck: non-tender, full range of motion, supple Respiratory: chest non-tender, lungs clear, normal breath sounds Cardiac/Chest: normal peripheral pulses, regular rate, rhythm, edema Abdomen: normal bowel sounds, non-tender, soft Skin: normal color, warm/dry, diaphoresis Extremities: normal range of motion, non-tender Neuro/Psych: no motor/sensory deficits, alert, oriented x 3 ICD10 Worksheet Patient Problems: Problems Problem Status Onset Acute blood loss anemia Acute Dehydration Acute Endocarditis of tricuspid valve Acute Hyponatremia Acute Renal failure Acute S/P tricuspid valve replacement Acute
--- NOTE | 2017-09-29 14:27 | HOSPPROG ---
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 * Septic shock - MRSA -IV Vanco -recurrence of fever and leukocytosis continues to trend up - watch for alternative site of seeding -C/T/L spine MRI w/o contrast performed without e/o discitis, C spine with some question and consider repeat w/con if able * TV endocarditis -s/p TV debridement and replacement 09/16 -per CT surgery - warfarin for 3 months - goal INR 2-3 * Septic pulmonary emboli * Mediastinal hematoma s/p evacuation * Exudative/hemorrhagic pleural effusion due to septic pulmonary emboli -s/p decortication, re-exploration hematoma evacuation, small ptx * 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 -hemodialysis per renal but currently on hold, creatinine increased now overnight from 3.9 to 5.4 bur urine output remains good, continue to trend * Volume overload -improved on IV lasix * Acute respiratory failure s/p extubation * 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 -lesions on ble increased with what appears to be petechia and purpura * ABL anemia * IVDA * Hep C * Tobacco dependence Care plan reviewed with CM, OT Subjective: no significant overngith events, patient feeling better today overall, still a bit fatigued Objective: Vital Signs Temp Pulse Resp BP Pulse Ox 36.8 C 95 18 136/94 H 99 09/29/17 12:00 09/29/17 12:00 09/29/17 12:00 09/29/17 12:00 09/29/17 12:00 Laboratory Results 09/29/17 06:30 09/29/17 06:30 09/28/17 09/29/17 09/30/17 05:59 05:59 05:59 Intake Total 1425 850 250 Output Total 2525 1750 200 Balance -1100 -900 50 PT 28.0 SEC (12.0-15.0) H 09/29/17 07:25 INR 2.63 (0.83-1.16) H 09/29/17 07:25 awake alert ill appearing anicteric op clear tachy regular distant cta to ant exam soft nt nd 2-3+ pitting edema warm dry well perfused, diffuse maculopapular rashe ble oriented but tangential ICD10 Worksheet ICD10 Worksheet Patient Problems: Problems Problem Status Onset Acute blood loss anemia Acute Dehydration Acute Endocarditis of tricuspid valve Acute Hyponatremia Acute Renal failure Acute S/P tricuspid valve replacement Acute
--- NOTE | 2017-09-29 14:55 | PCMIDPN ---
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 Patient is status post tricuspid valve excision and replacement with a bioprosthetic. His blood cultures have remained negative since surgery. He is slowly improving. Plan to continue IV vancomycin p.r.n. For now although with his creatinine continuing to improve he may need to move to a schedule dosing system soon. Random Vanco level over 15 today. Will hold off on repeat dosing. 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 This is an immunologic phenomenon seen in association with infective endocarditis. No immunosuppressive therapy is called for at this point as this is secondary to the underlying infection. Ongoing anemia. Suspect this is secondary to his immune response resulting in down regulation of red blood cell production. At this point I agree with periodic transfusion management. Plan: 1. Continue vancomycin dosed as needed. 2. Follow creatinine improvement. 3. Follow clinical course and improvement. 09/29/17 14:52 Subjective: Patient is resting in his hospital bed. He notes no new complaint. Nurse pointed out his vasculitic rash on both feet and legs. He has periodic very low -grade fevers. Objective: Vancomycin as needed # 24 Vital Signs Temp Pulse Resp BP Pulse Ox 36.8 C 95 18 136/94 H 99 09/29/17 12:00 09/29/17 12:00 09/29/17 12:00 09/29/17 12:00 09/29/17 12:00 Laboratory Results 09/29/17 06:30 09/29/17 06:30 09/28/17 09/29/17 09/30/17 05:59 05:59 05:59 Intake Total 1425 850 250 Output Total 2525 1750 200 Balance -1100 -900 50 - Physical Exam General Appearance: WD/WN, alert, no apparent distress, non-toxic Respiratory: lungs clear, normal breath sounds, No respiratory distress Cardiac/Chest: regular rate, rhythm, No tachycardia Extremities: non-tender, normal inspection Skin: normal color, warm/dry, rash Neuro/Psych: alert, normal mood/affect, oriented x 3 ICD10 Worksheet Patient Problems: Problems Problem Status Onset Acute blood loss anemia Acute Dehydration Acute Endocarditis of tricuspid valve Acute Hyponatremia Acute Renal failure Acute S/P tricuspid valve replacement Acute
--- NOTE | 2017-09-29 15:54 | ASMTCMCOM ---
CM Note CM Note Notes: 09/29/2017 Case Management Note Met w/pt and financee to discuss possible d/c options. RN present in room. Faxed referral to [facility] in [place]. Spoke with Janae Pérez at [phone]. Phone Call from edna Sibley at [phone]. Per Maryjo, pt has [employer], a managed care plan in [place]. Pt will need authorization approved prior to admitting to SNF rehab. Per [place] Medicaid guidelines pt will not qualify for regulatory compliance coordinator care, he will instead need SNF rehab. Please find all [place] paperwork required for SNF application in hard copy chart including [place] PASRR. Paperwork is not completed yet due to indetermined d/c date. Pt mentioned his Aunt worked at [facility] in the past. There is a second facility called [facility] in his hometown as well. Placement will depend on auth from [employer]. Plan that authorization will take several days after submission of SNF application. SNF placement in [place] is cost prohibitive for family and would not include PT or OT. Pt will not qualify for [place] Medicaid as he is currently open with [place] Medicaid. Pt requested meeting with Financial Counseling. Contacted financial counseling office. Ramona to meet with patient. Case Management d/c poc: to be determined Case Management to follow. Date Signed: 09/29/2017 03:54 PM Electronically Signed By:Kate Marcelino RN
--- NOTE | 2017-09-29 15:58 | ASMTCMCOM ---
CM Note CM Note Notes: 09/29/2017 Case Management Note Spoke with Radha from Inpatient Rehab. Unable to take pt due to insurance difficulties. Pt does not have a knowledge engineer in [place]. His fiancee sees Dr. Taryn Barba at [facility]. Pt is agreeable to starting care at the [facility] upon return to [place]. Rosa Maria to call on Monday to set up knowledge engineer for pt. Date Signed: 09/29/2017 03:57 PM Electronically Signed By:Kate Marcelino RN
[2017-09-29] MEDS ORDERED: WARFARIN SODIUM 2.5 MG TAB PO ONE (16:30)
[2017-09-29] MEDS: POLYETHYLENE GLYCOL 3350 17 GM PKT PO PRN (16:59)
--- NOTE | 2017-09-29 18:52 | SOAPPROG ---
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 - Holding SR/ST. TCPWs out. AF prophylaxis with BB as tolerated. Bilateral loculated effusions s/p decortication with need for reexploration and evacuation of left chest hematoma - Small left PTX resolved. All chest tubes out. Pre-op anemia with post-op acute blood loss anemia and coagulopathy requiring multiple transfusions - Stable. No recent transfusions. - See blood bank section for details. MRSA sepsis with emboli secondary to IV drug abuse - Successfully weaned off pressors. - ABX as per ID. - Repeat cultures negative to date ARF - Resolving. - Active diuresis in progress. - Dialysis cath out. VDRF - Extubated POD#2 without incident. - Supplemental O2 requirement steadily decreasing. Ileus - Resolved. Left elbow swelling/pain without signs of vascular issues - Resolved Bilateral LE pain - Negative for DVT - Resolved Plan: Transfuse 2u PRBC. Switch from bolus lasix to gtt. Cont Coumadin 2.5 mg daily. Cont inc activity as tolerated. 09/29/17 18:46 Objective: Vital Signs Temp Pulse Resp BP Pulse Ox 36.7 C 106 H 13 150/99 H 97 09/29/17 17:36 09/29/17 17:36 09/29/17 17:36 09/29/17 17:36 09/29/17 17:36 Laboratory Results 09/29/17 06:30 09/28/17 09/29/17 09/30/17 05:59 05:59 05:59 Intake Total 1425 850 875 Output Total 2525 1750 425 Balance -1100 -900 450 PT 28.0 SEC (12.0-15.0) H 09/29/17 07:25 INR 2.63 (0.83-1.16) H 09/29/17 07:25 ICD10 Worksheet Patient Problems: Problems Problem Status Onset Acute blood loss anemia Acute Dehydration Acute Endocarditis of tricuspid valve Acute Hyponatremia Acute Renal failure Acute S/P tricuspid valve replacement Acute
[2017-09-30] MEDS: oxyCODONE IR 5 MG TAB PO PRN ×5 (02:36→21:05)
[2017-09-30 06:54] LABS: PLATELET COUNT 224 10^3/uL (150-400)
--- NOTE | 2017-09-30 07:24 | SOAPPROG ---
SOAP Progress Note Assessment/Plan: Assessment: #BRITNEY- -suspect ATN in setting of septic shock, contrast, endocarditis, vanco. Could also have infection mediated GN but management same. -Cr was improving but now up to 5.4 in setting of aggressive diuresis with lasix gtt--- would hold today and encourage po fluids (may need IVF gentle back if not taking po). Also some clots noted in urine- will bladder scan now and get renal u/s-- may need replacement arellano and bladder irrigation -vanco levels ok- following closely #high phos- continue Ca Acetate binder for now, renal diet- phos 6.1 #TV endocarditis- MRSA in cultures, +pulm infarcts -s/p valve replacment 09/16/17, decortication exudative effusion -ID following---vancomycin dosing per pharmacy- following levels given BRITNEY. 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 Some bloody urine- small clots noted in sample RN saved. Denies vomiting, diarrhea, sob. Was on lasix gtt but this was stopped. Had BM this am. Objective: Vital Signs Temp Pulse Resp BP Pulse Ox 36.9 C 105 H 16 136/88 H 94 09/30/17 02:51 09/30/17 05:12 09/30/17 05:12 09/30/17 05:12 09/30/17 05:12 Laboratory Results 09/30/17 05:09 09/30/17 05:09 09/29/17 09/30/17 10/01/17 05:59 05:59 05:59 Intake Total 850 1325 Output Total 1750 475 Balance -900 850 PT 28.0 SEC (12.0-15.0) H 09/29/17 07:25 INR 2.63 (0.83-1.16) H 09/29/17 07:25 Physical Exam - Physical Exam General Appearance: alert, no apparent distress EENT: other (nasal abrasion) Neck: supple Respiratory: lungs clear (ant bilat) Cardiac/Chest: regular rate, rhythm Abdomen: normal bowel sounds, other (distended, some tenderness over bladder) Skin: warm/dry Extremities: other (+edema bilat LE) Neuro/Psych: alert, oriented x 3 ICD10 Worksheet Patient Problems: Problems Problem Status Onset Acute blood loss anemia Acute Dehydration Acute Endocarditis of tricuspid valve Acute Hyponatremia Acute Renal failure Acute S/P tricuspid valve replacement Acute
[2017-09-30] MEDS: CALCIUM ACETATE 667 MG CAP PO SCH ×3 (08:16→18:08)
[2017-09-30] MEDS: METOPROLOL TARTRATE 25 MG TAB PO SCH ×2 (08:22→21:06)
[2017-09-30] MEDS: ASPIRIN 81 MG CHEWABLE TAB PO SCH (08:22)
[2017-09-30] MEDS: SENNOSIDES/DOCUSATE SODIUM TAB PO SCH ×2 (09:02→21:08)
[2017-09-30 11:30] LABS: INR 4.19 (0.83-1.16)
--- NOTE | 2017-09-30 13:34 | SOAPPROG ---
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 - Holding SR/ST. TCPWs out. AF prophylaxis with BB as tolerated. Bilateral loculated effusions s/p decortication with need for reexploration and evacuation of left chest hematoma - Small left PTX resolved. All chest tubes out. Pre-op anemia with post-op acute blood loss anemia and coagulopathy requiring multiple transfusions - See blood bank section for details. - Additional 2u PRBC yest for downward drift with ? clots/arellano straight cath trauma MRSA sepsis with emboli secondary to IV drug abuse - Successfully weaned off pressors. - ABX as per ID. - Serial blood cultures NGTD. - Pulm infarcts presumed etiology of persistent leukocytosis. ARF - Sufficient improvement to remove dialysis cath. - Recurrent oliguria and inc Cr last 36h. Probably intravasc dry. Possibly ESCOBAR/ clots. - Renal following. Bladder irrigation and US ordered. VDRF - Extubated POD#2 without incident. - Supplemental O2 requirement steadily decreasing. Ileus - Resolved. Left elbow swelling/pain without signs of vascular issues - Resolved Bilateral LE pain - Negative for DVT - Resolved Plan: Cont supportive care as per multidisciplinary team. Diuretic holiday. No coumadin today. Consider chest staple removal tomorrow. 09/30/17 11:28 Subjective: Tired. Poor stamina. Belly tender. Objective: Vital Signs Temp Pulse Resp BP Pulse Ox 36.8 C 113 H 18 157/108 H 94 09/30/17 08:10 09/30/17 08:10 09/30/17 08:10 09/30/17 08:10 09/30/17 08:10 Laboratory Results 09/30/17 05:09 09/30/17 05:09 09/29/17 09/30/17 10/01/17 05:59 05:59 05:59 Intake Total 850 1325 Output Total 1750 475 Balance -900 850 PT 40.0 SEC (12.0-15.0) H 09/30/17 08:30 INR 4.19 (0.83-1.16) H 09/30/17 08:30 ST. No hypotension. Dwindling UOP and inc Cr. Lasix gtt stopped yest afternoon. Robust jump in H/H s/p 2u PRBC. INR supratherapeutic. WBC Physical Exam - Physical Exam General Appearance: alert, no apparent distress Respiratory: lungs clear (grossly) Cardiac/Chest: regular rate, rhythm, other (Sternotomy CDI w soren. CT sites ok.) Abdomen: normal bowel sounds (x4), distended Skin: warm/dry Extremities: swelling (1+ dependent. Knee high stockings.) ICD10 Worksheet Patient Problems: Problems Problem Status Onset Acute blood loss anemia Acute Dehydration Acute Endocarditis of tricuspid valve Acute Hyponatremia Acute Renal failure Acute S/P tricuspid valve replacement Acute
--- NOTE | 2017-09-30 14:53 | PCMIDPN ---
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 Patient is status post tricuspid valve excision and replacement with a bioprosthetic. His blood cultures have remained negative since surgery. He is slowly improving. Plan to continue IV vancomycin p.r.n. for now. Patient's creatinine has increased with aggressive diuresis yesterday. Will recheck random Vanco level for a.m.. 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 This is an immunologic phenomenon seen in association with infective endocarditis. No immunosuppressive therapy is called for at this point as this is secondary to the underlying infection. Ongoing anemia. Suspect this is secondary to his immune response resulting in down regulation of red blood cell production. At this point I agree with periodic transfusion management. Plan: 1. Continue vancomycin dosed as needed. Repeat vancomycin random level. 2. Follow creatinine levels. Agree with gentle hydration. 3. Follow clinical course and improvement. 09/29/17 14:52 09/30/17 14:50 Subjective: Patient is resting in his hospital bed. He states he feels about the same as he did yesterday. No fevers or chills. Objective: Vancomycin as needed. # 25 Vital Signs Temp Pulse Resp BP Pulse Ox 36.8 C 101 H 14 145/104 H 97 09/30/17 08:10 09/30/17 14:32 09/30/17 14:32 09/30/17 14:32 09/30/17 14:32 Laboratory Results 09/30/17 05:09 09/30/17 05:09 09/29/17 09/30/17 10/01/17 05:59 05:59 05:59 Intake Total 850 1325 Output Total 1750 475 Balance -900 850 - Physical Exam General Appearance: WD/WN, alert, no apparent distress, non-toxic Respiratory: lungs clear, normal breath sounds, No respiratory distress Cardiac/Chest: regular rate, rhythm, No bradycardia Extremities: non-tender, pedal edema (Mild. Bilateral.), No normal inspection Skin: normal color, warm/dry, rash (Leukocytoclastic vasculitis rash on lower extremities bilaterally.) Neuro/Psych: alert, normal mood/affect, oriented x 3 ICD10 Worksheet Patient Problems: Problems Problem Status Onset Acute blood loss anemia Acute Dehydration Acute Endocarditis of tricuspid valve Acute Hyponatremia Acute Renal failure Acute S/P tricuspid valve replacement Acute
--- NOTE | 2017-09-30 15:51 | HOSPPROG ---
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 * Septic shock - MRSA -IV Vanco -recurrence of fever and leukocytosis continues to trend up - watch for alternative site of seeding -C/T/L spine MRI w/o contrast performed without e/o discitis, C spine with some question and consider repeat w/con if able * TV endocarditis -s/p TV debridement and replacement 09/16 -per CT surgery - warfarin for 3 months - goal INR 2-3 * Septic pulmonary emboli * Mediastinal hematoma s/p evacuation * Exudative/hemorrhagic pleural effusion due to septic pulmonary emboli -s/p decortication, re-exploration hematoma evacuation, small ptx * 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 -hemodialysis per renal but currently on hold, creatinine continues to increase and UOP now decreased-concern for urinary retention/clots, arellano to be placed * Volume overload -improved on IV lasix initially but UOP now poor as above * Acute respiratory failure s/p extubation * 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 -lesions on ble increased with what appears to be petechia and purpura * ABL anemia * IVDA * Hep C * Tobacco dependence Subjective: no signficant overnight events, patient currently feeling better Objective: Vital Signs Temp Pulse Resp BP Pulse Ox 36.8 C 101 H 14 145/104 H 97 09/30/17 08:10 09/30/17 14:32 09/30/17 14:32 09/30/17 14:32 09/30/17 14:32 Laboratory Results 09/30/17 05:09 09/30/17 05:09 09/29/17 09/30/17 10/01/17 05:59 05:59 05:59 Intake Total 850 1325 Output Total 1750 475 Balance -900 850 PT 40.0 SEC (12.0-15.0) H 09/30/17 08:30 INR 4.19 (0.83-1.16) H 09/30/17 08:30 awake alert ill appearing anicteric op clear tachy regular distant cta to ant exam soft nt nd 2-3+ pitting edema warm dry well perfused, diffuse maculopapular rashe ble oriented appropriate ICD10 Worksheet Patient Problems: Problems Problem Status Onset Acute blood loss anemia Acute Dehydration Acute Endocarditis of tricuspid valve Acute Hyponatremia Acute Renal failure Acute S/P tricuspid valve replacement Acute
[2017-10-01] MEDS: oxyCODONE IR 5 MG TAB PO PRN ×4 (04:09→20:42)
[2017-10-01 04:10] LABS: PLATELET COUNT 255 10^3/uL (150-400)
[2017-10-01 04:19] LABS: INR 4.09 (0.83-1.16); PROTIME(PATIENT) 39.3 SEC (12.0-15.0)
--- NOTE | 2017-10-01 06:58 | SOAPPROG ---
SOAP Progress Note Assessment/Plan: Assessment: #BRITNEY- -suspect ATN in setting of septic shock, contrast, endocarditis, vanco. Could also have infection mediated GN but management same. -Cr was improving but now rising up to 6.7-- I think it is due to aggressive diuresis. Non oliguric. Not taking great po-- I discussed with CT surgery and will give some gentle IVF back now. Recheck labs this afternoon. No acute HD needs but may need it soon if not improving- I discussed with pt. -pt had blood clots in urine yesterday- arellano placed and irrigated bladder, renal u/s no hydro -vanco levels ok- following closely #hyponatremia- Na stable 130, has been on oral fluid restriction/lasix. Giving back IV NS now--recheck NA this afternoon. #high phos- continue Ca Acetate binder for now, renal diet #TV endocarditis- MRSA in cultures, +pulm infarcts -s/p valve replacment 09/16/17, decortication exudative effusion -INR 4. today-- coumadin on hold -ID following---vancomycin dosing per pharmacy- following levels given BRITNEY. 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 Ordering breakfast now. No sob , cp. Arellano in- urine less bloody, no large clots noted in bag. Objective: Vital Signs Temp Pulse Resp BP Pulse Ox 36.6 C 102 H 16 148/103 H 96 10/01/17 03:46 10/01/17 03:46 10/01/17 03:46 10/01/17 03:46 10/01/17 03:46 Laboratory Results 10/01/17 04:00 10/01/17 04:00 09/30/17 10/01/17 10/02/17 05:59 05:59 05:59 Intake Total 1325 200 Output Total 475 1250 Balance 850 -1050 PT 39.3 SEC (12.0-15.0) H 10/01/17 04:00 INR 4.09 (0.83-1.16) H 10/01/17 04:00 Physical Exam - Physical Exam General Appearance: alert, no apparent distress EENT: other Neck: supple Respiratory: lungs clear Cardiac/Chest: regular rate, rhythm Abdomen: normal bowel sounds, non-tender, soft Male Genitalia: other (arellano in with brown urine, mimimal small clots-- better today) Skin: warm/dry, other (abrasion on nose improving, small erythematous macular lesions on ankles stable) Extremities: other (trace edema bilat LE, R>L) Neuro/Psych: alert, oriented x 3 ICD10 Worksheet Patient Problems: Problems Problem Status Onset Acute blood loss anemia Acute Dehydration Acute Endocarditis of tricuspid valve Acute Hyponatremia Acute Renal failure Acute S/P tricuspid valve replacement Acute
[2017-10-01] MEDS: NS 1,000 ML IV SCH ×2 (08:23→22:23)
[2017-10-01] MEDS: METOPROLOL TARTRATE 25 MG TAB PO SCH ×2 (08:23→20:43)
[2017-10-01] MEDS: ASPIRIN 81 MG CHEWABLE TAB PO SCH (08:24)
[2017-10-01] MEDS: SENNOSIDES/DOCUSATE SODIUM TAB PO SCH ×2 (08:24→20:43)
[2017-10-01] MEDS: CALCIUM ACETATE 667 MG CAP PO SCH ×3 (08:24→17:22)
--- NOTE | 2017-10-01 10:56 | SOAPPROG ---
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 - Holding SR/ST. TCPWs out. AF prophylaxis with BB as tolerated. Bilateral loculated effusions s/p decortication with need for reexploration and evacuation of left chest hematoma - Small left PTX resolved. All chest tubes out. Pre-op anemia with post-op acute blood loss anemia and coagulopathy requiring multiple transfusions - See blood bank section for details. - No evidence active bleeding. MRSA sepsis with emboli secondary to IV drug abuse - Successfully weaned off pressors. - ABX as per ID. - Serial blood cultures NGTD. - Pulm infarcts presumed etiology of persistent leukocytosis. ARF - Sufficient improvement to remove dialysis cath. - Recurrent oliguria and inc Cr last 48h. Presumably intravasc dry. Some clots in urine. No evidence ESCOBAR. - Improved UOP yest off diuretics. - Renal following. IV hydration planned. VDRF - Extubated POD#2 without incident. - Supplemental O2 requirement steadily decreasing. Ileus - Resolved. Left elbow swelling/pain without signs of vascular issues - Resolved Bilateral LE pain - Negative for DVT - Resolved Plan: Cont supportive care as per multidisciplinary team. Fluid management per renal. Cont to hold coumadin. 10/01/17 10:52 Subjective: Very tired. Would just as soon sleep. Min appetite. No nausea or abd discomfort. Objective: Vital Signs Temp Pulse Resp BP Pulse Ox 36.4 C 113 H 19 142/114 H 93 10/01/17 08:15 10/01/17 08:15 10/01/17 08:15 10/01/17 08:15 10/01/17 08:15 Microbiology 09/25/17 23:22 Blood Culture - Final Blood 09/25/17 23:20 Blood Culture - Final Blood Laboratory Results 10/01/17 04:00 10/01/17 04:00 09/30/17 10/01/17 10/02/17 05:59 05:59 05:59 Intake Total 1325 200 Output Total 475 1250 Balance 850 -1050 PT 39.3 SEC (12.0-15.0) H 10/01/17 04:00 INR 4.09 (0.83-1.16) H 10/01/17 04:00 ST with robust SBPs. Afeb. UOP > 1L yest. No gross hematuria. H/H stable. Cr cont to climb. K ok. No further rise in INR. Physical Exam - Physical Exam General Appearance: alert (when engaged, o/w eyes closed), no apparent distress Respiratory: normal breath sounds (grossly) Cardiac/Chest: regular rate, rhythm, tachycardia, other (Sternotomy healing well. Mateo removed.) Abdomen: non-tender, soft, other (bernadine free flowing urine in arellano) Skin: warm/dry Extremities: swelling (trace) ICD10 Worksheet Patient Problems: Problems Problem Status Onset Acute blood loss anemia Acute Dehydration Acute Endocarditis of tricuspid valve Acute Hyponatremia Acute Renal failure Acute S/P tricuspid valve replacement Acute
--- NOTE | 2017-10-01 15:47 | HOSPPROG ---
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 -hemodialysis per renal but currently on hold, creatinine continues to increase, no indication at this time for urgent HD, renal following - given poor po intake renal giving small amount of fluid back and monitoring * urinary retention: due to blood clots, s/p irrigation and arellano in place now with god uop * Volume overload -continues to improve off of lasix * Acute respiratory failure s/p extubation * 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 -improving * ABL anemia * IVDA * Hep C * Tobacco dependence Care plan reviewed with patients fiance and mother present at bedside Subjective: no significant overnight events, still with minimal appetitie Objective: Vital Signs Temp Pulse Resp BP Pulse Ox 36.4 C 109 H 20 134/100 H 93 10/01/17 08:15 10/01/17 12:55 10/01/17 12:55 10/01/17 12:55 10/01/17 12:55 Microbiology 09/25/17 23:22 Blood Culture - Final Blood 09/25/17 23:20 Blood Culture - Final Blood Laboratory Results 10/01/17 04:00 10/01/17 15:15 09/30/17 10/01/17 10/02/17 05:59 05:59 05:59 Intake Total 1325 200 Output Total 475 1250 Balance 850 -1050 PT 39.3 SEC (12.0-15.0) H 10/01/17 04:00 INR 4.09 (0.83-1.16) H 10/01/17 04:00 awake alert ill appearing anicteric op clear tachy regular distant cta to ant exam soft nt nd 2-3+ pitting edema warm dry well perfused, diffuse maculopapular rashe ble oriented appropriate - Time Spent With Patient Time Spent with Patient: greater than 35 minutes Time Spent with Patient: Greater than 35 minutes spent on this patients care, greater than 50% of time spent counseling, educating, and coordinating care regarding the above mentioned plan. ICD10 Worksheet Patient Problems: Problems Problem Status Onset Acute blood loss anemia Acute Dehydration Acute Endocarditis of tricuspid valve Acute Hyponatremia Acute Renal failure Acute S/P tricuspid valve replacement Acute
--- NOTE | 2017-10-01 15:55 | PCMIDPN ---
Assessment/Plan: 1. MRSA tricuspid valve endocarditis/sepsis postop day 15 status post tricuspid valve debridement and bioprosthesis as well as decortication of pleura bilaterally: The patient is on vancomycin dose by level, and will need repeat dosing today which I have conveyed to pharmacy. They will order another 1 g dose and obtain a level tomorrow. 2. Elevated creatinine: [place] secondary to over-diuresis. He is now being gently hydrated. No evidence of eosinophilia, or new rash to suggest DRESS (the patient has leukocytoclastic vasculitis), but will obtain complete metabolic panel in the morning as it has been several days since his liver function tests have been checked. 3. Leukocytosis: Patient's white blood cell count continues to go up for unclear reasons. He does have loose stool, which he says is worsening. Will obtain stool for C diff toxin. As noted previously, the patient has had non contrasted MRIs of his spine which have been unrevealing. Blood cultures have sterilized. Subjective: Feels about the same today. Says he has loose stool. Objective: Vancomycin 1 g by levels day 26 No fever Vital Signs Temp Pulse Resp BP Pulse Ox 36.4 C 109 H 20 134/100 H 93 10/01/17 08:15 10/01/17 12:55 10/01/17 12:55 10/01/17 12:55 10/01/17 12:55 Microbiology 09/25/17 23:22 Blood Culture - Final Blood 09/25/17 23:20 Blood Culture - Final Blood Laboratory Results 10/01/17 04:00 10/01/17 15:15 09/30/17 10/01/17 10/02/17 05:59 05:59 05:59 Intake Total 1325 200 Output Total 475 1250 Balance 850 -1050 Blood cultures September 25 negative - Physical Exam General Appearance: alert, no apparent distress EENT: pharynx normal, No thrush Respiratory: other (Diminished breath sounds over right base otherwise fairly clear) Cardiac/Chest: regular rate, rhythm, other (Incision looks fine with no drainage or erythema or click) Abdomen: non-tender, soft Skin: other (Palpable purpura and noted over his knees in pretibial areas) Neuro/Psych: oriented x 3 ICD10 Worksheet Patient Problems: Problems Problem Status Onset Acute blood loss anemia Acute Dehydration Acute Endocarditis of tricuspid valve Acute Hyponatremia Acute Renal failure Acute S/P tricuspid valve replacement Acute
[2017-10-01] MEDS ORDERED: VANCOMYCIN 1 GM in NS 250 ML IV ONE (16:00)
[2017-10-01] MEDS ORDERED: hydrALAZINE 20 MG/ML VIAL IVP ONE (23:30)
[2017-10-01] MEDS: SIMETHICONE 80 MG TAB CHEW PO PRN (23:42)
[2017-10-01] MEDS: traMADol 50 MG TAB PO PRN (23:42)
[2017-10-02] MEDS: oxyCODONE IR 5 MG TAB PO PRN ×3 (03:09→19:54)
[2017-10-02] MEDS: traMADol 50 MG TAB PO PRN (06:18)
[2017-10-02 06:49] LABS: PLATELET COUNT 282 10^3/uL (150-400)
[2017-10-02 06:57] LABS: INR 4.63 (0.83-1.16); PROTIME(PATIENT) 43.2 SEC (12.0-15.0)
[2017-10-02] MEDS: METOPROLOL TARTRATE 25 MG TAB PO SCH ×2 (08:23→21:06)
[2017-10-02] MEDS: SENNOSIDES/DOCUSATE SODIUM TAB PO SCH ×2 (08:23→21:02)
[2017-10-02] MEDS: ASPIRIN 81 MG CHEWABLE TAB PO SCH (08:24)
[2017-10-02] MEDS: CALCIUM ACETATE 667 MG CAP PO SCH ×3 (08:24→18:17)
[2017-10-02] MEDS: NS 1,000 ML IV SCH (08:24)
[2017-10-02] MEDS ORDERED: HYDROmorphONE/DILAUDID 1 MG/ML INJ IVP ONE (09:39)
[2017-10-02] MEDS ORDERED: FUROSEMIDE 100 MG/10 ML VIAL IVP ONE ×2 (10:53→13:30)
--- NOTE | 2017-10-02 11:14 | PCMIDPN ---
Assessment/Plan: Assessment/Plan: * MRSA tricuspid valve endocarditis with multifocal soft tissue inflammatory change and septic pulmonary emboli status post tricuspid valve replacement: Continued vancomycin therapy by drug levels given underlying renal insufficiency. Will repeat vancomycin level in a.m.. Repeat echocardiogram being done this a.m. to reassess tricuspid valve function/ensure no evidence of recurrent endocarditis in the setting of persistent leukocytosis. * Leukocytosis: Unclear etiology. Will repeat blood cultures to ensure no evidence of recurrent bacteremia or new process given indwelling PICC line. Possible that leukocytosis is related to leukocytoclastic vasculitis. SBP would also be consideration with ascites although unusual to develops of quickly (ultrasound of 09/30/2017 with only small amount of fluid noted). Paracentesis currently limited by INR. If abdominal pain persists after fluid removal, will consider empiric ceftriaxone to cover typical pathogens of SBP. 10/02/17 11:10 10/02/17 11:12 Subjective: Patient complains of not feeling well. Notes bilateral knee pain. Notes abdominal pain which is sharp in nature. Objective: Vital Signs Temp Pulse Resp BP Pulse Ox 37.0 C 118 H 20 159/117 H 97 10/02/17 08:03 10/02/17 08:03 10/02/17 08:03 10/02/17 08:03 10/02/17 08:03 Microbiology 09/25/17 23:22 Blood Culture - Final Blood 09/25/17 23:20 Blood Culture - Final Blood Laboratory Results 10/02/17 06:15 10/02/17 06:15 10/01/17 10/02/17 10/03/17 05:59 05:59 05:59 Intake Total 200 3734 Output Total 1250 1425 300 Balance -1050 2309 -300 Vancomycin # 27, # 16 postoperatively Blood cultures 09/25/[address] scan abdomen pelvis preliminarily with finding of extensive ascites - Physical Exam General Appearance: alert, non-toxic EENT: No scleral icterus, No conjunctival petechiae Respiratory: crackles (Bilateral bases), No respiratory distress Cardiac/Chest: tachycardia Extremities: pedal edema Abdomen: distended, tender (Diffusely) Skin: other (Purpuric rash over knees and feet bilaterally) - Line/s RUE PICC Lines: No drainage, No erythema - Time Spent With Patient Time Spent with Patient: greater than 35 minutes Time Spent with Patient: Greater than 35 minutes spent on this patients care, greater than 50% of time spent counseling, educating, and coordinating care regarding the above mentioned plan. ICD10 Worksheet Patient Problems: Problems Problem Status Onset Acute blood loss anemia Acute Dehydration Acute Endocarditis of tricuspid valve Acute Hyponatremia Acute Renal failure Acute S/P tricuspid valve replacement Acute
[2017-10-02] MEDS ORDERED: BUPIVACAINE 0.25% 30 ML SDV ONE (11:27)
[2017-10-02] MEDS ORDERED: EPINEPHrine 1 MG/ML INJ ONE (11:27)
[2017-10-02] MEDS ORDERED: fentaNYL 100 MCG/2 ML INJ IVP PRN (11:47)
[2017-10-02] MEDS ORDERED: NALOXONE HCL 0.4 MG/ML INJ IVP PRN (11:47)
[2017-10-02] MEDS ORDERED: ALBUTEROL 3 ML DEYVIAL IH PRN (11:47)
[2017-10-02] MEDS ORDERED: HYDROmorphONE/DILAUDID 2 MG/ML INJ IVP PRN (11:47)
[2017-10-02] MEDS ORDERED: ONDANSETRON 4 MG/2 ML VIAL IVP PRN (11:47)
--- NOTE | 2017-10-02 11:47 | PDANEPAE ---
ANE History of Present Illness Pericardial Window ANE Past Medical History - Cardiovascular History Hx Hypertension: No Hx Arrhythmias: No Hx Chest Pain: No Hx Coronary Artery / Peripheral Vascular Disease: No Hx CHF / Valvular Disease: Yes Hx Palpitations: No - Pulmonary History Hx COPD: No Hx Asthma/Reactive Airway Disease: No Hx Oxygen in Use at Home: No Hx Sleep Apnea: No Sleep Apnea Screening Result - Last Documented: Negative - Endocrine History Hx Diabetes: No - Chronic Pain History Chronic Pain: No ANE Review of Systems Review of Systems: - Exercise capacity Exercise capacity: unable to assess ANE Patient History - Allergies Allergies/Adverse Reactions: No Known Allergies Allergy (Unverified 09/05/17 19:40) - Home Medications Home Medications: NK [No Known Home Meds] 09/05/17 [Last Taken Unknown] - NPO status NPO Since - Liquids (Date): 09/16/17 NPO Since - Liquids (Time): 00:01 NPO Since - Solids (Date): 09/16/17 NPO Since - Solids (Time): 00:01 - Smoking Hx Smoking Status: Heavy smoker - Alcohol Use Alcohol Use: Occasionally (Patient with previous history of daily alcohol use last 1 month ago.) ANE Labs/Vital Signs - Labs Result Diagrams: 10/02/17 06:15 10/02/17 06:15 - Vital Signs Blood Pressure: 153/114 Heart Rate: 107 Respiratory Rate: 22 O2 Sat (%): 95 Height: 177.8 cm Weight: 81.845 kg ANE Physical Exam - Airway Neck exam: FROM Mallampati Score: Class 2 Mouth exam: normal dental/mouth exam - Pulmonary Pulmonary: bronchial breath sounds - Cardiovascular Cardiovascular: tachycardia - ASA Status ASA Status: III, E ANE Anesthesia Plan Anesthesia Plan: general endotracheal anesthesia Lines/Monitors: central line
[2017-10-02] MEDS ORDERED: PROPOFOL 200 MG/20 ML VIAL ONE (12:01)
[2017-10-02] MEDS ORDERED: fentaNYL 100 MCG/2 ML INJ ONE ×2 (12:02→12:45)
[2017-10-02] MEDS ORDERED: SUCCINYLCHOLINE CHLORIDE 200 MG/10 ML SYR IVP ONE (12:03)
[2017-10-02] MEDS ORDERED: ONDANSETRON 4 MG/2 ML VIAL ONE (12:03)
[2017-10-02] MEDS ORDERED: DEXAMETHASONE 4 MG/ML VIAL ONE (12:03)
[2017-10-02] MEDS ORDERED: VASOPRESSIN 20 UNIT/ML VIAL ONE (12:14)
[2017-10-02] MEDS ORDERED: LR 1,000 ML IV ONE (12:15)
--- NOTE | 2017-10-02 13:09 | ECHO ---
[email or web address] [address] [address] Main: [phone] Fax: Transthoracic Echocardiogram Name: MAYELA HILTON MR#: [id number] Study Date: 10/02/2017 Study Time: 11:07 AM Date of : 1980 Age: 37 year(s) Height: ( ) Weight: ( ) BSA: Gender: Male Examination: Limited Echo Indication: tvr, worsening hepatorenal fx, assess tv fx Image Quality: Adequate Contrast: Requested by: Angela Hodges BP: 159 mmHg/117 mmHg Heart Rate: Rhythm: Indication: tvr, worsening hepatorenal fx, assess tv fx Procedure Staff Dry Press Operator: Lore Edmond RDCS Reading Physician: Ubaldo Caicedo MD Requesting Provider: Conclusions: Normal size left ventricle. The ejection fraction is visually estimated to be 60 %. Right ventricular systolic pressure measures 34mmHg. There is a tricuspid bioprosthesis. Tricuspid valve prosthesis function is normal. The prosthetic tricuspid valve is normal. Mild prosthesis regurgitation. Posterior pericardial effusion. Measurements: Chambers Valvular Assessment AV/MV Valvular Assessment TV/PV Normal Normal Normal Name Value Range Name Value Range Name Value Range Visual EF: 60 % TV Vmax: 1.05 m/s (0.3 m/s-0.7 m/s) TV Vmean: 0.82 m/s ( - ) TV PGmax: 4 mmHg ( - ) TV PGmean: 3 mmHg ( - ) TV VTI: 25.20 cm ( - ) TR Vmax: 2.69 mm/s ( - ) TR PGmax: 29 mmHg ( - ) syst. PAP: 34 mmHg ( - ) Continued Measurements: Valvular Assessment TV/PV Name Value CVP (est.): 5 mmHg Patient: MAYELA HILTON Study Date: 10/02/2017 Page 1 of 2 11:07 AM Findings: Left Ventricle: Normal size left ventricle. No LV hypertrophy. Normal global systolic LV function. The ejection fraction is visually estimated to be 60 %. No regional wall motion abnormality. Tricuspid Valve: The pulmonary artery pressure is normal. Right ventricular systolic pressure measures 34mmHg. There is a tricuspid bioprosthesis. Tricuspid valve prosthesis function is normal. The prosthetic tricuspid valve is normal. Mild prosthesis regurgitation. TVR #29 CE Magna Bioprosthesis. Pericardium: Posterior pericardial effusion. (No Signature Object) Patient: MAYELA HILTON Study Date: 10/02/2017 Page 2 of 2 11:07 AM [id number]
--- NOTE | 2017-10-02 13:17 | GOP ---
[f rep st] OPERATIVE REPORT DATE OF OPERATION: 10/02/2017 SURGEON: Ubaldo Kauffman DO ANESTHESIA: Arnulfo Malone DO. PREOPERATIVE DIAGNOSIS: Pericardial tamponade and marked abdominal ascites. POSTOPERATIVE DIAGNOSIS: Pericardial tamponade and marked abdominal ascites. PROCEDURE PERFORMED: 1. Subxiphoid pericardial window. 2. Subxiphoid paracentesis. FINDINGS: This patient presented with marked worsening ascites and diminishing renal function despit e aggressive hydration. He also had prolonged PT. Despite having no additional Coumadin over severa l days, it was continuing to climb, and for that reason, I suspect that he either had thrombosed tric uspid valve in his prosthesis or pericardial tamponade. Echo confirmed that his valve was functionin g normally without significant gradient. However, he did have a moderate posterior effusion which wa s likely contributing to his symptomatology. He also had marked ascites on CAT scan. DESCRIPTION OF PROCEDURE: He was consented, taken to the operating room. The subxiphoid portion of the incision was reopened. Upon entering the pericardium, there was approximately 300 cc of felisha us fluid without clot, likely due to his anticoagulation, drained under pressure. His heart rate cam e down immediately. His blood pressure gagan, and we spent some time irrigating that out and evacuati ng it. Because of his ascites, I then grasped his diaphragm at the subxiphoid area, placed sutures l aterally for retraction, and gently entered the pleura. We then drained 3500 cc of serous fluid unde r pressure, without difficulty. That wound was closed with interrupted Vicryls as was the fascia. A single Porfirio drain was placed in the pericardium. It was brought through a separate stab wound incis ion. The wounds were closed. 0.25% Marcaine with epinephrine was utilized to infiltrate the soft ti ssues. Dressings were applied. He was returned to the recovery room in stable condition. /[id number]/MODL
--- NOTE | 2017-10-02 13:22 | POSTANESTH ---
Post Anesthetic Evaluation Cardiovascular Status: Normal, Stable Respiratory Status: Normal, Stable Level of Consciousness/Mental Status: Alert and Oriented Pain Control: Adequate, Prn Tx Ordered Nausea/Vomiting Control: Adequate, Prn Tx Ordered Complications Possibly Related to Anesthesia: None Noted
--- NOTE | 2017-10-02 14:15 | HOSPPROG ---
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, has been on warfarin with plan for 3 months tx * Septic pulmonary emboli * Mediastinal hematoma s/p evacuation * Exudative/hemorrhagic pleural effusion due to septic pulmonary emboli -s/p decortication, re-exploration hematoma evacuation, small ptx * 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--given fluid overnight as thought that worsening creatinine due to over diuresis--today with massive ascites as above, likely will need recurrent HD for fluid management * urinary retention: due to blood clots, s/p irrigation and arellano in place now with god uop * Volume overload--worsened again overnight as above * Acute respiratory failure s/p extubation * 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 * ABL anemia * IVDA * Hep C * Tobacco dependence > 40 min of critical care time spent with this patient Subjective: this am patient noted to be in distress--increased abdominal distension, sob, c/o pain Objective: Vital Signs Temp Pulse Resp BP Pulse Ox 36 C 107 H 14 165/118 H 100 10/02/17 13:14 10/02/17 12:00 10/02/17 13:41 10/02/17 13:41 10/02/17 13:41 Microbiology 10/02/17 12:23 Gram Stain - Final Pericardial Fluid - Anaerobic Tube/Swab 10/02/17 12:23 Gram Stain - Final Pericardial Fluid - Anaerobic Tube/Swab Laboratory Results 10/02/17 06:15 10/02/17 06:15 10/01/17 10/02/17 10/03/17 05:59 05:59 05:59 Intake Total 200 3734 400 Output Total 1250 1425 802 Balance -1050 2309 -402 PT 43.2 SEC (12.0-15.0) H 10/02/17 06:15 INR 4.63 (0.83-1.16) H 10/02/17 06:15 awake alert ill appearing anicteric op clear tachy regular distant cta to ant exam soft nt nd 2-3+ pitting edema warm dry well perfused, diffuse maculopapular rashe ble oriented appropriate ICD10 Worksheet Patient Problems: Problems Problem Status Onset Acute blood loss anemia Acute Dehydration Acute Endocarditis of tricuspid valve Acute Hyponatremia Acute Renal failure Acute S/P tricuspid valve replacement Acute
[2017-10-02] MEDS: FUROSEMIDE 100 MG/10 ML VIAL IVP SCH (14:22)
[2017-10-02] MEDS: HYDROmorphONE/DILAUDID 1 MG/ML INJ IVP PRN ×2 (14:22→21:55)
--- NOTE | 2017-10-02 14:52 | SOAPPROG ---
SOAP Progress Note Assessment/Plan: Assessment: #BRITNEY- -suspect ATN in setting of septic shock, contrast, endocarditis, vanco. Could also have infection mediated GN but management same. -Cr was improving but now rising up to 6.7 on Monday-- better at 6.0 today with giving some gentle IVF back. Likely aggressive diuresis and hemodynamics from pericardial effusion (op notes suggest hemodyanmic improved signficantly with drainage of sanginous fluid). Also underwent 3.5 L paracentesis. Has Good UOP but BUN still high at 140. I spoke with CT surgery given pericardial effusion-- uremia could be contributing and offered CRRT/HD but hesitant to reverse anticoag for line placement so will hold for today. Rehecking labs this afternoon. Discussed DDAVP but again concerns for over-correcting/clotting so holding on this. If renal function no better tomorrow, will likely dialyze then. I asked CT surgery to call me if worse overnight as we can start sooner. 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 Kauffman), and family I am environmental health specialist for weekend Minna Coppola MD [facility] [phone] pager 10/02/17 15:00 Subjective: More ascites noted on CT. INR up to 5. Taken to OR and pericardial window done. Cr better with good UOP but BUN still 140. He is awake now and denies any pain, sob. Family at bedside and I updated them on status. Objective: Vital Signs Temp Pulse Resp BP Pulse Ox 36 C 91 13 163/112 H 100 10/02/17 14:14 10/02/17 14:14 10/02/17 14:14 10/02/17 14:14 10/02/17 14:14 Microbiology 10/02/17 12:23 Gram Stain - Final Pericardial Fluid - Anaerobic Tube/Swab 10/02/17 12:23 Gram Stain - Final Pericardial Fluid - Anaerobic Tube/Swab Laboratory Results 10/02/17 06:15 10/02/17 06:15 10/01/17 10/02/17 10/03/17 05:59 05:59 05:59 Intake Total 200 3734 400 Output Total 1250 1425 4327 Balance -1050 2309 -3927 PT 43.2 SEC (12.0-15.0) H 10/02/17 06:15 INR 4.63 (0.83-1.16) H 10/02/17 06:15 Physical Exam - Physical Exam General Appearance: alert, no apparent distress, other (lying in bed comfortably ) EENT: other (mmm) Neck: other (RIJ central line some bleeding at exit site) Respiratory: lungs clear (ant bilat) Cardiac/Chest: regular rate, rhythm, other (sternal dressing c/d/i) Abdomen: other (softer, less distended, NT) Male Genitalia: other (arellano with yellow urine) Skin: warm/dry, other (nasal abrasion improving, small vasculitic appearing lesions on ankles bilat) Extremities: other (+edema bilat LE) Neuro/Psych: alert, oriented x 3 ICD10 Worksheet Patient Problems: Problems Problem Status Onset Acute blood loss anemia Acute Dehydration Acute Endocarditis of tricuspid valve Acute Hyponatremia Acute Renal failure Acute S/P tricuspid valve replacement Acute
[2017-10-02] MEDS ORDERED: LIDOCAINE 1% 5 ML SDV ONE (20:28)
[2017-10-02] MEDS ORDERED: FUROSEMIDE 40 MG/4 ML VIAL IVP ONE (21:00)
[2017-10-03] MEDS: oxyCODONE IR 5 MG TAB PO PRN ×5 (03:00→21:50)
[2017-10-03] MEDS: HYDROmorphONE/DILAUDID 1 MG/ML INJ IVP PRN ×6 (05:30→23:00)
[2017-10-03 05:50] LABS: PLATELET COUNT 219 10^3/uL (150-400)
[2017-10-03 05:57] LABS: INR 4.97 (0.83-1.16); PROTIME(PATIENT) 45.6 SEC (12.0-15.0)
--- NOTE | 2017-10-03 07:10 | SOAPPROG ---
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 - Coumadin for thromboprophylaxis once coagulopathy resolves, INR goal 2-3, duration 3 months Bilateral loculated effusions s/p decortication with need for reexploration and evacuation of left chest hematoma - Stable Pre-op anemia with post-op acute blood anemia/coagulopathy/hemorrhagic pericardial effusion - See blood bank section for transfusion details - Will monitor H/H and transfuse as needed MRSA sepsis with septic emboli secondary to IV drug abuse - ABX and further mgmt as per ID ARF - Cr stabilizing s/p pericardial window - Continue BID Lasix - Renal following VDRF - Resolved Ileus - Resolved Left elbow swelling/pain without signs of vascular issues - Resolved Bilateral LE pain - Negative for DVT - Resolved DVT prophylaxis - SCDs/Coumadin Pericardial tamponade with SOB/ascites s/p pericardial window/paracentesis - SOB resolved, abdomen soft/ND - Pericardial drain to remain Subjective: Feeling much better. Denies SOB/abd fullness/pain. Objective: Vital Signs Temp Pulse Resp BP Pulse Ox 36.9 C 100 19 146/101 H 95 10/03/17 04:00 10/03/17 06:00 10/03/17 06:00 10/03/17 06:00 10/03/17 06:00 Microbiology 10/02/17 12:23 Gram Stain - Final Pericardial Fluid - Anaerobic Tube/Swab 10/02/17 12:23 Gram Stain - Final Pericardial Fluid - Anaerobic Tube/Swab Laboratory Results 10/03/17 05:25 10/03/17 05:25 10/02/17 10/03/17 10/04/17 05:59 05:59 05:59 Intake Total 3734 800 Output Total 1425 6647 Balance 2309 -5847 PT 45.6 SEC (12.0-15.0) H 10/03/17 05:25 INR 4.97 (0.83-1.16) H 10/03/17 05:25 Physical Exam - Physical Exam General Appearance: alert, no apparent distress EENT: No scleral icterus (R), No scleral icterus (L) Neck: normal inspection Respiratory: No respiratory distress Cardiac/Chest: tachycardia Abdomen: non-tender, soft, No distended Skin: normal color, warm/dry, embolic lesions Extremities: pedal edema Neuro/Psych: no motor/sensory deficits, alert, normal mood/affect ICD10 Worksheet Patient Problems: Problems Problem Status Onset Acute blood loss anemia Acute Dehydration Acute Endocarditis of tricuspid valve Acute Hyponatremia Acute Renal failure Acute S/P tricuspid valve replacement Acute
[2017-10-03] MEDS: CALCIUM ACETATE 667 MG CAP PO SCH ×3 (08:31→19:07)
[2017-10-03] MEDS: METOPROLOL TARTRATE 25 MG TAB PO SCH ×2 (08:31→20:47)
[2017-10-03] MEDS: SENNOSIDES/DOCUSATE SODIUM TAB PO SCH ×2 (08:31→20:47)
[2017-10-03] MEDS: ASPIRIN 81 MG CHEWABLE TAB PO SCH (08:31)
[2017-10-03] MEDS: FUROSEMIDE 100 MG/10 ML VIAL IVP SCH ×2 (08:32→16:34)
[2017-10-03] MEDS: SIMETHICONE 80 MG TAB CHEW PO PRN (11:36)
--- NOTE | 2017-10-03 12:07 | SOAPPROG ---
SOAP Progress Note Assessment/Plan: Assessment/Plan: 37 y/o M with h/o IVDA with endocarditis and BRITNEY now s/p pericardial effusion. 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 Plans to continue 6 weeks through 10/28 Hyponatremia- Na stable 132 with diuresis, follow High phos- continue Ca Acetate binder for now, renal diet when taking po #positive Hep C Ab #deconditioning- working with PT #anemia acute illness- has required several units PRBCs this admit 10/03/17 12:03 10/03/17 12:07 Subjective: Patient still feeling abdomen is very distended and having trouble eating. Family at bedside. Sunshine taken out. Objective: Vital Signs Temp Pulse Resp BP Pulse Ox 36.9 C 106 H 19 151/105 H 95 10/03/17 04:00 10/03/17 11:00 10/03/17 11:00 10/03/17 11:00 10/03/17 11:00 Microbiology 10/02/17 12:23 Gram Stain - Final Pericardial Fluid - Anaerobic Tube/Swab 10/02/17 12:23 Gram Stain - Final Pericardial Fluid - Anaerobic Tube/Swab Laboratory Results 10/03/17 07:15 10/03/17 05:25 10/02/17 10/03/17 10/04/17 05:59 05:59 05:59 Intake Total 3734 800 200 Output Total 1425 6647 900 Balance 2309 -5845 -700 PT 45.6 SEC (12.0-15.0) H 10/03/17 05:25 INR 4.97 (0.83-1.16) H 10/03/17 05:25 Physical Exam - Physical Exam General Appearance: WD/WN, alert, moderate distress EENT: scleral icterus (R) Neck: supple Respiratory: decreased breath sounds Cardiac/Chest: regular rate, rhythm, edema Abdomen: normal bowel sounds, distended, ascites Skin: embolic lesions Extremities: non-tender, pedal edema, swelling Neuro/Psych: no motor/sensory deficits, oriented x 3, depressed affect ICD10 Worksheet Patient Problems: Problems Problem Status Onset Acute blood loss anemia Acute Dehydration Acute Endocarditis of tricuspid valve Acute Hyponatremia Acute Renal failure Acute S/P tricuspid valve replacement Acute
[2017-10-03] MEDS: traMADol 50 MG TAB PO PRN ×2 (12:12→17:56)
--- NOTE | 2017-10-03 13:05 | ASMTCMCOM ---
CM Note CM Note Notes: Transferred to ICU due to sepsis. Ascites drained, A & O, up eating, needs contact guard assist when up. Will probably transfer back to PCU Monday. Date Signed: 10/03/2017 01:03 PM Electronically Signed By:Lauren Franklin LCSW
--- NOTE | 2017-10-03 13:08 | ASMTCMCOM ---
CM Note CM Note Notes: Therapies recommending HC and Hm w/24hr supervision. Patient lives with . Has Medicare lives in [place]. Transferred to U. Date Signed: 10/03/2017 01:07 PM Electronically Signed By:Lauren Franklin LCSW
[2017-10-03] MEDS ORDERED: FUROSEMIDE 100 MG/10 ML VIAL IVP ONE (13:30)
--- NOTE | 2017-10-03 13:42 | HOSPPROG ---
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, has been on warfarin with plan for 3 months tx * Septic pulmonary emboli * Mediastinal hematoma s/p evacuation * Exudative/hemorrhagic pleural effusion due to septic pulmonary emboli -s/p decortication, re-exploration hematoma evacuation, small ptx * 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--given fluid overnight as thought that worsening creatinine due to over diuresis--today with massive ascites as above, likely will need recurrent HD for fluid management * urinary retention: due to blood clots, s/p irrigation, arellano out and will monitor to see if uop remains adequate * Volume overload--worsened again overnight as above * Acute respiratory failure s/p extubation--doing well on RA currently * 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 * ABL anemia * IVDA * Hep C * Tobacco dependence > 40 min of critical care time spent with this patient Subjective: patient s/p pericardial window/paracentesis performed, this am abdomen more distended and tense this am Objective: Vital Signs Temp Pulse Resp BP Pulse Ox 36.9 C 115 H 20 142/98 H 95 10/03/17 04:00 10/03/17 13:00 10/03/17 13:00 10/03/17 13:00 10/03/17 13:00 Microbiology 10/02/17 12:23 Gram Stain - Final Pericardial Fluid - Anaerobic Tube/Swab 10/02/17 12:23 Gram Stain - Final Pericardial Fluid - Anaerobic Tube/Swab Laboratory Results 10/03/17 07:15 10/03/17 05:25 10/02/17 10/03/17 10/04/17 05:59 05:59 05:59 Intake Total 3734 800 200 Output Total 1425 6647 900 Balance 2309 -9640 -700 PT 45.6 SEC (12.0-15.0) H 10/03/17 05:25 INR 4.97 (0.83-1.16) H 10/03/17 05:25 awake alert ill appearing anicteric op clear tachy regular distant cta to ant exam distended tense ttp 2-3+ pitting edema warm dry well perfused, diffuse maculopapular rashe ble oriented appropriate ICD10 Worksheet Patient Problems: Problems Problem Status Onset Acute blood loss anemia Acute Dehydration Acute Endocarditis of tricuspid valve Acute Hyponatremia Acute Renal failure Acute S/P tricuspid valve replacement Acute
--- NOTE | 2017-10-03 14:19 | PCMIDPN ---
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 Level is therapeutic today. Will repeat level tomorrow with plans to re-dose once less than 15. Anticipate 6 week course of therapy post valve replacement. * Leukocytosis: Improved post pericardial fluid drainage. Gram stain on fluid is negative with cultures no growth to date. May also have element related to underlying leukocytoclastic vasculitis. Repeat blood cultures are pending to ensure no new infectious contribution. Subjective: Patient complains of persistent abdominal pain. Echo yesterday showed evidence of pericardial effusion which has now been drained via pericardial window. 3 L of ascites also drained. Objective: Vital Signs Temp Pulse Resp BP Pulse Ox 36.9 C 115 H 20 147/93 H 92 10/03/17 04:00 10/03/17 14:00 10/03/17 14:00 10/03/17 14:00 10/03/17 14:00 Microbiology 09/16/17 09:25 Mycobacterial Smear (STEPHANIE) - Final Heart - Tissue 10/02/17 12:23 Gram Stain - Final Pericardial Fluid - Anaerobic Tube/Swab 10/02/17 12:23 Gram Stain - Final Pericardial Fluid - Anaerobic Tube/Swab Laboratory Results 10/03/17 07:15 10/03/17 05:25 10/02/17 10/03/17 10/04/17 05:59 05:59 05:59 Intake Total 3734 800 500 Output Total 1425 6647 1350 Balance 7700 -7886 -914 Vancomycin # 28, # 17 postoperatively Pericardial Gram stain negative, culture pending Blood cultures x2 pending White blood cell count 19.9 Laboratory Tests 09/16/17 10/03/17 05:30 05:25 Random Vancomycin 29.0 19.4 - Physical Exam General Appearance: alert, no apparent distress, non-toxic EENT: No scleral icterus, No thrush, No conjunctival petechiae Respiratory: No respiratory distress Cardiac/Chest: tachycardia, No systolic murmur Extremities: pedal edema Abdomen: distended (Less prominent than yesterday), tender (Diffusely but less prominent than yesterday) Skin: rash (Purpuric rash over knees and feet decreasing in intensity) ICD10 Worksheet Patient Problems: Problems Problem Status Onset Acute blood loss anemia Acute Dehydration Acute Endocarditis of tricuspid valve Acute Hyponatremia Acute Renal failure Acute S/P tricuspid valve replacement Acute
--- NOTE | 2017-10-03 16:43 | PDINTPN ---
[employer] Progress Note Assessment/Plan: Assessment: 37-year-old methamphetamine and opiate addict traveling to [place] with his mother and stepfather for work. Presented to the emergency department on 09/05 with weakness, confusion and hypotension in the setting of opiate withdrawal and recent methamphetamine abuse. 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 He has had a complicated hospital course since admission. He is status post tricuspid valve replacement for his endocarditis, had septic emboli, acute renal failure requiring a short course of dialysis, etc. He required mediastinal exploration for bleeding and yesterday was found to have evidence of tamponade. He was taken back to the operating room and a pericardial window was placed. In addition he had over 3 L of ascites drained from his abdomen. He was moved to the intensive care unit following the procedure. Other active issues include his abdominal discomfort and persistent renal failure. He is off antibiotics. Plan: Continue hemodynamic monitoring. Continue pain control as needed. Advance diet as tolerated. May need repeat hemodialysis. Hold Coumadin. Will follow laboratory, chest x-ray. Subjective: Complains of abdominal discomfort. Objective: Vital Signs Temp Pulse Resp BP Pulse Ox 36.4 C 116 H 20 151/98 H 94 10/03/17 15:00 10/03/17 16:00 10/03/17 16:00 10/03/17 16:00 10/03/17 16:00 Microbiology 09/16/17 09:25 Mycobacterial Smear (STEPHANIE) - Final Heart - Tissue 10/02/17 12:23 Gram Stain - Final Pericardial Fluid - Anaerobic Tube/Swab 10/02/17 12:23 Gram Stain - Final Pericardial Fluid - Anaerobic Tube/Swab Laboratory Results 10/03/17 07:15 10/03/17 05:25 10/02/17 10/03/17 10/04/17 05:59 05:59 05:59 Intake Total 3734 800 600 Output Total 7996 8325 2220 Balance 2309 -5639 -1622 PT 45.6 SEC (12.0-15.0) H 10/03/17 05:25 INR 4.97 (0.83-1.16) H 10/03/17 05:25 Laboratory Tests 10/03/17 10/03/17 05:25 05:25 INR 4.97 H Calcium 7.9 L Phosphorus 9.6 H Magnesium 1.9 Albumin 2.6 L Physical Exam - Physical Exam General Appearance: alert, mild distress, thin EENT: other (Nasal lesion. Requiring no oxygen) Neck: other (Triple-lumen in place) Respiratory: lungs clear (Anteriorly), decreased breath sounds (At bases), rales (Few rales at bases) Cardiac/Chest: tachycardia (Sinus), systolic murmur Abdomen: non-tender (Mild to moderate tenderness to palpation), distended, No normal bowel sounds (Decreased, some bowel sounds present), No soft Male Genitalia: other (No Gonsalez catheter) Skin: warm/dry, pallor Extremities: No pedal edema Neuro/Psych: no motor/sensory deficits (Moves all extremities equally, globally weak.), No cognition abnormalities ICD10 Worksheet Patient Problems: Problems Problem Status Onset Acute blood loss anemia Acute S/P tricuspid valve replacement Acute Endocarditis of tricuspid valve Acute Renal failure Acute Hyponatremia Acute Dehydration Acute
[2017-10-03] MEDS ORDERED: oxyCODONE IR 5 MG TAB PO ONE (19:33)
[2017-10-03] MEDS ORDERED: POTASSIUM CL 10 MEQ TAB PO ONE (19:47)
[2017-10-03] MEDS: CYCLOBENZAPRINE 10 MG TAB PO PRN (21:51)
[2017-10-04] MEDS: traMADol 50 MG TAB PO PRN ×4 (00:08→23:22)
[2017-10-04] MEDS: oxyCODONE IR 5 MG TAB PO PRN ×5 (01:49→19:23)
[2017-10-04] MEDS: HYDROmorphONE/DILAUDID 1 MG/ML INJ IVP PRN ×5 (01:49→23:22)
[2017-10-04 04:31] LABS: PLATELET COUNT 248 10^3/uL (150-400)
[2017-10-04 05:54] LABS: INR 2.53 (0.83-1.16); PROTIME(PATIENT) 27.2 SEC (12.0-15.0)
--- NOTE | 2017-10-04 06:21 | SOAPPROG ---
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 - Coumadin for thromboprophylaxis once coagulopathy resolves, INR goal 2-3, duration 3 months Bilateral loculated effusions s/p decortication with need for reexploration and evacuation of left chest hematoma - Stable Pre-op anemia with post-op acute blood anemia/coagulopathy/hemorrhagic pericardial effusion - See blood bank section for transfusion details - Will monitor H/H and transfuse as needed MRSA sepsis with septic emboli secondary to IV drug abuse - ABX and further mgmt as per ID ARF - Cr stabilizing - Lasix gtt started - Renal following VDRF - Resolved Ileus - Resolved Left elbow swelling/pain without signs of vascular issues - Resolved Bilateral LE pain - Negative for DVT - Resolved DVT prophylaxis - SCDs/Coumadin Pericardial tamponade with SOB/ascites s/p pericardial window/paracentesis - Pericardial drain to remain Subjective: Belly feels tense and is painful to touch. Objective: Vital Signs Temp Pulse Resp BP Pulse Ox 36.4 C 113 H 18 118/84 H 94 10/04/17 04:00 10/04/17 05:00 10/04/17 05:00 10/04/17 05:00 10/04/17 05:00 Microbiology 09/16/17 09:25 Mycobacterial Smear (STEPHANIE) - Final Heart - Tissue 10/02/17 12:23 Gram Stain - Final Pericardial Fluid - Anaerobic Tube/Swab 10/02/17 12:23 Gram Stain - Final Pericardial Fluid - Anaerobic Tube/Swab Laboratory Results 10/04/17 04:11 10/04/17 04:11 10/03/17 10/04/17 10/05/17 05:59 05:59 05:59 Intake Total 800 1500 Output Total 6647 3720 Balance -5847 -2220 PT 27.2 SEC (12.0-15.0) H 10/04/17 04:11 INR 2.53 (0.83-1.16) H 10/04/17 04:11 Physical Exam - Physical Exam General Appearance: alert, mild distress, cachetic EENT: No scleral icterus (R), No scleral icterus (L) Neck: normal inspection Respiratory: No respiratory distress Cardiac/Chest: tachycardia Abdomen: distended, ascites, No guarding Skin: normal color, warm/dry, embolic lesions Extremities: pedal edema Neuro/Psych: no motor/sensory deficits, alert, normal mood/affect, oriented x 3 ICD10 Worksheet Patient Problems: Problems Problem Status Onset Acute blood loss anemia Acute Dehydration Acute Endocarditis of tricuspid valve Acute Hyponatremia Acute Renal failure Acute S/P tricuspid valve replacement Acute
[2017-10-04] MEDS ORDERED: FUROSEMIDE 100 MG in D5W 100 ML IV SCH (07:15)
[2017-10-04] MEDS ORDERED: POTASSIUM Cl (KCl) 20 MEQ/50 ML BAG IV ONE ×2 (08:20→15:37)
[2017-10-04] MEDS: SENNOSIDES/DOCUSATE SODIUM TAB PO SCH ×2 (08:22→21:10)
[2017-10-04] MEDS: CALCIUM ACETATE 667 MG CAP PO SCH ×3 (08:22→18:11)
[2017-10-04] MEDS: METOPROLOL TARTRATE 25 MG TAB PO SCH ×2 (08:23→21:10)
[2017-10-04] MEDS: ASPIRIN 81 MG CHEWABLE TAB PO SCH (08:23)
[2017-10-04] MEDS ORDERED: PROTOCOL POTASSIUM 1 DOSE MISC PRN (08:41)
[2017-10-04] MEDS ORDERED: POTASSIUM Cl (KCl) 50 ML IV ONE ×3 (09:00→21:26)
[2017-10-04] MEDS ORDERED: POTASSIUM Cl (KCl) 50 ML IV SCH (09:30)
[2017-10-04] MEDS ORDERED: POTASSIUM Cl (KCl) 10 MEQ in D5W 50 ML IV ONE (09:45)
--- NOTE | 2017-10-04 11:07 | SOAPPROG ---
SOAP Progress Note Assessment/Plan: Assessment/Plan: 37 y/o M with h/o IVDA with endocarditis and BRITNEY now s/p pericardial effusion. 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 Plans to continue 6 weeks through 10/28 Hyponatremia- Na improving with diuresis High phos- continue Ca Acetate binder for now, renal diet when taking po Anemia- -bleed post-op with hemopericardium -s/p multiple units -Hb down to 7.7 again today -hold EPO off HD 10/04/17 12:09 Subjective: Patient feeling very uncomfortable today and getting dilaudid. Feels that abdomen is getting tighter. Objective: Vital Signs Temp Pulse Resp BP Pulse Ox 36.6 C 110 H 16 123/87 H 95 10/04/17 08:00 10/04/17 10:00 10/04/17 10:00 10/04/17 10:00 10/04/17 10:00 Microbiology 10/02/17 12:23 Gram Stain - Final Pericardial Fluid - Anaerobic Tube/Swab 10/02/17 12:23 Gram Stain - Final Pericardial Fluid - Anaerobic Tube/Swab 09/16/17 09:25 Mycobacterial Smear (STEPHANIE) - Final Heart - Tissue Laboratory Results 10/04/17 04:11 10/04/17 04:11 10/03/17 10/04/17 10/05/17 05:59 05:59 05:59 Intake Total 800 1500 Output Total 6652 3720 Balance -5847 -2220 PT 27.2 SEC (12.0-15.0) H 05/30/18 04:11 INR 2.53 (0.83-1.16) H 10/04/17 04:11 Physical Exam - Physical Exam General Appearance: alert, moderate distress, thin EENT: scleral icterus (R) Neck: non-tender, supple Respiratory: accessory muscle use, decreased breath sounds, crackles Cardiac/Chest: regular rate, rhythm, edema, JVD Abdomen: distended, rigid, ascites Skin: pallor Extremities: normal range of motion, non-tender Neuro/Psych: no motor/sensory deficits, oriented x 3, depressed affect ICD10 Worksheet Patient Problems: Problems Problem Status Onset Acute blood loss anemia Acute Dehydration Acute Endocarditis of tricuspid valve Acute Hyponatremia Acute Renal failure Acute S/P tricuspid valve replacement Acute
[2017-10-04] MEDS ORDERED: FUROSEMIDE 100 MG/10 ML VIAL ONE (11:43)
[2017-10-04] MEDS ORDERED: FUROSEMIDE 100 MG/10 ML VIAL IVP ONE (12:45)
[2017-10-04] MEDS: SIMETHICONE 80 MG TAB CHEW PO PRN (12:47)
--- NOTE | 2017-10-04 13:07 | HOSPPROG ---
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 massive ascites: sp paracentesis in 0r 10/02 yesterday with 3L taken off but today abdomen again more distended and patient feels that it is tense again will discuss possible paracentesis w CT surgery for now diuresis suspect it would rapidly reaccumulate pericardial tamponade: taken to OR for pericardial window by CT surg 10/02, monitoring in ICU Septic shock - MRSA, continue IV Vanco, wbc remains elevated, no clear other source of infection noted septic physiology resolved TV endocarditis-s/p TV debridement and replacement 09/16, has been on warfarin with plan for 3 months tx Septic pulmonary emboli on RA Mediastinal hematoma s/p evacuation Exudative/hemorrhagic pleural effusion due to septic pulmonary emboli -s/p decortication, re-exploration hematoma evacuation, small ptx 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--given fluid overnight as thought that worsening creatinine due to over diuresis--today with massive ascites as above, likely will need recurrent HD for fluid management urinary retention: due to blood clots, s/p irrigation, arellano out and will monitor to see if uop remains adequate Volume overload--worsened again overnight as above diuresing Acute respiratory failure s/p extubation--doing well on RA currently 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 c/o abd pain Objective: Vital Signs Temp Pulse Resp BP Pulse Ox 36.6 C 112 H 16 122/83 H 92 10/04/17 08:00 10/04/17 12:00 10/04/17 12:00 10/04/17 12:00 10/04/17 12:00 Microbiology 10/02/17 12:23 Gram Stain - Final Pericardial Fluid - Anaerobic Tube/Swab 10/02/17 12:23 Gram Stain - Final Pericardial Fluid - Anaerobic Tube/Swab 09/16/17 09:25 Mycobacterial Smear (STEPHANIE) - Final Heart - Tissue Laboratory Results 10/04/17 04:11 10/04/17 04:11 10/03/17 10/04/17 10/05/17 05:59 05:59 05:59 Intake Total 800 1500 Output Total 6610 3720 300 Balance -5847 -2220 -300 PT 27.2 SEC (12.0-15.0) H 10/04/17 04:11 INR 2.53 (0.83-1.16) H 10/04/17 04:11 - Physical Exam Constitutional: no apparent distress, cachectic Eyes: PERRL, anicteric sclera Ears, Nose, Mouth, Throat: moist mucous membranes, hearing normal Cardiovascular: regular rate and rhythym, no murmur, rub, or gallop Respiratory: no respiratory distress, no rales or rhonchi Gastrointestinal: ascites, other (firm, not tense, ascites) Genitourinary: no bladder fullness, No arellano in urethra Skin: warm, normal color Musculoskeletal: no muscle tenderness Neurologic: AAOx3 ICD10 Worksheet Patient Problems: Problems Problem Status Onset Acute blood loss anemia Acute Dehydration Acute Endocarditis of tricuspid valve Acute Hyponatremia Acute Renal failure Acute S/P tricuspid valve replacement Acute
--- NOTE | 2017-10-04 14:48 | PCMIDPN ---
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 Vancomycin random level today just above 15. Will plan on re-dosing in a.m. With 1 g IV x1. Now has completed 18/42 days of vancomycin therapy post tricuspid valve replacement. * Leukocytosis: Persistent leukocytosis with negative pericardial fluid cultures and repeat blood cultures. Likely multifactorial in etiology. If undergoes repeat paracentesis, would obtain cell count to ensure no evidence of SBP although suspect this is bland with pain related to distension from ascites rather than infection. 10/04/17 14:45 Subjective: Patient complains of abdominal pain related to worsening abdominal distension. Objective: Vital Signs Temp Pulse Resp BP Pulse Ox 36.6 C 112 H 16 122/83 H 92 10/04/17 08:00 10/04/17 12:00 10/04/17 12:00 10/04/17 12:00 10/04/17 12:00 Microbiology 10/02/17 12:23 Gram Stain - Final Pericardial Fluid - Anaerobic Tube/Swab 10/02/17 12:23 Gram Stain - Final Pericardial Fluid - Anaerobic Tube/Swab 09/16/17 09:25 Mycobacterial Smear (STEPHANIE) - Final Heart - Tissue Laboratory Results 10/04/17 04:11 10/03/17 10/04/17 10/05/17 05:59 05:59 05:59 Intake Total 800 1500 400 Output Total 6647 3720 775 Balance -5847 -2220 -375 Vancomycin # 29, # 18 post valve replacement Blood cultures 10/02/2017 no growth Pericardial fluid cultures 10/02/2017 no growth Laboratory Tests 10/04/17 10:24 Random Vancomycin 15.4 - Physical Exam General Appearance: alert, apparent distress (Related to abdominal discomfort), non-toxic EENT: No scleral icterus, No thrush Respiratory: lungs clear (Anterolaterally), No respiratory distress Cardiac/Chest: regular rate, rhythm Abdomen: distended, tender (Diffusely) Skin: other (Vasculitic rash over lower extremities becoming less prominent with time) ICD10 Worksheet Patient Problems: Problems Problem Status Onset Acute blood loss anemia Acute Dehydration Acute Endocarditis of tricuspid valve Acute Hyponatremia Acute Renal failure Acute S/P tricuspid valve replacement Acute
[2017-10-04] MEDS ORDERED: METOCLOPRAMIDE 10 MG/2 ML VIAL ONE (15:37)
[2017-10-04] MEDS: ONDANSETRON 4 MG/2 ML VIAL IVP PRN ×2 (15:56→21:10)
[2017-10-04] MEDS: METOCLOPRAMIDE 10 MG/2 ML VIAL IVP SCH ×2 (15:57→21:10)
[2017-10-05] MEDS ORDERED: POTASSIUM Cl (KCl) 50 ML IV ONE (02:03)
[2017-10-05] MEDS: METOCLOPRAMIDE 10 MG/2 ML VIAL IVP SCH ×4 (03:10→22:49)
[2017-10-05] MEDS: ONDANSETRON 4 MG/2 ML VIAL IVP PRN ×2 (03:10→16:17)
[2017-10-05 03:57] LABS: PLATELET COUNT 229 10^3/uL (150-400)
[2017-10-05 04:46] LABS: INR 1.11 (0.83-1.16); PROTIME(PATIENT) 14.5 SEC (12.0-15.0)
--- NOTE | 2017-10-05 06:28 | SOAPPROG ---
SOAP Progress Note Assessment/Plan: POD #19: Tricuspid valve debridement and replacement with #29 Magna bioprosthesis, decortication bilateral pleura POD #18: Mediastinal reexploration and evacuation of left chest hematoma POD #3: Subxiphoid pericardial window/paracentesis Tricuspid valve MRSA endocarditis s/p debridement/replacement with bioprosthesis - Coumadin for thromboprophylaxis, INR goal 2-3, duration 3 months - possibly to be restarted today. Bilateral loculated effusions s/p decortication with need for reexploration and evacuation of left chest hematoma - Stable Pre-op anemia with post-op acute blood anemia/coagulopathy/hemorrhagic pericardial effusion - See blood bank section for transfusion details - 2U this morning for HCT < 20 MRSA sepsis with septic emboli secondary to IV drug abuse - ABX and further mgmt as per ID ARF - Lasix gtt - Renal following VDRF - Resolved Ileus - Vomiting overnight - NGT to be placed/NPO Left elbow swelling/pain without signs of vascular issues - Resolved Bilateral LE pain - Negative for DVT - Resolved DVT prophylaxis - SCDs/Coumadin Pericardial tamponade with SOB/ascites s/p pericardial window/paracentesis - Pericardial drain to be removed - Limited ECHO to reevaluate Subjective: Vomited all night. Abd non-tender. Denies SOB. Objective: Vital Signs Temp Pulse Resp BP Pulse Ox 36.7 C 112 H 18 124/74 H 100 10/05/17 04:00 10/05/17 04:00 10/05/17 04:00 10/05/17 04:00 10/05/17 04:00 Microbiology 10/02/17 12:23 Gram Stain - Final Pericardial Fluid - Anaerobic Tube/Swab 10/02/17 12:23 Gram Stain - Final Pericardial Fluid - Anaerobic Tube/Swab Laboratory Results 10/05/17 03:47 10/05/17 03:47 10/04/17 10/05/17 10/06/17 05:59 05:59 05:59 Intake Total 1500 1351.1 Output Total 3720 2730 Balance -2220 -1378.9 PT 14.5 SEC (12.0-15.0) 10/05/17 03:47 INR 1.11 (0.83-1.16) 10/05/17 03:47 Physical Exam - Physical Exam General Appearance: alert, mild distress, cachetic EENT: No scleral icterus (R), No scleral icterus (L) Neck: normal inspection Respiratory: No respiratory distress Cardiac/Chest: tachycardia Abdomen: non-tender, soft, distended Skin: warm/dry, pallor, embolic lesions Extremities: pedal edema Neuro/Psych: no motor/sensory deficits, alert, normal mood/affect ICD10 Worksheet Patient Problems: Problems Problem Status Onset Acute blood loss anemia Acute Dehydration Acute Endocarditis of tricuspid valve Acute Hyponatremia Acute Renal failure Acute S/P tricuspid valve replacement Acute
[2017-10-05] MEDS: HYDROmorphONE/DILAUDID 1 MG/ML INJ IVP PRN ×5 (07:53→22:49)
[2017-10-05] MEDS ORDERED: VANCOMYCIN HCL/NORMAL SALINE 250 ML IV ONE (08:57)
--- NOTE | 2017-10-05 09:30 | SOAPPROG ---
SOAP Progress Note Assessment/Plan: Assessment/Plan: 37 y/o M with h/o IVDA with endocarditis and BRITNEY now s/p pericardial effusion non-oliguric, but uremic requiring dialysis. 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 Plans to continue 6 weeks through 10/28 Hyponatremia- Na improving with diuresis High phos- >8mg/dL due to BRITNEY, continue Ca Acetate binder for now, renal diet when taking po Anemia- -bleed post-op with hemopericardium -Hb down to 6.7 again today, 2 units ordered -will dose EPO on HD 10/05/17 09:40 Subjective: Still making good urine. More anemic overnight and getting transfusions. Having pain in abdomen with distension. Objective: Vital Signs Temp Pulse Resp BP Pulse Ox 36.3 C 109 H 13 109/72 97 10/05/17 08:00 10/05/17 08:00 10/05/17 08:00 10/05/17 08:00 10/05/17 08:00 Microbiology 10/02/17 12:23 Gram Stain - Final Pericardial Fluid - Anaerobic Tube/Swab 10/02/17 12:23 Gram Stain - Final Pericardial Fluid - Anaerobic Tube/Swab Laboratory Results 10/05/17 03:47 10/05/17 03:47 10/04/17 10/05/17 10/06/17 05:59 05:59 05:59 Intake Total 1500 1351.1 Output Total 3720 2730 250 Balance -2220 -1378.9 -250 PT 14.5 SEC (12.0-15.0) 10/05/17 03:47 INR 1.11 (0.83-1.16) 10/05/17 03:47 Physical Exam - Physical Exam General Appearance: moderate distress EENT: scleral icterus (R) Neck: non-tender, supple Respiratory: accessory muscle use, decreased breath sounds, crackles Cardiac/Chest: regular rate, rhythm, edema Abdomen: normal bowel sounds, distended, ascites Skin: pallor, rash Extremities: normal range of motion, pedal edema Neuro/Psych: oriented x 3, depressed affect ICD10 Worksheet Patient Problems: Problems Problem Status Onset Acute blood loss anemia Acute Dehydration Acute Endocarditis of tricuspid valve Acute Hyponatremia Acute Renal failure Acute S/P tricuspid valve replacement Acute
[2017-10-05] MEDS ORDERED: HEPARIN 50,000 UNIT/10 ML VIAL ONE (10:03)
--- NOTE | 2017-10-05 10:24 | WOCRNPDOC ---
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 Wound continues to shrink in size. Will continue with current plan. Patient questions answered. Wound care will continue to round.
--- NOTE | 2017-10-05 10:34 | ECHO ---
[email or web address] [address] [address] Main: [phone] Fax: Transthoracic Echocardiogram Name: MAYELA HILTON MR#: [id number] Study Date: 10/05/2017 Study Time: 07:28 AM Date of : 1980 Age: 37 year(s) Height: 177.8 cm (70 in.) Weight: 73.48 kg (162 lb.) BSA: 1.91 m2 Gender: Male Examination: Limited Echo Indication: Assess pericardial effusion Image Quality: Contrast: Requested by: Christofer Vargas BP: 117 mmHg/75 mmHg Heart Rate: Rhythm: Indication: Assess pericardial effusion Procedure Staff Dish Carrier: Debi Sommers [facility] Reading Physician: Sabi Renteria MD Requesting Provider: Conclusions: Normal global systolic LV function. There is a tricuspid bioprosthesis. Tricuspid valve prosthesis function is normal. No echocardiographic evidence of hemodynamic compromise. Small posterior pericardial effusion.. Compared with 10/02/2017 pericardial effusion is significantly smaller Measurements: Chambers Valvular Assessment AV/MV Valvular Assessment TV/PV Normal Normal Normal Name Value Range Name Value Range Name Value Range TV Vmax: 0.97 m/s (0.3 m/s-0.7 m/s) TV Vmean: 0.69 m/s ( - ) TV PGmax: 4 mmHg ( - ) TV PGmean: 2 mmHg ( - ) TV VTI: 22.30 cm ( - ) Continued Measurements: Findings: Left Ventricle: Normal global systolic LV function. Tricuspid Valve: There is a tricuspid bioprosthesis. Tricuspid valve prosthesis function is normal. Pericardium: No echocardiographic evidence of hemodynamic compromise. Small posterior pericardial effusion.. Patient: MAYELA HILTON Study Date: 10/05/2017 Page 1 of 2 07:28 AM (No Signature Object) Patient: MAYELA HILTON Study Date: 10/05/2017 Page 2 of 2 07:28 AM [id number]
--- NOTE | 2017-10-05 11:34 | PDRADPN ---
Radiology Procedure Note Date of Procedure: 10/05/17 Radiologist: Aguila Graham Anesthesia: Local (Specify) Pre-op Diagnosis: uremia Post-op Diagnosis: same Indication: short term inpatient dialysis Procedure: KAREEN Jackson Finding(s): tip of HD cath at upper RA. Ok to use. Inf/Abcess present in the surg proc area at time of surgery?: No EBL: Minimal Complications: none
[2017-10-05] MEDS: CALCIUM ACETATE 667 MG CAP PO SCH ×3 (12:29→19:25)
[2017-10-05] MEDS: ASPIRIN 81 MG CHEWABLE TAB PO SCH (12:29)
[2017-10-05] MEDS: METOPROLOL TARTRATE 25 MG TAB PO SCH ×2 (12:37→22:38)
[2017-10-05] MEDS: SENNOSIDES/DOCUSATE SODIUM TAB PO SCH ×2 (12:37→22:38)
--- NOTE | 2017-10-05 13:34 | HOSPPROG ---
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 massive ascites: sp paracentesis in 0r 10/02 yesterday with 3L taken off but today abdomen again more distended and patient feels that it is tense again will discuss possible paracentesis w CT surgery for now diuresis suspect it would rapidly reaccumulate 10/05- a bit improved from yesterday hold on repeat paracentesis consideration that this could be an autoimmune serositis given vasculitic rash pericardial tamponade: taken to OR for pericardial window by CT surg 10/02, monitoring in ICU Septic shock - MRSA, continue IV Vanco, wbc remains elevated, no clear other source of infection noted septic physiology resolved TV endocarditis-s/p TV debridement and replacement 09/16, has been on warfarin with plan for 3 months tx Septic pulmonary emboli on RA Mediastinal hematoma s/p evacuation Exudative/hemorrhagic pleural effusion due to septic pulmonary emboli -s/p decortication, re-exploration hematoma evacuation, small ptx 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--given fluid overnight as thought that worsening creatinine due to over diuresis--today with massive ascites as above, likely will need recurrent HD for fluid management urinary retention: due to blood clots, s/p irrigation, arellano out and will monitor to see if uop remains adequate Volume overload--worsened again overnight as above diuresing Acute respiratory failure s/p extubation--doing well on RA currently 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 vomiting overnight Objective: Vital Signs Temp Pulse Resp BP Pulse Ox 36.8 C 106 H 13 137/94 H 96 10/05/17 12:00 10/05/17 12:00 10/05/17 12:00 10/05/17 12:00 10/05/17 12:00 Microbiology 10/02/17 12:23 Gram Stain - Final Pericardial Fluid - Anaerobic Tube/Swab 10/02/17 12:23 Gram Stain - Final Pericardial Fluid - Anaerobic Tube/Swab Laboratory Results 10/05/17 03:47 10/05/17 12:00 10/04/17 10/05/17 10/06/17 05:59 05:59 05:59 Intake Total 1500 1351.1 Output Total 3720 2730 500 Balance -2220 -1378.9 -500 PT 14.5 SEC (12.0-15.0) 10/05/17 03:47 INR 1.11 (0.83-1.16) 10/05/17 03:47 - Physical Exam Constitutional: no apparent distress, appears nourished Eyes: PERRL, anicteric sclera Ears, Nose, Mouth, Throat: moist mucous membranes, hearing normal Cardiovascular: regular rate and rhythym, systolic murmur Respiratory: no respiratory distress, no rales or rhonchi Gastrointestinal: ascites, other (ascites, less firm than yesterday) Genitourinary: No arellano in urethra Skin: warm, other (vasculitic rash on legs) Musculoskeletal: No full muscle strength Neurologic: AAOx3 ICD10 Worksheet Patient Problems: Problems Problem Status Onset Acute blood loss anemia Acute Dehydration Acute Endocarditis of tricuspid valve Acute Hyponatremia Acute Renal failure Acute S/P tricuspid valve replacement Acute
--- NOTE | 2017-10-05 14:34 | PCMIDPN ---
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 Patient is status post tricuspid valve excision and replacement with a bioprosthetic. His blood cultures have remained negative since surgery. Seem to be slowly improving but continues to have issues with ongoing renal failure as well as accumulation of pericardial, thoracic and peritoneal fluid. Plan to continue IV vancomycin p.r.n. By level for now. Patient's creatinine has been vacillating over the last week. Will recheck random Vanco level for a.m.. 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 This is an immunologic phenomenon seen in association with infective endocarditis. No immunosuppressive therapy is called for at this point for this issue in isolation as this is secondary to the underlying infection and there is no significant sequela anticipated. 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 In this respect immunosuppression may be considered as therapeutic. The other possible immunologic presentation is post pericardiotomy syndrome with the development of serositis in the pericardial, thoracic and peritoneal spaces. Would consider the initiation of colchicine or low-dose steroid as therapeutic of these issues. Ongoing anemia. Suspect this is secondary to his immune response resulting in down regulation of red blood cell production. At this point I agree with periodic transfusion management. Plan: 1. Continue vancomycin dosed as needed. Repeat vancomycin random level. 2. Follow creatinine levels. Agree with gentle hydration. 3. Follow clinical course and improvement. 4. Consider low-dose immunosuppression. Subjective: Patient remains ill. He states that he has Re accumulated fluid in his abdomen. No other new symptoms. He notes that the rash on his feet and legs are stable to a little worse. No fevers or chills. Objective: Vancomycin p.r.n. # 19 post valve surgery Vital Signs Temp Pulse Resp BP Pulse Ox 36.8 C 106 H 13 137/94 H 96 10/05/17 12:00 10/05/17 12:00 10/05/17 12:00 10/05/17 12:00 10/05/17 12:00 Microbiology 10/02/17 12:23 Gram Stain - Final Pericardial Fluid - Anaerobic Tube/Swab 10/02/17 12:23 Gram Stain - Final Pericardial Fluid - Anaerobic Tube/Swab Laboratory Results 10/05/17 03:47 10/05/17 12:00 10/04/17 10/05/17 10/06/17 05:59 05:59 05:59 Intake Total 1500 1351.1 Output Total 3720 2730 500 Balance -2220 -1378.9 -500 C-Reactive Protein 70.5 mg/L (<10.0) H 10/05/17 12:00 - Physical Exam General Appearance: WD/WN, alert, no apparent distress, non-toxic Respiratory: lungs clear, normal breath sounds, No respiratory distress, No stridor Cardiac/Chest: regular rate, rhythm, No tachycardia Extremities: non-tender, No normal inspection Skin: normal color, warm/dry, rash Neuro/Psych: alert, normal mood/affect, oriented x 3 ICD10 Worksheet Patient Problems: Problems Problem Status Onset Acute blood loss anemia Acute Dehydration Acute Endocarditis of tricuspid valve Acute Hyponatremia Acute Renal failure Acute S/P tricuspid valve replacement Acute
--- NOTE | 2017-10-05 15:09 | PDINTPN ---
Investigative Assistant Progress Note Assessment/Plan: Assessment: 37-year-old methamphetamine and opiate addict traveling to [place] with his mother and stepfather for work. Presented to the emergency department on 09/05 with weakness, confusion and hypotension in the setting of opiate withdrawal and recent methamphetamine abuse. 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 He has had a complicated hospital course since admission: Status post tricuspid valve replacement for MRSA endocarditis. On vancomycin. Septic emboli to multiple locations. Resolved. Acute renal failure requiring dialysis previously. He will need this again. Delerium, secondary to acute illness. Resolved. Volume overload: Remains on Lasix diuresis Anemia. Status post multiple transfusions of blood/blood products. Anticoagulation: Coumadin on hold secondary to pericardial window and anticipated procedures. Etc... 10/02 had evidence of tamponade. He was taken back to the operating room and a pericardial window was placed. In addition he had over 3 L of ascites drained from his abdomen. He was moved to the intensive care unit following the procedure. Overall, since transfer, he seems to be doing clinically better. Current issues include ongoing renal failure, anemia, pain, anorexia, volume overload with Lasix diuresis, persistent ascites, etc. 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 Plan: Continue care in the intensive care unit. Continue pain control as needed. Continue Lasix diuresis. Draw inflammatory serology. Start colchicine and prednisone at 40. For catheter placement and repeat hemodialysis. Continue to hold Coumadin for procedures. Follow laboratory, chest x-ray. 40 min of critical care time spent directly with the patient. Discussed with the patient and his significant other, Infectious Disease, hospitalist, or cardiovascular surgery, nursing, and the ICU multi disciplinary team. Subjective: Doing better. Continues to have some chest pain, abdominal discomfort and distention. Objective: Vital Signs Temp Pulse Resp BP Pulse Ox 36.8 C 106 H 13 137/94 H 96 10/05/17 12:00 10/05/17 12:00 10/05/17 12:00 10/05/17 12:00 10/05/17 12:00 Microbiology 10/02/17 12:23 Gram Stain - Final Pericardial Fluid - Anaerobic Tube/Swab 10/02/17 12:23 Gram Stain - Final Pericardial Fluid - Anaerobic Tube/Swab Laboratory Results 10/05/17 14:40 10/04/17 10/05/17 10/06/17 05:59 05:59 05:59 Intake Total 1500 1351.1 Output Total 3720 2730 500 Balance -2220 -1378.9 -500 PT 14.5 SEC (12.0-15.0) 10/05/17 03:47 INR 1.11 (0.83-1.16) 10/05/17 03:47 New cardiac echo: Prosthetic tricuspid valve looks fine. Normal ejection fraction. No significant residual pericardial effusion. Physical Exam - Physical Exam General Appearance: alert, no apparent distress, thin EENT: PERRL/EOMI, other (Nasal cannula at 1-2 L) Neck: normal inspection (No JVD) Respiratory: lungs clear (Anteriorly), decreased breath sounds (At bases), No rhonchi, No wheezing Cardiac/Chest: tachycardia (Sinus), systolic murmur Abdomen: distended, ascites (Probable), No normal bowel sounds (Decreased, present), No non-tender (Minimal tenderness present), No soft Male Genitalia: other (No Gonsalez catheter) Skin: warm/dry, pallor Extremities: No pedal edema Neuro/Psych: no motor/sensory deficits (Moves all extremities equally. Globally weak.), cognition abnormalities ICD10 Worksheet Patient Problems: Problems Problem Status Onset Acute blood loss anemia Acute S/P tricuspid valve replacement Acute Endocarditis of tricuspid valve Acute Renal failure Acute Hyponatremia Acute Dehydration Acute
[2017-10-05] MEDS: POTASSIUM Cl (KCl) 50 ML IV SCH ×2 (16:17→17:10)
[2017-10-05] MEDS: predniSONE 20 MG TAB PO SCH (17:58)
[2017-10-05] MEDS ORDERED: MANNITOL 20% IV ONE (18:30)
[2017-10-05] MEDS ORDERED: MANNITOL 25% 12.5 GM/50 ML VIAL IV ONE (18:45)
[2017-10-05 20:01] LABS: HEPATITIS B SURFACE ANTIGEN NEGATIVE (NEGATIVE)
[2017-10-05] MEDS: COLCHICINE 0.6 MG CAP/TAB PO SCH (22:38)
[2017-10-05] MEDS ORDERED: HEPARIN 50,000 UNIT/10 ML VIAL IV ONE (23:08)
[2017-10-06] MEDS ORDERED: POTASSIUM Cl (KCl) 50 ML IV ONE ×2 (01:15→16:18)
[2017-10-06] MEDS: HYDROmorphONE/DILAUDID 1 MG/ML INJ IVP PRN ×4 (02:43→19:53)
[2017-10-06] MEDS: METOCLOPRAMIDE 10 MG/2 ML VIAL IVP SCH ×4 (04:47→20:20)
[2017-10-06] MEDS: COLCHICINE 0.6 MG CAP/TAB PO SCH ×2 (09:01→20:20)
[2017-10-06] MEDS: METOPROLOL TARTRATE 25 MG TAB PO SCH ×2 (09:01→20:20)
[2017-10-06] MEDS: CALCIUM ACETATE 667 MG CAP PO SCH ×3 (09:02→18:20)
[2017-10-06] MEDS: SENNOSIDES/DOCUSATE SODIUM TAB PO SCH ×3 (09:02→21:58)
[2017-10-06] MEDS: ASPIRIN 81 MG CHEWABLE TAB PO SCH (09:02)
[2017-10-06] MEDS: predniSONE 20 MG TAB PO SCH (09:02)
--- NOTE | 2017-10-06 09:38 | PCMIDPN ---
Assessment/Plan: 1. MRSA tricuspid valve endocarditis/sepsis status post tricuspid valve debridement and bioprosthesis as well as decortication of pleura bilaterally: Obtain vancomycin level after hemodialysis; will likely need to be re-dosed. 2. Serositis with history of pericardial effusion and ascites, worsening renal failure, and persistent leukocytosis: Query drug-induced lupus versus immunologic manifestation of chronic hepatitis- C as underlying etiology, as the serositis seems more extensive than one would expect for post pericardiotomy syndrome. Anti histone antibodies (for drug- induced lupus), anti double-stranded DNA, SELINA, cryoglobulins, and hepatitis-C quantitative RNA obtained yesterday. Patient has been started on low-dose prednisone and colchicine. 10/06/17 09:42 Subjective: Events of past week reviewed. Patient is status post pericardial window for significant effusion; drain removed 2 days ago. Also has had issues with significant ascites, status post paracentesis. Cochicine and low-dose prednisone started yesterday. Patient tells me that he feels markedly better today, although is having some diarrhea requiring a rectal tube. No nausea or vomiting. Diet to be advanced to regular diet today. Feels that his abdomen is much less distended. Status post hemodialysis yesterday, with improvement in BUN and creatinine. Denies any joint pain, back pain, but does have some discomfort around the incisions in his chest. Objective: Vancomycin by level day 20 after valve replacement Afebrile Vital Signs Temp Pulse Resp BP Pulse Ox 36.7 C 117 H 22 H 130/84 H 96 10/06/17 08:13 10/06/17 09:01 10/06/17 08:13 10/06/17 09:01 10/06/17 08:13 Microbiology 10/02/17 12:23 Gram Stain - Final Pericardial Fluid - Anaerobic Tube/Swab 10/02/17 12:23 Gram Stain - Final Pericardial Fluid - Anaerobic Tube/Swab Laboratory Results 10/05/17 14:40 10/06/17 04:50 10/05/17 10/06/17 10/07/17 05:59 05:59 05:59 Intake Total 1351.1 1219 Output Total 2730 6200 Balance -1378.9 -4981 ESR 11 MM/HR (0-15) 10/05/17 14:40 C-Reactive Protein 70.5 mg/L (<10.0) H 10/05/17 12:00 No new microbiology - Physical Exam General Appearance: no apparent distress, cachetic EENT: pharynx normal, No thrush Respiratory: other (Decreased breath sounds left base, otherwise fairly clear) Cardiac/Chest: other (Chest incision looks fine.) Extremities: other (Palpable purpura that appears worse to me compared with 6 days ago scattered across his knees, and particularly along the dorsa of his feet bilaterally. He also has petechia scattered on the plantar aspect of his feet. They are not palpable.) Skin: other (Please see above) ICD10 Worksheet Patient Problems: Problems Problem Status Onset Acute blood loss anemia Acute Dehydration Acute Endocarditis of tricuspid valve Acute Hyponatremia Acute Renal failure Acute S/P tricuspid valve replacement Acute
--- NOTE | 2017-10-06 11:00 | HOSPPROG ---
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 massive ascites: sp paracentesis in 0r 10/02 yesterday with 3L taken off but today abdomen again more distended and patient feels that it is tense again will discuss possible paracentesis w CT surgery for now diuresis suspect it would rapidly reaccumulate 10/05- a bit improved from yesterday hold on repeat paracentesis consideration that this could be an autoimmune serositis given vasculitic rash IMPROVING W VOLUME REMOVAL dc lasix gtt pericardial tamponade: taken to OR for pericardial window by CT surg 10/02, monitoring in ICU Septic shock - MRSA, continue IV Vanco, wbc remains elevated, no clear other source of infection noted septic physiology resolved TV endocarditis-s/p TV debridement and replacement 09/16, has been on warfarin with plan for 3 months tx Septic pulmonary emboli on RA Mediastinal hematoma s/p evacuation Exudative/hemorrhagic pleural effusion due to septic pulmonary emboli -s/p decortication, re-exploration hematoma evacuation, small ptx 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--given fluid overnight as thought that worsening creatinine due to over diuresis--today with massive ascites as above, likely will need recurrent HD for fluid management 10/06: made 1200 cc urine yesterday continued dialysis euvolemic I feel immune related process more likely than ATN urinary retention: due to blood clots, s/p irrigation, arellano out and will monitor to see if uop remains adequate Volume overload--worsened again overnight as above diuresing Acute respiratory failure s/p extubation--doing well on RA currently 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 robin and mohan. started on cteroids and colchicine. having sig diarrhea requiring rectal tube Objective: Vital Signs Temp Pulse Resp BP Pulse Ox 36.7 C 117 H 22 H 130/84 H 96 10/06/17 08:13 10/06/17 09:01 10/06/17 08:13 10/06/17 09:01 10/06/17 08:13 Microbiology 10/02/17 12:23 Gram Stain - Final Pericardial Fluid - Anaerobic Tube/Swab 10/02/17 12:23 Gram Stain - Final Pericardial Fluid - Anaerobic Tube/Swab Laboratory Results 10/05/17 14:40 06/01/18 04:50 10/05/17 10/06/17 10/07/17 05:59 05:59 05:59 Intake Total 1351.1 1219 Output Total 2730 6200 Balance -1378.9 -4981 PT 14.5 SEC (12.0-15.0) 10/05/17 03:47 INR 1.11 (0.83-1.16) 10/05/17 03:47 - Physical Exam Constitutional: no apparent distress Eyes: PERRL, anicteric sclera Ears, Nose, Mouth, Throat: moist mucous membranes, hearing normal Cardiovascular: regular rate and rhythym, no murmur, rub, or gallop Respiratory: no respiratory distress, no rales or rhonchi Gastrointestinal: other (decreased abdominal distension, rectal tube) Genitourinary: No arellano in urethra Skin: warm, normal color Musculoskeletal: No full muscle strength Neurologic: AAOx3 Psychiatric: interacting appropriately ICD10 Worksheet Patient Problems: Problems Problem Status Onset Acute blood loss anemia Acute Dehydration Acute Endocarditis of tricuspid valve Acute Hyponatremia Acute Renal failure Acute S/P tricuspid valve replacement Acute
--- NOTE | 2017-10-06 12:36 | PDINTPN ---
Automatic Folder Seamer Progress Note Assessment/Plan: Assessment: 37-year-old methamphetamine and opiate addict traveling to [place] with his mother and stepfather for work. Presented to the emergency department on 09/05 with weakness, confusion and hypotension in the setting of opiate withdrawal and recent methamphetamine abuse. 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 He has had a complicated hospital course since admission: Status post tricuspid valve replacement for MRSA endocarditis. On vancomycin. Septic emboli to multiple locations. Resolved. Acute renal failure requiring dialysis previously. Restarted 10/05. Delerium, secondary to acute illness. Resolved. Volume overload: Was on Lasix diuresis, held for HD now. Anemia. Status post multiple transfusions of blood/blood products. Anticoagulation: Coumadin on hold secondary to pericardial window and anticipated procedures. Etc... 10/02 had evidence of tamponade. He was taken back to the operating room and a pericardial window was placed. In addition he had over 3 L of ascites drained from his abdomen. He was moved to the intensive care unit following the procedure. Overall, since transfer, he is clinically better, especially in last 24 hrs. Current issues include -renal failure, on HD -anemia. HCT stable at 22. -anorexia, but starting to eat -volume overload -ascites -possible Hetal's -diarrhea, negative C Diff Plan: Continue care in the intensive care unit. Continue pain control as needed. Continue colchicine and prednisone at 40. Await multiple serologies. Continue hemodialysis per Renal. Discussed anticoagulation with [facility]. Follow laboratory, chest x-ray. 35 min of critical care time spent directly with the patient. Discussed with the patient and his mother, hospitalist, ID, nursing, and the ICU multi disciplinary team. Subjective: Doing well, feels better, starting to eat. In better spirits. Denies significant shortness of breath or chest pain. Denies significant abdominal pain Objective: Vital Signs Temp Pulse Resp BP Pulse Ox 36.7 C 106 H 21 H 116/74 99 10/06/17 12:00 10/06/17 12:00 10/06/17 12:00 10/06/17 12:00 10/06/17 12:00 Microbiology 10/02/17 12:23 Gram Stain - Final Pericardial Fluid - Anaerobic Tube/Swab 10/02/17 12:23 Gram Stain - Final Pericardial Fluid - Anaerobic Tube/Swab Laboratory Results 10/05/17 14:40 06/01/18 04:50 10/05/17 10/06/17 10/07/17 05:59 05:59 05:59 Intake Total 1351.1 1219 Output Total 2730 6200 Balance -1378.9 -4981 PT 14.5 SEC (12.0-15.0) 10/05/17 03:47 INR 1.11 (0.83-1.16) 10/05/17 03:47 Physical Exam - Physical Exam General Appearance: alert, no apparent distress, cachetic, thin EENT: PERRL/EOMI, other (Nasal cannula at 1 L) Neck: normal inspection Respiratory: lungs clear (Anteriorly), decreased breath sounds (At bases), rales (Few) Cardiac/Chest: tachycardia (Sinus) Abdomen: non-tender, soft, distended (Less), No normal bowel sounds (Present, decreased) Skin: warm/dry, pallor Extremities: No pedal edema Neuro/Psych: no motor/sensory deficits (Globally weak), No cognition abnormalities ICD10 Worksheet Patient Problems: Problems Problem Status Onset Acute blood loss anemia Acute S/P tricuspid valve replacement Acute Endocarditis of tricuspid valve Acute Renal failure Acute Hyponatremia Acute Dehydration Acute
[2017-10-06] MEDS ORDERED: EPOETIN ALFA 10,000 UNIT/ML VIAL SC ONE (12:45)
--- NOTE | 2017-10-06 12:54 | SOAPPROG ---
SOAP Progress Note Assessment/Plan: Assessment/Plan: 37 y/o M with h/o IVDA with endocarditis and BRITNEY now s/p pericardial effusion non-oliguric, but uremic requiring dialysis. BRITNEY -Cr up to 4.9, started dialysis yesterday, IR appreciated -tolerating dialysis today with up to 3L UF -will reassess for HD vs PUF tomorrow -avoid contrast and nephrotoxins, renally dose meds to eGFR<15 HTN/vol -volume overloaded with ascites -making good UO, continue to monitor off of lasix gtt -consider paracentesis, however would give albumin prior and keep <4-6L -keep MAP>65 TV endocarditis- MRSA in cultures, +pulm infarcts -s/p valve replacment 09/16/17, decortication exudative effusion -ID following---vancomycin dosing per pharmacy- following levels given BRITNEY. Plans to continue 6 weeks through 10/28 -now on prednisone for possible Hetal's syndrome Hyponatremia- Na improving with diuresis High phos- >8mg/dL due to BRITNEY, now improved with HD -continue Ca Acetate binder -renal diet when taking po Anemia- -bleed post-op with hemopericardium -Hb improved s/p 2U on 10/05 -will dose EPO on HD today 10/06/17 12:51 10/06/17 12:53 Subjective: Patient feeling much better today. Able to eat breakfast. Family (mom, fiance) at bedside. Objective: Vital Signs Temp Pulse Resp BP Pulse Ox 36.7 C 106 H 21 H 116/74 99 10/06/17 12:00 10/06/17 12:00 10/06/17 12:00 10/06/17 12:00 10/06/17 12:00 Microbiology 10/02/17 12:23 Gram Stain - Final Pericardial Fluid - Anaerobic Tube/Swab 10/02/17 12:23 Gram Stain - Final Pericardial Fluid - Anaerobic Tube/Swab Laboratory Results 10/05/17 14:40 10/06/17 04:50 10/05/17 10/06/17 10/07/17 05:59 05:59 05:59 Intake Total 1351.1 1219 Output Total 2730 6200 Balance -1378.9 -4981 PT 14.5 SEC (12.0-15.0) 10/05/17 03:47 INR 1.11 (0.83-1.16) 10/05/17 03:47 Physical Exam - Physical Exam General Appearance: WD/WN, alert, mild distress EENT: scleral icterus (R) Neck: non-tender, supple Respiratory: accessory muscle use, decreased breath sounds Cardiac/Chest: edema, tachycardia Abdomen: soft, distended, ascites Skin: pallor, rash Extremities: normal range of motion, non-tender, pedal edema Neuro/Psych: alert, depressed affect ICD10 Worksheet Patient Problems: Problems Problem Status Onset Acute blood loss anemia Acute Dehydration Acute Endocarditis of tricuspid valve Acute Hyponatremia Acute Renal failure Acute S/P tricuspid valve replacement Acute
[2017-10-06] MEDS: traMADol 50 MG TAB PO PRN ×2 (14:10→19:52)
--- NOTE | 2017-10-06 15:54 | SOAPPROG ---
SOAP Progress Note Assessment/Plan: Seen this am by Dr Kauffman. Assessment: POD#20 Tricuspid valve debridement and replacement with #29 Magna bioprosthesis, decortication bilateral pleura POD#19 Mediastinal reexploration and evacuation of left chest hematoma POD#4 Emergent subxiphoid pericardial window with paracentesis Tricuspid valve MRSA endocarditis s/p debridement/replacement with bioprosthesis - Antithrombotic prophylaxis with Coumadin pending resolution coagulopathy. Target INR 2-3, duration 3 mo. - Holding SR/ST. TCPWs out. AF prophylaxis with BB as tolerated. Bilateral loculated effusions s/p decortication with need for reexploration and evacuation of left chest hematoma - Small left PTX resolved. All chest tubes out. Delayed postop hemopericardium with worsening hepatorenal fx and ascites req emergent OR drainage - Exacerbated by supratherapeutic INR. - Pericardial drain removed yest. No reaccumulation by limited echo. - Started on colchicine and prednisone for serositis. Pre-op anemia with post-op acute blood loss anemia and coagulopathy requiring multiple transfusions - See blood bank section for details. - No evidence active bleeding. Periodic transfusions prn. MRSA sepsis with emboli secondary to IV drug abuse - Successfully weaned off pressors. - Serial blood cultures NGTD. ABX as per ID. - Pulm infarcts +/- serositis presumed etiology of persistent leukocytosis. - Secondary vasculitis knees/feet monitored. ARF - HD and fluid management per nephrology VDRF - Resolved. Ileus - Resolved. Left elbow swelling/pain without signs of vascular issues - Resolved Bilateral LE pain - Negative for DVT - Resolved Plan: Advance to regular diet. Cont supportive care as per multidisciplinary team. Resume Coumadin. 1 mg today. 10/06/17 15:53 Objective: Vital Signs Temp Pulse Resp BP Pulse Ox 36.7 C 136 H 21 H 116/74 95 10/06/17 12:00 10/06/17 14:20 10/06/17 12:00 10/06/17 12:00 10/06/17 14:20 Microbiology 10/02/17 12:23 Gram Stain - Final Pericardial Fluid - Anaerobic Tube/Swab 10/02/17 12:23 Gram Stain - Final Pericardial Fluid - Anaerobic Tube/Swab Laboratory Results 10/05/17 14:40 10/06/17 15:10 10/05/17 10/06/1710/07/18 05:59 05:59 05:59 Intake Total 1351.1 1219 Output Total 2737 6090 Balance -1378.9 -4981 PT 14.5 SEC (12.0-15.0) 10/05/17 03:47 INR 1.11 (0.83-1.16) 10/05/17 03:47 ICD10 Worksheet Patient Problems: Problems Problem Status Onset Acute blood loss anemia Acute Dehydration Acute Endocarditis of tricuspid valve Acute Hyponatremia Acute Renal failure Acute S/P tricuspid valve replacement Acute
[2017-10-06] MEDS ORDERED: HEPARIN 50,000 UNIT/10 ML VIAL ONE (16:00)
[2017-10-06] MEDS ORDERED: WARFARIN SODIUM 1 MG TAB PO ONE (16:00)
[2017-10-06] MEDS ORDERED: VANCOMYCIN 1 GM in NS 250 ML IV ONE (16:30)
[2017-10-06] MEDS ORDERED: VANCOMYCIN HCL/NORMAL SALINE 250 ML IV ONE (16:30)
--- NOTE | 2017-10-06 16:38 | ASMTCMCOM ---
CM Note CM Note Notes: Erin Baum from [facility] in [facility] would like for us to call about patient. ([phone]) I left a message but have not heard back. CM to call on Monday again and see if we can coordinate with them. CM will follow. Date Signed: 10/06/2017 04:37 PM Electronically Signed By:Rachel Castaneda LCSW
[2017-10-06] MEDS: oxyCODONE IR 5 MG TAB PO PRN ×2 (16:45→21:57)
[2017-10-07] MEDS: oxyCODONE IR 5 MG TAB PO PRN ×5 (01:04→21:54)
[2017-10-07] MEDS: traMADol 50 MG TAB PO PRN ×2 (02:55→20:26)
[2017-10-07] MEDS: HYDROmorphONE/DILAUDID 1 MG/ML INJ IVP PRN (04:23)
[2017-10-07] MEDS: METOCLOPRAMIDE 10 MG/2 ML VIAL IVP SCH ×4 (04:31→20:26)
[2017-10-07 04:50] LABS: PLATELET COUNT 237 10^3/uL (150-400)
[2017-10-07 04:58] LABS: INR 1.02 (0.83-1.16); PROTIME(PATIENT) 13.6 SEC (12.0-15.0)
[2017-10-07] MEDS: CALCIUM ACETATE 667 MG CAP PO SCH ×3 (08:20→17:44)
[2017-10-07] MEDS: ASPIRIN 81 MG CHEWABLE TAB PO SCH (08:21)
[2017-10-07] MEDS: METOPROLOL TARTRATE 25 MG TAB PO SCH ×2 (08:21→20:27)
[2017-10-07] MEDS ORDERED: FUROSEMIDE 100 MG/10 ML VIAL IVP ONE ×2 (09:02→17:01)
[2017-10-07] MEDS ORDERED: POTASSIUM Cl (KCl) 50 ML IV ONE (09:30)
[2017-10-07] MEDS: predniSONE 20 MG TAB PO SCH (10:15)
[2017-10-07] MEDS: COLCHICINE 0.6 MG CAP/TAB PO SCH ×2 (10:16→20:28)
[2017-10-07] MEDS: SENNOSIDES/DOCUSATE SODIUM TAB PO SCH (10:16)
--- NOTE | 2017-10-07 10:28 | SOAPPROG ---
SOAP Progress Note Assessment/Plan: Assessment: POD#21 Tricuspid valve debridement and replacement with #29 Magna bioprosthesis, decortication bilateral pleura POD#20 Mediastinal reexploration and evacuation of left chest hematoma POD#5 Emergent subxiphoid pericardial window with paracentesis thru lower portion of original incision. Closure with soren. IV access RUE PICC, RIJ dialysis cath, RIJ CVC Tricuspid valve MRSA endocarditis s/p debridement/replacement with bioprosthesis - Antithrombotic prophylaxis with Coumadin pending resolution coagulopathy. Target INR 2-3, duration 3 mo. - Holding SR/ST. TCPWs out. AF prophylaxis with BB as tolerated. Bilateral loculated effusions s/p decortication with need for reexploration and evacuation of left chest hematoma - Small left PTX resolved. All chest tubes out. Delayed postop hemopericardium with worsening hepatorenal fx and ascites req emergent OR drainage - Exacerbated by supratherapeutic INR. - Pericardial drain removed without reaccumulation by limited echo. - Started on colchicine and prednisone for serositis. - Volume removal per nephrology Pre-op anemia with post-op acute blood loss anemia and coagulopathy requiring multiple transfusions - See blood bank section for details. - No evidence active bleeding. Periodic transfusions prn. MRSA sepsis with emboli secondary to IV drug abuse - Successfully weaned off pressors. - Serial blood cultures NGTD. ABX as per ID. - Pulm infarcts +/- serositis presumed etiology of persistent leukocytosis. - Secondary vasculitis knees/feet monitored. ARF - HD and fluid management per nephrology VDRF - Resolved. Ileus - Resolved. Left elbow swelling/pain without signs of vascular issues - Resolved Bilateral LE pain - Negative for DVT - Resolved Plan: Cont supportive care as per multidisciplinary team. Coumadin 2 mg today. Ok to tx to PCU. 10/07/17 10:25 Subjective: Feeling better. No nausea. Solid stool. Walking in room. Looking forward to sitting outside. Desperate for a shower. Objective: Vital Signs Temp Pulse Resp BP Pulse Ox 36.5 C 111 H 16 123/84 H 96 10/07/17 07:44 10/07/17 08:21 10/07/17 07:44 10/07/17 08:21 10/07/17 07:44 Microbiology 10/02/17 12:23 Gram Stain - Final Pericardial Fluid - Anaerobic Tube/Swab 10/02/17 12:23 Gram Stain - Final Pericardial Fluid - Anaerobic Tube/Swab Laboratory Results 10/07/17 04:42 10/07/17 04:42 10/06/17 10/07/17 10/08/17 05:59 05:59 05:59 Intake Total 1219 750 Output Total 6200 350 70 Balance -4981 400 -70 PT 13.6 SEC (12.0-15.0) 10/07/17 04:42 INR 1.02 (0.83-1.16) 10/07/17 04:42 Physical Exam - Physical Exam General Appearance: alert, no apparent distress Respiratory: crackles (rt sided) Cardiac/Chest: regular rate, rhythm, other (Sternotomy and CT sites ok. Soren intact.) Abdomen: distended Skin: warm/dry Extremities: other (no visible edema) ICD10 Worksheet Patient Problems: Problems Problem Status Onset Acute blood loss anemia Acute Dehydration Acute Endocarditis of tricuspid valve Acute Hyponatremia Acute Renal failure Acute S/P tricuspid valve replacement Acute
--- NOTE | 2017-10-07 12:18 | HOSPPROG ---
Hospitalist Progress Note Assessment/Plan: 37-year-old med amphetamine and opiate addict traveling to [place] with his mother and stepfather. Prevents with weakness confusion and hypotension in the setting of opiate withdrawal was found to have high-grade MRSA bacteremia and endocarditis. # MRSA endocarditis status post tricuspid valve replacement. Currently on vancomycin. * Complicated by septic emboli * Petechial rash lower extremities # acute renal failure followed by Nephrology currently requiring dialysis # pericardial effusion with tamponade status post pericardial window on 10/02 # the anasarca with ascites. 3 L drained from abdomen during pericardial window continues to have abdominal distension * Fluid restrict is able * Consider paracentesis * Follow weights * Dialysis # anemia, required multiple transfusions early in hospital course currently his H&H has been relatively stable. * Continue to monitor Subjective: Patient new to me and chart reviewed. Trying to eat more today. Feels is rash on legs is getting better. Chest wall pain from the incision. Objective: Vital Signs Temp Pulse Resp BP Pulse Ox 36.5 C 111 H 16 123/84 H 96 10/07/17 07:44 10/07/17 08:21 10/07/17 07:44 10/07/17 08:21 10/07/17 07:44 Microbiology 10/02/17 12:23 Gram Stain - Final Pericardial Fluid - Anaerobic Tube/Swab 10/02/17 12:23 Gram Stain - Final Pericardial Fluid - Anaerobic Tube/Swab Laboratory Results 10/07/17 04:42 10/07/17 04:42 10/06/17 10/07/17 10/08/17 05:59 05:59 05:59 Intake Total 1219 750 480 Output Total 6200 350 270 Balance -4981 400 210 PT 13.6 SEC (12.0-15.0) 10/07/17 04:42 INR 1.02 (0.83-1.16) 10/07/17 04:42 - Physical Exam Constitutional: chronically ill appearing Eyes: PERRL Ears, Nose, Mouth, Throat: moist mucous membranes Cardiovascular: regular rate and rhythym Respiratory: no respiratory distress, reduced air movement Gastrointestinal: normoactive bowel sounds, soft, non-tender abdomen Genitourinary: no bladder fullness Skin: other (Midline incision chest wall) Musculoskeletal: generalized weakness Neurologic: AAOx3 Psychiatric: interacting appropriately ICD10 Worksheet Patient Problems: Problems Problem Status Onset Acute blood loss anemia Acute S/P tricuspid valve replacement Acute Endocarditis of tricuspid valve Acute Renal failure Acute Hyponatremia Acute Dehydration Acute
--- NOTE | 2017-10-07 14:25 | PCMIDPN ---
Assessment/Plan: 1. 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 Need for hemodialysis today. If so, needs level checked after dialysis and likely re-dosed. 2. Serositis with history of pericardial effusion and ascites, worsening renal failure, and persistent leukocytosis: Query drug-induced lupus versus immunologic manifestation of chronic hepatitis- C as underlying etiology, as the serositis seems more extensive than one would expect for post pericardiotomy syndrome. Anti histone antibodies (for drug- induced lupus), SELINA, cryoglobulins, and hepatitis-C quantitative RNA are pending. Patient has been started on low-dose prednisone and colchicine. Suspect increased white count today related to recent addition of prednisone. Subjective: Abdomen more tense today. May have hemodialysis later this afternoon. Otherwise feels well without complaints. Objective: Vital Signs Vancomycin 1 g by level day 21 after valve replacement No fevers Temp Pulse Resp BP Pulse Ox 36.7 C 108 H 16 113/79 93 10/07/17 12:00 10/07/17 12:00 10/07/17 12:00 10/07/17 12:00 10/07/17 12:00 Microbiology 10/02/17 12:23 Gram Stain - Final Pericardial Fluid - Anaerobic Tube/Swab 10/02/17 12:23 Gram Stain - Final Pericardial Fluid - Anaerobic Tube/Swab Laboratory Results 10/07/17 04:42 10/07/17 04:42 10/06/17 10/07/17 10/08/17 05:59 05:59 05:59 Intake Total 1219 750 720 Output Total 6200 350 420 Balance -4981 400 300 ESR 11 MM/HR (0-15) 10/05/17 14:40 C-Reactive Protein 70.5 mg/L (<10.0) H 10/05/17 12:00 Anti double stranded DNA negative, Anca negative, HCV quantitative RNA, anti his stone antibody, SELINA and cryoglobulins all pending - Physical Exam General Appearance: no apparent distress, cachetic EENT: pharynx normal, No thrush Respiratory: other (Poor inspiratory effort. Clear anteriorly) Cardiac/Chest: regular rate, rhythm, other (median sternotomy incision looks fine. Hemodialysis catheter right neck) Extremities: other (PICC line right upper extremity without erythema or arm swelling) Abdomen: distended Skin: other (Palpable purpura scattered over knees and feet, some the lesions have flattened down and are no longer palpable, per se.) ICD10 Worksheet Patient Problems: Problems Problem Status Onset Acute blood loss anemia Acute Dehydration Acute Endocarditis of tricuspid valve Acute Hyponatremia Acute Renal failure Acute S/P tricuspid valve replacement Acute
[2017-10-07] MEDS ORDERED: WARFARIN SODIUM 2 MG TAB PO SCH (16:00)
[2017-10-07] MEDS: ONDANSETRON DISINTEGRATING 4 MG TAB PO PRN (17:41)
--- NOTE | 2017-10-07 19:05 | SOAPPROG ---
SOAP Progress Note Assessment/Plan: Assessment/Plan: 37 y/o M with h/o IVDA with endocarditis and BRITNEY now s/p pericardial effusion non-oliguric, but uremic requiring dialysis. BRITNEY -Cr up to 4.9, HD started 10/05. HD again 10/06 , 10/07 for additional fluid removal *Reassess daily for PUF/HD needs -avoid contrast and nephrotoxins, renally dose meds to eGFR<15 HTN/vol -volume overloaded with ascites -making good UO, continue to monitor off of lasix gtt -consider paracentesis, however would give albumin prior and keep <4-6L -keep MAP>65 TV endocarditis- MRSA in cultures, +pulm infarcts -s/p valve replacment 09/16/17, decortication exudative effusion -ID following---vancomycin dosing per pharmacy- following levels given BRITNEY. 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 Surgery requesting HD for additional volume (ascites) removal today. Patient reports eating ok Objective: Vital Signs Temp Pulse Resp BP Pulse Ox 36.6 C 106 H 16 117/88 H 95 10/07/17 15:53 10/07/17 15:53 10/07/17 15:53 10/07/17 15:53 10/07/17 15:53 Laboratory Results 10/07/17 04:42 10/07/17 04:42 10/06/17 10/07/17 10/08/17 05:59 05:59 05:59 Intake Total 1219 750 720 Output Total 6200 350 420 Balance -4981 400 300 PT 13.6 SEC (12.0-15.0) 10/07/17 04:42 INR 1.02 (0.83-1.16) 10/07/17 04:42 General Appearance: cachectic, alert, no distress EENT: scleral icterus (R) Neck: non-tender, supple Respiratory: breathing comfortably on RA, decreased breath sounds at bases Cardiac/Chest: tachycardia, no LE edema Abdomen: distended, ascites Skin: pallor, rash Extremities: normal range of motion, non-tender, no edema Neuro/Psych: alert, depressed affect ICD10 Worksheet Patient Problems: Problems Problem Status Onset Acute blood loss anemia Acute Dehydration Acute Endocarditis of tricuspid valve Acute Hyponatremia Acute Renal failure Acute S/P tricuspid valve replacement Acute
[2017-10-07] MEDS ORDERED: HEPARIN 50,000 UNIT/10 ML VIAL ONE (20:52)
[2017-10-07] MEDS ORDERED: SENNOSIDES/DOCUSATE SODIUM TAB PO PRN (21:00)
[2017-10-08] MEDS: oxyCODONE IR 5 MG TAB PO PRN ×4 (02:38→19:51)
[2017-10-08] MEDS: METOCLOPRAMIDE 10 MG/2 ML VIAL IVP SCH ×2 (05:39→09:12)
[2017-10-08 06:06] LABS: INR 1.04 (0.83-1.16); PROTIME(PATIENT) 13.8 SEC (12.0-15.0)
--- NOTE | 2017-10-08 08:45 | SOAPPROG ---
SOAP Progress Note Assessment/Plan: Assessment: POD#22 Tricuspid valve debridement and replacement with #29 Magna bioprosthesis, decortication bilateral pleura POD#21 Mediastinal reexploration and evacuation of left chest hematoma POD#6 Emergent subxiphoid pericardial window with paracentesis thru lower portion of original incision. Closure with soren. IV access RUE PICC, RIJ dialysis cath, RIJ CVC Tricuspid valve MRSA endocarditis s/p debridement/replacement with bioprosthesis - Antithrombotic prophylaxis with Coumadin pending resolution coagulopathy. Target INR 2-3, duration 3 mo. - Holding SR/ST. TCPWs out. AF prophylaxis with BB as tolerated. Bilateral loculated effusions s/p decortication with need for reexploration and evacuation of left chest hematoma - Small left PTX resolved. All chest tubes out. Delayed postop hemopericardium with worsening hepatorenal fx and ascites req emergent OR drainage - Exacerbated by supratherapeutic INR. - Pericardial drain removed without reaccumulation by limited echo. - Started on colchicine and prednisone for serositis. - Volume removal per nephrology Pre-op anemia with post-op acute blood loss anemia and coagulopathy requiring multiple transfusions - See blood bank section for details. - No evidence active bleeding. Periodic transfusions prn. - VTE prophylaxis w SQ hep until INR > 1.9. MRSA sepsis with emboli secondary to IV drug abuse - Successfully weaned off pressors. - Serial blood cultures NGTD. ABX as per ID. - Pulm infarcts +/- serositis presumed etiology of persistent leukocytosis. - Secondary vasculitis knees/feet monitored. ARF - HD and fluid management per nephrology VDRF - Resolved. Ileus - Resolved. Left elbow swelling/pain without signs of vascular issues - Resolved Bilateral LE pain - Negative for DVT - Resolved Plan: Cont supportive care as per multidisciplinary team. Coumadin 4 mg today. 10/08/17 08:44 Subjective: Doing ok. Belly less tight. No nausea. Is having loose stools again. Objective: Vital Signs Temp Pulse Resp BP Pulse Ox 36.4 C 105 H 16 121/76 H 98 10/08/17 08:00 10/08/17 08:00 10/08/17 08:00 10/08/17 08:00 10/08/17 08:00 Microbiology 10/02/17 18:25 Blood Culture - Final Blood 10/02/17 18:30 Blood Culture - Final Blood Laboratory Results 10/07/17 04:42 10/07/17 04:42 10/07/17 10/08/17 10/09/17 05:59 05:59 05:59 Intake Total 750 1020 Output Total 350 845 Balance 400 175 PT 13.8 SEC (12.0-15.0) 10/08/17 05:45 INR 1.04 (0.83-1.16) 10/08/17 05:45 SR/ST with adequate BPs. 3L off w HD yest. INR yet to budge. Physical Exam - Physical Exam General Appearance: alert, no apparent distress Respiratory: lungs clear Cardiac/Chest: regular rate, rhythm, tachycardia, other (Sternotomy ok. Soren intact.) Abdomen: soft, distended Skin: warm/dry Extremities: other (no limb edema) ICD10 Worksheet Patient Problems: Problems Problem Status Onset Acute blood loss anemia Acute Dehydration Acute Endocarditis of tricuspid valve Acute Hyponatremia Acute Renal failure Acute S/P tricuspid valve replacement Acute
[2017-10-08] MEDS: CALCIUM ACETATE 667 MG CAP PO SCH ×3 (09:11→18:33)
[2017-10-08] MEDS: ASPIRIN 81 MG CHEWABLE TAB PO SCH (09:11)
[2017-10-08] MEDS: METOPROLOL TARTRATE 25 MG TAB PO SCH ×2 (09:11→19:59)
[2017-10-08] MEDS: COLCHICINE 0.6 MG CAP/TAB PO SCH ×2 (09:11→19:59)
[2017-10-08] MEDS: predniSONE 20 MG TAB PO SCH (09:12)
[2017-10-08] MEDS ORDERED: VANCOMYCIN HCL/NORMAL SALINE 250 ML IV ONE (12:30)
--- NOTE | 2017-10-08 13:04 | PCMIDPN ---
Assessment/Plan: 1. 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 2. Serositis with history of pericardial effusion and ascites, worsening renal failure, and persistent leukocytosis: Query drug-induced lupus versus immunologic manifestation of chronic hepatitis- C as underlying etiology, as the serositis seems more extensive than one would expect for post pericardiotomy syndrome. Anti histone antibodies (for drug- induced lupus), SELINA, cryoglobulins, and hepatitis-C quantitative RNA are pending. Patient has been started on low-dose prednisone and colchicine. Suspect increased white count yesterday related to recent addition of prednisone. Repeat CBC in the morning. 3. Irritant sweat dermatitis on his back: This does not look like a drug eruption. 10/08/17 13:02 Subjective: Status post hemodialysis yesterday afternoon. In good spirits today. His abdomen is less tense. Having normal bowel movements. Eating. Objective: Vancomycin by level day 23 after valve replacement No fever Vital Signs Temp Pulse Resp BP Pulse Ox 36.4 C 105 H 18 106/69 97 10/08/17 12:15 10/08/17 12:15 10/08/17 12:15 10/08/17 12:15 10/08/17 12:15 Microbiology 10/02/17 18:25 Blood Culture - Final Blood 10/02/17 18:30 Blood Culture - Final Blood Laboratory Results 10/07/17 04:42 10/07/17 04:42 10/07/17 10/08/17 10/09/17 05:59 05:59 05:59 Intake Total 750 1020 Output Total 350 845 Balance 400 175 ESR 11 MM/HR (0-15) 10/05/17 14:40 C-Reactive Protein 70.5 mg/L (<10.0) H 10/05/17 12:00 - Physical Exam General Appearance: no apparent distress, cachetic EENT: pharynx normal, No thrush Respiratory: other (Diminished breath sounds left base) Cardiac/Chest: regular rate, rhythm, other (Incision looks fine) Extremities: other (PICC line right upper extremity looks okay with no swelling. Patient has a hemodialysis catheter in his right neck) Abdomen: soft, distended Skin: other (Erythematous maculopapular rash on his back, looks like irritant sweat dermatitis. Leukocytoclastic vasculitis, or palpable purpura lesions on his feet and knees are flattening and receding) Neuro/Psych: oriented x 3 ICD10 Worksheet Patient Problems: Problems Problem Status Onset Acute blood loss anemia Acute Dehydration Acute Endocarditis of tricuspid valve Acute Hyponatremia Acute Renal failure Acute S/P tricuspid valve replacement Acute
--- NOTE | 2017-10-08 13:09 | HOSPPROG ---
Hospitalist Progress Note Assessment/Plan: 37-year-old med amphetamine and opiate addict traveling to [place] with his mother and stepfather. Prevents with weakness confusion and hypotension in the setting of opiate withdrawal was found to have high-grade MRSA bacteremia and endocarditis. # MRSA endocarditis status post tricuspid valve replacement. Currently on vancomycin. * Complicated by septic emboli * Petechial rash lower extremities slowly improving with steroids. * Appreciate ID follow up # acute renal failure followed by Nephrology currently requiring dialysis # pericardial effusion with tamponade status post pericardial window on 10/02 # the anasarca with ascites. 3 L drained from abdomen during pericardial window continues to have abdominal distension * Fluid restrict is able * Consider paracentesis * Follow weights * Dialysis # anemia, required multiple transfusions early in hospital course currently his H&H has been relatively stable. * Continue to monitor Subjective: stable, no new complaints today. weak and tired after dialysis. slight improvement in ascites post HD Objective: Vital Signs Temp Pulse Resp BP Pulse Ox 36.4 C 105 H 18 106/69 97 10/08/17 12:15 10/08/17 12:15 10/08/17 12:15 10/08/17 12:15 10/08/17 12:15 Microbiology 10/02/17 18:25 Blood Culture - Final Blood 10/02/17 18:30 Blood Culture - Final Blood Laboratory Results 10/07/17 04:42 10/07/17 04:42 10/07/17 10/08/17 10/09/17 05:59 05:59 05:59 Intake Total 750 1020 650 Output Total 350 845 50 Balance 400 175 600 PT 13.8 SEC (12.0-15.0) 10/08/17 05:45 INR 1.04 (0.83-1.16) 10/08/17 05:45 - Physical Exam Constitutional: chronically ill appearing, uncomfortable Eyes: PERRL Ears, Nose, Mouth, Throat: moist mucous membranes Cardiovascular: regular rate and rhythym, other (valve sounds) Respiratory: no respiratory distress, clear to auscultation Gastrointestinal: normoactive bowel sounds, ascites, distension Genitourinary: no bladder fullness Skin: warm, other (incision ant chest wall), No normal color (pale) Musculoskeletal: generalized weakness Neurologic: AAOx3 Psychiatric: interacting appropriately ICD10 Worksheet Patient Problems: Problems Problem Status Onset Acute blood loss anemia Acute S/P tricuspid valve replacement Acute Endocarditis of tricuspid valve Acute Renal failure Acute Hyponatremia Acute Dehydration Acute
[2017-10-08] MEDS: HEPARIN 5,000 UNIT/0.5 ML INJ SC SCH ×2 (14:14→23:07)
[2017-10-08] MEDS: SIMETHICONE 80 MG TAB CHEW PO PRN ×2 (15:39→23:49)
[2017-10-08] MEDS ORDERED: WARFARIN SODIUM 4 MG TAB PO ONE (16:00)
--- NOTE | 2017-10-08 16:20 | ASMTCMCOM ---
CM Note CM Note Notes: Chart reviewed. Per notes patient has slow progression s/p pericardial window, CM to follow up with facillity in [place] tomorrow. Erin Baum from [facility] in [facility] would like for us to call about patient. ([phone]) I left a message but have not heard back. CM to call on Monday again and see if we can coordinate with them. CM will follow. Date Signed: 10/08/2017 04:19 PM Electronically Signed By:Mag Denton RN
[2017-10-08] MEDS: MAG HYDROX/AL HYDROX/SIMETH 30 ML UDCUP PO PRN ×2 (16:52→20:42)
[2017-10-08] MEDS: traMADol 50 MG TAB PO PRN ×2 (16:52→23:08)
--- NOTE | 2017-10-08 20:06 | SOAPPROG ---
SOAP Progress Note Assessment/Plan: Assessment/Plan: 37 y/o M with h/o IVDA with endocarditis and BRITNEY now s/p pericardial effusion non-oliguric, but uremic requiring dialysis. BRITNEY -Cr up to 4.9, HD started 10/05. HD again 10/06 and 10/07 for additional fluid removal *Tentatively planning to hold off on HD until 10/10 to keep patient on TTS schedule, but will reassess in AM -avoid contrast and nephrotoxins, renally dose meds to eGFR<15 HTN/vol -volume status improving but continues to have ascites If want more volume off, would recommend resuming Lasix spot dosing or drip -making good UO, continue to monitor off of lasix gtt -consider paracentesis, however would give albumin prior and keep <4-6L -keep MAP>65 Decrease fluid restriction to 1L TV endocarditis- MRSA in cultures, +pulm infarcts -s/p valve replacment 09/16/17, decortication exudative effusion -ID following---vancomycin dosing per pharmacy- following levels given BRITNEY. 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 HR increased at end of treatment. Patient had some increased bloating and gas pains today that are improving. Denies shortness of breath. Objective: Vital Signs Temp Pulse Resp BP Pulse Ox 36.8 C 123 H 18 132/82 H 92 10/08/17 19:02 10/08/17 19:02 10/08/17 19:02 10/08/17 19:02 10/08/17 19:02 Microbiology 10/02/17 18:25 Blood Culture - Final Blood 10/02/17 18:30 Blood Culture - Final Blood Laboratory Results 10/07/17 04:42 10/07/17 04:42 10/07/17 10/08/17 10/09/17 05:59 05:59 05:59 Intake Total 750 1020 1190 Output Total 350 845 50 Balance 646 289 7696 PT 13.8 SEC (12.0-15.0) 10/08/17 05:45 INR 1.04 (0.83-1.16) 10/08/17 05:45 General Appearance: cachectic, alert, no distress EENT: scleral icterus (R) Neck: non-tender, supple Respiratory: breathing comfortably on RA, decreased breath sounds at bases Cardiac/Chest: tachycardia, trace LE edema Abdomen: distended, ascites (softer than yesterday) Skin: pallor, rash Extremities: normal range of motion, non-tender, no edema Neuro/Psych: alert, depressed affect ICD10 Worksheet Patient Problems: Problems Problem Status Onset Acute blood loss anemia Acute Dehydration Acute Endocarditis of tricuspid valve Acute Hyponatremia Acute Renal failure Acute S/P tricuspid valve replacement Acute
[2017-10-09] MEDS: HEPARIN 5,000 UNIT/0.5 ML INJ SC SCH ×3 (05:21→22:00)
[2017-10-09 06:06] LABS: PLATELET COUNT 163 10^3/uL (150-400)
[2017-10-09 06:07] LABS: INR 1.04 (0.83-1.16); PROTIME(PATIENT) 13.8 SEC (12.0-15.0)
--- NOTE | 2017-10-09 06:33 | SOAPPROG ---
SOAP Progress Note Assessment/Plan: POD #23: Tricuspid valve debridement and replacement with #29 Magna bioprosthesis, decortication bilateral pleura POD #22: Mediastinal reexploration and evacuation of left chest hematoma POD #7: Subxiphoid pericardial window/paracentesis Tricuspid valve MRSA endocarditis s/p debridement/replacement with bioprosthesis - Coumadin for thromboprophylaxis, INR goal 2-3, duration 3 months Bilateral loculated effusions s/p decortication with need for reexploration and evacuation of left chest hematoma - Stable Pre-op anemia with post-op acute blood anemia/coagulopathy/hemorrhagic pericardial effusion - See blood bank section for transfusion details MRSA sepsis with septic emboli secondary to IV drug abuse - ABX and further mgmt as per ID ARF - Renal following VDRF - Resolved Ileus - Resolved Left elbow swelling/pain without signs of vascular issues - Resolved Bilateral LE pain - Negative for DVT - Resolved DVT prophylaxis - SCDs/Coumadin Pericardial tamponade with SOB/ascites s/p pericardial window/paracentesis - Stable Subjective: Denies abdominal pain. Becoming more independent. Denies SOB. Objective: Vital Signs Temp Pulse Resp BP Pulse Ox 36.5 C 112 H 14 116/82 H 93 10/09/17 04:00 10/09/17 04:00 10/09/17 04:00 10/09/17 04:00 10/09/17 04:00 Microbiology 10/02/17 18:25 Blood Culture - Final Blood 10/02/17 18:30 Blood Culture - Final Blood Laboratory Results 10/09/17 05:45 10/09/17 05:45 10/08/17 10/09/17 10/10/17 05:59 05:59 05:59 Intake Total 1020 1790 Output Total 845 425 Balance 175 1365 PT 13.8 SEC (12.0-15.0) 10/09/17 05:45 INR 1.04 (0.83-1.16) 10/09/17 05:45 Physical Exam - Physical Exam General Appearance: alert, no apparent distress, cachetic EENT: No scleral icterus (R), No scleral icterus (L) Neck: normal inspection Respiratory: No respiratory distress Cardiac/Chest: tachycardia Abdomen: non-tender, soft, distended Skin: normal color, warm/dry, embolic lesions Extremities: No pedal edema Neuro/Psych: no motor/sensory deficits, alert, normal mood/affect, oriented x 3 ICD10 Worksheet Patient Problems: Problems Problem Status Onset Acute blood loss anemia Acute Dehydration Acute Endocarditis of tricuspid valve Acute Hyponatremia Acute Renal failure Acute S/P tricuspid valve replacement Acute
--- NOTE | 2017-10-09 07:58 | SOAPPROG ---
SOAP Progress Note Assessment/Plan: Assessment: Assessment/Plan: 37 y/o M with h/o IVDA with endocarditis and BRITNEY now s/p pericardial effusion non-oliguric, but uremic requiring dialysis. BRITNEY- likely ATN in setting of septic shock, endocarditis -required dialysis initially then recovering---restarted HD 10/05. HD again 10/06 and 10/07 for additional fluid removal -hold on HD today-- reassess daily for needs HTN/vol -volume status improving but continues to have ascites -consider paracentesis, however would give albumin prior and keep volume removed < 5L -keep MAP>65 TV endocarditis- MRSA in cultures, +pulm infarcts -s/p valve replacment 09/16/17, decortication exudative effusion -s/p pericardial window and paracentesis -ID following---vancomycin dosing per pharmacy- following levels given BRITNEY. 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 Notes some gas and heartburn symptoms- worse with Ensure. No cp, sob. Thinks abdomen less distended. Objective: Vital Signs Temp Pulse Resp BP Pulse Ox 36.7 C 116 H 15 109/78 91 L 10/09/17 07:03 10/09/17 07:03 10/09/17 07:03 10/09/17 07:03 10/09/17 07:03 Microbiology 10/02/17 18:25 Blood Culture - Final Blood 10/02/17 18:30 Blood Culture - Final Blood Laboratory Results 10/09/17 05:45 10/09/17 05:45 10/08/17 10/09/17 10/10/17 05:59 05:59 05:59 Intake Total 1020 1790 Output Total 845 425 Balance 175 1365 PT 13.8 SEC (12.0-15.0) 10/09/17 05:45 INR 1.04 (0.83-1.16) 10/09/17 05:45 Physical Exam - Physical Exam General Appearance: alert, no apparent distress, other (looks better since I last saw him, sitting in chair eating) EENT: other (mmm) Neck: supple, other (RIJ Temp HD cath c.d.i) Respiratory: lungs clear Cardiac/Chest: regular rate, rhythm Abdomen: normal bowel sounds, non-tender, distended Skin: warm/dry (vasculitic lesions on legs stable) Extremities: other (no edema) Neuro/Psych: alert, oriented x 3 ICD10 Worksheet Patient Problems: Problems Problem Status Onset Acute blood loss anemia Acute Dehydration Acute Endocarditis of tricuspid valve Acute Hyponatremia Acute Renal failure Acute S/P tricuspid valve replacement Acute
[2017-10-09] MEDS: COLCHICINE 0.6 MG CAP/TAB PO SCH ×2 (09:00→19:52)
[2017-10-09] MEDS: traMADol 50 MG TAB PO PRN ×2 (09:00→19:48)
[2017-10-09] MEDS: predniSONE 20 MG TAB PO SCH (09:01)
[2017-10-09] MEDS: METOPROLOL TARTRATE 25 MG TAB PO SCH ×2 (09:01→19:52)
[2017-10-09] MEDS: ASPIRIN 81 MG CHEWABLE TAB PO SCH (09:01)
[2017-10-09] MEDS: CALCIUM ACETATE 667 MG CAP PO SCH ×3 (09:01→18:00)
--- NOTE | 2017-10-09 09:32 | PCMIDPN ---
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 Patient is status post tricuspid valve excision and replacement with a bioprosthetic. His blood cultures have remained negative since surgery. At times he seems to be slowly improving but continues to have issues with ongoing renal failure as well as accumulation of pericardial, thoracic and peritoneal fluid. Plan to continue IV vancomycin p.r.n. by level for now. Patient's creatinine is improved today but it is unclear whether this is due to decreased renal disease or the multiple dialysis sessions on through Monday. 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 This is an immunologic phenomenon seen in association with infective endocarditis. It is improving with oral prednisone although this oral prednisone is not directed to the cutaneous vasculitis some particular. 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 The other possible immunologic presentation is post pericardiotomy syndrome with the development of serositis in the pericardial, thoracic and peritoneal spaces. Clinically the patient is noting that he has decreased abdominal distension over the last couple of days and he is urinating well with decreased Lasix dosing. Ongoing anemia. Suspect this is secondary to his immune response resulting in down regulation of red blood cell production. At this point I agree with periodic transfusion management. Plan: 1. Continue vancomycin dosed as needed. Repeat vancomycin random level. 2. Follow creatinine levels. 3. Follow clinical course and improvement. 4. Continue current immunosuppression. 10/09/17 09:29 Subjective: Patient is sitting up in his chair in his hospital room. His mother and sister are present. Urinating well without Lasix. Eating well also. No fevers or chills. His vasculitis rash on his knees and feet are improved. Objective: Vancomycin (by levels) # 24 Vital Signs Temp Pulse Resp BP Pulse Ox 36.7 C 116 H 15 109/78 91 L 10/09/17 07:03 10/09/17 07:03 10/09/17 07:03 10/09/17 07:03 10/09/17 07:03 Microbiology 10/02/17 18:25 Blood Culture - Final Blood 10/02/17 18:30 Blood Culture - Final Blood Laboratory Results 10/09/17 05:45 10/09/17 05:45 10/08/17 10/09/17 10/10/17 05:59 05:59 05:59 Intake Total 1020 1790 Output Total 845 425 200 Balance 175 1365 -200 ESR 11 MM/HR (0-15) 10/05/17 14:40 C-Reactive Protein 70.5 mg/L (<10.0) H 10/05/17 12:00 - Physical Exam General Appearance: WD/WN, alert, no apparent distress, thin, non-toxic Respiratory: lungs clear, normal breath sounds, No respiratory distress Cardiac/Chest: regular rate, rhythm, No tachycardia Extremities: non-tender, No normal inspection Skin: normal color, warm/dry, No rash Neuro/Psych: alert, normal mood/affect, oriented x 3 ICD10 Worksheet Patient Problems: Problems Problem Status Onset Acute blood loss anemia Acute Dehydration Acute Endocarditis of tricuspid valve Acute Hyponatremia Acute Renal failure Acute S/P tricuspid valve replacement Acute
--- NOTE | 2017-10-09 13:22 | HOSPPROG ---
Hospitalist Progress Note Assessment/Plan: 37-year-old med amphetamine and opiate addict traveling to [place] with his mother and stepfather. Prevents with weakness confusion and hypotension in the setting of opiate withdrawal was found to have high-grade MRSA bacteremia and endocarditis. # MRSA endocarditis status post tricuspid valve replacement. Currently on vancomycin. * Complicated by septic emboli * Petechial rash lower extremities slowly improving with steroids. * Appreciate ID follow up # acute renal failure followed by Nephrology currently requiring dialysis for volume overload. Pt initially started for uremia and patient with some recovery. Restarted on 10/05 ofr volume * daily assessment for HD/volume status. * Appreciate renal. # pericardial effusion with tamponade status post pericardial window on 10/02 # the anasarca with ascites. 3 L drained from abdomen during pericardial window continues to have abdominal distension * Fluid restrict is able * Consider paracentesis * Follow weights * Dialysis # anemia, required multiple transfusions early in hospital course currently his H&H has been relatively stable. # Hyponatremia, monitor # GERD Pt is [place] Medicaid discharge planning is working on possible transfer back to [place] for ongoing treatment. Subjective: no new complaints Objective: Vital Signs Temp Pulse Resp BP Pulse Ox 36.3 C 110 H 16 102/77 96 10/09/17 11:45 10/09/17 11:45 10/09/17 11:45 10/09/17 11:45 10/09/17 11:45 Laboratory Results 10/09/17 05:45 10/09/17 05:45 10/08/17 10/09/17 10/10/17 05:59 05:59 05:59 Intake Total 1020 1790 674 Output Total 845 425 200 Balance 175 1365 474 PT 13.8 SEC (12.0-15.0) 10/09/17 05:45 INR 1.04 (0.83-1.16) 10/09/17 05:45 - Physical Exam Constitutional: chronically ill appearing Ears, Nose, Mouth, Throat: moist mucous membranes Cardiovascular: regular rate and rhythym Respiratory: no respiratory distress Skin: warm, other (petechia on legs. Macular papular rash on back) Musculoskeletal: generalized weakness Neurologic: AAOx3 Psychiatric: interacting appropriately ICD10 Worksheet Patient Problems: Problems Problem Status Onset Acute blood loss anemia Acute S/P tricuspid valve replacement Acute Endocarditis of tricuspid valve Acute Renal failure Acute Hyponatremia Acute Dehydration Acute
[2017-10-09] MEDS: oxyCODONE IR 5 MG TAB PO PRN (13:37)
[2017-10-09] MEDS ORDERED: WARFARIN SODIUM 5 MG TAB PO ONE (16:00)
[2017-10-09] MEDS: SIMETHICONE 80 MG TAB CHEW PO PRN (16:06)
--- NOTE | 2017-10-09 16:34 | ASMTCMCOM ---
CM Note CM Note Notes: 10/09/2017 Case Management Note Met w/pt, fiancee and mother to discuss possible discharge plan. Pt baby is due in December and pt would like to return to [place] before the child is born. Phone call from Erin Baum in [place] that PASRR will be completed after pt is admitted to [place] SNF facility. Authorization from [place] Medicaid for SNF placement is good for only 24 hours requiring pt to fly back to [place]. [place] Medicaid Transportation phone number is [phone]. Case Management to call on Monday to check if [place] Medicaid will cover transport costs. Phone call to [email or web address] transport. Bedside to bedside critical care transport to [place] or [place] is $16,010 paid up front. It will be approximately a 2 [address] and [facility] will need 24 to 48 hours advance notice. [facility] [phone] will cost $22,500 credit card payment up front. Left a VM at [facility] [phone] and [facility] [phone] requesting a quote. Contacted Kira Talent at [phone], awaiting call back. Case Management d/c poc: to be determined. Case Management to follow. Date Signed: 10/09/2017 04:34 PM Electronically Signed By:Kate Marcelino RN
[2017-10-10] MEDS: HEPARIN 5,000 UNIT/0.5 ML INJ SC SCH ×3 (06:23→22:21)
--- NOTE | 2017-10-10 06:32 | SOAPPROG ---
SOAP Progress Note Assessment/Plan: POD #24: Tricuspid valve debridement and replacement with #29 Magna bioprosthesis, decortication bilateral pleura POD #23: Mediastinal reexploration and evacuation of left chest hematoma POD #8: Subxiphoid pericardial window/paracentesis Tricuspid valve MRSA endocarditis s/p debridement/replacement with bioprosthesis - Coumadin for thromboprophylaxis, INR goal 2-3, duration 3 months Bilateral loculated effusions s/p decortication with need for reexploration and evacuation of left chest hematoma - Stable Pre-op anemia with post-op acute blood anemia/coagulopathy/hemorrhagic pericardial effusion - See blood bank section for transfusion details MRSA sepsis with septic emboli secondary to IV drug abuse - ABX and further mgmt as per ID ARF - Renal following VDRF - Resolved Ileus - Resolved Left elbow swelling/pain without signs of vascular issues - Resolved Bilateral LE pain - Negative for DVT - Resolved DVT prophylaxis - SCDs/Coumadin Pericardial tamponade with SOB/ascites s/p pericardial window/paracentesis - Stable - [place] to come out POD #10 Subjective: Feels stronger. Denies abd bloating/diarrhea. Objective: Vital Signs Temp Pulse Resp BP Pulse Ox 36.6 C 104 H 18 114/83 H 95 10/10/17 04:00 10/10/17 04:00 10/10/17 04:00 10/10/17 04:00 10/10/17 04:00 Microbiology 10/02/17 12:23 Gram Stain - Final Pericardial Fluid - Anaerobic Tube/Swab Anaerobic Culture - Final 10/02/17 12:23 Gram Stain - Final Pericardial Fluid - Anaerobic Tube/Swab Anaerobic Culture - Final Laboratory Results 10/09/17 05:45 10/09/17 05:45 10/09/17 10/10/17 10/11/17 05:59 05:59 05:59 Intake Total 1790 874 Output Total 425 900 Balance 1365 -26 PT 13.8 SEC (12.0-15.0) 10/09/17 05:45 INR 1.04 (0.83-1.16) 10/09/17 05:45 Physical Exam - Physical Exam General Appearance: alert, no apparent distress, cachetic EENT: No scleral icterus (R), No scleral icterus (L) Neck: normal inspection Respiratory: No respiratory distress Cardiac/Chest: tachycardia Abdomen: non-tender, soft, No distended Skin: warm/dry, embolic lesions Extremities: No pedal edema Neuro/Psych: no motor/sensory deficits, alert, normal mood/affect, oriented x 3 ICD10 Worksheet Patient Problems: Problems Problem Status Onset Acute blood loss anemia Acute Dehydration Acute Endocarditis of tricuspid valve Acute Hyponatremia Acute Renal failure Acute S/P tricuspid valve replacement Acute
[2017-10-10 06:46] LABS: INR 1.05 (0.83-1.16); PROTIME(PATIENT) 13.9 SEC (12.0-15.0)
[2017-10-10] MEDS: METOPROLOL TARTRATE 25 MG TAB PO SCH ×2 (08:48→20:52)
[2017-10-10] MEDS: traMADol 50 MG TAB PO PRN ×2 (08:48→15:16)
[2017-10-10] MEDS: predniSONE 20 MG TAB PO SCH (08:48)
[2017-10-10] MEDS: COLCHICINE 0.6 MG CAP/TAB PO SCH ×2 (08:48→20:52)
[2017-10-10] MEDS: CALCIUM ACETATE 667 MG CAP PO SCH ×2 (08:49→10:44)
[2017-10-10] MEDS: ASPIRIN 81 MG CHEWABLE TAB PO SCH (08:49)
[2017-10-10 09:02] LABS: PLATELET COUNT 171 10^3/uL (150-400)
[2017-10-10] MEDS: SIMETHICONE 80 MG TAB CHEW PO PRN (10:44)
--- NOTE | 2017-10-10 10:44 | SOAPPROG ---
SOAP Progress Note Assessment/Plan: Assessment: BRITNEY post CV surg, improving, creat past 3 days 2.8, 2.2, today 1.6 Endocarditis, treated, Vanco level 18.9 Ascites hyperphos better Plan: DC temp HD cath DC phoslo continue therapies if creat continues to improve likely will sign off soon 10/10/17 10:40 Subjective: walked in the halls with him pain manageable, feeling better each day appetite improving energy still not great sleeping OK spirits good today Objective: Vital Signs Temp Pulse Resp BP Pulse Ox 36.5 C 112 H 14 137/86 H 95 10/10/17 07:59 10/10/17 07:59 10/10/17 07:59 10/10/17 07:59 10/10/17 07:59 Microbiology 10/02/17 12:23 Gram Stain - Final Pericardial Fluid - Anaerobic Tube/Swab Anaerobic Culture - Final 10/02/17 12:23 Gram Stain - Final Pericardial Fluid - Anaerobic Tube/Swab Anaerobic Culture - Final Laboratory Results 10/10/17 08:45 10/10/17 06:30 10/09/17 10/10/17 10/11/17 05:59 05:59 05:59 Intake Total 1790 874 Output Total 425 900 Balance 1365 -26 PT 13.9 SEC (12.0-15.0) 10/10/17 06:30 INR 1.05 (0.83-1.16) 10/10/17 06:30 Physical Exam - Physical Exam General Appearance: alert, thin Respiratory: No rhonchi, No wheezing Cardiac/Chest: regular rate, rhythm, No friction rub Abdomen: normal bowel sounds, non-tender Extremities: pedal edema Neuro/Psych: alert, normal mood/affect, oriented x 3 ICD10 Worksheet Patient Problems: Problems Problem Status Onset Acute blood loss anemia Acute Dehydration Acute Endocarditis of tricuspid valve Acute Hyponatremia Acute Renal failure Acute S/P tricuspid valve replacement Acute
--- NOTE | 2017-10-10 13:54 | HOSPPROG ---
Hospitalist Progress Note Assessment/Plan: 37-year-old med amphetamine and opiate addict traveling to [place] with his mother and stepfather. Prevents with weakness confusion and hypotension in the setting of opiate withdrawal was found to have high-grade MRSA bacteremia and endocarditis. # MRSA endocarditis status post tricuspid valve replacement. Currently on vancomycin. * Complicated by septic emboli * Petechial rash lower extremities slowly improving with steroids. * Appreciate ID follow up # petechial rash, Leukocytoclastic vasculitis improving with prednisone, 40mg daily. * Would consider weaning after another week slowly if renal function continues to improve # acute renal failure followed by Nephrology currently requiring dialysis for volume overload. Pt initially started for uremia and patient with some recovery. Restarted on 10/05 ofr volume. Improved creat to 1.6 overnight. HD cath taken out, urination slightly improved. * continue to monitor creat. * discuss with renal re: prednisone taper. * daily assessment for HD/volume status. * Appreciate renal. # pericardial effusion with tamponade status post pericardial window on 10/02 * colchicine 0.6mg BID. # the anasarca with ascites. 3 L drained from abdomen during pericardial window continues to have abdominal distension * Fluid restrict is able * slightly improved without HD, will follow # anemia, required multiple transfusions early in hospital course currently his H&H has been relatively stable. # Hyponatremia, monitor # GERD Pt is [place] Medicaid discharge planning is working on possible transfer back to [place] for ongoing treatment, however would need air transport per Dr. Kauffman. Probable DC with daily IV abx if renal function continues to improve and Fluid status stable. will need a couple more weeks of IV abx, LOT per ID Subjective: wants to leave hospital. very weak when ambulates. Objective: Vital Signs Temp Pulse Resp BP Pulse Ox 36.5 C 112 H 14 137/86 H 95 10/10/17 07:59 10/10/17 07:59 10/10/17 07:59 10/10/17 07:59 10/10/17 07:59 Microbiology 09/16/17 09:25 Mycobacterial Smear (STEPHANIE) - Final Heart - Tissue 10/02/17 12:23 Gram Stain - Final Pericardial Fluid - Anaerobic Tube/Swab Anaerobic Culture - Final 10/02/17 12:23 Gram Stain - Final Pericardial Fluid - Anaerobic Tube/Swab Anaerobic Culture - Final Laboratory Results 10/10/17 08:45 10/10/17 06:30 10/09/17 10/10/17 10/11/17 05:59 05:59 05:59 Intake Total 1790 874 Output Total 425 900 Balance 1365 -26 PT 13.9 SEC (12.0-15.0) 10/10/17 06:30 INR 1.05 (0.83-1.16) 10/10/17 06:30 - Physical Exam Constitutional: chronically ill appearing Eyes: PERRL Ears, Nose, Mouth, Throat: moist mucous membranes Cardiovascular: regular rate and rhythym, other (valve sounds) Respiratory: no respiratory distress Gastrointestinal: normoactive bowel sounds Skin: warm, rash (mac/pap on back, petechial on LE (improving)) Neurologic: AAOx3 Psychiatric: anxious ICD10 Worksheet Patient Problems: Problems Problem Status Onset Acute blood loss anemia Acute S/P tricuspid valve replacement Acute Endocarditis of tricuspid valve Acute Renal failure Acute Hyponatremia Acute Dehydration Acute
[2017-10-10] MEDS: MAG HYDROX/AL HYDROX/SIMETH 30 ML UDCUP PO PRN (14:20)
[2017-10-10] MEDS: VANCOMYCIN HCL/NORMAL SALINE 250 ML IV SCH (15:16)
[2017-10-10] MEDS: oxyCODONE IR 5 MG TAB PO PRN (15:22)
--- NOTE | 2017-10-10 15:25 | ASMTCMCOM ---
CM Note CM Note Notes: Spoke with Jassi Cardiothoracic PA, and it seems like they're now considering a discharge 'home' on IV antibiotics since patient has been cleared by Nephrology (no more HD). I attempted to speak with ID multiple times re: the above but did not receive a response. I spoke with patient and his partner about this, and they agree that the plan seems safe and reasonable. The patient's parents are renting a house in [place], and patient can go there for the duration of his antibiotic therapy. He understands that he'd have to come to [facility] daily for his IV antibiotics, and he agrees to this, as well. I spoke with Director of CM, Christelle, who says that hospital will absorb this cost. [facility] Patient Financial Services are working on trying to get a contract with [place] Medicaid; this would help immensely with any outpatient/discharge needs. Case Management will continue to follow. Date Signed: 10/10/2017 03:24 PM Electronically Signed By:Nicole Stoner RN
[2017-10-10] MEDS ORDERED: WARFARIN SODIUM 5 MG TAB PO SCH (16:00)
[2017-10-11] MEDS: SIMETHICONE 80 MG TAB CHEW PO PRN ×2 (00:11→12:33)
[2017-10-11] MEDS: traMADol 50 MG TAB PO PRN (00:11)
[2017-10-11] MEDS: HEPARIN 5,000 UNIT/0.5 ML INJ SC SCH ×2 (05:32→16:55)
[2017-10-11 06:14] LABS: INR 1.09 (0.83-1.16); PROTIME(PATIENT) 14.3 SEC (12.0-15.0)
--- NOTE | 2017-10-11 07:31 | SOAPPROG ---
SOAP Progress Note Assessment/Plan: POD #25: Tricuspid valve debridement and replacement with #29 Magna bioprosthesis, decortication bilateral pleura POD #24: Mediastinal reexploration and evacuation of left chest hematoma POD #9: Subxiphoid pericardial window/paracentesis Tricuspid valve MRSA endocarditis s/p debridement/replacement with bioprosthesis - Coumadin for thromboprophylaxis, INR goal 2-3, duration 3 months Bilateral loculated effusions s/p decortication with need for reexploration and evacuation of left chest hematoma - Stable Pre-op anemia with post-op acute blood anemia/coagulopathy/hemorrhagic pericardial effusion - See blood bank section for transfusion details MRSA sepsis with septic emboli secondary to IV drug abuse - ABX and further mgmt as per ID ARF - Cr normal, HD stopped - Renal following VDRF - Resolved Ileus - Resolved Left elbow swelling/pain without signs of vascular issues - Resolved Bilateral LE pain - Negative for DVT - Resolved DVT prophylaxis - SCDs/Coumadin Pericardial tamponade with SOB/ascites s/p pericardial window/paracentesis - Stable - [place] to come out prior to dc Disposition - Home today with outpatient ABX/Coumadin mgmt. Subjective: Feels well. Ready to go home. Objective: Vital Signs Temp Pulse Resp BP Pulse Ox 36.6 C 107 H 20 110/73 93 10/11/17 04:05 10/11/17 04:05 10/11/17 04:05 10/11/17 04:05 10/11/17 04:05 Microbiology 09/16/17 09:25 Mycobacterial Smear (STEPHANIE) - Final Heart - Tissue Laboratory Results 10/10/17 08:45 10/11/17 05:35 10/10/17 10/11/17 10/12/17 05:59 05:59 05:59 Intake Total 874 1020 Output Total 900 550 Balance -26 470 PT 14.3 SEC (12.0-15.0) 10/11/17 05:35 INR 1.09 (0.83-1.16) 10/11/17 05:35 Physical Exam - Physical Exam General Appearance: alert, no apparent distress, cachetic EENT: No scleral icterus (R), No scleral icterus (L) Neck: normal inspection Respiratory: No respiratory distress Cardiac/Chest: tachycardia Abdomen: non-tender, soft, distended Skin: warm/dry, embolic lesions Extremities: No pedal edema Neuro/Psych: no motor/sensory deficits, alert, normal mood/affect, oriented x 3 ICD10 Worksheet Patient Problems: Problems Problem Status Onset Acute blood loss anemia Acute Dehydration Acute Endocarditis of tricuspid valve Acute Hyponatremia Acute Renal failure Acute S/P tricuspid valve replacement Acute
[2017-10-11] MEDS ORDERED: POTASSIUM CL 20 MEQ TAB PO ONE (07:32)
[2017-10-11] MEDS: predniSONE 20 MG TAB PO SCH (08:04)
[2017-10-11] MEDS: COLCHICINE 0.6 MG CAP/TAB PO SCH (08:04)
[2017-10-11] MEDS: ASPIRIN 81 MG CHEWABLE TAB PO SCH (08:04)
[2017-10-11] MEDS: METOPROLOL TARTRATE 25 MG TAB PO SCH (08:05)
--- NOTE | 2017-10-11 09:08 | SOAPPROG ---
SOAP Progress Note Assessment/Plan: Assessment: Assessment/Plan: 37 y/o M with h/o IVDA with endocarditis and BRITNEY now s/p pericardial effusion non-oliguric, but uremic requiring dialysis. BRITNEY- likely ATN in setting of septic shock, endocarditis -required dialysis initially then recovering---restarted HD 10/05. HD again 10/06 and 10/07 for additional fluid removal-- HD cath now out -Cr continues to improve- excellent at 1.1 today with good UOP -would continue close lab monitoring as outpt- will be coming daily for antibiotics-- please page us if concerning labs but we will sign off. TV endocarditis- MRSA in cultures, +pulm infarcts -s/p valve replacement 09/16/17, decortication exudative effusion -s/p pericardial window and paracentesis -ID following---vancomycin dosing per pharmacy- following levels given BRITNEY. Plans to continue 6 weeks through 10/28 Minna Coppola MD [facility] [phone] pager 10/11/17 09:10 Subjective: Feeling better, happy to be going home. Family present and they will be with him. He knows he has to come for antibiotics. No sob, n/v. Objective: Vital Signs Temp Pulse Resp BP Pulse Ox 36.6 C 112 H 18 121/84 H 94 10/11/17 08:00 10/11/17 08:00 10/11/17 08:00 10/11/17 08:00 10/11/17 08:00 Microbiology 09/16/17 09:25 Mycobacterial Smear (STEPHANIE) - Final Heart - Tissue Laboratory Results 10/10/17 08:45 10/11/17 05:35 10/10/17 10/11/17 10/12/17 05:59 05:59 05:59 Intake Total 874 1020 Output Total 900 550 Balance -26 470 PT 14.3 SEC (12.0-15.0) 10/11/17 05:35 INR 1.09 (0.83-1.16) 10/11/17 05:35 Physical Exam - Physical Exam General Appearance: no apparent distress EENT: other (mmm) Cardiac/Chest: regular rate, rhythm Skin: other (vasculitis rash on legs stable, excoriation on nasal bridge) Extremities: other (no edema) Neuro/Psych: alert, oriented x 3 ICD10 Worksheet Patient Problems: Problems Problem Status Onset Acute blood loss anemia Acute Dehydration Acute Endocarditis of tricuspid valve Acute Hyponatremia Acute Renal failure Acute S/P tricuspid valve replacement Acute
[2017-10-11 11:59] VITALS: BP 115/73
[2017-10-11] MEDS: MAG HYDROX/AL HYDROX/SIMETH 30 ML UDCUP PO PRN (12:33)
--- NOTE | 2017-10-11 14:40 | PDDCSUM ---
Discharge Summary Discharge Summary: ADMISSION DATE: 09/05/17 DISCHARGE DATE: 10/11/17 DISCHARGE DIAGNOSES 1. Tricuspid valve MRSA endocarditis with septic emboli 2. Bilateral loculated effusions 3. Pre-op and post-op anemia with coagulopathy 4. Acute renal failure 5. Ventilator dependent respiratory failure 6. Ileus 7. Post-op pericardial tamponade 8. Ascites 9. IVDU PROCEDURES 1. 09/16/17: Tricuspid valve debridement and replacement with #29 Magna bioprosthesis, decortication bilateral pleura 2. 09/17/17: Mediastinal reexploration and evacuation of left chest hematoma 3. 10/02/17: Subxiphoid pericardial window/paracentesis CONDITION Fair DISPOSITION Home ACTIVITY Pt was instructed on sternal precautions, activity limitations, and which problems to call [facility] with. Please see Discharge Plan in chart for specifics. DISCHARGE MEDICATIONS Acetaminophen [Tylenol 325mg (*)] 650 mg PO Q4HRS PRN Aspirin [Aspirin 81mg (*)] 81 mg PO DAILY Colchicine [Colchicine (*)] 0.6 mg PO BID 21 Days Metoprolol Tartrate [Lopressor 25 mg (*)] 25 mg PO BID Vancomycin HCl/Normal Saline [Vancomycin 1 gm (Premix)] 1 g IV Q24H (mgmt as per ID) Warfarin Sodium [Coumadin 7.5MG (*)] 7.5 mg PO DAILY AT 4PM (INR goal 2-3, duration 3 months) predniSONE [Prednisone] 10 mg PO (40 mg for 3 days, 30 mg for 3 days, 20 mg for 3 days, 10 mg for 3 days) traMADol [Ultram 50 mg (*)] 50 mg PO Q6HRS PRN PENDING STUDIES/LABS 1. CXR prior to surgical follow-up 2. INR 8 3. Vancomycin levels as per ID FOLLOW-UP 1. Ubaldo Kauffman, 10/17/17, 2:00 PM 2. Armani Patino, 10/17/17, 10:30 AM
[2017-10-11] MEDS: VANCOMYCIN HCL/NORMAL SALINE 250 ML IV SCH (15:00)
[2017-10-11] MEDS ORDERED: WARFARIN SODIUM 7.5 MG TAB PO SCH (16:00)
--- NOTE | 2017-10-11 16:14 | PCMIDPN ---
Assessment/Plan: Assessment/Plan: * MRSA tricuspid valve endocarditis with multifocal soft tissue inflammatory change and septic pulmonary emboli status post tricuspid valve replacement: Now on vancomycin 1 g IV Q 24 hr given marked improvement in renal function with prednisone. Will need to monitor this closely over time to ensure does not accumulate or achieve excessive levels. Patient will return to [address] [place] [address] daily for vancomycin infusion via a peripheral IV which will be placed and removed each day. PICC line will be discontinued prior to hospital discharge given history of injection drug use. Plan 6 weeks of vancomycin post valve replacement with stop date of 10/28/2017. * Leukocytosis: Marked improvement with prednisone therapy. Given this finding , may have been associated with leukocytoclastic vasculitis primarily. Treatment plan discussed with patient today. Emphasized need to avoid recurrent injection drug use or potential risk of significant complication including . 10/11/17 16:11 10/11/17 16:12 Subjective: Patient eager to go home. Notes persistent but improved abdominal distension. Objective: Vital Signs Temp Pulse Resp BP Pulse Ox 36.8 C 110 H 16 115/73 94 10/11/17 11:56 10/11/17 11:56 10/11/17 11:56 10/11/17 11:56 10/11/17 11:56 Microbiology 09/16/17 09:25 Mycobacterial Smear (STEPHANIE) - Final Heart - Tissue Laboratory Results 10/10/17 08:45 10/11/17 05:35 10/10/17 10/11/17 10/12/17 05:59 05:59 05:59 Intake Total 874 1020 Output Total 900 550 Balance -26 470 ESR 11 MM/HR (0-15) 10/05/17 14:40 C-Reactive Protein 70.5 mg/L (<10.0) H 10/05/17 12:00 Vancomycin # 25 (post valve replacement) Laboratory Tests 10/10/17 11:45 Random Vancomycin 10.7 - Physical Exam General Appearance: alert, no apparent distress EENT: No scleral icterus, No thrush, No conjunctival petechiae Respiratory: lungs clear, No respiratory distress Cardiac/Chest: regular rate, rhythm Extremities: No inflammation Abdomen: non-tender, distended Skin: other (Vasculitic rash markedly decreased over hands, knees and feet) ICD10 Worksheet Patient Problems: Problems Problem Status Onset Acute blood loss anemia Acute Dehydration Acute Endocarditis of tricuspid valve Acute Hyponatremia Acute Renal failure Acute S/P tricuspid valve replacement Acute
--- NOTE | 2017-10-11 16:20 | ASMTLACE ---
LACE Length of stay for Answers: 14 days or more current admission Acuity / Level of Answers: Yes Care: Did the patient have an inpatient admission? Comorbidities - select Answers: Mild liver or renal all that apply disease Other Notes: Anemia,hypoalbuminemia # of Emergency department Answers: 1-2 visits in the last 6 months Social determinants Answers: History of substance abuse (ETOH, street drugs, prescription drugs, etc.) Score: 17 Date Signed: 10/11/2017 04:19 PM Electronically Signed By:Kate Marcelino RN
--- NOTE | 2017-10-11 16:25 | HOSPPROG ---
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 Also reviewed the risks of any ongoing substance abuse again with him and he is at this time seems very committed to trying to remain sober and has some good family support. He will be discharged today but will be coming back for daily antibiotics. I will check in with him and the infusion Center over the next few days. 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: Sinus Exam: alert oriented notably more relaxed and energetic than when I last saw him skin warm dry color ok resps not labored lungs diminished breath sounds heart regular abd soft nondistended nontender, bowel sounds present limbs warm, still some edema at feet and ankles iv site ok Objective: Vital Signs Temp Pulse Resp BP Pulse Ox 36.8 C 110 H 16 115/73 94 10/11/17 11:56 10/11/17 11:56 10/11/17 11:56 10/11/17 11:56 10/11/17 11:56 Microbiology 09/16/17 09:25 Mycobacterial Smear (STEPHANIE) - Final Heart - Tissue Laboratory Results 10/10/17 08:45 10/11/17 05:35 10/10/17 10/11/17 10/12/17 06:59 06:59 06:59 Intake Total 874 1020 Output Total 900 550 Balance -26 470 PT 14.3 SEC (12.0-15.0) 10/11/17 05:35 INR 1.09 (0.83-1.16) 10/11/17 05:35 ICD10 Worksheet Patient Problems: Problems Problem Status Onset Acute blood loss anemia Acute Dehydration Acute Endocarditis of tricuspid valve Acute Hyponatremia Acute Renal failure Acute S/P tricuspid valve replacement Acute
--- NOTE | 2017-10-11 16:35 | ASDISCHSUM ---
Discharge Information Plan Status:Home with No Needs Medically Cleared to Leave: Discharge Date: D/C Disposition:Home, Routine, Self-Care ADT D/C Disposition:Home, Routine, Self-Care Projected Discharge Date:10/02/2017 11:00 AM Transportation at D/C:Family Discharge Delay Reason: Follow-Up Date:10/02/2017 11:00 AM Discharge Slot: Final Diagnosis:Opioid W/D, Meth use, MRSA bacteremia, Acute Renal Failure Placement Information Referral Type:*Prison/SNF Referral ID:[id number] Provider Name: Address 1: Phone Number: Address 2: Fax Number: City: Selection Factors: State: Patient Contact Information Contact Name:GEE Relationship:Mother Address: Work Phone: City: Alternate Phone: [facility] Code: Email: Financial Information Financial Class:Medicaid Primary Plan Desc:MANDIE Primary Plan Number:[id number] Secondary Plan Desc:WE CARE Secondary Plan Number:[id number] Assessment Information LACE LACE Length of stay for Answers: 14 days or more current admission Acuity / Level of Answers: Yes Care: Did the patient have an inpatient admission? Comorbidities - select Answers: Mild liver or renal all that apply disease Other Notes: Anemia,hypoalbuminemia # of Emergency department Answers: 1-2 visits in the last 6 months Social determinants Answers: History of substance abuse (ETOH, street drugs, prescription drugs, etc.) Score: 17 Date Signed: 10/11/2017 04:19 PM Electronically Signed By:Kate Marcelino RN [facility] Initial CM Assessment Living Arrangements What is your living Answers: With One Parent arrangement? Who do you live with? Type Of Residence What kind of residence do Answers: House you live in? Type of Residence Facility Name Notes: Patient lists an [place] address and his mother as next of kin. Discharge Plan Comments Coordination Status Comments Notes: Patient is a 37yo male who is from [place], [place] and came to [place] to work a job. Patient has been admitted for hyponatremia, renal failure, and withdrawal. No therapies have been ordered at this time. Patient has a significant hx for chronic opiate tapering on Suboxone and hx of IVDU with meth. Patient is critically ill. D/C plan TBD. CM will follow Date Signed: 09/06/2017 01:22 PM Electronically Signed By:Rachel Castaneda LCSW [facility] TASIA Progress Note CM Note CM Note Notes: Ramona from [employer] states patient has [place] Medicaid but we do not have a contract with [place] so we cannot bill his Medicaid. Ramona has dropped off a manager financial services application for patient's mother in his room. She is aware it is being left there for her. Patient has had increased agitation, CIWA 15 this morning during rounds. Patient being administered medications for withdrawal. Patient may not be eligible for rehab of any kind here in [place]. He can pursue further care in [place] where he has Medicaid. CM is available for consultation. Date Signed: 09/08/2017 04:04 PM Electronically Signed By:Rachel Castaneda LCSW [facility] TASIA Progress Note CM Note CM Note Notes: Left message for Ethics to come on Monday to assist. On admission patient did not want family involved but due to his inability to make decisions, Addressograph Operator to contact his mother for permission to implement medical procedures. At this time she will be his Medical Proxy. Date Signed: 09/10/2017 11:15 AM Electronically Signed By:Lauren Franklin LCSW [facility] Progress Note CM Note CM Note Notes: Medical Proxy Patient on bipap, not following commands a Medical Proxy is needed to make medical decisions. Spkoke to patient's mother and step father in the room and they gave me patient's father's name and phone#. Made contact with these people and they agreed that patient's mother, Ethel Wing cp# [phone] should make medical decisions at this time. Date Signed: 09/10/2017 02:21 PM Electronically Signed By:Lauren Franklin LCSW [facility] Progress Note CM Note CM Note Notes: Met with patient's father, Dominic Colon and patient's girlfriend, Rosa Maria Sanchez, Ethics, Core Shaper Sides and manager java. We discussed the dilema of patient's not wanting his information going to family vs needing a Medical Decision Maker. Father and girlfriend are in favor of patient's mother, Ethel, being the Medical Proxy. They would like patient to be confidential and they will attend "ICU Rounds" and have Ethel fill them in on his medical status and needs. Date Signed: 09/11/2017 02:36 PM Electronically Signed By:ZAYRA FranceW [facility] Progress Note CM Note CM Note Notes: Hoping to extubate patient next week. Patient begun on dialysis.D/C plan remains TBD and is limited by the fact patient only has [place] Medicaid. Patient remains critically ill. CM will follow. Date Signed: 09/14/2017 01:19 PM Electronically Signed By:Rachel Castaneda LCSW [facility] CM Progress Note CM Note CM Note Notes: Patient remains intubated and sedated but is following commands. He is supposed to go to the OR tomorrow for a mitral valve replacement. His family asked me about applying for [place] Medicaid, but since patient is not a [place] resident, he is not eligible. I encouraged them to fill out the Financial Assistance paperwork that was given to them by the financial counselor. I also mentioned that they may want to consider transferring patient back to [place] when he is stable because he has insurance coverage there. They expressed understanding. Date Signed: 09/15/2017 03:07 PM Electronically Signed By:Nicole Stoner RN [facility] CM Progress Note CM Note CM Note Notes: Patient had a valve replacement and washout, on ABX, continues on the vent and getting dialysis. Family would like a "Family Mtg" Monday. Date Signed: 09/18/2017 02:50 PM Electronically Signed By:Lauren Franklin LCSW [facility] CM Progress Note CM Note CM Note Notes: Met with patient's parents today in "Family Meeting". He had just gotten extubated and was talking to family members. They were relieved and grateful of his progress and the care he has received at [facility]. When asked where patient will go after discharge, they thought he would stay in [place] with family until they left at the end of October. Family from [place] which has one of the highest opioid OD rates in the country. They said many of his friends have due to OD. Mother hopes that his uncle might invite him to live in [place]. They feel that he will need Mental Hlth Counseling for support. Referral made to Jazmyn, who works w/the Behavioral Hlth RN. [facility] meeting list will be given to patient as a resource. Date Signed: 09/19/2017 03:00 PM Electronically Signed By:Lauren Franklin LCSW [facility] CM Progress Note CM Note CM Note Notes: Patient was given NA resources. Spoke with Jazmyn Ying, PhD who came to do mental health consult with patient. Patient was too sedated to participate. She will try again. Encouraging family to look for resources in the community they think patient will live. CM available for consult. Date Signed: 09/22/2017 02:52 PM Electronically Signed By:Rachel Castaneda LCSW [facility] CM Progress Note CM Note CM Note Notes: Chart reviewed/Patient POD8 TVR, Dialysis cath removes. Per ID will need 6 weeks of antibiotics. Not entirely sure of disposition at present time. He is currently self pay and not [place] resident. CM to follow. Needs: TBD Date Signed: 09/24/2017 02:36 PM Electronically Signed By:Mag Denton RN [facility] Progress Note CM Note CM Note Notes: 09/26/2017 Case Management Note Met w/pt, eleni Crane [phone] and Mother Shu [phone] to discuss d/c needs. TONI Noriega was present in the room. Pt is current with Medicaid in [place]. Pt was working in [place] with his eleni and mother until November 04. They plan to move onto another job in a dfferent state afterwards. Pt reports sobriety of illicit drugs for approximately 1 year with a recent relapse prior to admission. Pt is not connected to services in [place] for support to maintain sobriety. Pt applied for [facility]. Requested case management check on status of application. Left for financial counseling requesting visit with pt. Pt Father Dominic Colon [phone] out to [place] at d/c to drive Rosa Maria and pt back to [place]. PT discussed travel options with RN Hari who requested pt discuss appropriateness of travel plans at d/c with . Pt recent IV drug use makes d/c with PICC challenging. Informed pt of outpatient infusion clinic services here at [facility]. Rosa Maria and Shu are staying in an air B & B while working in [place]. Pt prefers to return to [place] for IV abx treatment d/t cost. Pt will not qualify for SNF rehab d/t [place] Medicaid. Pt and family are unable to pay for SNF rehab out of pocket. Case Management d/c poc: to be determined. Case Management to follow. Date Signed: 09/26/2017 03:39 PM Electronically Signed By:Kate Marcelino RN [facility] CM Progress Note CM Note CM Note Notes: 09/29/2017 Case Management Note Met w/pt and financee to discuss possible d/c options. RN present in room. Faxed referral to [facility] in [place]. Spoke with Janae Pérez at [phone]. Phone Call from edna Sibley at [phone]. Per Maryjo, pt has [employer], a managed care plan in [place]. Pt will need authorization approved prior to admitting to SNF rehab. 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 Please find all [place] paperwork required for SNF application in hard copy chart including [place] PASRR. Paperwork is not completed yet due to indetermined d/c date. Pt mentioned his Aunt worked at [facility] in the past. There is a second facility called [facility] in his hometown as well. Placement will depend on auth from [employer]. Plan that authorization will take several days after submission of SNF application. SNF placement in [place] is cost prohibitive for family and would not include PT or OT. Pt will not qualify for [place] Medicaid as he is currently open with [place] Medicaid. Pt requested meeting with Financial Counseling. Contacted financial counseling office. Ramona to meet with patient. Case Management d/c poc: to be determined Case Management to follow. Date Signed: 09/29/2017 03:54 PM Electronically Signed By:Kate Marcelino RN [facility] CM Progress Note CM Note CM Note Notes: 09/29/2017 Case Management Note Spoke with Radha from Inpatient Rehab. Unable to take pt due to insurance difficulties. Pt does not have a survey questionnaire designer in [place]. His fiancee sees Dr. Taryn Barba at [facility]. Pt is agreeable to starting care at the [facility] upon return to [place]. Rosa Maria to call on Monday to set up survey questionnaire designer for pt. Date Signed: 09/29/2017 03:57 PM Electronically Signed By:Kate Marcelino RN [facility] CM Progress Note CM Note CM Note Notes: Transferred to ICU due to sepsis. Ascites drained, A & O, up eating, needs contact guard assist when up. Will probably transfer back to [facility] Monday. Date Signed: 10/03/2017 01:03 PM Electronically Signed By:Lauren Franklin LCSW [facility] CM Progress Note CM Note CM Note Notes: Therapies recommending HC and Hm w/24hr supervision. Patient lives with . Has Medicare lives in [place]. Transferred to [facility]. Date Signed: 10/03/2017 01:07 PM Electronically Signed By:Lauren Franklin LCSW [facility] CM Progress Note CM Note CM Note Notes: Erin Baum from [facility] in [facility] would like for us to call about patient. ([phone]) I left a message but have not heard back. CM to call on Monday again and see if we can coordinate with them. CM will follow. Date Signed: 10/06/2017 04:37 PM Electronically Signed By:Rachel Castaneda LCSW [facility] CM Progress Note CM Note CM Note Notes: Chart reviewed. Per notes patient has slow progression s/p pericardial window, CM to follow up with facillity in [place] tomorrow. Erin Baum from [facility] in [facility] would like for us to call about patient. ([phone]) I left a message but have not heard back. CM to call on Monday again and see if we can coordinate with them. CM will follow. Date Signed: 10/08/2017 04:19 PM Electronically Signed By:Mag Denton RN [facility] Progress Note CM Note CM Note Notes: 10/09/2017 Case Management Note Met w/pt, fiancee and mother to discuss possible discharge plan. Pt baby is due in December and pt would like to return to [place] before the child is born. Phone call from Erin Baum in [place] that PASRR will be completed after pt is admitted to [place] SNF facility. Authorization from [place] Medicaid for SNF placement is good for only 24 hours requiring pt to fly back to [place]. [place] Medicaid Transportation phone number is [phone]. Case Management to call on Monday to check if [place] Medicaid will cover transport costs. Phone call to [facility] transport. Bedside to bedside critical care transport to [place] or [place] is $16,010 paid up front. It will be approximately a 2 hour flight and [facility] [employer] will need 24 to 48 hours advance notice. [facility] [employer] [phone] will cost $22,500 credit card payment up front. Left a VM at [employer] [phone] and [employer] [phone] requesting a quote. Contacted [employer] at [phone], awaiting call back. Case Management d/c poc: to be determined. Case Management to follow. Date Signed: 10/09/2017 04:34 PM Electronically Signed By:Kate Marcelino RN [facility] Progress Note CM Note CM Note Notes: Spoke with Jassi Cardiothoracic PA, and it seems like they're now considering a discharge 'home' on IV antibiotics since patient has been cleared by Nephrology (no more HD). I attempted to speak with ID multiple times re: the above but did not receive a response. I spoke with patient and his partner about this, and they agree that the plan seems safe and reasonable. The patient's parents are renting a house in [place], and patient can go there for the duration of his antibiotic therapy. He understands that he'd have to come to [facility] daily for his IV antibiotics, and he agrees to this, as well. I spoke with Director of , Christelle, who says that hospital will absorb this cost. [facility] Patient Financial Services are working on trying to get a contract with [place] Medicaid; this would help immensely with any outpatient/discharge needs. Case Management will continue to follow. Date Signed: 10/10/2017 03:24 PM Electronically Signed By:Nicole Stoner RN Case Management Discharge Plan Note Case Management Discharge Discharge Order Complete? Answers: Yes Patient to Obtain Answers: via Family Medications Transportation Arranged Answers: Family/Friends Discharge Comments Notes: 10/11/2017 Case Management Note Arranged appointment at outpatient infusion center for October 12 at 12:00 pm. Informed pt of need to arrive 30 minutes early and to check in at admissions on the first floor. Secured appointment at 10:00 on Monday for outpatient infusion center. Per pharmacy, pt will have INR drawn at 9:30 at the coumadin clinic pn Monday. Encouraged pt eleni to fill prescriptions through [facility] on the first floor. She was to provide pt birthday and social security number in the hopes that [place] Medicaid would cover medication costs. Pt agreed to pay belle if necessary for medications. Pt to stay with his eleni, mother and step father in [place] at their air bnb and return daily to the outpatient infusion center for his IV vanco. Date Signed: 10/11/2017 04:19 PM Electronically Signed By:Kate Marcelino RN Intervention Information
--- NOTE | 2017-10-16 14:50 | PQFORM ---
PHYSICIAN QUERY FORM Needs Your Response This query form is being sent to you to assure this patient record is coded properly. 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 Did this patient have Sepsis/Septic Shock? _x__ Yes ___ No ___ Other Please Specify ) ___ Unable to Determine Thank You Johanny CASANOVA Water Quality Control Engineer INSTRUCTIONS FOR RESPONSE: Answer question by clicking on the "Edit Document" button. Move cursor to area below the stars. When complete, hit "Save." Click on the "Sign" button, then click "Sign" again. Type in your PIN and hit "Enter." MTDD
--- NOTE | 2017-10-16 14:53 | PQFORM ---
PHYSICIAN QUERY FORM Needs Your Response This query form is being sent to you to assure this patient record is coded properly. Please respond to the question below: BRASS BUFFER QUESTION: Dr Kauffman Patient had Evacuation of a chest wall hematoma. Would you consider this hematoma to be a Complication Surgery? x ___ Yes ___ No ___ Other (please specify ) ___ Unable to determine Thank You Johanny CASANOVA Band Master INSTRUCTIONS FOR RESPONSE: Answer question by clicking on the "Edit Document" button. Move cursor to area below the stars. When complete, hit "Save." Click on the "Sign" button, then click "Sign" again. Type in your PIN and hit "Enter." MTDD
== END 2017-10-11 16:49 | disposition home or self-care (01) | DRG 710 ==
LOC: EEVIPCON 21:28 → F2N 23:06 → UNDODISIN 09-13 13:40 → F2W 09-23 16:54 → F2N 10-02 14:17 → F2W 10-07 15:35
PROVIDERS: ADMIT Thoracic Surgery (Cardiothoracic Vascular Surgery); ATTEND Thoracic Surgery (Cardiothoracic Vascular Surgery)
PROC: 0W9B3ZX Drainage of Left Pleural Cavity, Percutaneous Approach, Diagnostic (ICD-10-PCS; 2017-09-10)
PROC: 0W993ZX Drainage of Right Pleural Cavity, Percutaneous Approach, Diagnostic (ICD-10-PCS; 2017-09-10)
PROC: 5A1955Z Respiratory Ventilation, Greater than 96 Consecutive Hours (ICD-10-PCS; 2017-09-12)
PROC: 0BH18EZ Insertion of Endotracheal Airway into Trachea, Via Natural or Artificial Opening Endoscopic (ICD-10-PCS; 2017-09-12)
PROC: 0B9P00Z Drainage of Left Pleura with Drainage Device, Open Approach (ICD-10-PCS; principal; 2017-09-16 08:00)
PROC: 0B9N00Z Drainage of Right Pleura with Drainage Device, Open Approach (ICD-10-PCS; principal; 2017-09-16 08:00)
PROC: 5A1221Z Performance of Cardiac Output, Continuous (ICD-10-PCS; principal; 2017-09-16 08:00)
PROC: 0BCP0ZZ Extirpation of Matter from Left Pleura, Open Approach (ICD-10-PCS; principal; 2017-09-16 08:00)
PROC: 0BCN0ZZ Extirpation of Matter from Right Pleura, Open Approach (ICD-10-PCS; principal; 2017-09-16 08:00)
PROC: 02RJ08Z Replacement of Tricuspid Valve with Zooplastic Tissue, Open Approach (ICD-10-PCS; principal; 2017-09-16 08:00)
PROC: 0JC60ZZ Extirpation of Matter from Chest Subcutaneous Tissue and Fascia, Open Approach (ICD-10-PCS; 2017-09-17)
PROC: 02HV33Z Insertion of Infusion Device into Superior Vena Cava, Percutaneous Approach (ICD-10-PCS; 2017-09-20)
PROC: 0W9D0ZZ Drainage of Pericardial Cavity, Open Approach (ICD-10-PCS; 2017-10-02)
PROC: 0W9G0ZX Drainage of Peritoneal Cavity, Open Approach, Diagnostic (ICD-10-PCS; 2017-10-02)
PROC: 05HM33Z Insertion of Infusion Device into Right Internal Jugular Vein, Percutaneous Approach (ICD-10-PCS; 2017-10-05)
PROC: 5A1D70Z Performance of Urinary Filtration, Intermittent, Less than 6 Hours Per Day (ICD-10-PCS; 2017-10-05)
DX: A41.02 Sepsis due to Methicillin resistant Staphylococcus aureus (principal); R65.21 Severe sepsis with septic shock; I36.8 Other nonrheumatic tricuspid valve disorders; I26.90 Septic pulmonary embolism without acute cor pulmonale; I31.4 Cardiac tamponade; G93.40 Encephalopathy, unspecified; J96.01 Acute respiratory failure with hypoxia; J18.9 Pneumonia, unspecified organism; J90 Pleural effusion, not elsewhere classified; L76.32 Postprocedural hematoma of skin and subcutaneous tissue following other procedure; E87.4 Mixed disorder of acid-base balance; R18.8 Other ascites; K56.7 Ileus, unspecified; D62 Acute posthemorrhagic anemia; N39.0 Urinary tract infection, site not specified; N17.9 Acute kidney failure, unspecified; E87.1 Hypo-osmolality and hyponatremia; E83.51 Hypocalcemia; E87.6 Hypokalemia; E86.0 Dehydration; M00.89 Polyarthritis due to other bacteria; F11.23 Opioid dependence with withdrawal; F15.10 Other stimulant abuse, uncomplicated; F17.210 Nicotine dependence, cigarettes, uncomplicated; B19.20 Unspecified viral hepatitis C without hepatic coma
CPT/HCPCS: 80305; 82595-90; 82947-QW; 83516-90; 83520-90; 86225-90; 86255-90; 92507-GN; 92523-GN; 92526-GN; 92610-GN; 97110-GP; 97112-GO; 97116-GP; 97163-GP; 97167-GO; 97168-GO; 97530-GO; 97530-GP; 97535-GO; C1750; C1751; G0472; G0480; J0153; J0171; J0282; J0330; J0360; J0610; J0690; J0696; J0885; J1100; J1170; J1265; J1335; J1642; J1644; J1815; J1940; J2001; J2060; J2150; J2260; J2270; J2370; J2405; J2704; J2720; J2760; J2765; J2930; J2997; J3010; J3370; J3411; J3430; J3475; J3480; J7060; J7512; P9016; P9017; P9021; P9035; P9041; P9047; P9100; Q9967

== ENCOUNTER → 2017-10-17 | Outpatient (CLI) | payer MEDICAID, OTHER | LOC: FIMAGING 11:36 | PROVIDERS: ATTEND Thoracic Surgery (Cardiothoracic Vascular Surgery) | DX: Z09 Encounter for follow-up examination after completed treatment for conditions other than malignant neoplasm (principal); J98.11 Atelectasis; J90 Pleural effusion, not elsewhere classified; Z98.890 Other specified postprocedural states; Z95.4 Presence of other heart-valve replacement ==